=== PATIENT | male | born 1950 | race Caucasian/White ===

== ENCOUNTER 2017-06-29 09:30 | Outpatient (RCR) | payer MEDICARE, OTHER, SELFPAY | END 2017-07-06 23:59 | LOC: DC 09:30 | PROVIDERS: Family Provider Family Medicine Geriatric Medicine; PCP Family Medicine Geriatric Medicine; Visit Provider Family Medicine Geriatric Medicine | DX: E11.9 Type 2 diabetes mellitus without complications (principal); Z71.3 Dietary counseling and surveillance | CPT/HCPCS: 97802; G0109 ==

== ENCOUNTER 2017-07-26 09:30 | Outpatient (RCR) | payer MEDICARE, OTHER, SELFPAY | END 2017-08-03 23:59 | LOC: DC 09:30 | PROVIDERS: Family Provider Family Medicine Geriatric Medicine; PCP Family Medicine Geriatric Medicine; Visit Provider Family Medicine Geriatric Medicine | DX: E11.9 Type 2 diabetes mellitus without complications (principal); Z71.3 Dietary counseling and surveillance | CPT/HCPCS: 97803; G0109 ==

== ENCOUNTER → 2017-08-26 08:53 | Outpatient (CLI) | payer MEDICARE, OTHER, SELFPAY ==
[2017-08-26 10:56] LABS: Absolute Lymphocyte Count 2.34 X10^3/ul (0.83-4.51); Absolute Neutrophil Count 7.4 X10^3/uL (2.0-7.7); Basophil# 0.03 X10^3/uL; Basophil% 0.3 % (0-1); Eosinophil# 0.35 X10^3/uL; Eosinophils% 3.1 % (0-5); Hematocrit 44.7 % (40-54); Hemoglobin 14.1 g/dl (13.0-16.5); Lymphocyte # 2.34 X10^3/ul (4.0); Lymphocyte % 20.9 % (19-41); Mean Corp Hgb Conc 31.5 g/gl (32-36); Mean Corpuscular Volume 88.9 fL (80-94); Mean Platelet Vol. 11.8 fl (6.2-12.0); Monocyte% 9.8 % (0-10); Neutrophil # 7.36 X10^3/uL (2.7-7.7); Neutrophil % 65.5 % (47-70); POSITIVE COUNT NO; POSITIVE DIFFERENTIAL NO; POSITIVE MORPHOLOGY NO; Platelet Count 203 K/mm3 (150-450); RBC Distribution Width CV 15.2 % (11.6-14.6); RBC Distribution Width SD 48.6 fl (35.1-43.9); Red Blood Count 5.03 M/mm3 (4.6-6.2); White Blood Count 11.2 K/mm3 (4.4-11.0)
[2017-08-26 11:33] LABS: ALB/GLOB Ratio 0.7 RATIO (0.9-2.4); AST(SGOT) 18 U/L (15-37); Alanine Aminotransfer ALT/SGPT 22 U/L (16-61); Albumin, Serum 3.1 g/dL (3.2-5.0); Alkaline Phosphatase 76 U/L (45-117); Anion Gap 8 (5-15); BUN 26 mg/dL (7-18); BUN/Creat Ratio 19.3 RATIO (10-20); Calcium,Total 8.8 mg/dL (8.5-10.1); Chloride 105 mmol/L (98-107); Creatinine, Serum 1.35 mg/dL (0.70-1.30); EST Glomerular Filtration Rate 56 mL/min (>60); Est Glom Filt Rate - Afr Amer 68 mL/min (>60); Globulin 4.5 g/dL (2.2-4.2); Glucose 167 mg/dL (74-106); Potassium 3.9 mmol/L (3.5-5.1); Protein, Total 7.6 g/dL (6.4-8.2); Sodium Level 139 mmol/L (136-145); Thyroid Stim Hormone (TSH) 0.92 uIU/mL (0.358-3.74)
== END ==
PROVIDERS: Family Provider Family Medicine Geriatric Medicine; PCP Family Medicine Geriatric Medicine; Visit Provider Family Medicine Geriatric Medicine
DX: E11.9 Type 2 diabetes mellitus without complications (principal); E55.9 Vitamin D deficiency, unspecified; I10 Essential (primary) hypertension
CPT/HCPCS: 36415; 80053; 82306; 84443; 85025

== ENCOUNTER → 2017-11-25 09:14 | Outpatient (CLI) | payer MEDICARE, OTHER, SELFPAY ==
[2017-11-25 12:03] LABS: Absolute Neutrophil Count 7.7 X10^3/uL (2.0-7.7); Basophil# 0.02 X10^3/uL; Basophil% 0.2 % (0-1); Eosinophil# 0.16 X10^3/uL; Eosinophils% 1.5 % (0-5); Hematocrit 45.8 % (40-54); Hemoglobin 14.2 g/dl (13.0-16.5); Mean Corpuscular Hgb 27.8 pg (27.0-32.0); Mean Corpuscular Volume 89.8 fL (80-94); Mean Platelet Vol. 12.3 fl (6.2-12.0); Monocyte# 0.85 X10^3/uL; Neutrophil % 72.9 % (47-70); Platelet Count 171 K/mm3 (150-450); RBC Distribution Width CV 15.9 % (11.6-14.6); RBC Distribution Width SD 52.1 fl (35.1-43.9); White Blood Count 10.6 K/mm3 (4.4-11.0)
[2017-11-25 12:07] LABS: POSITIVE COUNT NO; POSITIVE DIFFERENTIAL NO; POSITIVE MORPHOLOGY NO
[2017-11-25 12:37] LABS: ALB/GLOB Ratio 0.7 RATIO (0.9-2.4); AST(SGOT) 18 U/L (15-37); Alanine Aminotransfer ALT/SGPT 29 U/L (16-61); Albumin, Serum 3.1 g/dL (3.2-5.0); Alkaline Phosphatase 92 U/L (45-117); Anion Gap 10 (5-15); BUN 29 mg/dL (7-18); BUN/Creat Ratio 23.4 RATIO (10-20); Calcium,Total 8.9 mg/dL (8.5-10.1); Chloride 103 mmol/L (98-107); Creatinine, Serum 1.24 mg/dL (0.70-1.30); EST Glomerular Filtration Rate 62 mL/min (>60); Est Glom Filt Rate - Afr Amer 75 mL/min (>60); Globulin 4.3 g/dL (2.2-4.2); Glucose 167 mg/dL (74-106); Potassium 3.6 mmol/L (3.5-5.1); Protein, Total 7.4 g/dL (6.4-8.2); Sodium Level 140 mmol/L (136-145); Thyroid Stim Hormone (TSH) 0.56 uIU/mL (0.358-3.74)
== END ==
PROVIDERS: Family Provider Family Medicine Geriatric Medicine; PCP Family Medicine Geriatric Medicine; Visit Provider Family Medicine Geriatric Medicine
DX: E11.9 Type 2 diabetes mellitus without complications (principal); E55.9 Vitamin D deficiency, unspecified; I10 Essential (primary) hypertension
CPT/HCPCS: 36415; 80053; 82306; 84443; 85025

== ENCOUNTER → 2018-03-02 15:28 | Outpatient (CLI) | payer MEDICARE, OTHER, SELFPAY ==
[2018-03-02 17:10] LABS: Absolute Lymphocyte Count 2.17 X10^3/ul (0.83-4.51); Absolute Neutrophil Count 8.7 X10^3/uL (2.0-7.7); Basophil# 0.03 X10^3/uL; Basophil% 0.2 % (0-1); Eosinophil# 0.18 X10^3/uL; Eosinophils% 1.5 % (0-5); Hemoglobin 13.9 g/dl (13.0-16.5); Lymphocyte # 2.17 X10^3/ul (4.0); Lymphocyte % 17.5 % (19-41); Mean Corp Hgb Conc 32.3 g/gl (32-36); Mean Corpuscular Hgb 29.2 pg (27.0-32.0); Mean Corpuscular Volume 90.3 fL (80-94); Mean Platelet Vol. 12.3 fl (6.2-12.0); Monocyte# 1.31 X10^3/uL; Monocyte% 10.6 % (0-10); Neutrophil # 8.67 X10^3/uL (2.7-7.7); Platelet Count 182 K/mm3 (150-450); RBC Distribution Width CV 15.1 % (11.6-14.6); RBC Distribution Width SD 49.3 fl (35.1-43.9); Red Blood Count 4.76 M/mm3 (4.6-6.2); White Blood Count 12.4 K/mm3 (4.4-11.0)
[2018-03-02 17:18] LABS: POSITIVE COUNT NO; POSITIVE DIFFERENTIAL NO; POSITIVE MORPHOLOGY NO
[2018-03-02 17:24] LABS: Vitamin D,25 Hydroxy 30.5 ng/mL (29.95-100.01)
[2018-03-02 17:27] LABS: ALB/GLOB Ratio 0.9 RATIO (0.9-2.4); AST(SGOT) 42 U/L (15-37); Alanine Aminotransfer ALT/SGPT 40 U/L (16-61); Albumin, Serum 3.8 g/dL (3.2-5.0); Alkaline Phosphatase 102 U/L (45-117); Anion Gap 9 (5-15); BUN 19 mg/dL (7-18); BUN/Creat Ratio 18.6 RATIO (10-20); Calcium,Total 9.5 mg/dL (8.5-10.1); Chloride 104 mmol/L (98-107); Creatinine, Serum 1.02 mg/dL (0.70-1.30); EST Glomerular Filtration Rate 78 mL/min (>60); Est Glom Filt Rate - Afr Amer 94 mL/min (>60); Globulin 4.3 g/dL (2.2-4.2); Glucose 108 mg/dL (74-106); Potassium 3.8 mmol/L (3.5-5.1); Protein, Total 8.1 g/dL (6.4-8.2); Sodium Level 139 mmol/L (136-145); Thyroid Stim Hormone (TSH) 2.75 uIU/mL (0.358-3.74)
== END ==
PROVIDERS: Family Provider Family Medicine Geriatric Medicine; PCP Family Medicine Geriatric Medicine; Visit Provider Family Medicine Geriatric Medicine
DX: E11.9 Type 2 diabetes mellitus without complications (principal); E55.9 Vitamin D deficiency, unspecified; I10 Essential (primary) hypertension
CPT/HCPCS: 36415; 80053; 82306; 84443; 85025

== ENCOUNTER 2018-05-10 16:31 | Outpatient (RCR) | payer MEDICARE, OTHER, SELFPAY | END 2018-05-10 23:59 | LOC: DC 16:31 | PROVIDERS: Family Provider Family Medicine Geriatric Medicine; PCP Family Medicine Geriatric Medicine; Visit Provider Family Medicine Geriatric Medicine | DX: E11.9 Type 2 diabetes mellitus without complications (principal); Z71.3 Dietary counseling and surveillance | CPT/HCPCS: G0109 ==

== ENCOUNTER → 2018-10-26 | Outpatient (CLI) | payer MEDICARE, OTHER, SELFPAY ==
[2018-10-26 17:34] LABS: Absolute Lymphocyte Count 2.25 X10^3/ul (0.83-4.51); Absolute Neutrophil Count 6.1 X10^3/uL (2.0-7.7); Basophil# 0.02 X10^3/uL; Basophil% 0.2 % (0-1); Eosinophil# 0.13 X10^3/uL; Eosinophils% 1.4 % (0-5); Hematocrit 43.3 % (40-54); Hemoglobin 13.7 g/dl (13.0-16.5); Lymphocyte # 2.25 X10^3/ul (4.0); Lymphocyte % 24.2 % (19-41); Mean Corp Hgb Conc 31.6 g/gl (32-36); Mean Corpuscular Hgb 28.2 pg (27.0-32.0); Mean Corpuscular Volume 89.1 fL (80-94); Mean Platelet Vol. 12.5 fl (6.2-12.0); Monocyte# 0.83 X10^3/uL; Monocyte% 8.9 % (0-10); Neutrophil # 6.07 X10^3/uL (2.7-7.7); Neutrophil % 65.2 % (47-70); Platelet Count 193 K/mm3 (150-450); RBC Distribution Width CV 15.5 % (11.6-14.6); RBC Distribution Width SD 50.1 fl (35.1-43.9); Red Blood Count 4.86 M/mm3 (4.6-6.2); White Blood Count 9.3 K/mm3 (4.4-11.0)
[2018-10-26 17:36] LABS: POSITIVE COUNT NO; POSITIVE DIFFERENTIAL NO; POSITIVE MORPHOLOGY NO
[2018-10-26 17:55] LABS: Vitamin D,25 Hydroxy 45.6 ng/mL (29.95-100.01)
[2018-10-26 17:59] LABS: ALB/GLOB Ratio 0.8 RATIO (0.9-2.4); AST(SGOT) 18 U/L (15-37); Alanine Aminotransfer ALT/SGPT 29 U/L (16-61); Albumin, Serum 3.1 g/dL (3.2-5.0); Alkaline Phosphatase 95 U/L (45-117); Anion Gap 6 (5-15); BUN 26 mg/dL (7-18); BUN/Creat Ratio 18.8 RATIO (10-20); Calcium,Total 8.8 mg/dL (8.5-10.1); Chloride 104 mmol/L (98-107); Creatinine, Serum 1.38 mg/dL (0.70-1.30); EST Glomerular Filtration Rate 55 mL/min (>60); Est Glom Filt Rate - Afr Amer 66 mL/min (>60); Glucose 213 mg/dL (74-106); Potassium 3.9 mmol/L (3.5-5.1); Protein, Total 7.1 g/dL (6.4-8.2); Sodium Level 141 mmol/L (136-145); Thyroid Stim Hormone (TSH) 0.51 uIU/mL (0.358-3.74)
== END | disposition home or self-care (01) ==
LOC: POLAB3 15:26
PROVIDERS: Family Provider Family Medicine Geriatric Medicine; PCP Family Medicine Geriatric Medicine; Visit Provider Family Medicine Geriatric Medicine
DX: E11.9 Type 2 diabetes mellitus without complications (principal); E55.9 Vitamin D deficiency, unspecified; I10 Essential (primary) hypertension
CPT/HCPCS: 36415; 80053; 82306; 84443; 85025

== ENCOUNTER → 2019-05-07 16:07 | Outpatient (CLI) | payer MEDICARE, OTHER, SELFPAY ==
[2019-05-07 17:42] LABS: Absolute Lymphocyte Count 2.63 X10^3/uL (0.83-4.51); Absolute Neutrophil Count 7.8 X10^3/uL (2.0-7.7); Basophil# 0.05 X10^3/uL; Basophil% 0.4 % (0-1); Eosinophil# 0.19 X10^3/uL; Eosinophils% 1.6 % (0-5); Hematocrit 44.6 % (40-54); Hemoglobin 13.9 g/dL (13.0-16.5); Lymphocyte # 2.63 X10^3/ul (4.0); Mean Corp Hgb Conc 31.2 g/dL (32-36); Mean Corpuscular Hgb 28.6 pg (27.0-32.0); Mean Corpuscular Volume 91.8 fL (80-94); Mean Platelet Vol. 12.3 fl (6.2-12.0); Monocyte# 1.24 X10^3/uL; Monocyte% 10.4 % (0-10); NRBC Flagged by Analyzer 0 % (0-5); Neutrophil # 7.81 X10^3/uL (2.7-7.7); Neutrophil % 65.2 % (47-70); Platelet Count 184 K/mm3 (150-450); RBC Distribution Width SD 54.2 fl (35.1-43.9); Red Blood Count 4.86 M/mm3 (4.6-6.2)
[2019-05-07 18:01] LABS: ALB/GLOB Ratio 0.8 RATIO (0.9-2.4); AST(SGOT) 24 U/L (15-37); Alanine Aminotransfer ALT/SGPT 28 U/L (16-61); Albumin, Serum 3.1 g/dL (3.2-5.0); Alkaline Phosphatase 90 U/L (45-117); Anion Gap 7 (5-15); BUN 35 mg/dL (7-18); BUN/Creat Ratio 27.8 RATIO (10-20); Calcium,Total 8.9 mg/dL (8.5-10.1); Chloride 106 mmol/L (98-107); Creatinine, Serum 1.26 mg/dL (0.70-1.30); EST Glomerular Filtration Rate 61 mL/min (>60); Est Glom Filt Rate - Afr Amer 73 mL/min (>60); Glucose 69 mg/dL (74-106); PSA,Total - Annual Screen 1.92 ng/mL (0.00-4.00); Potassium 3.7 mmol/L (3.5-5.1); Protein, Total 7.1 g/dL (6.4-8.2); Sodium Level 139 mmol/L (136-145); Thyroid Stim Hormone (TSH) 0.47 uIU/mL (0.358-3.74)
[2019-05-08 10:03] LABS: Vitamin D,25 Hydroxy 49.5 ng/mL (29.95-100.01)
== END ==
PROVIDERS: Family Provider Family Medicine Geriatric Medicine; PCP Family Medicine Geriatric Medicine; Visit Provider Family Medicine Geriatric Medicine
DX: E11.9 Type 2 diabetes mellitus without complications (principal); E55.9 Vitamin D deficiency, unspecified; Z12.5 Encounter for screening for malignant neoplasm of prostate; I10 Essential (primary) hypertension
CPT/HCPCS: 36415; 80053; 82306; 84153; 84443; 85025; G0103

== ENCOUNTER → 2019-08-06 09:39 | Outpatient (CLI) | payer MEDICARE, OTHER, SELFPAY ==
[2019-08-06 12:27] LABS: Absolute Lymphocyte Count 2.04 X10^3/uL (0.83-4.51); Absolute Neutrophil Count 10.8 X10^3/uL (2.0-7.7); Basophil# 0.05 X10^3/uL; Basophil% 0.3 % (0-1); Eosinophils% 1.4 % (0-5); Hematocrit 46.3 % (40-54); Hemoglobin 14.3 g/dL (13.0-16.5); Lymphocyte # 2.04 X10^3/ul (4.0); Lymphocyte % 14.2 % (19-41); Mean Corp Hgb Conc 30.9 g/dL (32-36); Mean Corpuscular Hgb 27.7 pg (27.0-32.0); Mean Corpuscular Volume 89.7 fL (80-94); Mean Platelet Vol. 12.3 fl (6.2-12.0); Monocyte# 1.21 X10^3/uL; Monocyte% 8.4 % (0-10); NRBC Flagged by Analyzer 0 % (0-5); Neutrophil # 10.78 X10^3/uL (2.7-7.7); Neutrophil % 75.2 % (47-70); Platelet Count 184 K/mm3 (150-450); RBC Distribution Width CV 15.7 % (11.6-14.6); RBC Distribution Width SD 51.5 fl (35.1-43.9); Red Blood Count 5.16 M/mm3 (4.6-6.2); White Blood Count 14.4 K/mm3 (4.4-11.0)
[2019-08-06 12:35] LABS: Vitamin D,25 Hydroxy 34.6 ng/mL
[2019-08-06 12:47] LABS: ALB/GLOB Ratio 0.8 RATIO (0.9-2.4); AST(SGOT) 21 U/L (15-37); Alanine Aminotransfer ALT/SGPT 27 U/L (16-61); Albumin, Serum 3.3 g/dL (3.2-5.0); Alkaline Phosphatase 94 U/L (45-117); Anion Gap 9 (5-15); BUN 27 mg/dL (7-18); BUN/Creat Ratio 20.8 RATIO (10-20); Calcium,Total 9.4 mg/dL (8.5-10.1); Chloride 104 mmol/L (98-107); EST Glomerular Filtration Rate 58 mL/min (>60); Est Glom Filt Rate - Afr Amer 71 mL/min (>60); Globulin 4.2 g/dL (2.2-4.2); Glucose 134 mg/dL (74-106); Potassium 3.7 mmol/L (3.5-5.1); Protein, Total 7.5 g/dL (6.4-8.2); Sodium Level 141 mmol/L (136-145); Thyroid Stim Hormone (TSH) 0.66 uIU/mL (0.358-3.74)
== END ==
PROVIDERS: PCP Family Medicine Geriatric Medicine; Visit Provider Family Medicine Geriatric Medicine
DX: E11.9 Type 2 diabetes mellitus without complications (principal); I10 Essential (primary) hypertension; E55.9 Vitamin D deficiency, unspecified
CPT/HCPCS: 36415; 80053; 82306; 84443; 85025

== ENCOUNTER → 2019-11-06 10:36 | Outpatient (CLI) | payer MEDICARE, OTHER, SELFPAY ==
[2019-11-06 12:10] LABS: Absolute Lymphocyte Count 2.51 X10^3/uL (0.83-4.51); Absolute Neutrophil Count 8.9 X10^3/uL (2.0-7.7); Basophil# 0.05 X10^3/uL; Basophil% 0.4 % (0-1); Eosinophil# 0.18 X10^3/uL; Eosinophils% 1.4 % (0-5); Hematocrit 43.2 % (40-54); Hemoglobin 13.6 g/dL (13.0-16.5); Lymphocyte # 2.51 X10^3/ul (4.0); Lymphocyte % 19.4 % (19-41); Mean Corp Hgb Conc 31.5 g/dL (32-36); Mean Corpuscular Hgb 28.6 pg (27.0-32.0); Mean Corpuscular Volume 90.9 fL (80-94); Mean Platelet Vol. 12.2 fl (6.2-12.0); Monocyte% 9.3 % (0-10); NRBC Flagged by Analyzer 0.2 % (0-5); Neutrophil # 8.91 X10^3/uL (2.7-7.7); Platelet Count 193 K/mm3 (150-450); RBC Distribution Width CV 14.8 % (11.6-14.6); RBC Distribution Width SD 49.5 fl (35.1-43.9); Red Blood Count 4.75 M/mm3 (4.6-6.2); White Blood Count 12.9 K/mm3 (4.4-11.0)
[2019-11-06 12:33] LABS: Vitamin D,25 Hydroxy 31.4 ng/mL
[2019-11-06 12:39] LABS: ALB/GLOB Ratio 0.7 RATIO (0.9-2.4); AST(SGOT) 19 U/L (15-37); Alanine Aminotransfer ALT/SGPT 32 U/L (16-61); Alkaline Phosphatase 100 U/L (45-117); Anion Gap 10 (5-15); BUN 25 mg/dL (7-18); BUN/Creat Ratio 19.7 RATIO (10-20); Chloride 101 mmol/L (98-107); Creatinine, Serum 1.27 mg/dL (0.70-1.30); EST Glomerular Filtration Rate 60 mL/min (>60); Est Glom Filt Rate - Afr Amer 73 mL/min (>60); Globulin 4.1 g/dL (2.2-4.2); Glucose 197 mg/dL (74-106); Potassium 3.6 mmol/L (3.5-5.1); Protein, Total 7.1 g/dL (6.4-8.2); Sodium Level 138 mmol/L (136-145); Thyroid Stim Hormone (TSH) 0.46 uIU/mL (0.358-3.74)
== END ==
PROVIDERS: PCP Family Medicine Geriatric Medicine; Visit Provider Family Medicine Geriatric Medicine
DX: E11.9 Type 2 diabetes mellitus without complications (principal); I10 Essential (primary) hypertension; E55.9 Vitamin D deficiency, unspecified
CPT/HCPCS: 36415; 80053; 82306; 84443; 85025

== ENCOUNTER → 2020-02-13 09:07 | Outpatient (CLI) | payer MEDICARE, OTHER, SELFPAY ==
--- NOTE | 2020-02-13 13:20 | NEURO ---
NCS and/or EMG Patient Report Ordering Doctor: Dhruv Ward Chi DATE OF SERVICE: 02/13/20 Jesus Cochran is a 69 year old male who presents for electrodiagnostic testing of the upper limbs. He reports numbness and tingling in both hands. Electrodiagnostic findings: Median motor nerve demonstrates prolonged distal latency with normal amplitude and conduction velocity bilaterally. Ulnar motor responses within normal limits bilaterally. Normal median and ulnar F waves. Median sensory latency at the wrist is prolonged bilaterally. Prolonged median palmar latency is noted. Normal ulnar and radial sensory responses. On needle EMG, all muscles tested in the upper limbs showed no evidence of denervation with normal motor unit action potentials. Electrodiagnostic assessment: This is an abnormal study in the upper limbs. 1. Electrodiagnostic findings demonstrate bilateral median mononeuropathy. This is consistent with a mild to moderate bilateral carpal tunnel syndrome. If there are any further questions, please not hesitate to contact me.
== END ==
PROVIDERS: PCP Family Medicine Geriatric Medicine; Referring Provider Family Medicine Geriatric Medicine; Visit Provider Family Medicine Geriatric Medicine
DX: R20.9 Unspecified disturbances of skin sensation (principal); R20.2 Paresthesia of skin
CPT/HCPCS: 95886; 95913

== ENCOUNTER → 2020-03-19 11:25 | Outpatient (CLI) | payer MEDICARE, OTHER, SELFPAY ==
[2020-03-19 12:06] LABS: Absolute Lymphocyte Count 2.27 X10^3/uL (0.83-4.51); Absolute Neutrophil Count 9.5 X10^3/uL (2.0-7.7); Basophil# 0.03 X10^3/uL; Basophil% 0.2 % (0-1); Eosinophil# 0.15 X10^3/uL; Eosinophils% 1.1 % (0-5); Hematocrit 42.4 % (40-54); Hemoglobin 13.2 g/dL (13.0-16.5); Lymphocyte # 2.27 X10^3/ul (4.0); Lymphocyte % 17.3 % (19-41); Mean Corp Hgb Conc 31.1 g/dL (32-36); Mean Corpuscular Hgb 28.4 pg (27.0-32.0); Mean Corpuscular Volume 91.2 fL (80-94); Mean Platelet Vol. 12.8 fl (6.2-12.0); Monocyte# 1.06 X10^3/uL; Monocyte% 8.1 % (0-10); NRBC Flagged by Analyzer 0 % (0-5); Neutrophil # 9.54 X10^3/uL (2.7-7.7); Neutrophil % 72.9 % (47-70); Platelet Count 185 K/mm3 (150-450); RBC Distribution Width CV 15.3 % (11.6-14.6); RBC Distribution Width SD 50.7 fl (35.1-43.9); Red Blood Count 4.65 M/mm3 (4.6-6.2); White Blood Count 13.1 K/mm3 (4.4-11.0)
[2020-03-19 12:47] LABS: Vitamin D,25 Hydroxy 44.5 ng/mL
[2020-03-19 12:52] LABS: BUN 30 mg/dL (7-18); Creatinine, Serum 1.37 mg/dL (0.70-1.30); Glucose 214 mg/dL (74-106)
[2020-03-19 12:53] LABS: ALB/GLOB Ratio 0.8 RATIO (0.9-2.4); AST(SGOT) 22 U/L (15-37); Alanine Aminotransfer ALT/SGPT 25 U/L (16-61); Alkaline Phosphatase 93 U/L (45-117); Anion Gap 10 (5-15); BUN/Creat Ratio 21.9 RATIO (10-20); Calcium,Total 8.9 mg/dL (8.5-10.1); Chloride 104 mmol/L (98-107); EST Glomerular Filtration Rate 55 mL/min (>60); Est Glom Filt Rate - Afr Amer 66 mL/min (>60); Potassium 3.7 mmol/L (3.5-5.1); Sodium Level 140 mmol/L (136-145); Thyroid Stim Hormone (TSH) 0.48 uIU/mL (0.358-3.74)
== END ==
PROVIDERS: PCP Family Medicine Geriatric Medicine; Referring Provider Family Medicine Geriatric Medicine; Visit Provider Family Medicine Geriatric Medicine
CPT/HCPCS: 36415; 80053; 82306; 84443; 85025

== ENCOUNTER → 2020-05-22 | Outpatient (CLI) | payer MEDICARE, OTHER, SELFPAY | END | disposition home or self-care (01) | LOC: LABSPEC 10:24 | PROVIDERS: PCP Family Medicine Geriatric Medicine; Referring Provider Family Medicine Geriatric Medicine; Visit Provider Family Medicine Geriatric Medicine | DX: R68.83 Chills (without fever) (principal) | CPT/HCPCS: 87633; 87635; C9803; U0003 ==

== ENCOUNTER → 2020-06-09 15:22 | Outpatient (CLI) | payer MEDICARE, OTHER, SELFPAY ==
--- NOTE | 2020-06-09 16:00 | RAD_ITS ---
STUDY: X-RAY CHEST REASON FOR EXAM: Male, 69 years old. SOB X1 MONTH TECHNIQUE: Frontal and lateral views of the chest. COMPARISON: None. FINDINGS: The lungs are hyperexpanded. There are coarsened interstitial markings suggestive of mild chronic fibrosis. No gross focal infiltrates. No gross effusions. Normal size heart. Normal mediastinum and shane. Normal visualized pulmonary arteries. Normal visualized aortic arch and descending thoracic aorta. There are diffuse degenerative changes of the visualized thoracic spine. Normal visualized ribs, clavicles, and shoulders. There is no demonstrated abnormality of the visualized soft tissue structures of the upper abdomen. RAD/Chest PA and Lateral IMPRESSION: There are findings consistent with COPD. There is no evidence of acute chest disease. Electronically Signed: Philip Schmid MD at 19:59 EST , Service support ,
== END ==
PROVIDERS: PCP Family Medicine Geriatric Medicine; Visit Provider Family Medicine Geriatric Medicine
DX: R06.02 Shortness of breath (principal); R68.83 Chills (without fever)
CPT/HCPCS: 71046; 87633; 87635; C9803; U0005; U0003

== ENCOUNTER → 2020-06-23 15:13 | Outpatient (CLI) | payer MEDICARE, OTHER, SELFPAY ==
[2020-06-23 17:27] LABS: Absolute Neutrophil Count 10.2 X10^3/uL (2.0-7.7); Basophil# 0.05 X10^3/uL; Basophil% 0.3 % (0-1); Eosinophil# 0.19 X10^3/uL; Eosinophils% 1.3 % (0-5); Hematocrit 42.2 % (40-54); Hemoglobin 13.8 g/dL (13.0-16.5); Mean Corp Hgb Conc 32.7 g/dL (32-36); Mean Corpuscular Volume 88.7 fL (80-94); Mean Platelet Vol. 12.6 fl (6.2-12.0); Monocyte# 1.39 X10^3/uL; Monocyte% 9.4 % (0-10); NRBC Flagged by Analyzer 0 % (0-5); Neutrophil # 10.18 X10^3/uL (2.7-7.7); Neutrophil % 69.3 % (47-70); Platelet Count 182 K/mm3 (150-450); RBC Distribution Width CV 15.7 % (11.6-14.6); RBC Distribution Width SD 50.7 fl (35.1-43.9); Red Blood Count 4.76 M/mm3 (4.6-6.2); White Blood Count 14.7 K/mm3 (4.4-11.0)
[2020-06-23 17:38] LABS: Vitamin D,25 Hydroxy 34.6 ng/mL
[2020-06-23 17:48] LABS: ALB/GLOB Ratio 0.7 RATIO (0.9-2.4); AST(SGOT) 17 U/L (15-37); Alanine Aminotransfer ALT/SGPT 29 U/L (16-61); Albumin, Serum 2.9 g/dL (3.2-5.0); Alkaline Phosphatase 82 U/L (45-117); Anion Gap 9 (5-15); BUN 25 mg/dL (7-18); BUN/Creat Ratio 19.8 RATIO (10-20); Calcium,Total 8.8 mg/dL (8.5-10.1); Chloride 104 mmol/L (98-107); Creatinine, Serum 1.26 mg/dL (0.70-1.30); EST Glomerular Filtration Rate 60 mL/min (>60); Est Glom Filt Rate - Afr Amer 73 mL/min (>60); Globulin 3.9 g/dL (2.2-4.2); Glucose 117 mg/dL (74-106); PSA,Total - Annual Screen 2.55 ng/mL (0.00-4.00); Potassium 3.5 mmol/L (3.5-5.1); Protein, Total 6.8 g/dL (6.4-8.2); Sodium Level 139 mmol/L (136-145); Thyroid Stim Hormone (TSH) 1.04 uIU/mL (0.358-3.74)
== END ==
PROVIDERS: PCP Family Medicine Geriatric Medicine; Visit Provider Family Medicine Geriatric Medicine
DX: E11.9 Type 2 diabetes mellitus without complications (principal); I10 Essential (primary) hypertension; E55.9 Vitamin D deficiency, unspecified; Z12.5 Encounter for screening for malignant neoplasm of prostate
CPT/HCPCS: 36415; 80053; 82306; 84153; 84443; 85025; G0103

== ENCOUNTER → 2020-07-02 16:01 | Outpatient (CLI) | payer MEDICARE, OTHER, SELFPAY ==
--- NOTE | 2020-07-02 16:28 | RAD_ITS ---
STUDY: X-RAY CHEST REASON FOR EXAM: Male, 69 years old. COUGH/GENERAL ILLNESS AND WEAKNESS FOR 1 MONTH. TECHNIQUE: PA and lateral views of the chest. COMPARISON: 06/09/2020 FINDINGS: Patchy alveolar opacity in both lungs consistent with bilateral pneumonia particularly in the right upper lobe the adjacent to the minor fissure. There is no demonstrated pleural abnormality. Normal size heart. Normal mediastinum and shane. Normal visualized pulmonary arteries. Normal visualized aortic arch and descending thoracic aorta. Normal visualized thoracic spine. Normal visualized ribs, clavicles, and shoulders. There is no demonstrated abnormality of the visualized soft tissue structures of the upper abdomen. RAD/Chest PA and Lateral IMPRESSION: Bilateral pneumonia. CT may be useful. Electronically Signed: Hardy Haney MD at 16:46 EST Tel , Service support ,
[2020-07-02 18:19] LABS: Absolute Lymphocyte Count 1.19 X10^3/uL (0.83-4.51); Absolute Neutrophil Count 3.7 X10^3/uL (2.0-7.7); Basophil# 0.03 X10^3/uL; Basophil% 0.6 % (0-1); Eosinophil# 0.02 X10^3/uL; Eosinophils% 0.4 % (0-5); Hematocrit 43.1 % (40-54); Hemoglobin 13.2 g/dL (13.0-16.5); Lymphocyte # 1.19 X10^3/ul (4.0); Mean Corp Hgb Conc 30.6 g/dL (32-36); Mean Corpuscular Hgb 28.1 pg (27.0-32.0); Mean Corpuscular Volume 91.7 fL (80-94); Mean Platelet Vol. 11.5 fl (6.2-12.0); Monocyte# 0.46 X10^3/uL; Monocyte% 8.5 % (0-10); NRBC Flagged by Analyzer 0 % (0-5); Neutrophil % 68.1 % (47-70); Platelet Count 123 K/mm3 (150-450); RBC Distribution Width CV 15.8 % (11.6-14.6); RBC Distribution Width SD 53.3 fl (35.1-43.9); White Blood Count 5.4 K/mm3 (4.4-11.0)
[2020-07-02 18:32] LABS: ALB/GLOB Ratio 0.6 RATIO (0.9-2.4); AST(SGOT) 32 U/L (15-37); Alanine Aminotransfer ALT/SGPT 31 U/L (16-61); Albumin, Serum 2.4 g/dL (3.2-5.0); Alkaline Phosphatase 61 U/L (45-117); Anion Gap 10 (5-15); BUN 32 mg/dL (7-18); BUN/Creat Ratio 20.1 RATIO (10-20); Chloride 101 mmol/L (98-107); Creatinine, Serum 1.59 mg/dL (0.70-1.30); EST Glomerular Filtration Rate 46 mL/min (>60); Est Glom Filt Rate - Afr Amer 56 mL/min (>60); Globulin 4.2 g/dL (2.2-4.2); Glucose 74 mg/dL (74-106); Potassium 3.1 mmol/L (3.5-5.1); Protein, Total 6.6 g/dL (6.4-8.2); Sodium Level 138 mmol/L (136-145)
== END ==
PROVIDERS: PCP Family Medicine Geriatric Medicine; Referring Provider Family Medicine Geriatric Medicine; Visit Provider Family Medicine Geriatric Medicine
DX: I10 Essential (primary) hypertension (principal); R05 Cough
CPT/HCPCS: 36415; 71046; 80053; 85025

== ENCOUNTER 2020-07-02 17:15 | Inpatient (IN) | payer MEDICARE, OTHER, SELFPAY ==
[2020-07-02] VITALS (7 sets, daily range): BP systolic 109–128; BP diastolic 54–62; PULSE 72–85; RESP 15–16; TEMP 36.1–37.1; O2SAT 91–96; BMI 39.5
--- NOTE | 2020-07-02 17:35 | ED.RN ---
PA AND LATERAL NOT ORDERED WITH ORDER SET D/T HAVING PA AND LATERAL EARLIER TODAY.
[2020-07-02 17:53] LABS: Absolute Lymphocyte Count 1.26 X10^3/uL (0.83-4.51); Absolute Neutrophil Count 3.5 X10^3/uL (2.0-7.7); Basophil# 0.01 X10^3/uL; Basophil% 0.2 % (0-1); Eosinophil# 0.02 X10^3/uL; Eosinophils% 0.4 % (0-5); Hematocrit 40.8 % (40-54); Hemoglobin 12.7 g/dL (13.0-16.5); Lymphocyte # 1.26 X10^3/ul (4.0); Lymphocyte % 23.7 % (19-41); Mean Corp Hgb Conc 31.1 g/dL (32-36); Mean Corpuscular Volume 90.1 fL (80-94); Monocyte# 0.48 X10^3/uL; NRBC Flagged by Analyzer 0 % (0-5); Neutrophil # 3.52 X10^3/uL (2.7-7.7); Neutrophil % 66.3 % (47-70); Platelet Count 124 K/mm3 (150-450); RBC Distribution Width CV 15.7 % (11.6-14.6); RBC Distribution Width SD 51.7 fl (35.1-43.9); Red Blood Count 4.53 M/mm3 (4.6-6.2); White Blood Count 5.3 K/mm3 (4.4-11.0)
[2020-07-02 18:03] LABS: Anion Gap 9 (5-15); BUN 34 mg/dL (7-18); BUN/Creat Ratio 21.2 RATIO (10-20); Chloride 103 mmol/L (98-107); EST Glomerular Filtration Rate 46 mL/min (>60); Est Glom Filt Rate - Afr Amer 55 mL/min (>60); Estimated Creatinine Clearance 49.94 ml/min; Glucose 132 mg/dL (74-106); Potassium 2.9 mmol/L (3.5-5.1); Sodium Level 138 mmol/L (136-145)
[2020-07-02 18:26] LABS: Lactic Acid 1.4 mmol/L (0.4-1.9)
[2020-07-02 18:35] LABS: D-Dimer Quantitative (DVT/PE) 0.84 FEU/ug/m (0.27-0.49)
--- NOTE | 2020-07-02 18:51 | CT_ITS ---
STUDY: CTA CHEST REASON FOR EXAM: Male, 69 years old. PNEUMONIA, SOB RADIATION DOSAGE (If Supplied By Facility): CTDIvol = ( 37.97 ) mGy, DLP = ( 754.78 ) mGycm TECHNIQUE: The examination was performed with the intravenous administration of IV 100mL Isovue-370. Post-processing of the angiographic images was performed, with multiplanar reformation and 3D reconstruction. Individualized dose optimization techniques were used for this CT. COMPARISON: None. FINDINGS: Normal enhancement of the main pulmonary artery and right and left pulmonary arteries. Interlobar and segmental vessels are well opacified without evidence for intraluminal clot. Subsegmental vessels demonstrate linear filling defects due to motion artifact and possibility of tiny distal clot cannot be entirely excluded. Atherosclerotic changes of the aorta without evidence for aneurysm. There is no demonstrated aortic dissection. Heart is normal in size. There is minor coronary artery calcification Normal mediastinum. Normal hilar regions. Normal visualized trachea and bronchi. The lungs are well expanded. There are multiple patchy areas of groundglass opacity peripherally in the upper and lower lobes suggestive of Covid 19 pneumonia. There is more dense consolidation in the right upper lobe with air bronchograms possibly representing coexisting lobar pneumonia. Normal pleura. Normal chest wall structures. Dorsal spine demonstrates advanced arthritic changes. There is a simple cyst in the upper pole of the right kidney CT/CTA Chest W/WO Contrast IMPRESSION: Findings most consistent with Covid 19 pneumonia with coexisting right upper lobar pneumonia. . No definitive evidence for pulmonary embolus. If strong clinical suspicion for pulmonary embolus DOPPLER scan of the deep venous system of lower extremities recommended Electronically Signed: Tank Gallagher MD at 19:54 EST , Service support ,
--- NOTE | 2020-07-02 18:53 | EKG12_ITS ---
Test Reason : DYSRHYTMIA Blood Pressure : / mmHG Vent. Rate : 079 BPM Atrial Rate : 079 BPM P-R Int : 196 ms QRS Dur : 088 ms QT Int : 418 ms P-R-T Axes : 012 054 008 degrees QTc Int : 479 ms Sinus rhythm with Premature atrial complexes Otherwise normal ECG Confirmed by PAPO SEGUNDO, AYAN ([id number]), photo editor MELLY OATES ([id number]) on 07/07/2020 11:19:19 AM Referred By: RADHA Confirmed By:FRANCISCO JAVIER BARROS MD
[2020-07-02 19:31] LABS: BNP,B-Type NATRIURETIC PEPTIDE 105.8 pg/mL (0-100)
[2020-07-02] MEDS: 0.9% Normal Saline 1,000 ML 50 ML IV (19:59)
--- NOTE | 2020-07-02 20:43 | ED.DCSUM_ITS ---
History of Present Illness Chief Complaint: Shortness of Breath Informant: Patient Onset: Days Narrative: Patient is a 69-year-old male presenting with bilateral pneumonia outpatient x-ray. Patient has had upper respiratory symptoms off and on for over the past month. He states he was actually feeling better and then about a week ago started feeling worse again with shortness of breath and cough. Patient states he has had a couple episodes of hemoptysis over the past few days is also been having some blood clots with blowing his nose. On any anticoagulation. He states he is been having a lot of chills with not sure if he is having fevers. He states in the end of May beginning of June he had 2 negative Covid test. States has been seen his PCP and received shots is not sure what he is gotten. Past Medical History - Allergies and Home Meds Allergies/Adverse Reactions: Allergies No Known Allergies Allergy (Verified 07/02/20 17:17) Past Medical History: - - Hypertension, hyperlipidemia, diabetes mellitus, history of stroke Surgical History: noncontributory Lives: Spouse/ Significant Other Smoking Status: Never smoker - Family History Maternal Family History: Reports: Dementia - Mother with a history of also MS dementia. Paternal Family History: Reports: High Cholesterol, Heart Disease, Hypertension Review of Systems General: Reports: Chills, Fever, Malaise. Denies: Sweats Eyes: Denies: Visual changes - bilaterally, Diplopia ENT: Denies: Rhinorrhea, Sore throat Cardiovascular: Denies: Chest pain, Palpitations Respiratory: Reports: Dyspnea, Cough, Sputum, - - Hemoptysis. Denies: Dyspnea on exertion Gastrointestinal: Denies: Abdominal pain, Nausea, Vomiting, Diarrhea, Melena, Hematochezia Genitourinary: Denies: Dysuria, Hematuria, Frequency Musculoskeletal: Denies: Back pain, Extremity Pain Skin: Denies: Rash, Wounds Neurological: Reports: Weakness - Generalized weakness. Denies: Headache, Numbness Physical Exam Vital Signs/Narrative: Vital Signs Temp Pulse Resp BP Pulse Ox 07/02/20 20:02 98.7 F 76 15 128/62 H 95 07/02/20 19:59 73 16 115/60 96 07/02/20 19:58 91 07/02/20 17:17 97 F L 85 16 109/54 L 92 07/02/20 17:15 97 F L 85 16 109/54 L 92 Inital Vital Signs reviewed: Yes General: Well nourished, Well developed, Obese, No Acute Distress Head: Normocephalic, Atraumatic Eyes: Perrl, EOMI ENT: Moist mucous membranes, No rhinorrhea Neck: Supple, Nontender, No JVD Cardiovascular: Regular rate, Regular rhythm, No murmurs Respiratory: No distress, Chest nontender, Diminished, - - Crackles throughout. Negative for: Rhonchi, Decreased Air Movement, Retractions Abdomen: Soft, Nontender, Nondistended, Normal bowel sounds Back: Nontender, Normal Inspection Extremities: Nontender, Edema. Negative for: Calf Tenderness Skin: Normal color, No rash Neurological: Alert, Oriented x3, Cranial nerves II-XII grossly intact, Normal Strength, Normal Sensation Psychological: Normal affect, Normal Mood Diagnostic/Tx/Re-eval Clinical Impression(s) from Imaging Studies Chest CTA 07/02/20 18:51 IMPRESSION: Findings most consistent with Covid 19 pneumonia with coexisting right upper lobar pneumonia. . No definitive evidence for pulmonary embolus. If strong clinical suspicion for pulmonary embolus DOPPLER scan of the deep venous system of lower extremities recommended Electronically Signed: Tank Gallagher MD at 19:54 EST , Service support , Laboratory Data 07/02/20 07/02/20 07/02/20 17:30 17:30 17:30 WBC 5.3 RBC 4.53 L Hgb 12.7 L Hct 40.8 MCV 90.1 MCH 28.0 MCHC 31.1 L RDW Std Deviation 51.7 H RDW Coeff of Katie 15.7 H Plt Count 124 L MPV 11.0 Immature Gran % (Auto) 0.400 Neut % (Auto) 66.3 Lymph % (Auto) 23.7 [place] % (Auto) 9.0 Eos % (Auto) 0.4 Baso % (Auto) 0.2 Absolute Neuts (auto) 3.5 Absolute Lymphs (auto) 1.26 Nucleated RBC % 0 D-Dimer Quant (PE/DVT) 0.84 H* Sodium Potassium Chloride Carbon Dioxide Anion Gap BUN Creatinine Estim Creat Clear Calc Est GFR (MDRD) Af Amer Est GFR (MDRD) Non-Af BUN/Creatinine Ratio Glucose Lactic Acid 1.4 Calcium Magnesium Ferritin Total Bilirubin Direct Bilirubin AST ALT Alkaline Phosphatase Lactate Dehydrogenase Troponin I C-React Prot Ext Range B-Natriuretic Peptide Total Protein Albumin Globulin 07/02/20 07/02/20 07/02/20 17:30 17:30 17:30 WBC RBC Hgb Hct MCV MCH MCHC RDW Std Deviation RDW Coeff of Katie Plt Count MPV Immature Gran % (Auto) Neut % (Auto) Lymph % (Auto) [place] % (Auto) Eos % (Auto) Baso % (Auto) Absolute Neuts (auto) Absolute Lymphs (auto) Nucleated RBC % D-Dimer Quant (PE/DVT) Sodium 138 Potassium 2.9 L Chloride 103 Carbon Dioxide 26.0 Anion Gap 9 BUN 34 H Creatinine 1.60 H Estim Creat Clear Calc 49.94 Est GFR (MDRD) Af Amer 55 L Est GFR (MDRD) Non-Af 46 L BUN/Creatinine Ratio 21.2 H Glucose 132 H Lactic Acid Calcium 8.0 L Magnesium 1.7 Ferritin 360 Total Bilirubin 0.30 Direct Bilirubin < 0.05 AST 32 ALT 31 Alkaline Phosphatase 62 Lactate Dehydrogenase 278 H Troponin I 0.025 C-React Prot Ext Range 110.00 H B-Natriuretic Peptide 105.8 H Total Protein 6.2 L Albumin 2.4 L Globulin 3.8 - Medical Decision Making Patient evaluated for worsening respiratory symptoms as well as fever and chills. He had 2 negative Covid test earlier in the month. This time symptoms been going on for about 8 days. He had an outpatient chest x-ray which showed bilateral infiltrates and he was sent to the ER for further evaluation. I personally reviewed the x-rays and disc appears consistent with Covid pneumonia. Lab work is remarkable only for mild hypokalemia. His creatinine is elevated but this appears to be his baseline. I did check a proBNP as he is having leg swelling as well. This is only minimally elevated. In addition D-dimer is obtained because of concern for PE as a cause of his presentation given his how long his symptoms have been occurring. Dimer is elevated and CTA is obtained. CT does not show any pulmonary embolism but does show likely Covid pneumonia as well as superimposed right upper lobar pneumonia. Patient started on Rocephin and Zithromax in the ER. He is ambulated and does have hypoxia. Patient O2 saturation dropped to 88%. Patient be admitted for further treatment. He is given oral dexamethasone as well in the ER. ED Disposition - Plan for ED Patient: Disposition: Acute Care Hospital [facility] Diagnosis: Hypoxia, Pneumonia due to COVID-19 virus, Right upper lobe pneumonia, Renal insufficiency
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
[2020-07-02] MEDS: Ceftriaxone 1 GM/50 ML BAG IV (23:08)
[2020-07-03] VITALS (7 sets, daily range): BP systolic 123–150; BP diastolic 51–68; PULSE 57–87; RESP 16–20; TEMP 36.4–37.1; O2SAT 92–95; BMI 39.6; BMI 43.5
--- NOTE | 2020-07-03 00:34 | PCS.PANDOC ---
PANDEMIC DOCUMENTATION INITIATED: Date: 07/03/20 Time: 002
[2020-07-03 01:03] LABS: AST(SGOT) 32 U/L (15-37); Alanine Aminotransfer ALT/SGPT 31 U/L (16-61); Albumin, Serum 2.4 g/dL (3.2-5.0); Alkaline Phosphatase 62 U/L (45-117); Bilirubin, Direct < 0.05 mg/dL (0.00-0.30); Ferritin 360 ng/mL (26-388); Globulin 3.8 g/dL (2.2-4.2); LDH 278 U/L (87-241); Magnesium 1.7 mg/dL (1.6-2.6); Protein, Total 6.2 g/dL (6.4-8.2)
[2020-07-03] MEDS: 0.9% Normal Saline 1,000 ML 100 ML IV ×3 (01:12→21:26)
[2020-07-03 03:16] LABS: Procalcitonin 0.21 ng/mL (0.00-0.09)
[2020-07-03 05:58] LABS: Absolute Lymphocyte Count 1.12 X10^3/uL (0.83-4.51); Absolute Neutrophil Count 3.6 X10^3/uL (2.0-7.7); Basophil# 0.02 X10^3/uL; Basophil% 0.4 % (0-1); Eosinophil# 0.03 X10^3/uL; Eosinophils% 0.6 % (0-5); Hematocrit 43.2 % (40-54); Hemoglobin 13.7 g/dL (13.0-16.5); Lymphocyte # 1.12 X10^3/ul (4.0); Lymphocyte % 21.8 % (19-41); Mean Corp Hgb Conc 31.7 g/dL (32-36); Mean Corpuscular Hgb 28.4 pg (27.0-32.0); Mean Corpuscular Volume 89.6 fL (80-94); Monocyte% 7.8 % (0-10); NRBC Flagged by Analyzer 0 % (0-5); Neutrophil # 3.55 X10^3/uL (2.7-7.7); Platelet Count 126 K/mm3 (150-450); RBC Distribution Width CV 15.7 % (11.6-14.6); RBC Distribution Width SD 51.3 fl (35.1-43.9); Red Blood Count 4.82 M/mm3 (4.6-6.2); White Blood Count 5.1 K/mm3 (4.4-11.0)
[2020-07-03 07:31] LABS: ALB/GLOB Ratio 0.7 RATIO (0.9-2.4); AST(SGOT) 38 U/L (15-37); Alanine Aminotransfer ALT/SGPT 35 U/L (16-61); Albumin, Serum 2.6 g/dL (3.2-5.0); Alkaline Phosphatase 66 U/L (45-117); Anion Gap 11 (5-15); BUN 31 mg/dL (7-18); BUN/Creat Ratio 21.1 RATIO (10-20); Calcium,Total 7.6 mg/dL (8.5-10.1); Chloride 106 mmol/L (98-107); Creatinine, Serum 1.47 mg/dL (0.70-1.30); EST Glomerular Filtration Rate 51 mL/min (>60); Est Glom Filt Rate - Afr Amer 61 mL/min (>60); Estimated Creatinine Clearance 54.35 ml/min; Globulin 3.8 g/dL (2.2-4.2); Glucose 57 mg/dL (74-106); Potassium 3.5 mmol/L (3.5-5.1); Protein, Total 6.4 g/dL (6.4-8.2); Sodium Level 142 mmol/L (136-145)
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
[2020-07-03] MEDS: amLODIPine 10 MG Tablet PO (09:44)
[2020-07-03] MEDS: dexAMETHasone 2 MG TABLET 6 MG PO (09:45)
[2020-07-03] MEDS: Ipratropium Bromide 0.06% NASAL SPRAY 2 SPRAY NASAL ×2 (09:46→20:24)
[2020-07-03] MEDS: Lisinopril 40 MG Tablet PO (09:46)
[2020-07-03] MEDS: Enoxaparin 40 MG/0.4 ML Syringe SC ×2 (09:46→20:24)
[2020-07-03] MEDS: Aspirin E.C. 81 MG Tablet PO (09:46)
[2020-07-03] MEDS: Mirabegron 50 MG TAB.ER.24H PO (09:46)
[2020-07-03] MEDS: Chlorthalidone 50 MG Tablet PO (09:46)
[2020-07-03] MEDS: Insulin Lispro 100 UNIT/ML INSULN.PEN SC ×3 (11:18→21:26)
--- NOTE | 2020-07-03 11:48 | CASEMGMT ---
RN CM Assessment Note Introduced role of CM to patient's . Patient was unable to participate in assessment. Demographics, PCP verified. Per , pt is independent at home, no care needs prior to this illness. - was tested this am. she states she has symptoms also. Recommended she monitor her symptoms including temperature and oxygen and if they worsen or she is unable to take fluids, to contact her PCP or come to the ER. Currently she feels she is doing OK and her daughter who has had covid-19 in past month is coming to assist her. -daughter able to bring food, medication, supplies if needed. COVID-19 testing @ [facility]. Presentation: shortness of breath, headache, diarrhea Diagnosis: COVID-19 pneumonia PCP: Dr. Ward Specialists: none Insurance: JOAQUINA/KAYLA Preferred Pharmacy: [facility] Prescription Benefit: yes LNOK: Living Arrangements: Lives independently in home with . states no care needs. Patient has been independent prior to illness. Tranportation: drives DME: none. No Home oxygen or cpap per . Reviewed list of oxygen providers via phone including [facility] being affiliated with [facility]. would prefer [facility] for home oxygen. HHC: none SNF: none Patient DC Goals: Home DC Plan: anticipate home on dc. Will need home oxygen testing. PT/OT evaluations pending. Contact CM for any concerns that may arise re: dc planning. Sharif WINTERS RN ACM
[2020-07-03 12:26] LABS: Bedside Glucose 170 mg/dL (70-110)
--- NOTE | 2020-07-03 16:17 | CON.PCM_ITS ---
Problem List (1) Pneumonia due to COVID-19 virus Status: Acute Reason for Consult: covid Consulted by: Dr. Watts History of Present Illness: The patient is a 69 year old M reports being sick for about a month, but over past 8-9 days new fever, chills, worsened cough and dyspnea. Some pink sputum. Some aches, diarrhea, headache. Now covid (+), admitted on azithro/ceftriaxone/remdesivir/dex, feeling better this Am. Full ROS performed and neg except as noted above. - Medical History Past Medical History (Chronic Problems): Chronic Problems History of CVA (cerebrovascular accident) (Chronic) Hypertension (Chronic) Hyperlipidemia (Chronic) Morbid obesity (Chronic) Diabetes mellitus, type II (Chronic) Allergies/Adverse Reactions: Allergies No Known Allergies Allergy (Verified 07/02/20 17:17) Home Medications: Ambulatory Orders Medication Instructions Recorded Albuterol Sulfate [Albuterol 2 puff IH Q4H PRN PRN 07/02/20 Sulfate HFA] Amlodipine Besylate 10 mg PO DAILY 07/02/20 Aspirin [Aspirin, Baby] 81 mg PO DAILY@0800 07/02/20 Atorvastatin Calcium 80 mg PO QHS 07/02/20 Chlorthalidone 50 mg PO DAILY 07/02/20 Cinnamon Bark [Cinnamon] 1,500 mg PO DAILY 07/02/20 Empagliflozin [Jardiance] 25 mg PO DAILY 07/02/20 Icosapent Ethyl [Vascepa] 2 gm PO BID 07/02/20 Insulin Glargine/Lixisenatide 40 units SQ DAILY 07/02/20 [[place] 100 Unit-33 Mcg/ml Pen] Ipratropium [place] 0.06% 2 spray NASAL BID 07/02/20 [ATROVENT NASAL SPRAY (g)] Lisinopril 40 mg PO DAILY 07/02/20 Mirabegron [Myrbetriq] 50 mg PO DAILY 07/02/20 Multivit-Min/FA/Lycopen/Lutein 1 ea PO DAILY 07/02/20 [Centrum Silver Tablet] Pioglitazone [Actos] 45 mg PO DAILY 07/02/20 - Social History Tobacco Use: non-smoker Vital Signs Temp Pulse Resp BP Pulse Ox 97.8 F 59 L 19 H 150/52 H 92 07/03/20 09:58 07/03/20 09:58 07/03/20 09:58 07/03/20 09:58 07/03/20 15:30 Oxygen Flow Rate (L/min) 2 Oxygen Delivery Method Nasal Cannula Weight: 149.685 kg Body Mass Index (BMI) 43.5 Finger Stick Blood Glucose 221 Microbiology Past 72 Hours 07/03/20 02:30 Gram Stain - Final Sputum, Expectorated/Coughed 07/03/20 05:01 Respiratory Panel (PCR) - Final Mucosa - Nasopharyngeal 07/03/20 03:32 Streptococcus pneumoniae Antigen (M - Final Urine, Clean Catch 07/03/20 03:32 Legionella Antigen - Final Urine, Clean Catch 07/02/20 19:20 SARS-CoV-2 Antigen (Rapid) - Final Mucosa - Nose SARS-CoV-2 (COVID 19) Laboratory Tests Past 24 Hrs 07/02/20 07/02/20 07/02/20 17:30 17:30 17:30 WBC 5.3 RBC 4.53 L Hgb 12.7 L Hct 40.8 MCV 90.1 MCH 28.0 MCHC 31.1 L RDW Std Deviation 51.7 H RDW Coeff of Katie 15.7 H Plt Count 124 L MPV 11.0 Immature Gran % (Auto) 0.400 Neut % (Auto) 66.3 Lymph % (Auto) 23.7 [place] % (Auto) 9.0 Eos % (Auto) 0.4 Baso % (Auto) 0.2 Absolute Neuts (auto) 3.5 Absolute Lymphs (auto) 1.26 Nucleated RBC % 0 D-Dimer Quant (PE/DVT) 0.84 H* Sodium Potassium Chloride Carbon Dioxide Anion Gap BUN Creatinine Estim Creat Clear Calc Est GFR (MDRD) Af Amer Est GFR (MDRD) Non-Af BUN/Creatinine Ratio Glucose Lactic Acid 1.4 Calcium Magnesium Ferritin Total Bilirubin Direct Bilirubin AST ALT Alkaline Phosphatase Lactate Dehydrogenase Troponin I C-React Prot Ext Range B-Natriuretic Peptide Total Protein Albumin Globulin Albumin/Globulin Ratio Procalcitonin 07/02/20 07/02/20 07/02/20 17:30 17:30 17:30 WBC RBC Hgb Hct MCV MCH MCHC RDW Std Deviation RDW Coeff of Katie Plt Count MPV Immature Gran % (Auto) Neut % (Auto) Lymph % (Auto) [place] % (Auto) Eos % (Auto) Baso % (Auto) Absolute Neuts (auto) Absolute Lymphs (auto) Nucleated RBC % D-Dimer Quant (PE/DVT) Sodium 138 Potassium 2.9 L Chloride 103 Carbon Dioxide 26.0 Anion Gap 9 BUN 34 H Creatinine 1.60 H Estim Creat Clear Calc 49.94 Est GFR (MDRD) Af Amer 55 L Est GFR (MDRD) Non-Af 46 L BUN/Creatinine Ratio 21.2 H Glucose 132 H Lactic Acid Calcium 8.0 L Magnesium 1.7 Ferritin 360 Total Bilirubin 0.30 Direct Bilirubin < 0.05 AST 32 ALT 31 Alkaline Phosphatase 62 Lactate Dehydrogenase 278 H Troponin I 0.025 C-React Prot Ext Range 110.00 H B-Natriuretic Peptide 105.8 H Total Protein 6.2 L Albumin 2.4 L Globulin 3.8 Albumin/Globulin Ratio Procalcitonin 07/02/20 07/03/20 07/03/20 17:30 05:38 05:38 WBC 5.1 RBC 4.82 Hgb 13.7 Hct 43.2 MCV 89.6 MCH 28.4 MCHC 31.7 L RDW Std Deviation 51.3 H RDW Coeff of Katie 15.7 H Plt Count 126 L MPV 11.0 Immature Gran % (Auto) 0.400 Neut % (Auto) 69.0 Lymph % (Auto) 21.8 [place] % (Auto) 7.8 Eos % (Auto) 0.6 Baso % (Auto) 0.4 Absolute Neuts (auto) 3.6 Absolute Lymphs (auto) 1.12 Nucleated RBC % 0 D-Dimer Quant (PE/DVT) Sodium 142 Potassium 3.5 Chloride 106 Carbon Dioxide 25.0 Anion Gap 11 BUN 31 H Creatinine 1.47 H Estim Creat Clear Calc 54.35 Est GFR (MDRD) Af Amer 61 Est GFR (MDRD) Non-Af 51 L BUN/Creatinine Ratio 21.1 H Glucose 57 L Lactic Acid Calcium 7.6 L Magnesium Ferritin Total Bilirubin 0.30 Direct Bilirubin AST 38 H ALT 35 Alkaline Phosphatase 66 Lactate Dehydrogenase Troponin I C-React Prot Ext Range B-Natriuretic Peptide Total Protein 6.4 Albumin 2.6 L Globulin 3.8 Albumin/Globulin Ratio 0.7 L Procalcitonin 0.21 H - Other Studies Radiology: [] reviewed Other Studies: [] Route of nutrition/ use of supplements: [] Nutritional Intake: [] IV Site: [] Yuen Catheter: [] - Physical Exam General: Alert, Oriented x3, Cooperative HEENT: Atraumatic, PERRLA, EOMI Neck: Supple, No Nodes Lungs: Diminished Cardiovascular: Regular rate, Regular Rhythm Abdomen: Soft, Non Tender, Non-Distended Extremities: Edema Skin: No rashes IV Site: Peripheral, without redness Musculoskeletal: No Tenderness to Palpation of Joints or Extremities Neurological: Cranial nerves II-XII grossly intact - Assessment/Plan Antibiotics: [] Assessment/Plan: [] Active and Suspected Problems Pneumonia due to COVID-19 virus (Acute) Right upper lobe pneumonia (Acute) Renal insufficiency (Acute) Thrombocytopenia (Acute) Hypoxia (Acute) covid with hypoxia - not clear if bacterial component. Sx started approx 06/25. On dex and remdesivir. Will order sputum cx. PCT was 0.2. UAg neg. CT neg for PE. D-dimer mildly elevated at 0.8. On lovenox 40mg bid. Will stop azithro, cont ceftriaxone for now. Will follow, thank you
[2020-07-03 17:06] LABS: Bedside Glucose 186 mg/dL (70-110)
[2020-07-03] MEDS: Atorvastatin Calcium 80 MG Tablet PO (20:24)
[2020-07-03 21:50] LABS: Bedside Glucose 254 mg/dL (70-110)
[2020-07-04 03:12] VITALS: BP 113/61; PULSE 74; RESP 20; TEMP 36.7; O2SAT 92
--- NOTE | 2020-07-04 06:32 | PCM.CONS.PUL ---
Reason for Consult Date of Consultation: 07/04/20 Reason for Consultation: Acute hypoxemic respiratory insufficiency secondary to COVID-19 pneumonia History of Present Illness: The patient is a 69-year-old male, with a history as outlined below, who presented to the emergency department on July 02 with complaints of shortness of breath, nonproductive cough, subjective fevers and chills. The patient's symptoms have been present now for approximately 10 days. On presentation to the emergency department, the patient was noted to be afebrile and hemodynamically stable. Laboratory evaluation revealed a normal white blood cell count. The patient was thrombocytopenic with a platelet count of 124,000. D-dimer was noted to be 0.84. Chemistry profile revealed a potassium of 2.9 and creatinine of 1.60. Lactate was within normal limits. Procalcitonin was noted to be 0.21. Rapid coronavirus antigen testing was positive on July 02. CTA chest showed no definitive evidence of PE but did demonstrate a consolidation with air bronchograms in the right upper lobe along with patchy bilateral groundglass changes. The patient was started on antimicrobials, Decadron and remdesivir. He was subsequently admitted to the coronavirus cohort unit for further management. Past Medical History Past Medical History (Chronic Problems): Chronic Problems History of CVA (cerebrovascular accident) (Chronic) Hypertension (Chronic) Hyperlipidemia (Chronic) Morbid obesity (Chronic) Diabetes mellitus, type II (Chronic) Allergies No Known Allergies Allergy (Verified 07/02/20 17:17) Home Medications: Ambulatory Orders Medication Instructions Recorded Albuterol Sulfate [Albuterol 2 puff IH Q4H PRN PRN 07/02/20 Sulfate HFA] Amlodipine Besylate 10 mg PO DAILY 07/02/20 Aspirin [Aspirin, Baby] 81 mg PO DAILY@0800 07/02/20 Atorvastatin Calcium 80 mg PO QHS 07/02/20 Chlorthalidone 50 mg PO DAILY 07/02/20 Cinnamon Bark [Cinnamon] 1,500 mg PO DAILY 07/02/20 Empagliflozin [Jardiance] 25 mg PO DAILY 07/02/20 Icosapent Ethyl [Vascepa] 2 gm PO BID 07/02/20 Insulin Glargine/Lixisenatide 40 units SQ DAILY 07/02/20 [Soliqua 100 Unit-33 Mcg/ml Pen] Ipratropium [place] 0.06% 2 spray NASAL BID 07/02/20 [ATROVENT NASAL SPRAY (g)] Lisinopril 40 mg PO DAILY 07/02/20 Mirabegron [Myrbetriq] 50 mg PO DAILY 07/02/20 Multivit-Min/FA/Lycopen/Lutein 1 ea PO DAILY 07/02/20 [Centrum Silver Tablet] Pioglitazone [Actos] 45 mg PO DAILY 07/02/20 Surgical History: noncontributory Psychiatric History: No pertinent psych hx Lives: Spouse/ Significant Other Smoking Status: Never smoker Tobacco Use: Non-smoker Alcohol: None Drugs: None - *Family History Maternal History Items: Dementia - Mother with a history of also MS dementia. Paternal History Items: High Cholesterol, Heart Disease, Hypertension Review of Systems Constitutional: Reports: Chills, Fever, Malaise, Weakness, Fatigue Eyes: Denies: Blurred vision, Double vision HEENT: Denies: Head Aches, Sinus Congestion, Sinus Drainage Cardiovascular: Denies: Chest Pain, Palpitations Respiratory: Reports: Cough, Shortness of Breath Gastrointestinal: Denies: Abdominal Pain, Nausea, Vomiting Genitourinary: Denies: Dysuria Musculoskeletal: Denies: Joint Pain, Joint Tenderness Skin: Denies: Rash, Wounds Neurological: Denies: Numbness, Tingling, Focal weakness Psychiatric: Denies: Anxiety, Depression, Homicidal Ideations, Suicidal Ideations Hematologic/ Lymphatic: Reports: Anemia Patient Problems: Active and Suspected Problems Pneumonia due to COVID-19 virus (Acute) Right upper lobe pneumonia (Acute) Renal insufficiency (Acute) Thrombocytopenia (Acute) Hypoxia (Acute) Objective: The patient's most recent lab work, culture data and imaging studies have all been personally reviewed. Rapid coronavirus antigen testing was positive on July 02. Strep and urine Legionella antigens were negative. Respiratory viral panel was negative. Sputum and blood cultures are pending. - Physical Exam Vitals/I&O's: Vital Signs Temp Pulse Resp BP Pulse Ox 98.0 F 74 20 H 113/61 92 07/04/20 03:12 07/04/20 03:12 07/04/20 03:12 07/04/20 03:12 07/04/20 03:12 Oxygen Flow Rate (L/min) 3 Oxygen Delivery Method Nasal Cannula Weight: 329 lb 15.983 oz Body Mass Index (BMI) 43.5 Finger Stick Blood Glucose 221 Intake and Output for Last 24 Hours 07/02/20 07/03/20 07/04/20 23:59 23:59 23:59 Intake Total 550.83 / 550.83 3350 / 3830 730 / 730 Output Total 400 / 400 Balance 550.83 / 550.83 2950 / 3430 730 / 730 General: Alert, Cooperative, No apparent distress HEENT: Atraumatic, Normocephalic Oral: No Gingival or Mucosal Lesions/ Ulcerations Neck: Supple, No Nodes, Trachea Midline Lungs: No rhonchi, No wheeze, No rales, Diminished, Tachypneic Cardiovascular: Regular rate, Regular Rhythm, Normal S1, Normal S2, No murmurs Abdomen: Bowel Sounds Present, Soft, Non Tender, Obese Extremities: No clubbing, No cyanosis, No edema Skin: No breakdown Musculoskeletal: No Tenderness to Palpation of Joints or Extremities Lymphatic: No Cervical, Supraclavicular, or Inguinal Adenopathy Neurological: Cranial nerves II-XII grossly intact, Neuro grossly intact Psych/Mental Status: Normal Affect, Appropriate Labs (Last 48 Hours) 07/02/20 07/02/20 07/02/20 17:30 17:30 17:30 WBC 5.3 RBC 4.53 L Hgb 12.7 L Hct 40.8 MCV 90.1 MCH 28.0 MCHC 31.1 L RDW Std Deviation 51.7 H RDW Coeff of Katie 15.7 H Plt Count 124 L MPV 11.0 Immature Gran % (Auto) 0.400 Neut % (Auto) 66.3 Lymph % (Auto) 23.7 [place] % (Auto) 9.0 Eos % (Auto) 0.4 Baso % (Auto) 0.2 Absolute Neuts (auto) 3.5 Absolute Lymphs (auto) 1.26 Nucleated RBC % 0 D-Dimer Quant (PE/DVT) 0.84 H* Sodium Potassium Chloride Carbon Dioxide Anion Gap BUN Creatinine Estim Creat Clear Calc Est GFR (MDRD) Af Amer Est GFR (MDRD) Non-Af BUN/Creatinine Ratio Glucose Lactic Acid 1.4 Calcium Magnesium Ferritin Total Bilirubin Direct Bilirubin AST ALT Alkaline Phosphatase Lactate Dehydrogenase Troponin I C-React Prot Ext Range B-Natriuretic Peptide Total Protein Albumin Globulin Albumin/Globulin Ratio Procalcitonin POC Glucose 07/02/20 07/02/20 07/02/20 17:30 17:30 17:30 WBC RBC Hgb Hct MCV MCH MCHC RDW Std Deviation RDW Coeff of Aktie Plt Count MPV Immature Gran % (Auto) Neut % (Auto) Lymph % (Auto) [place] % (Auto) Eos % (Auto) Baso % (Auto) Absolute Neuts (auto) Absolute Lymphs (auto) Nucleated RBC % D-Dimer Quant (PE/DVT) Sodium 138 Potassium 2.9 L Chloride 103 Carbon Dioxide 26.0 Anion Gap 9 BUN 34 H Creatinine 1.60 H Estim Creat Clear Calc 49.94 Est GFR (MDRD) Af Amer 55 L Est GFR (MDRD) Non-Af 46 L BUN/Creatinine Ratio 21.2 H Glucose 132 H Lactic Acid Calcium 8.0 L Magnesium 1.7 Ferritin 360 Total Bilirubin 0.30 Direct Bilirubin < 0.05 AST 32 ALT 31 Alkaline Phosphatase 62 Lactate Dehydrogenase 278 H Troponin I 0.025 C-React Prot Ext Range 110.00 H B-Natriuretic Peptide 105.8 H Total Protein 6.2 L Albumin 2.4 L Globulin 3.8 Albumin/Globulin Ratio Procalcitonin POC Glucose 07/02/20 07/03/20 07/03/20 17:30 05:38 05:38 WBC 5.1 RBC 4.82 Hgb 13.7 Hct 43.2 MCV 89.6 MCH 28.4 MCHC 31.7 L RDW Std Deviation 51.3 H RDW Coeff of Katie 15.7 H Plt Count 126 L MPV 11.0 Immature Gran % (Auto) 0.400 Neut % (Auto) 69.0 Lymph % (Auto) 21.8 [place] % (Auto) 7.8 Eos % (Auto) 0.6 Baso % (Auto) 0.4 Absolute Neuts (auto) 3.6 Absolute Lymphs (auto) 1.12 Nucleated RBC % 0 D-Dimer Quant (PE/DVT) Sodium 142 Potassium 3.5 Chloride 106 Carbon Dioxide 25.0 Anion Gap 11 BUN 31 H Creatinine 1.47 H Estim Creat Clear Calc 54.35 Est GFR (MDRD) Af Amer 61 Est GFR (MDRD) Non-Af 51 L BUN/Creatinine Ratio 21.1 H Glucose 57 L Lactic Acid Calcium 7.6 L Magnesium Ferritin Total Bilirubin 0.30 Direct Bilirubin AST 38 H ALT 35 Alkaline Phosphatase 66 Lactate Dehydrogenase Troponin I C-React Prot Ext Range B-Natriuretic Peptide Total Protein 6.4 Albumin 2.6 L Globulin 3.8 Albumin/Globulin Ratio 0.7 L Procalcitonin 0.21 H POC Glucose 07/03/20 07/03/20 07/03/20 11:16 16:51 21:24 WBC RBC Hgb Hct MCV MCH MCHC RDW Std Deviation RDW Coeff of Katie Plt Count MPV Immature Gran % (Auto) Neut % (Auto) Lymph % (Auto) [place] % (Auto) Eos % (Auto) Baso % (Auto) Absolute Neuts (auto) Absolute Lymphs (auto) Nucleated RBC % D-Dimer Quant (PE/DVT) Sodium Potassium Chloride Carbon Dioxide Anion Gap BUN Creatinine Estim Creat Clear Calc Est GFR (MDRD) Af Amer Est GFR (MDRD) Non-Af BUN/Creatinine Ratio Glucose Lactic Acid Calcium Magnesium Ferritin Total Bilirubin Direct Bilirubin AST ALT Alkaline Phosphatase Lactate Dehydrogenase Troponin I C-React Prot Ext Range B-Natriuretic Peptide Total Protein Albumin Globulin Albumin/Globulin Ratio Procalcitonin POC Glucose 170 H 186 H 254 H Microbiology 07/03/20 02:30 Sputum, Expectorated/Coughed Gram Stain - Final 07/03/20 05:01 Mucosa - Nasopharyngeal Respiratory Panel (PCR) - Final 07/03/20 03:32 Urine, Clean Catch Streptococcus pneumoniae Antigen (M - Final 07/03/20 03:32 Urine, Clean Catch Legionella Antigen - Final 07/02/20 19:20 Mucosa - Nose SARS-CoV-2 Antigen (Rapid) - Final SARS-CoV-2 (COVID 19) Clinical Impression(s) from Imaging Studies Chest CTA 07/02/20 18:51 IMPRESSION: Findings most consistent with Covid 19 pneumonia with coexisting right upper lobar pneumonia. . No definitive evidence for pulmonary embolus. If strong clinical suspicion for pulmonary embolus DOPPLER scan of the deep venous system of lower extremities recommended Electronically Signed: Tank Gallagher MD at 19:54 EST , Service support , Current Medications Albuterol Sulfate (Albuterol Ih 8.5 Gm (Proair) Inhaler (200 Puffs)) 4 - 8 puff INHALATION Q4H PRN PRN PRN Reason: Dyspnea, wheezing Amlodipine Besylate (Amlodipine 10 Mg Tablet) 10 mg PO DAILY [facility] Last Admin: 07/03/20 09:44 Dose: 10 mg Documented by: Aspirin (Aspirin E.C. 81 Mg Tablet) 81 mg PO DAILY [facility] Last Admin: 07/03/20 09:46 Dose: 81 mg Documented by: Atorvastatin Calcium (Atorvastatin Calcium 80 Mg Tablet) 80 mg PO QHS [facility] Last Admin: 07/03/20 20:24 Dose: 80 mg Documented by: Chlorthalidone (Chlorthalidone 50 Mg Tablet) 50 mg PO DAILY [facility] Last Admin: 07/03/20 09:46 Dose: 50 mg Documented by: Dexamethasone (Dexamethasone 2 Mg Tablet) 6 mg PO DAILY [facility] Stop: 07/11/20 10:01 Last Admin: 07/03/20 09:45 Dose: 6 mg Documented by: Dextrose (Dextrose 50%-Water 25 Gm/50 Ml Disp.Syrin) 0 gm IV X1 PRN; Protocol PRN Reason: Hypoglycemia Enoxaparin Sodium (Enoxaparin 40 Mg/0.4 Ml Syringe) 40 mg SC BID [facility] Last Admin: 07/03/20 20:24 Dose: 40 mg Documented by: Glucagon (Glucagon 1 Mg/Ml Syringe) 1 mg IM .X1 PRN PRN Reason: Hypoglycemia Hydralazine HCl (Hydralazine 20 Mg/Ml Vial) 10 mg IV Q4H PRN PRN PRN Reason: SBP > 160 Sodium Chloride () 1,000 mls @ 100 mls/hr IV .Q10H [facility] Last Admin: 07/03/20 21:26 Dose: 100 mls/hr Documented by: Ceftriaxone Sodium 2 gm/ (Sodium Chloride) 50 mls @ 100 mls/hr IV Q24H [facility] Last Infusion: 07/03/20 21:15 Dose: Infused Documented by: Remdesivir 100 mg/ Sodium (Chloride) 250 mls @ 125 mls/hr IV Q24H [facility] Stop: 07/06/20 23:59 Last Infusion: 07/04/20 00:16 Dose: Infused Documented by: Sodium Chloride () 250 mls @ 15 mls/hr IV .[id number] PRN PRN Reason: Saline Flush Insulin Glargine (Insulin Glargine 100 Units/Ml Pen) 60 units SC DAILY [facility] Last Admin: 07/03/20 11:18 Dose: 60 u Documented by: Insulin Human Lispro (Insulin Lispro 100 Unit/Ml Insuln.Pen) 0 unit SC ACHS [facility]; Protocol Last Admin: 07/03/20 21:26 Dose: 4 u Documented by: Ipratropium [place] (Ipratropium [place] 0.06% Nasal [place]) 2 spray NASAL BID [facility] Last Admin: 07/03/20 20:24 Dose: 2 spray Documented by: Lisinopril (Lisinopril 40 Mg Tablet) 40 mg PO DAILY [facility] Last Admin: 07/03/20 09:46 Dose: 40 mg Documented by: Mirabegron (Mirabegron 50 Mg Tab.Er.24h) 50 mg PO DAILY [facility] Last Admin: 07/03/20 09:46 Dose: 50 mg Documented by: Sodium Chloride (0.9% Saline Lock 10 Ml Syringe) 10 - 40 ml IV UD PRN PRN Reason: SALINE FLUSH Assessment/Plan All Active Problems Pneumonia due to COVID-19 virus (Acute) Right upper lobe pneumonia (Acute) Renal insufficiency (Acute) Thrombocytopenia (Acute) Hypoxia (Acute) RECOMMENDATIONS: 1. Wean supplemental oxygen to maintain saturations at or above 90%. 2. Continue Decadron to complete 10-day treatment course. 3. Continue remdesivir. Monitor liver and renal function accordingly. 4. Continue antimicrobials per ID recommendations. 5. Encourage incentive spirometer use and mobilize patient as tolerated. 6. Stop supplemental IV fluids. IMPRESSIONS: 1. Acute hypoxemic respiratory insufficiency secondary to COVID-19 pneumonia Plan to continue current supportive measures including supplemental oxygen to maintain saturations at or above 90%. The patient will be continued on remdesivir along with Decadron, with plans to complete a 10-day treatment course. Continue to monitor liver and renal function accordingly. Antibiotics will be continued, pending sputum culture results, per ID recommendations. Encourage incentive spirometer use and mobilize patient as tolerated. I would also recommend that the patient's continuous supplemental IV fluids be discontinued. 2. Acute kidney injury Likely prerenal in etiology. Creatinine has improved with volume expansion. Continue to monitor urine output. No current indication for renal replacement therapy. 3. Obesity/history of CVA/hypertension/hyperlipidemia/diabetes mellitus Complicates care, management, recovery and prognosis. Continue home medications as indicated. This note was generated with [employer] software. It may contain incorrect words, spelling, and punctuation that were not noted in checking the note before signing. Inpatient E&M: 35224 Init Hosp L3
[2020-07-04] MEDS: Insulin Lispro 100 UNIT/ML INSULN.PEN SC ×4 (06:57→22:04)
[2020-07-04] MEDS: 0.9% Normal Saline 1,000 ML 100 ML IV (06:58)
[2020-07-04 07:15] LABS: Hematocrit 39.6 % (40-54); Hemoglobin 12.5 g/dL (13.0-16.5); Mean Corp Hgb Conc 31.6 g/dL (32-36); Mean Corpuscular Hgb 28.2 pg (27.0-32.0); Mean Corpuscular Volume 89.2 fL (80-94); Mean Platelet Vol. 11.1 fl (6.2-12.0); Platelet Count 146 K/mm3 (150-450); RBC Distribution Width CV 15.7 % (11.6-14.6); RBC Distribution Width SD 51.4 fl (35.1-43.9); Red Blood Count 4.44 M/mm3 (4.6-6.2); White Blood Count 3.5 K/mm3 (4.4-11.0)
[2020-07-04 07:15] LABS: Bedside Glucose 182 mg/dL (70-110)
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
[2020-07-04 07:56] LABS: ALB/GLOB Ratio 0.6 RATIO (0.9-2.4); AST(SGOT) 36 U/L (15-37); Alanine Aminotransfer ALT/SGPT 31 U/L (16-61); Albumin, Serum 2.1 g/dL (3.2-5.0); Alkaline Phosphatase 52 U/L (45-117); Anion Gap 6 (5-15); BUN 32 mg/dL (7-18); BUN/Creat Ratio 24.4 RATIO (10-20); Calcium,Total 8.2 mg/dL (8.5-10.1); Chloride 110 mmol/L (98-107); Creatinine, Serum 1.31 mg/dL (0.70-1.30); EST Glomerular Filtration Rate 58 mL/min (>60); Est Glom Filt Rate - Afr Amer 70 mL/min (>60); Estimated Creatinine Clearance 60.99 ml/min; Globulin 3.7 g/dL (2.2-4.2); Glucose 190 mg/dL (74-106); Potassium 3.6 mmol/L (3.5-5.1); Protein, Total 5.8 g/dL (6.4-8.2); Sodium Level 142 mmol/L (136-145)
[2020-07-04] MEDS: dexAMETHasone 2 MG TABLET 6 MG PO (08:39)
[2020-07-04] MEDS: Chlorthalidone 50 MG Tablet PO (08:40)
[2020-07-04] MEDS: Mirabegron 50 MG TAB.ER.24H PO (08:40)
[2020-07-04] MEDS: amLODIPine 10 MG Tablet PO (08:40)
[2020-07-04] MEDS: Aspirin E.C. 81 MG Tablet PO (08:40)
[2020-07-04] MEDS: Lisinopril 40 MG Tablet PO (08:40)
[2020-07-04] MEDS: Ipratropium Bromide 0.06% NASAL SPRAY 2 SPRAY NASAL ×2 (08:41→22:10)
[2020-07-04] MEDS: Enoxaparin 40 MG/0.4 ML Syringe SC ×2 (08:42→21:58)
[2020-07-04 08:49] VITALS: BP 122/61; PULSE 73; RESP 19; TEMP 36.2; O2SAT 95
[2020-07-04 11:55] LABS: Bedside Glucose 252 mg/dL (70-110)
[2020-07-04 15:10] VITALS: BP 112/54; PULSE 61; RESP 19; TEMP 36.3; O2SAT 94
--- NOTE | 2020-07-04 15:55 | PN.ID_ITS ---
Patient Problems: Active and Suspected Problems Pneumonia due to COVID-19 virus (Acute) Right upper lobe pneumonia (Acute) Renal insufficiency (Acute) Thrombocytopenia (Acute) Hypoxia (Acute) Subjective: Feeling better, breathing improved, no fever, no n/v/d. - Physical Exam Vitals/I&O's: Vital Signs Temp Pulse Resp BP Pulse Ox 97.1 F L 73 19 H 122/61 H 95 07/04/20 08:49 07/04/20 08:49 07/04/20 08:49 07/04/20 08:49 07/04/20 08:49 Oxygen Flow Rate (L/min) 2 Oxygen Delivery Method Nasal Cannula Weight: 149.685 kg Body Mass Index (BMI) 43.5 Finger Stick Blood Glucose 221 Intake and Output for Last 24 Hours 07/02/20 07/03/20 07/04/20 23:59 23:59 23:59 Intake Total 550.83 / 550.83 3350 / 3830 1923.33 / 1923.33 Output Total 400 / 400 Balance 550.83 / 550.83 2950 / 3430 1923.33 / 1923.33 General: Alert, Cooperative, No apparent distress Lungs: Diminished Cardiovascular: Regular rate, Regular Rhythm Abdomen: Soft, Non Tender, Non-Distended Skin: No rashes Microbiology Past 72 Hours 07/03/20 02:30 Sputum, Expectorated/Coughed Gram Stain - Final 07/03/20 05:01 Mucosa - Nasopharyngeal Respiratory Panel (PCR) - Final 07/03/20 03:32 Urine, Clean Catch Streptococcus pneumoniae Antigen (M - Final 07/03/20 03:32 Urine, Clean Catch Legionella Antigen - Final 07/02/20 19:20 Mucosa - Nose SARS-CoV-2 Antigen (Rapid) - Final SARS-CoV-2 (COVID 19) Laboratory Results 07/03/20 16:51: POC Glucose 186 H 07/03/20 21:24: POC Glucose 254 H 07/04/20 06:20: WBC 3.5 L, RBC 4.44 L, Hgb 12.5 L, Hct 39.6 L, MCV 89.2, MCH 28.2, MCHC 31.6 L, RDW Std Deviation 51.4 H, RDW Coeff of Katie 15.7 H, Plt Count 146 L, MPV 11.1 07/04/20 06:20: Sodium 142, Potassium 3.6, Chloride 110 H, Carbon Dioxide 26.0, Anion Gap 6, BUN 32 H, Creatinine 1.31 H, Estim Creat Clear Calc 60.99, Est GFR (MDRD) Af Amer 70, Est GFR (MDRD) Non-Af 58 L, BUN/Creatinine Ratio 24.4 H, Glucose 190 H, Calcium 8.2 L, Total Bilirubin 0.30, AST 36, ALT 31, Alkaline Phosphatase 52, Total Protein 5.8 L, Albumin 2.1 L, Globulin 3.7, Albumin/Globulin Ratio 0.6 L 07/04/20 06:54: POC Glucose 182 H 07/04/20 11:41: POC Glucose 252 H Current Medications Albuterol Sulfate (Albuterol Ih 8.5 Gm (Proair) Inhaler (200 Puffs)) 4 - 8 puff INHALATION Q4H PRN PRN PRN Reason: Dyspnea, wheezing Amlodipine Besylate (Amlodipine 10 Mg Tablet) 10 mg PO DAILY [facility] Last Admin: 07/04/20 08:40 Dose: 10 mg Documented by: Aspirin (Aspirin E.C. 81 Mg Tablet) 81 mg PO DAILY [facility] Last Admin: 07/04/20 08:40 Dose: 81 mg Documented by: Atorvastatin Calcium (Atorvastatin Calcium 80 Mg Tablet) 80 mg PO QHS [facility] Last Admin: 07/03/20 20:24 Dose: 80 mg Documented by: Chlorthalidone (Chlorthalidone 50 Mg Tablet) 50 mg PO DAILY [facility] Last Admin: 07/04/20 08:40 Dose: 50 mg Documented by: Dexamethasone (Dexamethasone 2 Mg Tablet) 6 mg PO DAILY [facility] Stop: 07/11/20 10:01 Last Admin: 07/04/20 08:39 Dose: 6 mg Documented by: Dextrose (Dextrose 50%-Water 25 Gm/50 Ml Disp.Syrin) 0 gm IV X1 PRN; Protocol PRN Reason: Hypoglycemia Enoxaparin Sodium (Enoxaparin 40 Mg/0.4 Ml Syringe) 40 mg SC BID [facility] Last Admin: 07/04/20 08:42 Dose: 40 mg Documented by: Glucagon (Glucagon 1 Mg/Ml Syringe) 1 mg IM .X1 PRN PRN Reason: Hypoglycemia Hydralazine HCl (Hydralazine 20 Mg/Ml Vial) 10 mg IV Q4H PRN PRN PRN Reason: SBP > 160 Remdesivir 100 mg/ Sodium (Chloride) 250 mls @ 125 mls/hr IV Q24H [facility] Stop: 07/06/20 23:59 Last Infusion: 07/04/20 00:16 Dose: Infused Documented by: Sodium Chloride () 250 mls @ 15 mls/hr IV .[id number] PRN PRN Reason: Saline Flush Insulin Glargine (Insulin Glargine 100 Units/Ml Pen) 60 units SC DAILY [facility] Last Admin: 07/04/20 08:41 Dose: 60 u Documented by: Insulin Human Lispro (Insulin Lispro 100 Unit/Ml Insuln.Pen) 0 unit SC ACHS [facility]; Protocol Last Admin: 07/04/20 12:21 Dose: 4 u Documented by: Ipratropium [place] (Ipratropium [place] 0.06% Nasal [place]) 2 spray NASAL BID [facility] Last Admin: 07/04/20 08:41 Dose: 2 spray Documented by: Lisinopril (Lisinopril 40 Mg Tablet) 40 mg PO DAILY [facility] Last Admin: 07/04/20 08:40 Dose: 40 mg Documented by: Mirabegron (Mirabegron 50 Mg Tab.Er.24h) 50 mg PO DAILY [facility] Last Admin: 07/04/20 08:40 Dose: 50 mg Documented by: Sodium Chloride (0.9% Saline Lock 10 Ml Syringe) 10 - 40 ml IV UD PRN PRN Reason: SALINE FLUSH Medical Necessity - Tobacco Use Smoking Status: Never smoker Tobacco Use: Non-smoker Route of nutrition/ use of supplements: [] Nutritional Intake: [] IV Site: [] Yuen Catheter: [] - Assessment/Plan Antibiotics: [] Assessment/Plan: [] Active and Suspected Problems Pneumonia due to COVID-19 virus (Acute) Right upper lobe pneumonia (Acute) Renal insufficiency (Acute) Thrombocytopenia (Acute) Hypoxia (Acute) covid with hypoxia - not clear if bacterial component. Sx started approx 06/25. On dex and remdesivir. PCT was 0.2. UAg neg. CT neg for PE. D-dimer mildly elevated at 0.8. On lovenox 40mg bid. Will stop ceftriaxone. Quarantine 20 days from sx start 06/25. 10 days of dex. Will follow
[2020-07-04 21:41] LABS: Bedside Glucose 343 mg/dL (70-110)
[2020-07-04 21:44] VITALS: BP 151/75; PULSE 75; RESP 18; TEMP 36.1; O2SAT 94
[2020-07-04] MEDS: Atorvastatin Calcium 80 MG Tablet PO (21:56)
[2020-07-04] MEDS: 0.9% Saline Lock 10 ML Syringe IV (22:03)
[2020-07-04 22:56] LABS: Bedside Glucose 301 mg/dL (70-110)
[2020-07-05 03:40] VITALS: BP 123/64; PULSE 70; RESP 18; TEMP 36.4; O2SAT 93
--- NOTE | 2020-07-05 05:57 | PN_ITS ---
Patient Problems: Active and Suspected Problems Pneumonia due to COVID-19 virus (Acute) Right upper lobe pneumonia (Acute) Renal insufficiency (Acute) Thrombocytopenia (Acute) Hypoxia (Acute) Subjective: The patient was seen and examined at the bedside this morning. Events from the last 24 hours have been reviewed. The patient is currently afebrile, hemodynamically stable and maintaining appropriate oxygen saturations on 3 L/min via nasal cannula. The patient remains on remdesivir and Decadron. The patient is currently documented to be overall net positive 8+ liters for the hospital admission. Renal and liver function are stable. Objective: The patient's most recent lab work, culture data and imaging studies have all been personally reviewed. Rapid coronavirus antigen testing was positive on July 02. Strep and urine Legionella antigens were negative. Respiratory viral panel was negative. Sputum and blood cultures have shown no growth to date. - Physical Exam Vitals/I&O's: Vital Signs Temp Pulse Resp BP Pulse Ox 97.6 F L 70 18 123/64 H 93 07/05/20 03:40 07/05/20 03:40 07/05/20 03:40 07/05/20 03:40 07/05/20 03:40 Oxygen Flow Rate (L/min) 3 Oxygen Delivery Method Nasal Cannula Weight: 329 lb 15.983 oz Body Mass Index (BMI) 43.5 Finger Stick Blood Glucose 221 Intake and Output for Last 24 Hours 07/03/20 07/04/20 07/05/20 23:59 23:59 23:59 Intake Total 3350 / 3830 4348.33 / 4748.33 600 / 600 Output Total 400 / 400 Balance 2950 / 3430 4348.33 / 4748.33 600 / 600 General: Alert, Oriented x3, Cooperative, No apparent distress, - - Morbidly obese HEENT: Atraumatic, PERRLA, EOMI Oral: Moist Mucosa Neck: Supple, No Nodes, Trachea Midline Lungs: No rhonchi, No wheeze, No rales, Diminished Cardiovascular: Regular rate, Regular Rhythm Abdomen: Bowel Sounds Present, Soft, Non Tender, Obese Extremities: No clubbing, No cyanosis, No edema Skin: No breakdown Musculoskeletal: No Tenderness to Palpation of Joints or Extremities, No Muscle Wasting Lymphatic: No Cervical, Supraclavicular, or Inguinal Adenopathy Neurological: Cranial nerves II-XII grossly intact, Neuro grossly intact Psych/Mental Status: Alert and oriented to time, place, person, mood and affect Labs (Last 48 Hours) 07/03/20 07/03/20 07/03/20 05:38 05:38 11:16 WBC 5.1 RBC 4.82 Hgb 13.7 Hct 43.2 MCV 89.6 MCH 28.4 MCHC 31.7 L RDW Std Deviation 51.3 H RDW Coeff of Katie 15.7 H Plt Count 126 L MPV 11.0 Immature Gran % (Auto) 0.400 Neut % (Auto) 69.0 Lymph % (Auto) 21.8 [place] % (Auto) 7.8 Eos % (Auto) 0.6 Baso % (Auto) 0.4 Absolute Neuts (auto) 3.6 Absolute Lymphs (auto) 1.12 Nucleated RBC % 0 Sodium 142 Potassium 3.5 Chloride 106 Carbon Dioxide 25.0 Anion Gap 11 BUN 31 H Creatinine 1.47 H Estim Creat Clear Calc 54.35 Est GFR (MDRD) Af Amer 61 Est GFR (MDRD) Non-Af 51 L BUN/Creatinine Ratio 21.1 H Glucose 57 L Calcium 7.6 L Total Bilirubin 0.30 AST 38 H ALT 35 Alkaline Phosphatase 66 Total Protein 6.4 Albumin 2.6 L Globulin 3.8 Albumin/Globulin Ratio 0.7 L POC Glucose 170 H 07/03/20 07/03/20 07/04/20 16:51 21:24 06:20 WBC 3.5 L RBC 4.44 L Hgb 12.5 L Hct 39.6 L MCV 89.2 MCH 28.2 MCHC 31.6 L RDW Std Deviation 51.4 H RDW Coeff of Katie 15.7 H Plt Count 146 L MPV 11.1 Immature Gran % (Auto) Neut % (Auto) Lymph % (Auto) [place] % (Auto) Eos % (Auto) Baso % (Auto) Absolute Neuts (auto) Absolute Lymphs (auto) Nucleated RBC % Sodium Potassium Chloride Carbon Dioxide Anion Gap BUN Creatinine Estim Creat Clear Calc Est GFR (MDRD) Af Amer Est GFR (MDRD) Non-Af BUN/Creatinine Ratio Glucose Calcium Total Bilirubin AST ALT Alkaline Phosphatase Total Protein Albumin Globulin Albumin/Globulin Ratio POC Glucose 186 H 254 H 07/04/20 07/04/20 07/04/20 06:20 06:54 11:41 WBC RBC Hgb Hct MCV MCH MCHC RDW Std Deviation RDW Coeff of Katie Plt Count MPV Immature Gran % (Auto) Neut % (Auto) Lymph % (Auto) [place] % (Auto) Eos % (Auto) Baso % (Auto) Absolute Neuts (auto) Absolute Lymphs (auto) Nucleated RBC % Sodium 142 Potassium 3.6 Chloride 110 H Carbon Dioxide 26.0 Anion Gap 6 BUN 32 H Creatinine 1.31 H Estim Creat Clear Calc 60.99 Est GFR (MDRD) Af Amer 70 Est GFR (MDRD) Non-Af 58 L BUN/Creatinine Ratio 24.4 H Glucose 190 H Calcium 8.2 L Total Bilirubin 0.30 AST 36 ALT 31 Alkaline Phosphatase 52 Total Protein 5.8 L Albumin 2.1 L Globulin 3.7 Albumin/Globulin Ratio 0.6 L POC Glucose 182 H 252 H 07/04/20 07/04/20 16:09 21:47 WBC RBC Hgb Hct MCV MCH MCHC RDW Std Deviation RDW Coeff of Katie Plt Count MPV Immature Gran % (Auto) Neut % (Auto) Lymph % (Auto) [place] % (Auto) Eos % (Auto) Baso % (Auto) Absolute Neuts (auto) Absolute Lymphs (auto) Nucleated RBC % Sodium Potassium Chloride Carbon Dioxide Anion Gap BUN Creatinine Estim Creat Clear Calc Est GFR (MDRD) Af Amer Est GFR (MDRD) Non-Af BUN/Creatinine Ratio Glucose Calcium Total Bilirubin AST ALT Alkaline Phosphatase Total Protein Albumin Globulin Albumin/Globulin Ratio POC Glucose 343 H 301 H Microbiology 07/03/20 02:30 Sputum, Expectorated/Coughed Gram Stain - Final 07/03/20 05:01 Mucosa - Nasopharyngeal Respiratory Panel (PCR) - Final 07/03/20 03:32 Urine, Clean Catch Streptococcus pneumoniae Antigen (M - Final 07/03/20 03:32 Urine, Clean Catch Legionella Antigen - Final Clinical Impression(s) from Imaging Studies Chest CTA 07/02/20 18:51 IMPRESSION: Findings most consistent with Covid 19 pneumonia with coexisting right upper lobar pneumonia. . No definitive evidence for pulmonary embolus. If strong clinical suspicion for pulmonary embolus DOPPLER scan of the deep venous system of lower extremities recommended Electronically Signed: Tank Gallagher MD at 19:54 EST , Service support , Current Medications Albuterol Sulfate (Albuterol Ih 8.5 Gm (Proair) Inhaler (200 Puffs)) 4 - 8 puff INHALATION Q4H PRN PRN PRN Reason: Dyspnea, wheezing Amlodipine Besylate (Amlodipine 10 Mg Tablet) 10 mg PO DAILY [facility] Last Admin: 07/04/20 08:40 Dose: 10 mg Documented by: Aspirin (Aspirin E.C. 81 Mg Tablet) 81 mg PO DAILY [facility] Last Admin: 07/04/20 08:40 Dose: 81 mg Documented by: Atorvastatin Calcium (Atorvastatin Calcium 80 Mg Tablet) 80 mg PO QHS [facility] Last Admin: 07/04/20 21:56 Dose: 80 mg Documented by: Chlorthalidone (Chlorthalidone 50 Mg Tablet) 50 mg PO DAILY [facility] Last Admin: 07/04/20 08:40 Dose: 50 mg Documented by: Dexamethasone (Dexamethasone 2 Mg Tablet) 6 mg PO DAILY [facility] Stop: 07/11/20 10:01 Last Admin: 07/04/20 08:39 Dose: 6 mg Documented by: Dextrose (Dextrose 50%-Water 25 Gm/50 Ml Disp.Syrin) 0 gm IV X1 PRN; Protocol PRN Reason: Hypoglycemia Enoxaparin Sodium (Enoxaparin 40 Mg/0.4 Ml Syringe) 40 mg SC BID [facility] Last Admin: 07/04/20 21:58 Dose: 40 mg Documented by: Glucagon (Glucagon 1 Mg/Ml Syringe) 1 mg IM .X1 PRN PRN Reason: Hypoglycemia Hydralazine HCl (Hydralazine 20 Mg/Ml Vial) 10 mg IV Q4H PRN PRN PRN Reason: SBP > 160 Remdesivir 100 mg/ Sodium (Chloride) 250 mls @ 125 mls/hr IV Q24H [facility] Stop: 07/06/20 23:59 Last Infusion: 07/04/20 23:59 Dose: Infused Documented by: Sodium Chloride () 250 mls @ 15 mls/hr IV .[id number] PRN PRN Reason: Saline Flush Insulin Glargine (Insulin Glargine 100 Units/Ml Pen) 60 units SC DAILY [facility] Last Admin: 07/04/20 08:41 Dose: 60 u Documented by: Insulin Human Lispro (Insulin Lispro 100 Unit/Ml Insuln.Pen) 0 unit SC ACHS [facility]; Protocol Last Admin: 07/04/20 22:04 Dose: 6 u Documented by: Ipratropium [place] (Ipratropium [place] 0.06% Nasal [place]) 2 spray NASAL BID [facility] Last Admin: 07/04/20 22:10 Dose: 2 spray Documented by: Lisinopril (Lisinopril 40 Mg Tablet) 40 mg PO DAILY [facility] Last Admin: 07/04/20 08:40 Dose: 40 mg Documented by: Mirabegron (Mirabegron 50 Mg Tab.Er.24h) 50 mg PO DAILY [facility] Last Admin: 07/04/20 08:40 Dose: 50 mg Documented by: Sodium Chloride (0.9% Saline Lock 10 Ml Syringe) 10 - 40 ml IV UD PRN PRN Reason: SALINE FLUSH Last Admin: 07/04/20 22:03 Dose: 10 ml Documented by: Medical Necessity - Tobacco Use Smoking Status: Never smoker Tobacco Use: Non-smoker Assessment/Plan All Active Problems Pneumonia due to COVID-19 virus (Acute) Right upper lobe pneumonia (Acute) Renal insufficiency (Acute) Thrombocytopenia (Acute) Hypoxia (Acute) RECOMMENDATIONS: 1. Wean supplemental oxygen to maintain saturations at or above 90%. 2. Continue Decadron to complete 10-day treatment course. 3. Continue remdesivir. Monitor liver and renal function accordingly. 4. Encourage incentive spirometer use and mobilize patient as tolerated. IMPRESSIONS: 1. Acute hypoxemic respiratory insufficiency secondary to COVID-19 pneumonia Plan to continue current supportive measures including supplemental oxygen to maintain saturations at or above 90%. The patient will be continued on remdesivir along with Decadron, with plans to complete a 10-day treatment course. Continue to monitor liver and renal function accordingly. Encourage incentive spirometer use and mobilize patient as tolerated. 2. Acute kidney injury Resolved. Likely prerenal in etiology. Creatinine has improved with volume expansion. Continue to monitor urine output. No current indication for renal replacement therapy. 3. Obesity/history of CVA/hypertension/hyperlipidemia/diabetes mellitus Complicates care, management, recovery and prognosis. Continue home medications as indicated. This note was generated with [employer] software. It may contain incorrect words, spelling, and punctuation that were not noted in checking the note before signing. Inpatient E&M: 81385 Subs Hosp L2
[2020-07-05] MEDS: Insulin Lispro 100 UNIT/ML INSULN.PEN SC ×4 (06:17→22:54)
[2020-07-05] MEDS: 0.9% Saline Lock 10 ML Syringe IV (06:18)
[2020-07-05 06:36] LABS: Hematocrit 37.7 % (40-54); Mean Corp Hgb Conc 31.8 g/dL (32-36); Mean Corpuscular Hgb 28.1 pg (27.0-32.0); Mean Corpuscular Volume 88.3 fL (80-94); Mean Platelet Vol. 10.8 fl (6.2-12.0); Platelet Count 149 K/mm3 (150-450); RBC Distribution Width CV 15.6 % (11.6-14.6); RBC Distribution Width SD 50.7 fl (35.1-43.9); Red Blood Count 4.27 M/mm3 (4.6-6.2); White Blood Count 6.3 K/mm3 (4.4-11.0)
[2020-07-05 06:41] LABS: Bedside Glucose 237 mg/dL (70-110)
[2020-07-05 07:02] LABS: ALB/GLOB Ratio 0.7 RATIO (0.9-2.4); AST(SGOT) 37 U/L (15-37); Alanine Aminotransfer ALT/SGPT 32 U/L (16-61); Alkaline Phosphatase 52 U/L (45-117); Anion Gap 6 (5-15); BUN 33 mg/dL (7-18); BUN/Creat Ratio 30.3 RATIO (10-20); Calcium,Total 8.2 mg/dL (8.5-10.1); Chloride 111 mmol/L (98-107); Creatinine, Serum 1.09 mg/dL (0.70-1.30); EST Glomerular Filtration Rate 71 mL/min (>60); Est Glom Filt Rate - Afr Amer 86 mL/min (>60); Glucose 233 mg/dL (74-106); Potassium 3.5 mmol/L (3.5-5.1); Sodium Level 142 mmol/L (136-145)
[2020-07-05 07:06] VITALS: O2SAT 92
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
[2020-07-05] MEDS: Ipratropium Bromide 0.06% NASAL SPRAY 2 SPRAY NASAL ×2 (10:00→22:53)
[2020-07-05] MEDS: Enoxaparin 40 MG/0.4 ML Syringe SC ×2 (10:01→22:58)
[2020-07-05] MEDS: Mirabegron 50 MG TAB.ER.24H PO (10:01)
[2020-07-05] MEDS: amLODIPine 10 MG Tablet PO (10:01)
[2020-07-05] MEDS: dexAMETHasone 2 MG TABLET 6 MG PO (10:02)
[2020-07-05] MEDS: Aspirin E.C. 81 MG Tablet PO (10:02)
[2020-07-05] MEDS: Chlorthalidone 50 MG Tablet PO (10:02)
[2020-07-05] MEDS: Lisinopril 40 MG Tablet PO (10:03)
[2020-07-05 10:13] VITALS: BP 129/77; PULSE 75; RESP 18; TEMP 36.4; O2SAT 93
[2020-07-05] MEDS: Insulin Lispro 100 UNIT/ML INSULN.PEN 10 UNIT SC ×2 (11:35→16:49)
[2020-07-05 11:41] LABS: Bedside Glucose 295 mg/dL (70-110)
[2020-07-05 15:56] VITALS: O2SAT 95
[2020-07-05 16:00] VITALS: BP 120/76; PULSE 70; RESP 18; TEMP 36.5; O2SAT 94
[2020-07-05 16:55] LABS: Bedside Glucose 253 mg/dL (70-110)
[2020-07-05 22:43] VITALS: BP 125/64; PULSE 72; RESP 18; TEMP 36.5; O2SAT 96
[2020-07-05] MEDS: Atorvastatin Calcium 80 MG Tablet PO (22:57)
[2020-07-05 23:40] LABS: Bedside Glucose 313 mg/dL (70-110)
[2020-07-06 04:03] VITALS: BP 126/68; PULSE 66; RESP 18; TEMP 36.4; O2SAT 95
--- NOTE | 2020-07-06 05:53 | PN_ITS ---
Patient Problems: Active and Suspected Problems Pneumonia due to COVID-19 virus (Acute) Right upper lobe pneumonia (Acute) Renal insufficiency (Acute) Thrombocytopenia (Acute) Hypoxia (Acute) Subjective: The patient was seen and examined at the bedside this morning. Events from the last 24 hours have been reviewed. The patient is currently afebrile, hemodynamically stable and maintaining appropriate oxygen saturations on 3 L/min via nasal cannula. The patient remains on remdesivir and Decadron. The patient is currently documented to be overall net positive 9+ liters for the hospital admission. Objective: The patient's most recent lab work, culture data and imaging studies have all been personally reviewed. Rapid coronavirus antigen testing was positive on July 02. Strep and urine Legionella antigens were negative. Respiratory viral panel was negative. Sputum and blood cultures have shown no growth to date. - Physical Exam Vitals/I&O's: Vital Signs Temp Pulse Resp BP Pulse Ox 97.6 F L 66 18 126/68 H 95 07/06/20 04:03 07/06/20 04:03 07/06/20 04:03 07/06/20 04:03 07/06/20 04:03 Oxygen Flow Rate (L/min) 3 Oxygen Delivery Method Nasal Cannula Weight: 329 lb 15.983 oz Body Mass Index (BMI) 43.5 Finger Stick Blood Glucose 221 Intake and Output for Last 24 Hours 07/04/20 07/05/20 07/06/20 23:59 23:59 23:59 Intake Total 4348.33 / 4748.33 1100 / 1100 250 / 250 Balance 4348.33 / 4748.33 1100 / 1100 250 / 250 General: Alert, Oriented x3, Cooperative, No apparent distress HEENT: Atraumatic, PERRLA, Normocephalic Oral: Moist Mucosa, No Gingival or Mucosal Lesions/ Ulcerations Neck: Supple, No Nodes, Trachea Midline Lungs: No rhonchi, No wheeze, No rales, Diminished Cardiovascular: Regular rate, Regular Rhythm, Normal S1, Normal S2, No murmurs Abdomen: Bowel Sounds Present, Soft, Non Tender, Obese Extremities: No clubbing, No cyanosis, No edema Skin: No breakdown Musculoskeletal: No Tenderness to Palpation of Joints or Extremities, No Muscle Wasting Lymphatic: No Cervical, Supraclavicular, or Inguinal Adenopathy Neurological: Cranial nerves II-XII grossly intact, Neuro grossly intact Psych/Mental Status: Normal Affect, Appropriate Labs (Last 48 Hours) 07/04/20 07/04/20 07/04/20 06:20 06:20 06:54 WBC 3.5 L RBC 4.44 L Hgb 12.5 L Hct 39.6 L MCV 89.2 MCH 28.2 MCHC 31.6 L RDW Std Deviation 51.4 H RDW Coeff of Katie 15.7 H Plt Count 146 L MPV 11.1 Sodium 142 Potassium 3.6 Chloride 110 H Carbon Dioxide 26.0 Anion Gap 6 BUN 32 H Creatinine 1.31 H Estim Creat Clear Calc 60.99 Est GFR (MDRD) Af Amer 70 Est GFR (MDRD) Non-Af 58 L BUN/Creatinine Ratio 24.4 H Glucose 190 H Calcium 8.2 L Total Bilirubin 0.30 AST 36 ALT 31 Alkaline Phosphatase 52 Total Protein 5.8 L Albumin 2.1 L Globulin 3.7 Albumin/Globulin Ratio 0.6 L POC Glucose 182 H 07/04/20 07/04/20 07/04/20 11:41 16:09 21:47 WBC RBC Hgb Hct MCV MCH MCHC RDW Std Deviation RDW Coeff of Katie Plt Count MPV Sodium Potassium Chloride Carbon Dioxide Anion Gap BUN Creatinine Estim Creat Clear Calc Est GFR (MDRD) Af Amer Est GFR (MDRD) Non-Af BUN/Creatinine Ratio Glucose Calcium Total Bilirubin AST ALT Alkaline Phosphatase Total Protein Albumin Globulin Albumin/Globulin Ratio POC Glucose 252 H 343 H 301 H 07/05/20 07/05/20 07/05/20 05:58 05:58 06:16 WBC 6.3 RBC 4.27 L Hgb 12.0 L Hct 37.7 L MCV 88.3 MCH 28.1 MCHC 31.8 L RDW Std Deviation 50.7 H RDW Coeff of Katie 15.6 H Plt Count 149 L MPV 10.8 Sodium 142 Potassium 3.5 Chloride 111 H Carbon Dioxide 25.0 Anion Gap 6 BUN 33 H Creatinine 1.09 Estim Creat Clear Calc 73.30 Est GFR (MDRD) Af Amer 86 Est GFR (MDRD) Non-Af 71 BUN/Creatinine Ratio 30.3 H Glucose 233 H Calcium 8.2 L Total Bilirubin 0.30 AST 37 ALT 32 Alkaline Phosphatase 52 Total Protein 5.0 L Albumin 2.0 L Globulin 3.0 Albumin/Globulin Ratio 0.7 L POC Glucose 237 H 07/05/20 07/05/20 07/05/20 11:32 16:47 22:48 WBC RBC Hgb Hct MCV MCH MCHC RDW Std Deviation RDW Coeff of Katie Plt Count MPV Sodium Potassium Chloride Carbon Dioxide Anion Gap BUN Creatinine Estim Creat Clear Calc Est GFR (MDRD) Af Amer Est GFR (MDRD) Non-Af BUN/Creatinine Ratio Glucose Calcium Total Bilirubin AST ALT Alkaline Phosphatase Total Protein Albumin Globulin Albumin/Globulin Ratio POC Glucose 295 H 253 H 313 H Microbiology 07/03/20 02:30 Sputum, Expectorated/Coughed Gram Stain - Final 07/03/20 02:30 Sputum, Expectorated/Coughed Respiratory Culture - Final 07/02/20 17:30 Blood Culture (Wb) - Right Hand Blood Culture - Preliminary No growth in 48 hours. Clinical Impression(s) from Imaging Studies Chest CTA 07/02/20 18:51 IMPRESSION: Findings most consistent with Covid 19 pneumonia with coexisting right upper lobar pneumonia. . No definitive evidence for pulmonary embolus. If strong clinical suspicion for pulmonary embolus DOPPLER scan of the deep venous system of lower extremities recommended Electronically Signed: Tank Gallagher MD at 19:54 EST , Service support , Current Medications Albuterol Sulfate (Albuterol Ih 8.5 Gm (Proair) Inhaler (200 Puffs)) 4 - 8 puff INHALATION Q4H PRN PRN PRN Reason: Dyspnea, wheezing Last Admin: 07/05/20 10:00 Dose: 4 puff Documented by: Amlodipine Besylate (Amlodipine 10 Mg Tablet) 10 mg PO DAILY [facility] Last Admin: 07/05/20 10:01 Dose: 10 mg Documented by: Aspirin (Aspirin E.C. 81 Mg Tablet) 81 mg PO DAILY [facility] Last Admin: 07/05/20 10:02 Dose: 81 mg Documented by: Atorvastatin Calcium (Atorvastatin Calcium 80 Mg Tablet) 80 mg PO QHS [facility] Last Admin: 07/05/20 22:57 Dose: 80 mg Documented by: Chlorthalidone (Chlorthalidone 50 Mg Tablet) 50 mg PO DAILY [facility] Last Admin: 07/05/20 10:02 Dose: 50 mg Documented by: Dexamethasone (Dexamethasone 2 Mg Tablet) 6 mg PO DAILY [facility] Stop: 07/11/20 10:01 Last Admin: 07/05/20 10:02 Dose: 6 mg Documented by: Dextrose (Dextrose 50%-Water 25 Gm/50 Ml Disp.Syrin) 0 gm IV X1 PRN; Protocol PRN Reason: Hypoglycemia Enoxaparin Sodium (Enoxaparin 40 Mg/0.4 Ml Syringe) 40 mg SC BID [facility] Last Admin: 07/05/20 22:58 Dose: 40 mg Documented by: Glucagon (Glucagon 1 Mg/Ml Syringe) 1 mg IM .X1 PRN PRN Reason: Hypoglycemia Hydralazine HCl (Hydralazine 20 Mg/Ml Vial) 10 mg IV Q4H PRN PRN PRN Reason: SBP > 160 Remdesivir 100 mg/ Sodium (Chloride) 250 mls @ 125 mls/hr IV Q24H [facility] Stop: 07/06/20 23:59 Last Infusion: 07/06/20 00:52 Dose: Infused Documented by: Sodium Chloride () 250 mls @ 15 mls/hr IV .[id number] PRN PRN Reason: Saline Flush Insulin Glargine (Insulin Glargine 100 Units/Ml Pen) 40 units SC BID [facility] Last Admin: 07/05/20 22:55 Dose: 40 u Documented by: Insulin Human Lispro (Insulin Lispro 100 Unit/Ml Insuln.Pen) 0 unit SC ACHS [facility]; Protocol Last Admin: 07/05/20 22:54 Dose: 6 u Documented by: Insulin Human Lispro (Insulin Lispro 100 Unit/Ml Insuln.Pen) 10 unit SC TIDAC [facility] Last Admin: 07/05/20 16:49 Dose: 10 u Documented by: Ipratropium [place] (Ipratropium [place] 0.06% Nasal [place]) 2 spray NASAL BID [facility] Last Admin: 07/05/20 22:53 Dose: 2 spray Documented by: Lisinopril (Lisinopril 40 Mg Tablet) 40 mg PO DAILY [facility] Last Admin: 07/05/20 10:03 Dose: 40 mg Documented by: Mirabegron (Mirabegron 50 Mg Tab.Er.24h) 50 mg PO DAILY [facility] Last Admin: 07/05/20 10:01 Dose: 50 mg Documented by: Sodium Chloride (0.9% Saline Lock 10 Ml Syringe) 10 - 40 ml IV UD PRN PRN Reason: SALINE FLUSH Last Admin: 07/05/20 06:18 Dose: 10 ml Documented by: Medical Necessity - Tobacco Use Smoking Status: Never smoker Tobacco Use: Non-smoker Assessment/Plan All Active Problems Pneumonia due to COVID-19 virus (Acute) Right upper lobe pneumonia (Acute) Renal insufficiency (Acute) Thrombocytopenia (Acute) Hypoxia (Acute) RECOMMENDATIONS: 1. Wean supplemental oxygen to maintain saturations at or above 90%. 2. Continue Decadron to complete 10-day treatment course. 3. Continue remdesivir. Monitor liver and renal function accordingly. 4. Encourage incentive spirometer use and mobilize patient as tolerated. IMPRESSIONS: 1. Acute hypoxemic respiratory insufficiency secondary to COVID-19 pneumonia Plan to continue current supportive measures including supplemental oxygen to maintain saturations at or above 90%. The patient will be continued on remdesivir along with Decadron, with plans to complete a 10-day treatment course. Continue to monitor liver and renal function accordingly. Encourage incentive spirometer use and mobilize patient as tolerated. 2. Acute kidney injury Resolved. Likely prerenal in etiology. Creatinine has improved with volume expansion. Continue to monitor urine output. No current indication for renal replacement therapy. 3. Obesity/history of CVA/hypertension/hyperlipidemia/diabetes mellitus Complicates care, management, recovery and prognosis. Continue home medications as indicated. This note was generated with [employer] software. It may contain incorrect words, spelling, and punctuation that were not noted in checking the note before signing. Inpatient E&M: 70755 Subs Hosp L2
[2020-07-06 06:21] LABS: Hematocrit 38.9 % (40-54); Hemoglobin 12.3 g/dL (13.0-16.5); Mean Corp Hgb Conc 31.6 g/dL (32-36); Mean Corpuscular Hgb 28.1 pg (27.0-32.0); Mean Platelet Vol. 11.3 fl (6.2-12.0); Platelet Count 180 K/mm3 (150-450); RBC Distribution Width CV 15.5 % (11.6-14.6); RBC Distribution Width SD 50.9 fl (35.1-43.9); Red Blood Count 4.37 M/mm3 (4.6-6.2); White Blood Count 7.2 K/mm3 (4.4-11.0)
[2020-07-06] MEDS: Insulin Lispro 100 UNIT/ML INSULN.PEN SC ×4 (06:22→21:28)
[2020-07-06] MEDS: Insulin Lispro 100 UNIT/ML INSULN.PEN 10 UNIT SC ×3 (06:23→17:05)
[2020-07-06 06:45] LABS: Bedside Glucose 217 mg/dL (70-110)
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
[2020-07-06 07:54] LABS: ALB/GLOB Ratio 0.5 RATIO (0.9-2.4); AST(SGOT) 35 U/L (15-37); Alanine Aminotransfer ALT/SGPT 34 U/L (16-61); Albumin, Serum 1.9 g/dL (3.2-5.0); Alkaline Phosphatase 52 U/L (45-117); Anion Gap 7 (5-15); BUN 32 mg/dL (7-18); Calcium,Total 8.5 mg/dL (8.5-10.1); Chloride 110 mmol/L (98-107); EST Glomerular Filtration Rate 79 mL/min (>60); Est Glom Filt Rate - Afr Amer 95 mL/min (>60); Globulin 3.5 g/dL (2.2-4.2); Glucose 240 mg/dL (74-106); Potassium 3.4 mmol/L (3.5-5.1); Protein, Total 5.4 g/dL (6.4-8.2); Sodium Level 142 mmol/L (136-145)
[2020-07-06 10:00] VITALS: BP 122/68; PULSE 70; RESP 18; TEMP 36.4; O2SAT 93
[2020-07-06] MEDS: Ipratropium Bromide 0.06% NASAL SPRAY 2 SPRAY NASAL ×2 (10:26→21:26)
[2020-07-06] MEDS: amLODIPine 10 MG Tablet PO (10:27)
[2020-07-06] MEDS: Enoxaparin 40 MG/0.4 ML Syringe SC ×2 (10:27→21:30)
[2020-07-06] MEDS: Chlorthalidone 50 MG Tablet PO (10:27)
[2020-07-06] MEDS: Mirabegron 50 MG TAB.ER.24H PO (10:27)
[2020-07-06] MEDS: Lisinopril 40 MG Tablet PO (10:27)
[2020-07-06] MEDS: Aspirin E.C. 81 MG Tablet PO (10:28)
[2020-07-06] MEDS: dexAMETHasone 2 MG TABLET 6 MG PO (10:28)
[2020-07-06] MEDS: 0.9% Saline Lock 10 ML Syringe IV ×2 (10:57→21:33)
[2020-07-06] MEDS: Furosemide 100 MG/10 ML Vial 80 MG IV (10:57)
[2020-07-06 12:15] LABS: Bedside Glucose 236 mg/dL (70-110)
[2020-07-06 16:00] VITALS: BP 122/70; PULSE 68; RESP 18; TEMP 36.6; O2SAT 93
[2020-07-06 17:09] VITALS: O2SAT 85; O2SAT 91; O2SAT 92
[2020-07-06 17:15] LABS: Bedside Glucose 325 mg/dL (70-110)
[2020-07-06 21:22] VITALS: BP 152/71; PULSE 68; RESP 18; TEMP 36.4; O2SAT 94
[2020-07-06] MEDS: Atorvastatin Calcium 80 MG Tablet PO (21:27)
[2020-07-06 21:32] VITALS: O2SAT 94
[2020-07-06 21:46] LABS: Bedside Glucose 274 mg/dL (70-110)
[2020-07-07] VITALS (8 sets, daily range): BP systolic 120–144; BP diastolic 65–92; PULSE 74–95; RESP 18; TEMP 35.8–36.4; O2SAT 93–100
[2020-07-07] MEDS: Insulin Lispro 100 UNIT/ML INSULN.PEN SC ×2 (06:22→11:48)
[2020-07-07] MEDS: Insulin Lispro 100 UNIT/ML INSULN.PEN 10 UNIT SC ×2 (06:23→11:48)
[2020-07-07 06:36] LABS: Bedside Glucose 182 mg/dL (70-110)
[2020-07-07 06:51] LABS: Hematocrit 38.9 % (40-54); Hemoglobin 12.5 g/dL (13.0-16.5); Mean Corp Hgb Conc 32.1 g/dL (32-36); Mean Platelet Vol. 10.9 fl (6.2-12.0); Platelet Count 192 K/mm3 (150-450); RBC Distribution Width CV 15.2 % (11.6-14.6); RBC Distribution Width SD 48.8 fl (35.1-43.9); Red Blood Count 4.47 M/mm3 (4.6-6.2)
[2020-07-07 07:28] LABS: ALB/GLOB Ratio 0.5 RATIO (0.9-2.4); AST(SGOT) 36 U/L (15-37); Alanine Aminotransfer ALT/SGPT 36 U/L (16-61); Alkaline Phosphatase 54 U/L (45-117); Anion Gap 7 (5-15); BUN 27 mg/dL (7-18); BUN/Creat Ratio 31.1 RATIO (10-20); Calcium,Total 8.7 mg/dL (8.5-10.1); Chloride 107 mmol/L (98-107); Creatinine, Serum 0.87 mg/dL (0.70-1.30); EST Glomerular Filtration Rate 93 mL/min (>60); Est Glom Filt Rate - Afr Amer 112 mL/min (>60); Estimated Creatinine Clearance 91.84 ml/min; Globulin 3.7 g/dL (2.2-4.2); Glucose 187 mg/dL (74-106); Magnesium 1.8 mg/dL (1.6-2.6); Potassium 3.4 mmol/L (3.5-5.1); Protein, Total 5.7 g/dL (6.4-8.2); Sodium Level 141 mmol/L (136-145)
--- NOTE | 2020-07-07 08:54 | PN_ITS ---
Patient Problems: Active and Suspected Problems Pneumonia due to COVID-19 virus (Acute) Right upper lobe pneumonia (Acute) Renal insufficiency (Acute) Thrombocytopenia (Acute) Hypoxia (Acute) Subjective: Patient did well overnight. No acute issues were reported. Patient states the diarrhea has resolved and he feels that he needs to have a bowel movement today. Patient thinks his respiratory issues are slightly improved compared to yesterday. Patient has been on nasal cannula oxygen and has been able to ambulate around the room with minimal difficulty. - Physical Exam Vitals/I&O's: Vital Signs Temp Pulse Resp BP Pulse Ox 36.4 C L 74 18 120/92 H 94 07/07/20 03:34 07/07/20 03:34 07/07/20 03:34 07/07/20 03:34 07/07/20 08:01 Oxygen Flow Rate (L/min) [ 2 AMBULATION with Oxygen] Oxygen Flow Rate (L/min) 2 Oxygen Delivery Method Nasal Cannula Weight: 149.685 kg Body Mass Index (BMI) 43.5 Finger Stick Blood Glucose 221 Intake and Output for Last 24 Hours 07/05/20 07/06/20 07/07/20 23:59 23:59 23:59 Intake Total 1100 / 1100 1800 / 1800 500 / 500 Output Total 1500 / 1500 Balance 1100 / 1100 300 / 300 500 / 500 General: Alert, Oriented x3, Cooperative, No apparent distress, - - Morbidly obese. Speaking in full sentences HEENT: Atraumatic, PERRLA, EOMI, Normocephalic, - - No scleral icterus or injection noted Oral: Moist Mucosa, No Gingival or Mucosal Lesions/ Ulcerations Neck: Supple, No JVD, No Nodes, Trachea Midline Lungs: No rhonchi, No wheeze, No rales, Diminished Cardiovascular: Regular rate, Regular Rhythm, Normal S1, Normal S2, No murmurs, No rub noted, No Gallop Abdomen: Bowel Sounds Present, Soft, Non Tender, Non-Distended, Obese Extremities: No clubbing, No cyanosis, Edema - Trace lower extremity Skin: No rashes, No breakdown Musculoskeletal: No Tenderness to Palpation of Joints or Extremities Lymphatic: No Cervical, Supraclavicular, or Inguinal Adenopathy Neurological: Cranial nerves II-XII grossly intact, Neuro grossly intact, Motor Exam 5/5 strength throughout Psych/Mental Status: Alert and oriented to time, place, person, mood and affect Microbiology Past 72 Hours 07/03/20 02:30 Sputum, Expectorated/Coughed Gram Stain - Final 07/03/20 02:30 Sputum, Expectorated/Coughed Respiratory Culture - Final 07/02/20 17:30 Blood Culture (Wb) - Right Hand Blood Culture - Preliminary No growth in 48 hours. Laboratory Results 07/06/20 11:53: POC Glucose 236 H 07/06/20 17:02: POC Glucose 325 H 07/06/20 21:26: POC Glucose 274 H 07/07/20 06:05: WBC 7.0, RBC 4.47 L, Hgb 12.5 L, Hct 38.9 L, MCV 87.0, MCH 28.0, MCHC 32.1, RDW Std Deviation 48.8 H, RDW Coeff of Katie 15.2 H, Plt Count 192, MPV 10.9 07/07/20 06:05: Sodium 141, Potassium 3.4 L, Chloride 107, Carbon Dioxide 27.0, Anion Gap 7, BUN 27 H, Creatinine 0.87, Estim Creat Clear Calc 91.84, Est GFR (MDRD) Af Amer 112, Est GFR (MDRD) Non-Af 93, BUN/Creatinine Ratio 31.1 H, Glucose 187 H, Calcium 8.7, Magnesium 1.8, Total Bilirubin 0.50, AST 36, ALT 36, Alkaline Phosphatase 54, Total Protein 5.7 L, Albumin 2.0 L, Globulin 3.7, Albumin/Globulin Ratio 0.5 L 07/07/20 06:21: POC Glucose 182 H Current Medications Albuterol Sulfate (Albuterol Ih 8.5 Gm (Proair) Inhaler (200 Puffs)) 4 - 8 puff INHALATION Q4H PRN PRN PRN Reason: Dyspnea, wheezing Last Admin: 07/06/20 10:26 Dose: 4 puff Documented by: Amlodipine Besylate (Amlodipine 10 Mg Tablet) 10 mg PO DAILY [facility] Last Admin: 07/06/20 10:27 Dose: 10 mg Documented by: Aspirin (Aspirin E.C. 81 Mg Tablet) 81 mg PO DAILY [facility] Last Admin: 07/06/20 10:28 Dose: 81 mg Documented by: Atorvastatin Calcium (Atorvastatin Calcium 80 Mg Tablet) 80 mg PO QHS [facility] Last Admin: 07/06/20 21:27 Dose: 80 mg Documented by: Chlorthalidone (Chlorthalidone 50 Mg Tablet) 50 mg PO DAILY [facility] Last Admin: 07/06/20 10:27 Dose: 50 mg Documented by: Dexamethasone (Dexamethasone 2 Mg Tablet) 6 mg PO DAILY [facility] Stop: 07/11/20 10:01 Last Admin: 07/06/20 10:28 Dose: 6 mg Documented by: Dextrose (Dextrose 50%-Water 25 Gm/50 Ml Disp.Syrin) 0 gm IV X1 PRN; Protocol PRN Reason: Hypoglycemia Enoxaparin Sodium (Enoxaparin 40 Mg/0.4 Ml Syringe) 40 mg SC BID [facility] Last Admin: 07/06/20 21:30 Dose: 40 mg Documented by: Glucagon (Glucagon 1 Mg/Ml Syringe) 1 mg IM .X1 PRN PRN Reason: Hypoglycemia Hydralazine HCl (Hydralazine 20 Mg/Ml Vial) 10 mg IV Q4H PRN PRN PRN Reason: SBP > 160 Sodium Chloride () 250 mls @ 15 mls/hr IV .[id number] PRN PRN Reason: Saline Flush Insulin Glargine (Insulin Glargine 100 Units/Ml Pen) 40 units SC BID [facility] Last Admin: 07/06/20 21:28 Dose: 40 u Documented by: Insulin Human Lispro (Insulin Lispro 100 Unit/Ml Insuln.Pen) 0 unit SC ACHS [facility]; Protocol Last Admin: 07/07/20 06:22 Dose: 2 u Documented by: Insulin Human Lispro (Insulin Lispro 100 Unit/Ml Insuln.Pen) 10 unit SC TIDAC [facility] Last Admin: 07/07/20 06:23 Dose: 10 u Documented by: Ipratropium [place] (Ipratropium [place] 0.06% Nasal [place]) 2 spray NASAL BID [facility] Last Admin: 07/06/20 21:26 Dose: 2 spray Documented by: Lisinopril (Lisinopril 40 Mg Tablet) 40 mg PO DAILY [facility] Last Admin: 07/06/20 10:27 Dose: 40 mg Documented by: Mirabegron (Mirabegron 50 Mg Tab.Er.24h) 50 mg PO DAILY [facility] Last Admin: 07/06/20 10:27 Dose: 50 mg Documented by: Potassium Chloride (Potassium [facility] 20 Meq [facility]) [facility] Last Admin: 07/06/20 17:15 Dose: 20 meq Documented by: Sodium Chloride (0.9% Saline Lock 10 Ml Syringe) 10 - 40 ml IV UD PRN PRN Reason: SALINE FLUSH Last Admin: 07/06/20 21:33 Dose: 10 ml Documented by: Medical Necessity - Tobacco Use Smoking Status: Never smoker Tobacco Use: Non-smoker Assessment/Plan All Active Problems Pneumonia due to COVID-19 virus (Acute) Right upper lobe pneumonia (Acute) Renal insufficiency (Acute) Thrombocytopenia (Acute) Hypoxia (Acute) RECOMMENDATIONS: 1. Wean supplemental oxygen to maintain saturations at or above 90%. 2. Continue Decadron to complete 10-day treatment course. 3. Walking oximetry prior to discharge 4. Encourage incentive spirometer use and mobilize patient as tolerated. 5. Okay to discharge from a pulmonary perspective if tolerates ambulation on 6 L or less nasal cannula. 6. Follow-up in pulmonary office with nurse practitioner in 4 weeks if requires supplemental oxygen on discharge IMPRESSIONS: 1. Acute hypoxemic respiratory insufficiency secondary to COVID-19 pneumonia Plan to continue current supportive measures including supplemental oxygen to maintain saturations at or above 90%. The patient will be continued on Decadron, with plans to complete a 10-day treatment course. Continue to monitor liver and renal function accordingly. Encourage incentive spirometer use and mobilize patient as tolerated. Patient will need a walking oximetry prior to discharge. If does require supplemental oxygen, follow-up in pulmonary office in 4 weeks with nurse practitioner would be recommended. Cessation of therapy could be addressed at that time along with possible pulmonary function test for quantification and clarification of lung function. 2. Acute kidney injury Resolved. Likely prerenal in etiology. Creatinine has improved with volume expansion. Continue to monitor urine output. No current indication for renal replacement therapy. 3. Morbid obesity secondary to excessive calories/history of CVA/hypertension/hyperlipidemia/diabetes mellitus Complicates care, management, recovery and prognosis. Continue home medications as indicated. Patient would benefit from weight loss. Patient likely should also be evaluated for obstructive sleep apnea as an outpatient given his history of CVA and morbid obesity. Inpatient E&M: [id number] [facility] L2
[2020-07-07] MEDS: Aspirin E.C. 81 MG Tablet PO (09:06)
[2020-07-07] MEDS: dexAMETHasone 2 MG TABLET 6 MG PO (09:06)
[2020-07-07] MEDS: Enoxaparin 40 MG/0.4 ML Syringe SC (09:06)
[2020-07-07] MEDS: Mirabegron 50 MG TAB.ER.24H PO (09:07)
[2020-07-07] MEDS: amLODIPine 10 MG Tablet PO (09:07)
[2020-07-07] MEDS: Lisinopril 40 MG Tablet PO (09:07)
[2020-07-07] MEDS: Ipratropium Bromide 0.06% NASAL SPRAY 2 SPRAY NASAL (09:09)
[2020-07-07] MEDS: Chlorthalidone 50 MG Tablet PO (10:43)
--- NOTE | 2020-07-07 11:04 | DCINST_ITS ---
- Discharge Diagnoses Current Active Problems: Current Active and Chronic Problems Pneumonia due to COVID-19 virus (Acute) Right upper lobe pneumonia (Acute) Renal insufficiency (Acute) Thrombocytopenia (Acute) History of CVA (cerebrovascular accident) (Chronic) Hypertension (Chronic) Hyperlipidemia (Chronic) Morbid obesity (Chronic) Diabetes mellitus, type II (Chronic) Hypoxia (Acute) You will use the following diet at home:: Calorie/Carbohydrate Controlled (specify 1200, 1400, etc) Your food should be the consistency of: Regular Your liquids should be the consistency of: Regular/Thin Discharge Activity: Return to Normal Activity Call your doctor if you observe: Fever of 101 or Higher, Shortness of breath, Dizziness, Fainting spells, Swelling in the ankles, Chest pain, Increased palpitations (irregular heartbeat) Instructions: Coronavirus Disease 2019 (COVID-19): Overview, Coronavirus Disease 2019 (COVID-19): Caring for Yourself or Others Allergies/Adverse Reactions: Allergies No Known Allergies Allergy (Verified 07/02/20 17:17) Medications to take at Discharge Albuterol Sulfate [Albuterol Sulfate HFA] 2 puff IH Q4H PRN PRN 07/02/20 Amlodipine Besylate 10 mg PO DAILY 07/02/20 Aspirin [Aspirin, Baby] 81 mg PO DAILY@0800 07/02/20 Atorvastatin Calcium 80 mg PO QHS 07/02/20 Chlorthalidone 50 mg PO DAILY 07/02/20 Cinnamon Bark [Cinnamon] 1,500 mg PO DAILY 07/02/20 Empagliflozin [Jardiance] 25 mg PO DAILY 07/02/20 Icosapent Ethyl [Vascepa] 2 gm PO BID 07/02/20 Ipratropium [place] 0.06% [ATROVENT NASAL SPRAY] 2 spray NASAL BID 07/02/20 Lisinopril 40 mg PO DAILY 07/02/20 Mirabegron [Myrbetriq] 50 mg PO DAILY 07/02/20 Multivit-Min/FA/Lycopen/Lutein [Centrum Silver Tablet] 1 ea PO DAILY 07/02/20 Pioglitazone [Actos] 45 mg PO DAILY 07/02/20 Insulin Glargine/Lixisenatide [Soliqua 100 Unit-33 Mcg/ml Pen] 40 units SQ BID #0 07/07/20 dexAMETHasone [Dexamethasone] 6 mg PO DAILY #12 tab 07/07/20 The following prescriptions were given: dexAMETHasone [Dexamethasone] 6 mg PO DAILY #12 tab Transmission Status: Pending to [facility] Primary Care Physician: Dhruv aWrd Chi, MD [Primary Care Provider] - Please follow up with your Primary Care Physician in: 3-5 days Test Results: Test results from this visit will be discussed in further detail at your follow- up appointment, if applicable.
[2020-07-07 12:41] LABS: Bedside Glucose 231 mg/dL (70-110)
--- NOTE | 2020-07-07 13:20 | DS.PCM_ITS ---
Discharge Date and Diagnosis - Problem List Patient Problems: Active and Suspected Problems Pneumonia due to COVID-19 virus (Acute) Right upper lobe pneumonia (Acute) Renal insufficiency (Acute) Thrombocytopenia (Acute) Hypoxia (Acute) Date of Admission: 07/02/20 Date of Discharge: 07/07/20 - Primary Discharge Diagnosis Acute Problems: Active Problems Pneumonia due to COVID-19 virus (Acute) Right upper lobe pneumonia (Acute) Renal insufficiency (Acute) Thrombocytopenia (Acute) Hypoxia (Acute) - Secondary Discharge Diagnosis Chronic Problems: Chronic Problems History of CVA (cerebrovascular accident) (Chronic) Hypertension (Chronic) Hyperlipidemia (Chronic) Morbid obesity (Chronic) Diabetes mellitus, type II (Chronic) Hospital Course and Treatment Imaging Results: Clinical Impression(s) from Imaging Studies Chest CTA 07/02/20 18:51 IMPRESSION: Findings most consistent with Covid 19 pneumonia with coexisting right upper lobar pneumonia. . No definitive evidence for pulmonary embolus. If strong clinical suspicion for pulmonary embolus DOPPLER scan of the deep venous system of lower extremities recommended Electronically Signed: Tank Gallagher MD at 19:54 EST , Service support , Consults: ID Pulmonology Operations: None Procedures: None Summary of Care Provided: Per HPI: The patient is a 69 y/o M w/ PMHx: Obesity, Hx CVA 2008, HTN, HLD, Diabetes mellitus type II, Hx splenectomy who presents to the [facility] ED on 07/02/20 with history of significant ongoing breathing issues since the end of May with evaluation per his primary care outpatient several times for possible Covid with 2 - Covid test previously with recent follow-up evaluation approximately 8 days prior to current presentation with his primary care physician with unfortunate onset the day following with fever, chills, mild frontal headache, congestion, loose stools as well as cough and dyspnea worsening prompting ED evaluation. 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 Work-up in the ED included T 97, heart rate 85, BP 109/54, respiratory rate 16, 91 to 92% on room air however patient did decrease to 87% with activity while in the ED with exertion, CBC with WBC 5.3, hemoglobin 12.7, platelet 127 without shift, D-dimer 0.84, BMP with potassium 2.9, BUN/creatinine 34/1.60, glucose 132, lactic acid 1.4, BNP 105.8, SARS rapid antigen testing positive, blood culture pending per ED, CTPA with findings consistent with COVID-19 pneumonia with coexisting right upper lobar pneumonia with no evidence of pulmonary emboli, EKG with SR without acute evidence of ischemia. In the ED patient ministered normal saline, Decadron 6 mg p.o. x1, Rocephin and azithromycin. Outpatient CXR per PCP upon day of ED presentation. Hospital Course: 1. Acute hypoxic respiratory failure secondary to COVID-19 pneumonia/IMELDA- 69-year-old male presented to the hospital with shortness of breath that is been going on since May. 8 days prior to admission he had been tested positive for Covid and in the ER he was hypoxic to 87% requiring oxygen. He was started on remdesivir as well as Decadron and has progressed very well and has improved significantly. Today he was maintaining his oxygen sats on room air, and he had an ambulatory pulse ox today which was normal and he did not need any oxygen on discharge. His D-dimer was slightly elevated on admission appointment for, his CTA was negative for any PEs however anecdotally it does appear that Covid is somewhat thrombophilic therefore we will discharge him on 2.5 mg of Eliquis p.o. twice daily for 14 days and will encourage ambulation and outpatient follow-up with his PCP. IMELDA resolved during the course of his hospitalization. I discussed with him the plan for discharge today and he expressed understanding of the risk and benefits of going home and he would like to go home today. 2. DM 2-his home long-acting insulin has been increased to 40 twice daily from 40 daily. He will need to continue the 40 twice daily until he completes his steroid course. At which point he can go back to his 40 units daily. I also encouraged that he check his blood sugar several times a day and if he does have decreasing blood sugar he can start cutting back on his long-acting insulin. 3. Hypertension, hyperlipidemia, history of splenectomy, morbid obesity are all chronic medical conditions which complicate his care. His home medications were continued where appropriate. Patient Problems: Active and Suspected Problems Pneumonia due to COVID-19 virus (Acute) Right upper lobe pneumonia (Acute) Renal insufficiency (Acute) Thrombocytopenia (Acute) Hypoxia (Acute) - Physical Exam Vitals/I&O's: Vital Signs Temp Pulse Resp BP Pulse Ox 96.6 F L 95 18 144/77 H 100 07/07/20 13:03 07/07/20 13:03 07/07/20 13:03 07/07/20 13:03 07/07/20 13:03 Oxygen Flow Rate (L/min) [ 2 AMBULATION with Oxygen] Oxygen Flow Rate (L/min) 2 Oxygen Delivery Method Room Air Weight: 329 lb 15.983 oz Body Mass Index (BMI) 43.5 Finger Stick Blood Glucose 221 Intake and Output for Last 24 Hours 07/05/20 07/06/20 07/07/20 23:59 23:59 23:59 Intake Total 1100 / 1100 1800 / 1800 890 / 890 Output Total 1500 / 1500 Balance 1100 / 1100 300 / 300 890 / 890 General: Alert, Oriented x3, Cooperative, No apparent distress HEENT: Atraumatic, PERRLA, EOMI, Normocephalic Oral: Moist Mucosa Neck: Supple, No JVD Lungs: Normal air movement, No rhonchi, No wheeze, No rales, Diminished Cardiovascular: Regular rate, Regular Rhythm, Normal S1, Normal S2, No murmurs Abdomen: Soft, Non Tender, Non-Distended, No Hepato-splenomegaly Extremities: No edema, Capillary Refill Less than 3 Seconds Skin: No rashes, No breakdown Neurological: Neuro grossly intact, Sensory exam intact to light touch and pain Psych/Mental Status: Normal Affect, Appropriate Microbiology Past 72 Hours 07/03/20 02:30 Sputum, Expectorated/Coughed Gram Stain - Final 07/03/20 02:30 Sputum, Expectorated/Coughed Respiratory Culture - Final 07/02/20 17:30 Blood Culture (Wb) - Right Hand Blood Culture - Preliminary No growth in 48 hours. Laboratory Results 07/06/20 17:02: POC Glucose 325 H 07/06/20 21:26: POC Glucose 274 H 07/07/20 06:05: WBC 7.0, RBC 4.47 L, Hgb 12.5 L, Hct 38.9 L, MCV 87.0, MCH 28.0, MCHC 32.1, RDW Std Deviation 48.8 H, RDW Coeff of Katie 15.2 H, Plt Count 192, MPV 10.9 07/07/20 06:05: Sodium 141, Potassium 3.4 L, Chloride 107, Carbon Dioxide 27.0, Anion Gap 7, BUN 27 H, Creatinine 0.87, Estim Creat Clear Calc 91.84, Est GFR (MDRD) Af Amer 112, Est GFR (MDRD) Non-Af 93, BUN/Creatinine Ratio 31.1 H, Glucose 187 H, Calcium 8.7, Magnesium 1.8, Total Bilirubin 0.50, AST 36, ALT 36, Alkaline Phosphatase 54, Total Protein 5.7 L, Albumin 2.0 L, Globulin 3.7, Albumin/Globulin Ratio 0.5 L 07/07/20 06:21: POC Glucose 182 H 07/07/20 11:47: POC Glucose 231 H Current Medications Albuterol Sulfate (Albuterol Ih 8.5 Gm (Proair) Inhaler (200 Puffs)) 4 - 8 puff INHALATION Q4H PRN PRN PRN Reason: Dyspnea, wheezing Last Admin: 07/06/20 10:26 Dose: 4 puff Documented by: Amlodipine Besylate (Amlodipine 10 Mg Tablet) 10 mg PO DAILY [facility] Last Admin: 07/07/20 09:07 Dose: 10 mg Documented by: Aspirin (Aspirin E.C. 81 Mg Tablet) 81 mg PO DAILY [facility] Last Admin: 07/07/20 09:06 Dose: 81 mg Documented by: Atorvastatin Calcium (Atorvastatin Calcium 80 Mg Tablet) 80 mg PO QHS [facility] Last Admin: 07/06/20 21:27 Dose: 80 mg Documented by: Chlorthalidone (Chlorthalidone 50 Mg Tablet) 50 mg PO DAILY [facility] Last Admin: 07/07/20 10:43 Dose: 50 mg Documented by: Dexamethasone (Dexamethasone 2 Mg Tablet) 6 mg PO DAILY [facility] Stop: 07/11/20 10:01 Last Admin: 07/07/20 09:06 Dose: 6 mg Documented by: Dextrose (Dextrose 50%-Water 25 Gm/50 Ml Disp.Syrin) 0 gm IV X1 PRN; Protocol PRN Reason: Hypoglycemia Enoxaparin Sodium (Enoxaparin 40 Mg/0.4 Ml Syringe) 40 mg SC BID [facility] Last Admin: 07/07/20 09:06 Dose: 40 mg Documented by: Glucagon (Glucagon 1 Mg/Ml Syringe) 1 mg IM .X1 PRN PRN Reason: Hypoglycemia Hydralazine HCl (Hydralazine 20 Mg/Ml Vial) 10 mg IV Q4H PRN PRN PRN Reason: SBP > 160 Sodium Chloride () 250 mls @ 15 mls/hr IV .[id number] PRN PRN Reason: Saline Flush Insulin Glargine (Insulin Glargine 100 Units/Ml Pen) 40 units SC BID [facility] Last Admin: 07/07/20 09:07 Dose: 40 u Documented by: Insulin Human Lispro (Insulin Lispro 100 Unit/Ml Insuln.Pen) 0 unit SC ACHS [facility]; Protocol Last Admin: 07/07/20 11:48 Dose: 4 u Documented by: Insulin Human Lispro (Insulin Lispro 100 Unit/Ml Insuln.Pen) 10 unit SC TIDAC [facility] Last Admin: 07/07/20 11:48 Dose: 10 u Documented by: Ipratropium [place] (Ipratropium [place] 0.06% Nasal [place]) 2 spray NASAL BID [facility] Last Admin: 07/07/20 09:09 Dose: 2 spray Documented by: Lisinopril (Lisinopril 40 Mg Tablet) 40 mg PO DAILY [facility] Last Admin: 07/07/20 09:07 Dose: 40 mg Documented by: Mirabegron (Mirabegron 50 Mg Tab.Er.24h) 50 mg PO DAILY [facility] Last Admin: 07/07/20 09:07 Dose: 50 mg Documented by: Potassium Chloride (Potassium Chloride 20 Meq Tablet) 20 meq PO BIDCM [facility] Last Admin: 07/07/20 09:06 Dose: 20 meq Documented by: Sodium Chloride (0.9% Saline Lock 10 Ml Syringe) 10 - 40 ml IV UD PRN PRN Reason: SALINE FLUSH Last Admin: 07/06/20 21:33 Dose: 10 ml Documented by: Discharge Activity: Return to Normal Activity Call your doctor if you observe: Fever of 101 or Higher, Shortness of breath, Dizziness, Fainting spells, Swelling in the ankles, Chest pain, Increased palpitations (irregular heartbeat) Home Medications: Medications to take at Discharge Albuterol Sulfate [Albuterol Sulfate HFA] 2 puff IH Q4H PRN PRN 07/02/20 Amlodipine Besylate 10 mg PO DAILY 07/02/20 Aspirin [Aspirin, Baby] 81 mg PO DAILY@0800 07/02/20 Atorvastatin Calcium 80 mg PO QHS 07/02/20 Chlorthalidone 50 mg PO DAILY 07/02/20 Cinnamon Bark [Cinnamon] 1,500 mg PO DAILY 07/02/20 Empagliflozin [Jardiance] 25 mg PO DAILY 07/02/20 Icosapent Ethyl [Vascepa] 2 gm PO BID 07/02/20 Ipratropium [place] 0.06% [ATROVENT NASAL SPRAY] 2 spray NASAL BID 07/02/20 Lisinopril 40 mg PO DAILY 07/02/20 Mirabegron [Myrbetriq] 50 mg PO DAILY 07/02/20 Multivit-Min/FA/Lycopen/Lutein [Centrum Silver Tablet] 1 ea PO DAILY 07/02/20 Pioglitazone [Actos] 45 mg PO DAILY 07/02/20 Apixaban [Eliquis] 2.5 mg PO BID #28 tab 07/07/20 Insulin Glargine/Lixisenatide [Soliqua 100 Unit-33 Mcg/ml Pen] 40 units SQ BID #0 07/07/20 dexAMETHasone [Dexamethasone] 6 mg PO DAILY #12 tab 07/07/20 Following Prescriptions Were Given to Patient: dexAMETHasone [Dexamethasone] 6 mg PO DAILY #12 tab Transmission Status: Received by [facility] Apixaban [Eliquis] 2.5 mg PO BID #28 tab Transmission Status: Received by [facility] Primary Care Physician: Dhruv Ward Chi, MD [Primary Care Provider] - Please follow up with your Primary Care Physician in: 3-5 days Patient Instructions: Coronavirus Disease 2019 (COVID-19): Overview, Coronavirus Disease 2019 (COVID-19): Caring for Yourself or Others Disposition: Home Minutes spent on discharge:: 35 Patient Condition:: Stable Medical Necessity - Tobacco Use Smoking Status: Never smoker Tobacco Use: Non-smoker Meaningful Use Info Meaningful Use Diagnoses (Choose all that apply): None applicable Inpatient E&M: [id number] [facility] Hosp
--- NOTE | 2020-07-08 16:53 | CASEMGMT ---
HIRAM CM DC CALL DC DATE: 07/07/20 DC Diagnosis: COVID-19 DC Disposition: Home Attempted call to patient's phone. No answer and no messaging with name identifier. Reji WINTERS RN ACM
== END 2020-07-07 14:11 | disposition home or self-care (01) | DRG 177 ==
LOC: ED 22:35 → MS2 23:41
PROVIDERS: Internal Medicine; Internal Medicine Infectious Disease; Admitting Provider Family Medicine; Emergency Provider Emergency Medicine; PCP Family Medicine Geriatric Medicine; Visit Provider Family Medicine
DX: U07.1 COVID-19 (principal); J12.82 Pneumonia due to coronavirus disease 2019; J96.01 Acute respiratory failure with hypoxia; J18.1 Lobar pneumonia, unspecified organism; N17.9 Acute kidney failure, unspecified; R04.2 Hemoptysis; Z68.41 Body mass index [BMI] 40.0-44.9, adult; E87.6 Hypokalemia; D69.6 Thrombocytopenia, unspecified; E11.9 Type 2 diabetes mellitus without complications; I10 Essential (primary) hypertension; E78.5 Hyperlipidemia, unspecified; E66.01 Morbid (severe) obesity due to excess calories; Z79.4 Long term (current) use of insulin; Z79.82 Long term (current) use of aspirin; Z79.899 Other long term (current) drug therapy; Z86.73 Personal history of transient ischemic attack (TIA), and cerebral infarction without residual deficits; Z90.81 Acquired absence of spleen
CPT/HCPCS: 36415; 71046; 71275; 80048; 80053; 80076; 82728; 82962; 83605; 83615; 83735; 83880; 84145; 84484; 85025; 85027; 85379; 86140; 87040; 87070; 87205; 87426; 87449; 87633; 93005; 94760; 97110; 97162; 97166; 97530; 99282; J7030; J7050; Q9967; A4216; J0696; J1940

== ENCOUNTER → 2020-08-12 14:06 | Outpatient (CLI) | payer MEDICARE, OTHER, SELFPAY ==
[2020-07-03 00:37] VITALS: BMI 43.5
--- NOTE | 2020-08-12 14:11 | CT_ITS ---
STUDY: CTA CHEST REASON FOR EXAM: Male, 69 years old. SOB. PRIOR COVID RADIATION DOSAGE (If Supplied By Facility): CTDIvol = ( 13.85 ) mGy, DLP = ( 520.36 ) mGycm TECHNIQUE: The examination was performed with the intravenous administration of IV 100mL Isovue-370. Post-processing of the angiographic images was performed, with multiplanar reformation and 3D reconstruction. Individualized dose optimization techniques were used for this CT. COMPARISON: None. FINDINGS: Normal enhancement of the main pulmonary artery and right and left pulmonary arteries. Normal enhancement of the bilateral peripheral pulmonary arteries. There is no demonstrated pulmonary embolism. Normal thoracic aorta and visualized great vessels. There is no demonstrated aortic dissection. Normal heart and pericardium. Normal mediastinum. Normal hilar regions. Normal visualized trachea and bronchi. The lungs are well expanded. Ill-defined subpleural groundglass opacities are seen more prominent in the lung bases , may represent atypical pneumonia or viral pneumonia (COVID-19 ?). Normal pleura. Normal chest wall structures. There are degenerative changes of thoracic spine. Normal visualized upper abdomen. CT/CTA Chest W/WO Contrast IMPRESSION: No demonstrated pulmonary embolism or arterial dissection. Ill-defined subpleural groundglass opacities are seen more prominent in the lung bases , may represent atypical pneumonia or viral pneumonia (COVID-19 ?). Electronically Signed: Alexandru Das MD at 15:21 EST Tel , Service support ,
[2020-08-12 14:30] LABS: Absolute Lymphocyte Count 2.39 X10^3/uL (0.83-4.51); Absolute Neutrophil Count 7.6 X10^3/uL (2.0-7.7); Basophil# 0.05 X10^3/uL; Basophil% 0.4 % (0-1); Eosinophil# 0.09 X10^3/uL; Eosinophils% 0.8 % (0-5); Hematocrit 43.3 % (40-54); Hemoglobin 13.7 g/dL (13.0-16.5); Lymphocyte # 2.39 X10^3/ul (4.0); Lymphocyte % 21.5 % (19-41); Mean Corp Hgb Conc 31.6 g/dL (32-36); Mean Corpuscular Hgb 29.4 pg (27.0-32.0); Mean Corpuscular Volume 92.9 fL (80-94); Mean Platelet Vol. 11.5 fl (6.2-12.0); Monocyte# 0.94 X10^3/uL; Monocyte% 8.4 % (0-10); NRBC Flagged by Analyzer 0 % (0-5); Neutrophil # 7.61 X10^3/uL (2.7-7.7); Neutrophil % 68.5 % (47-70); Platelet Count 177 K/mm3 (150-450); RBC Distribution Width CV 18.1 % (11.6-14.6); RBC Distribution Width SD 61.3 fl (35.1-43.9); Red Blood Count 4.66 M/mm3 (4.6-6.2); White Blood Count 11.1 K/mm3 (4.4-11.0)
[2020-08-12 14:35] LABS: CREATININE FINGERSTICK 1.2 mg/dL (0.70-1.30)
[2020-08-12 14:41] LABS: BNP,B-Type NATRIURETIC PEPTIDE 164.1 pg/mL (0-100)
[2020-08-12 15:02] LABS: Anion Gap 6 (5-15); BUN 25 mg/dL (7-18); BUN/Creat Ratio 21.4 RATIO (10-20); Calcium,Total 8.9 mg/dL (8.5-10.1); Chloride 106 mmol/L (98-107); Creatinine, Serum 1.17 mg/dL (0.70-1.30); EST Glomerular Filtration Rate 66 mL/min (>60); Est Glom Filt Rate - Afr Amer 80 mL/min (>60); Glucose 141 mg/dL (74-106); Potassium 3.8 mmol/L (3.5-5.1); Sodium Level 143 mmol/L (136-145)
== END ==
PROVIDERS: PCP Family Medicine Geriatric Medicine; Visit Provider Family Medicine Geriatric Medicine
DX: R06.02 Shortness of breath (principal); R06.89 Other abnormalities of breathing
CPT/HCPCS: 36415; 71275; 80048; 83880; 85025; Q9967

== ENCOUNTER → 2020-08-28 08:00 | Outpatient (CLI) | payer MEDICARE, OTHER, SELFPAY ==
[2020-07-03 00:37] VITALS: BMI 43.5
--- NOTE | 2020-08-29 10:16 | PFT ---
INTRODUCTION: The patient is a 69-year-old male that presents for pulmonary function studies secondary to a diagnosis of wheezing. Respiratory therapy reports good patient effort. Bronchodilators were used during testing. INTERPRETATION: Forced expiration spirometry demonstrates no evidence of a large airways obstructive ventilatory defect. There was no significant response to aerosolized bronchodilators. Spirograms are of good quality and plateau normally. Body plethysmography was performed and reveals lung volumes to be within normal limits. Diffusing capacity by single breath CO is also within normal limits. IMPRESSION: Grossly normal pulmonary function studies.
== END ==
PROVIDERS: PCP Family Medicine Geriatric Medicine; Referring Provider Family Medicine Geriatric Medicine; Visit Provider Family Medicine Geriatric Medicine
DX: R06.02 Shortness of breath (principal)
CPT/HCPCS: 94060; 94726; 94729

== ENCOUNTER → 2020-09-22 14:13 | Outpatient (CLI) | payer MEDICARE, OTHER, SELFPAY ==
[2020-07-03 00:37] VITALS: BMI 43.5
[2020-09-22 15:12] LABS: Absolute Lymphocyte Count 2.68 X10^3/uL (0.83-4.51); Absolute Neutrophil Count 8.3 X10^3/uL (2.0-7.7); Basophil# 0.05 X10^3/uL; Basophil% 0.4 % (0-1); Eosinophil# 0.15 X10^3/uL; Eosinophils% 1.2 % (0-5); Hematocrit 46.5 % (40-54); Hemoglobin 14.4 g/dL (13.0-16.5); Lymphocyte # 2.68 X10^3/ul (0.83-4.51); Lymphocyte % 21.7 % (19-41); Mean Corpuscular Hgb 29.3 pg (27.0-32.0); Mean Corpuscular Volume 94.5 fL (80-94); Mean Platelet Vol. 12.5 fl (6.2-12.0); Monocyte# 1.16 X10^3/uL; Monocyte% 9.4 % (0-10); NRBC Flagged by Analyzer 0 % (0-5); Neutrophil # 8.29 X10^3/uL (2.7-7.7); Platelet Count 154 K/mm3 (150-450); RBC Distribution Width CV 15.9 % (11.6-14.6); Red Blood Count 4.92 M/mm3 (4.6-6.2); White Blood Count 12.4 K/mm3 (4.4-11.0)
[2020-09-22 15:41] LABS: ALB/GLOB Ratio 0.9 RATIO (0.9-2.4); AST(SGOT) 15 U/L (15-37); Alanine Aminotransfer ALT/SGPT 30 U/L (16-61); Alkaline Phosphatase 78 U/L (45-117); Anion Gap 6 (5-15); BUN 27 mg/dL (7-18); Calcium,Total 8.9 mg/dL (8.5-10.1); Chloride 104 mmol/L (98-107); Creatinine, Serum 1.42 mg/dL (0.70-1.30); EST Glomerular Filtration Rate 53 mL/min (>60); Est Glom Filt Rate - Afr Amer 64 mL/min (>60); Globulin 3.5 g/dL (2.2-4.2); Glucose 192 mg/dL (74-106); Potassium 3.6 mmol/L (3.5-5.1); Protein, Total 6.5 g/dL (6.4-8.2); Sodium Level 140 mmol/L (136-145); Thyroid Stim Hormone (TSH) 0.39 uIU/mL (0.358-3.74)
[2020-09-22 15:45] LABS: Vitamin D,25 Hydroxy 40.7 ng/mL
== END ==
PROVIDERS: PCP Family Medicine Geriatric Medicine; Visit Provider Family Medicine Geriatric Medicine
DX: E11.9 Type 2 diabetes mellitus without complications (principal); E55.9 Vitamin D deficiency, unspecified; I10 Essential (primary) hypertension; R68.89 Other general symptoms and signs
CPT/HCPCS: 36415; 80053; 82306; 84443; 85025

== ENCOUNTER → 2020-11-20 14:06 | Outpatient (CLI) | payer MEDICARE, OTHER, SELFPAY ==
[2020-07-03 00:37] VITALS: BMI 43.5
--- NOTE | 2020-11-20 14:20 | RAD_ITS ---
STUDY: X-RAY CHEST REASON FOR EXAM: Male, 70 years old. SOB TECHNIQUE: PA and lateral COMPARISON: 07/02/2020 FINDINGS: Mild interstitial thickening in both lower lobes.. There is no demonstrated pleural abnormality. Normal size heart. Normal mediastinum and shane. Normal visualized pulmonary arteries. Mildly calcified aortic arch and descending thoracic aorta. Dorsal spine demonstrates degenerative change.. Normal visualized ribs, clavicles, and shoulders. There is no demonstrated abnormality of the visualized soft tissue structures of the upper abdomen. There is improved aeration of both lungs since prior exam. No new infiltration. RAD/Chest PA and Lateral IMPRESSION: Mild residual interstitial thickening in the lower lobes. No acute infiltration. Electronically Signed: Tank Gallagher MD at 20:22 EDT , Service support ,
[2020-11-20 16:03] LABS: Absolute Lymphocyte Count 2.92 X10^3/uL (0.83-4.51); Absolute Neutrophil Count 8.3 X10^3/uL (2.0-7.7); Basophil# 0.04 X10^3/uL; Basophil% 0.3 % (0-1); Eosinophil# 0.16 X10^3/uL; Eosinophils% 1.3 % (0-5); Hematocrit 47.7 % (40-54); Hemoglobin 15.1 g/dL (13.0-16.5); Lymphocyte # 2.92 X10^3/ul (0.83-4.51); Lymphocyte % 23.1 % (19-41); Mean Corp Hgb Conc 31.7 g/dL (32-36); Mean Corpuscular Hgb 28.9 pg (27.0-32.0); Mean Corpuscular Volume 91.2 fL (80-94); Mean Platelet Vol. 12.2 fl (6.2-12.0); Monocyte# 1.14 X10^3/uL; NRBC Flagged by Analyzer 0 % (0-5); Neutrophil # 8.32 X10^3/uL (2.7-7.7); Neutrophil % 65.8 % (47-70); Platelet Count 178 K/mm3 (150-450); RBC Distribution Width CV 14.3 % (11.6-14.6); RBC Distribution Width SD 47.8 fl (35.1-43.9); Red Blood Count 5.23 M/mm3 (4.6-6.2); White Blood Count 12.6 K/mm3 (4.4-11.0)
[2020-11-20 16:23] LABS: ALB/GLOB Ratio 0.8 RATIO (0.9-2.4); AST(SGOT) 22 U/L (15-37); Alanine Aminotransfer ALT/SGPT 33 U/L (16-61); Albumin, Serum 3.3 g/dL (3.2-5.0); Alkaline Phosphatase 89 U/L (45-117); Anion Gap 9 (5-15); BUN 26 mg/dL (7-18); BUN/Creat Ratio 19.8 RATIO (10-20); CPK Total, Creatine Kinase 166 U/L (39-308); Calcium,Total 9.2 mg/dL (8.5-10.1); Chloride 105 mmol/L (98-107); Creatinine, Serum 1.31 mg/dL (0.70-1.30); EST Glomerular Filtration Rate 58 mL/min (>60); Est Glom Filt Rate - Afr Amer 70 mL/min (>60); Glucose 97 mg/dL (74-106); Potassium 3.3 mmol/L (3.5-5.1); Protein, Total 7.3 g/dL (6.4-8.2); Sodium Level 143 mmol/L (136-145); Thyroid Stim Hormone (TSH) 0.42 uIU/mL (0.358-3.74)
[2020-11-20 16:24] LABS: BNP,B-Type NATRIURETIC PEPTIDE 175.1 pg/mL (0-100)
[2020-11-22 15:03] LABS: Myoglobin, Serum 123 ng/mL (28-72)
== END ==
PROVIDERS: PCP Family Medicine Geriatric Medicine; Referring Provider Family Medicine Geriatric Medicine; Visit Provider Family Medicine Geriatric Medicine
DX: I50.9 Heart failure, unspecified (principal); R06.02 Shortness of breath; R06.89 Other abnormalities of breathing
CPT/HCPCS: 36415; 71046; 80053; 82550; 83874; 83880; 84443; 84484; 85025

== ENCOUNTER → 2020-11-27 12:43 | Outpatient (CLI) | payer MEDICARE, OTHER, SELFPAY ==
[2020-07-03 00:37] VITALS: BMI 43.5
--- NOTE | 2020-11-27 12:47 | ECHOD_ITS ---
Reason For Study: CHF Procedure This was a 2D Doppler, Color Flow transthoracic echocardiogram. Exam performed in department. Left Ventricle Normal LV size. Left ventricular systolic function is normal. The estimated ejection fraction is 60 %. Diastolic function is indeterminate. No regional wall motion abnormalities noted. Right Ventricle Normal RV size. Normal systolic function. Atria Normal left atrium. Normal right atrium. Mitral Valve Normal mitral valve. Tricuspid Valve Normal tricuspid valve. Aortic Valve Normal aortic valve. Trisinus/trileaflet aortic valve. Pulmonic Valve Normal pulmonic valve. Great Vessels Normal aortic root. Pericardium/Pleural No pericardial effusion. MMode/2D Measurements & Calculations LVIDd: 3.8 cm IVSd: 1.7 cm Ao root diam: 3.2 cm LVIDs: 2.5 cm LVPWd: 1.7 cm RVDd: 3.8 cm FS: 33.8 % LAV(MOD-bp): 104.3 ml LA A4 area: 28.0 cm2 LA dimension(2D): 4.0 cm LAV(MOD-bp) Indexed: 39.2 ml/m2 LAV(MOD-sp2): 105.9 ml LAV(MOD-sp4): 99.2 ml RA A4 area: 21.1 cm2 Doppler Measurements & Calculations MV E max kiko: 138.9 cm/sec Ao V2 max: 153.4 cm/sec LV V1 max: 107.8 cm/sec Ao max P.5 mmHg LV V1 max P.7 mmHg PA V2 max: 124.1 cm/sec TR max kiko: 211.1 cm/sec TR max P.8 mmHg ECHO/Echo Complete Interpretation Summary Normal LV size. Left ventricular systolic function is normal. The estimated ejection fraction is 60 %. Diastolic function is indeterminate. The global longitudinal strain is borderline abnormal. The global longitudinal strain = -16.9 with apical sparing% (abnormal). Ordering Physician: Dhruv Ward Referring Physician: Dhruv Ward Chi Performed By: Raina Bernard RDCS
== END ==
PROVIDERS: PCP Family Medicine Geriatric Medicine; Referring Provider Family Medicine Geriatric Medicine; Visit Provider Family Medicine Geriatric Medicine
DX: I50.9 Heart failure, unspecified (principal); R06.00 Dyspnea, unspecified
CPT/HCPCS: 93306

== ENCOUNTER → 2020-11-27 13:56 | Outpatient (CLI) | payer MEDICARE, OTHER, SELFPAY ==
[2020-07-03 00:37] VITALS: BMI 43.5
[2020-11-27 17:34] LABS: Anion Gap 5 (5-15); BUN 35 mg/dL (7-18); BUN/Creat Ratio 25.2 RATIO (10-20); Calcium,Total 9.3 mg/dL (8.5-10.1); Chloride 104 mmol/L (98-107); Creatinine, Serum 1.39 mg/dL (0.70-1.30); EST Glomerular Filtration Rate 54 mL/min (>60); Est Glom Filt Rate - Afr Amer 65 mL/min (>60); Glucose 204 mg/dL (74-106); Potassium 3.4 mmol/L (3.5-5.1); Sodium Level 141 mmol/L (136-145)
== END ==
PROVIDERS: PCP Family Medicine Geriatric Medicine; Visit Provider Family Medicine Geriatric Medicine
DX: I50.9 Heart failure, unspecified (principal); R06.00 Dyspnea, unspecified
CPT/HCPCS: 36415; 80048; 93306

== ENCOUNTER → 2020-11-28 12:13 | Outpatient (CLI) | payer MEDICARE, OTHER, SELFPAY ==
[2020-07-03 00:37] VITALS: BMI 43.5
[2020-11-28 13:17] LABS: Anion Gap 8 (5-15); BUN 34 mg/dL (7-18); BUN/Creat Ratio 26.2 RATIO (10-20); Calcium,Total 9.3 mg/dL (8.5-10.1); Chloride 104 mmol/L (98-107); EST Glomerular Filtration Rate 58 mL/min (>60); Est Glom Filt Rate - Afr Amer 70 mL/min (>60); Glucose 143 mg/dL (74-106); Potassium 3.2 mmol/L (3.5-5.1); Sodium Level 140 mmol/L (136-145)
== END ==
PROVIDERS: PCP Family Medicine Geriatric Medicine; Referring Provider Family Medicine Geriatric Medicine; Visit Provider Family Medicine Geriatric Medicine
DX: E87.6 Hypokalemia (principal)
CPT/HCPCS: 36415; 80048

== ENCOUNTER → 2020-12-12 10:12 | Outpatient (CLI) | payer MEDICARE, OTHER, SELFPAY ==
[2020-07-03 00:37] VITALS: BMI 43.5
[2020-12-12 12:03] LABS: Anion Gap 6 (5-15); BUN 34 mg/dL (7-18); BUN/Creat Ratio 24.5 RATIO (10-20); Calcium,Total 9.3 mg/dL (8.5-10.1); Chloride 105 mmol/L (98-107); Creatinine, Serum 1.39 mg/dL (0.70-1.30); EST Glomerular Filtration Rate 54 mL/min (>60); Est Glom Filt Rate - Afr Amer 65 mL/min (>60); Glucose 177 mg/dL (74-106); Potassium 3.5 mmol/L (3.5-5.1); Sodium Level 140 mmol/L (136-145)
== END ==
PROVIDERS: PCP Family Medicine Geriatric Medicine; Visit Provider Family Medicine Geriatric Medicine
DX: E87.6 Hypokalemia (principal)
CPT/HCPCS: 36415; 80048

== ENCOUNTER → 2021-01-13 15:27 | Outpatient (CLI) | payer MEDICARE, OTHER, SELFPAY ==
[2020-07-03 00:37] VITALS: BMI 43.5
[2021-01-13 20:24] LABS: Absolute Lymphocyte Count 2.85 X10^3/uL (0.83-4.51); Absolute Neutrophil Count 6.8 X10^3/uL (2.0-7.7); Basophil# 0.04 X10^3/uL; Basophil% 0.4 % (0-1); Eosinophil# 0.14 X10^3/uL; Eosinophils% 1.3 % (0-5); Hematocrit 46.9 % (40-54); Hemoglobin 14.6 g/dL (13.0-16.5); Lymphocyte # 2.85 X10^3/ul (0.83-4.51); Lymphocyte % 26.3 % (19-41); Mean Corp Hgb Conc 31.1 g/dL (32-36); Mean Corpuscular Hgb 28.7 pg (27.0-32.0); Mean Corpuscular Volume 92.1 fL (80-94); Mean Platelet Vol. 12.7 fl (6.2-12.0); Monocyte# 0.94 X10^3/uL; Monocyte% 8.7 % (0-10); NRBC Flagged by Analyzer 0 % (0-5); Neutrophil % 62.8 % (47-70); Platelet Count 182 K/mm3 (150-450); RBC Distribution Width CV 15.7 % (11.6-14.6); RBC Distribution Width SD 53.4 fl (35.1-43.9); Red Blood Count 5.09 M/mm3 (4.6-6.2); White Blood Count 10.8 K/mm3 (4.4-11.0)
[2021-01-13 20:37] LABS: Vitamin D,25 Hydroxy 51.6 ng/mL
[2021-01-13 20:47] LABS: ALB/GLOB Ratio 0.8 RATIO (0.9-2.4); AST(SGOT) 19 U/L (15-37); Alanine Aminotransfer ALT/SGPT 33 U/L (16-61); Alkaline Phosphatase 89 U/L (45-117); Anion Gap 8 (5-15); BUN 35 mg/dL (7-18); BUN/Creat Ratio 24.5 RATIO (10-20); Chloride 102 mmol/L (98-107); Creatinine, Serum 1.43 mg/dL (0.70-1.30); EST Glomerular Filtration Rate 52 mL/min (>60); Est Glom Filt Rate - Afr Amer 63 mL/min (>60); Glucose 262 mg/dL (74-106); Potassium 3.4 mmol/L (3.5-5.1); Sodium Level 139 mmol/L (136-145); Thyroid Stim Hormone (TSH) 0.49 uIU/mL (0.358-3.74)
== END ==
PROVIDERS: PCP Family Medicine Geriatric Medicine; Visit Provider Family Medicine Geriatric Medicine
DX: E11.9 Type 2 diabetes mellitus without complications (principal); E55.9 Vitamin D deficiency, unspecified; I10 Essential (primary) hypertension
CPT/HCPCS: 36415; 80053; 82306; 84443; 85025

== ENCOUNTER → 2021-01-16 08:16 | Outpatient (CLI) | payer MEDICARE, OTHER, SELFPAY ==
[2020-07-03 00:37] VITALS: BMI 43.5
== END ==
PROVIDERS: PCP Family Medicine Geriatric Medicine; Referring Provider Family Medicine Geriatric Medicine; Visit Provider Family Medicine Geriatric Medicine
DX: E11.9 Type 2 diabetes mellitus without complications (principal)
CPT/HCPCS: 36415; 82533

== ENCOUNTER → 2021-01-29 08:30 | Outpatient (CLI) | payer MEDICARE, OTHER, SELFPAY | PROVIDERS: PCP Family Medicine Geriatric Medicine; Referring Provider Internal Medicine Cardiovascular Disease; Visit Provider Internal Medicine Cardiovascular Disease | DX: I48.19 Other persistent atrial fibrillation (principal) | CPT/HCPCS: 93225; 93226 ==

== ENCOUNTER → 2021-02-05 08:00 | Outpatient (CLI) | payer MEDICARE, OTHER, SELFPAY ==
--- NOTE | 2021-02-05 08:04 | NM_ITS ---
CLINICAL: 70.-year-old male with suspected cardiac amyloidosis. 99m Tc PYROPHOSPHATE CARDIAC AMYLOID EXAMINATION COMPARISON: None available FINDINGS: Following the intravenous administration of 23.3 mCi of 99m Tc pyrophosphate, anterior acquisitions of the thorax reveal: 1. There is no evidence of significant radiopharmaceutical concentration identified within the context of the left ventricular myocardium. The left ventricular myocardial (LV) to contralateral chest (CL) ratio is calculated to be 1.29:1 (Normal < 1.5: 1). [facility] Images Cardiac Amyloid IMPRESSION: 1. NEGATIVE EXAMINATION. There is no scintigraphic evidence of cardiac amyloidosis (ATTR) on on both qualitative and quantitative analysis. (Radha et al, J Nucl Cardiol 21: 175, 2014). Electronically Signed: Hardy Walker DO at 9:19 EDT Tel , Service support ,
== END ==
PROVIDERS: PCP Family Medicine Geriatric Medicine; Referring Provider Internal Medicine Cardiovascular Disease; Visit Provider Internal Medicine Cardiovascular Disease
DX: E85.9 Amyloidosis, unspecified (principal)
CPT/HCPCS: 78800; A9538

== ENCOUNTER → 2021-03-09 16:24 | Outpatient (CLI) | payer MEDICARE, OTHER, SELFPAY ==
[2021-03-09 18:11] LABS: Anion Gap 8 (5-15); BUN 24 mg/dL (7-18); BUN/Creat Ratio 19.4 RATIO (10-20); Chloride 107 mmol/L (98-107); Creatinine, Serum 1.24 mg/dL (0.70-1.30); EST Glomerular Filtration Rate 61 mL/min (>60); Est Glom Filt Rate - Afr Amer 74 mL/min (>60); Glucose 224 mg/dL (74-106); Sodium Level 141 mmol/L (136-145)
[2021-03-09 18:22] LABS: BNP,B-Type NATRIURETIC PEPTIDE 160.6 pg/mL (0-100)
== END ==
PROVIDERS: PCP Family Medicine Geriatric Medicine; Visit Provider Nurse Practitioner Gerontology
DX: R06.02 Shortness of breath (principal); I50.30 Unspecified diastolic (congestive) heart failure
CPT/HCPCS: 36415; 80048; 83880

== ENCOUNTER → 2021-03-30 14:37 | Outpatient (CLI) | payer MEDICARE, OTHER, SELFPAY ==
[2021-03-30 16:47] LABS: Anion Gap 9 (5-15); BUN 32 mg/dL (7-18); BUN/Creat Ratio 20.3 RATIO (10-20); Calcium,Total 9.2 mg/dL (8.5-10.1); Chloride 106 mmol/L (98-107); Creatinine, Serum 1.58 mg/dL (0.70-1.30); EST Glomerular Filtration Rate 46 mL/min (>60); Est Glom Filt Rate - Afr Amer 56 mL/min (>60); Glucose 139 mg/dL (74-106); Potassium 4.2 mmol/L (3.5-5.1); Sodium Level 139 mmol/L (136-145)
[2021-03-30 19:21] LABS: M R Staph aureus DNA By PCR Negative (Negative); Probe Check PASS; Staph aureus DNA By PCR NEGATIVE (Negative)
== END ==
PROVIDERS: PCP Family Medicine Geriatric Medicine; Visit Provider Family Medicine Geriatric Medicine
DX: E87.6 Hypokalemia (principal); T07.XXXA Unspecified multiple injuries, initial encounter; B95.62 Methicillin resistant Staphylococcus aureus infection as the cause of diseases classified elsewhere
CPT/HCPCS: 36415; 80048; 87070; 87205; 87640

== ENCOUNTER → 2021-03-31 08:36 | Outpatient (CLI) | payer MEDICARE, OTHER, SELFPAY | PROVIDERS: PCP Family Medicine Geriatric Medicine; Referring Provider Family Medicine Geriatric Medicine; Visit Provider Family Medicine Geriatric Medicine | DX: E24.9 Cushing's syndrome, unspecified (principal) | CPT/HCPCS: 36415; 82533 ==

== ENCOUNTER → 2021-04-03 10:22 | Outpatient (CLI) | payer MEDICARE, OTHER, SELFPAY ==
[2021-04-04 12:08] LABS: DHEA Sulfate 30.9 ug/dL (30.9-295.6)
== END ==
PROVIDERS: PCP Family Medicine Geriatric Medicine; Visit Provider Family Medicine Geriatric Medicine
DX: E24.9 Cushing's syndrome, unspecified (principal)
CPT/HCPCS: 36415; 82024; 82627; 82626

== ENCOUNTER → 2021-04-13 13:30 | Outpatient (CLI) | payer MEDICARE, OTHER, SELFPAY ==
[2021-04-13 17:20] LABS: Absolute Lymphocyte Count 2.24 X10^3/uL (0.83-4.51); Absolute Neutrophil Count 8.7 X10^3/uL (2.0-7.7); Basophil# 0.05 X10^3/uL; Basophil% 0.4 % (0-1); Eosinophil# 0.26 X10^3/uL; Eosinophils% 2.1 % (0-5); Hematocrit 45.5 % (40-54); Hemoglobin 14.2 g/dL (13.0-16.5); Lymphocyte # 2.24 X10^3/ul (0.83-4.51); Lymphocyte % 18.4 % (19-41); Mean Corp Hgb Conc 31.2 g/dL (32-36); Mean Corpuscular Volume 92.9 fL (80-94); Mean Platelet Vol. 12.3 fl (6.2-12.0); Monocyte# 0.91 X10^3/uL; Monocyte% 7.5 % (0-10); NRBC Flagged by Analyzer 0 % (0-5); Neutrophil # 8.68 X10^3/uL (2.7-7.7); Neutrophil % 71.3 % (47-70); Platelet Count 163 K/mm3 (150-450); RBC Distribution Width CV 15.3 % (11.6-14.6); RBC Distribution Width SD 52.6 fl (35.1-43.9); White Blood Count 12.2 K/mm3 (4.4-11.0)
[2021-04-13 17:36] LABS: Vitamin D,25 Hydroxy 41.7 ng/mL
[2021-04-13 17:49] LABS: ALB/GLOB Ratio 0.7 RATIO (0.9-2.4); AST(SGOT) 24 U/L (15-37); Alanine Aminotransfer ALT/SGPT 33 U/L (16-61); Albumin, Serum 2.8 g/dL (3.2-5.0); Alkaline Phosphatase 96 U/L (45-117); Anion Gap 5 (5-15); BUN 32 mg/dL (7-18); BUN/Creat Ratio 21.9 RATIO (10-20); Calcium,Total 8.9 mg/dL (8.5-10.1); Chloride 107 mmol/L (98-107); Creatinine, Serum 1.46 mg/dL (0.70-1.30); EST Glomerular Filtration Rate 51 mL/min (>60); Est Glom Filt Rate - Afr Amer 62 mL/min (>60); Globulin 4.3 g/dL (2.2-4.2); Glucose 192 mg/dL (74-106); Potassium 4.5 mmol/L (3.5-5.1); Protein, Total 7.1 g/dL (6.4-8.2); Sodium Level 139 mmol/L (136-145); Thyroid Stim Hormone (TSH) 0.73 uIU/mL (0.358-3.74)
== END ==
PROVIDERS: PCP Family Medicine Geriatric Medicine; Visit Provider Family Medicine Geriatric Medicine
DX: E11.9 Type 2 diabetes mellitus without complications (principal); I10 Essential (primary) hypertension; E55.9 Vitamin D deficiency, unspecified
CPT/HCPCS: 36415; 80053; 82306; 84443; 85025

== ENCOUNTER → 2021-04-28 12:36 | Outpatient (CLI) | payer MEDICARE, OTHER, SELFPAY ==
--- NOTE | 2021-04-28 12:39 | VDLE_ITS ---
Reason For Study: edema RIGHT LEFT CFV is compressible, spontaneous, phasic, CFV is compressible, spontaneous, phasic, competent and demonstrates normal competent, and demonstrates normal augmentation. augmentation. FV is compressible, spontaneous, phasic, FV is compressible, spontaneous, phasic, competent and demonstrates normal competent and demonstrates normal augmentation. augmentation. POP V is compressible, spontaneous, phasic, POP V is compressible, spontaneous, phasic, competent and demonstrates normal competent and demonstrates normal augmentation. augmentation. T/P Trunk is compressible. T/P Trunk is compressible. PTV is compressible. PTV is compressible. RT PerV is compressible. LT PerV is compressible. SFJ is competent and measures .99 cm. SFJ is competent and measures .57 cm. GSV proximal thigh measures .56 x .54 cm. GSV proximal thigh measures .33 x .42 cm. GSV at knee measures .4 x .41 cm. GSV at knee measures .34 x .32 cm. GSV is competent throughout. GSV is competent throughout. SSV proximal calf is competent and SSV proximal calf is competent and measures .28 x .25 cm. measures .23 x .27 cm. Procedure Exam performed in department. This is a venous duplex using B-mode, color flow and spectral Doppler. The exam was diagnostic. VL/Venous Duplex US - Rigo Extrem Interpretation Summary Deep veins of the lower extremities are bilaterally patent and compressible seg mentally. There is no evidence of deep vein thrombosis on either side. Valvular competence appears in tact within the proximal deep venous systems bilaterally. The great saphenous veins appear bila terally patent and compressible segmentally. Sapheno-femoral junctions are bilaterally competent . Valvular competence appears to be intact segmentally within the great saphenous veins bilaterally. Small saphenous veins are patent and competent bilaterally. Ordering Physician: Maryann Rashid Referring Physician: Maryann Rashid Performed By: Tyler Garcia RVJia
--- NOTE | 2021-04-28 12:40 | ART_ITS ---
Reason For Study: edema, DMII Procedure A bilateral lower extremity continuous wave Doppler with analog waveform analysis,segmental pressures,and ankle brachial indexes without exercise. Left Segmental Pressures Left brachial= 143mmHg. Left posterior tibial artery = 151mmHg. Left dorsalis pedis artery = 156mmHg. Left digit = 100 mmHg. The left dorsalis pedis waveforms are triphasic. The left posterior tibial artery waveforms are triphasic. Right Segmental Pressures Right brachial= 143mmHg. Right posterior tibial artery = 176mmHg. Right dorsalis pedis artery = 148mmHg. Right digit = 98 mmHg. The right dorsalis pedis waveforms are triphasic. The right posterior tibial artery waveforms are triphasic. Indices The right ankle brachial index by the posterior tibial artery is 1.23. The right ankle brachial index by the dorsalis pedis is 1.03. The right digital-brachial index is .69. The left ankle brachial index by the posterior tibial artery is 1.06. The left ankle brachial index by the dorsalis pedis is 1.09. The left digital-brachial index is .7. VL/Lower Ext Art Exam w/o Exercis Interpretation Summary Triphasic Doppler waveforms are noted at ankle level bilaterally. Pulse-volume recordings appear satisfactory at all levels bilaterally, including low thigh, calf, ankle, and d igital levels. Resting ankle-brachial indices are normal bilaterally. Digital-brachial indices are mildly diminished bilaterally. Arterial flow appears normal at ankle level bilaterally. There is evidence of m ild arterial occlusive disease at digital level bilaterally. Ordering Physician: Maryann Rashid Performed By: GISSELL EVANGELISTA Jia
--- NOTE | 2021-04-28 16:57 | MRI_ITS ---
STUDY: MRI ABDOMEN WITH AND WITHOUT CONTRAST REASON FOR EXAM: Male, 70 years old. 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 IV 30ml Dotarem was administered for the contrast portion of the examination. COMPARISON: None. FINDINGS: There is a 7.5 cm lobulated well-defined left adrenal lesion. The size of the lesion precludes full characterization as to benign or malignant nature of this lesion. There is heterogeneous contrast enhancement. Contralateral right adrenal has a 5 mm benign lateral limb nodule. There is no upper rich peritoneal lymphadenopathy. There is a 1 cm simple cystic lesion in the pancreas. However, surrounding pancreatic parenchyma has a slightly altered texture compared to the rest of the pancreas. There is no peripancreatic inflammation or fluid collections. Liver, kidneys are normal. There are bilateral simple renal cysts. MRI/MRI Abd WITH and W/O Contrast IMPRESSION: 1. 7.5 cm left adrenal lesion. Unknown etiology. Surgical referral advised. 2. 1 cm low risk pancreatic tail lesion with questionable abnormal adjacent parenchyma. Consider follow-up to document benign nature of this finding. This can be evaluated as well at the time of the above surgical referral. Electronically Signed: Anita Finnegan MD at 23:10 EST Tel , Service support ,
--- NOTE | 2021-04-28 16:57 | MRI_ITS ---
STUDY: MRI LUMBAR SPINE WITHOUT CONTRAST REASON FOR EXAM: Male, 70 years old. RADICULOPATHY, rt leg weakness TECHNIQUE: Standardized fat and water weighted pulse sequences were obtained in the sagittal and axial following administration of . COMPARISON: No prior FINDINGS: T12-L1: Normal endplates. Normal disc height, hydration and morphology. Normal bilateral facet joints. Normal central canal and bilateral lateral recesses. Normal bilateral intervertebral neural foramina. Normal lumbar lordosis. There is no substantial scoliosis. Normal conus medullaris that terminates at the L1-L2 with normal cauda equina. L1-2: Normal endplates. Normal disc height, hydration and morphology. Normal bilateral facet joints. Normal central canal and bilateral lateral recesses. Normal bilateral intervertebral neural foramina. L2-3: Normal endplates. Normal disc height, hydration and morphology. Normal bilateral facet joints. Normal central canal and bilateral lateral recesses. Normal bilateral intervertebral neural foramina. L3-4: Normal endplates. Normal disc height, hydration and morphology. Normal bilateral facet joints. Normal central canal and bilateral lateral recesses. Normal bilateral intervertebral neural foramina. L4-5: Normal endplates. Normal disc height, hydration and morphology. Facet joints are degenerated. Canal is patent. There is minor bilateral lateral recess stenosis. There is severe bilateral foraminal stenosis. L5-S1: Normal endplates. Normal disc height, hydration and mildly degenerative bulge morphology. Mildly degenerated. Canal is patent. There is mild right lateral recess stenosis with patent left recess. There is moderate bilateral foraminal stenosis. Normal visualized sacral ala. Normal visualized paraspinous soft tissue structures. MRI/Spine Lumbar (Routine) IMPRESSION: 1. No moderate/high-grade thecal sac stenosis. 2. Bilateral L4-L5 foraminal stenosis. Electronically Signed: Anita Finnegan MD at 22:55 EST Tel , Service support ,
== END ==
PROVIDERS: PCP Family Medicine Geriatric Medicine; Referring Provider Nurse Practitioner Family; Visit Provider Nurse Practitioner Family
DX: R60.0 Localized edema (principal); E11.51 Type 2 diabetes mellitus with diabetic peripheral angiopathy without gangrene; M54.10 Radiculopathy, site unspecified; E24.9 Cushing's syndrome, unspecified
CPT/HCPCS: 72148; 74183; 93923; 93970; A9575

== ENCOUNTER 2021-05-05 11:15 | Outpatient (RCR) | payer MEDICARE, OTHER, SELFPAY ==
[2021-04-10 09:22] VITALS: BP 129/72; RESP 22; TEMP 36.4
--- NOTE | 2021-04-10 12:32 | PCM.WC.HP ---
History of Present Illness Date of Service: 04/10/21 Chief Complaint: Left lower leg ulcer, bilateral lower extremity edema History of Wound: The patient is a pleasant 70-year-old male who presents today (04/10/2021) for an evaluation of left lower extremity ulcers and bilateral lower extremity edema. He has a past medical history significant for amyloid disease, persistent atrial fibrillation on anticoagulation, heart failure with preserved ejection fraction, essential hypertension, hyperlipidemia, history of CVA (2008), and type 2 diabetes mellitus. In June 2020 he developed COVID-19 and was hospitalized for 10 days; he was not placed on a ventilator. Since that time, he has developed persistent cardiac issues. He has had increased shortness of breath, and is unable to tolerate lying flat for long periods of time. He has had severe edema of the bilateral lower extremities, which has significantly improved with the use of spironolactone and furosemide. He was encouraged by his hooker laster to wear compression stockings. In recent weeks, he developed erythema and worsening of his bilateral lower extremity edema, which caused blistering of his bilateral lower extremities. Two areas on his left lower extremity have become ulcerated. He has been applying Neosporin to these areas, and covering it with an ABD pad. His primary care provider had him discontinue his compression upon the development of his left lower extremity ulcers. The patient was given 2 shots of Rocephin in his PCPs office, and was started on doxycycline and Keflex, which he finished earlier this week. With the use of these antibiotics, he experienced significant improvement in his lower extremity edema and erythema. His wound culture from 03/30/2021 was positive for rare coag negative staph. He had lab work completed in March 2021, as follows: BMP: Glucose 139 (H), estimated GFR 46 (L), creatinine 1.58 (H), BUN 32 (H) Staph aureus PCR: Negative MRSA PCR: Negative Cortisol: 2.20 (L) DHEA sulfate: Normal ACTH: 2.0 (L) He falls asleep in a bed at night, but usually transitions to a recliner during the night due to shortness of breath. He is ambulatory. He is a non-smoker. [facility] Medical History (Updated 04/10/21 @ 13:15 by Maryann Rashid NP, DAYCARE MANAGER-C) (HFpEF) heart failure with preserved ejection fraction Bilateral lower extremity edema Diabetic ulcer of left lower leg Essential hypertension Persistent atrial fibrillation Pneumonia due to COVID-19 virus (07/02/20) Renal insufficiency Right upper lobe pneumonia Thrombocytopenia Home Medications amlodipine 10 mg PO DAILY 07/02/20 [History Last Taken Unknown] atorvastatin 80 mg PO QHS 07/02/20 [History Last Taken Unknown] empagliflozin 25 mg PO DAILY 07/02/20 [History Last Taken Unknown] icosapent ethyl 2 g PO BID 07/02/20 [History Last Taken Unknown] lisinopril 40 mg PO DAILY 07/02/20 [History Last Taken Unknown] pioglitazone 45 mg PO DAILY 07/02/20 [History Last Taken Unknown] furosemide 80 mg tablet 80 mg PO DAILY 01/07/21 [History Last Taken Unknown] glimepiride 4 mg tablet 4 mg PO BID tab 01/07/21 [History Last Taken Unknown] insulin glargine 100 unit-lixisenatide 33 mcg/mL subcutaneous pen 60 unit SUBCUT DAILY ml 01/07/21 [History Last Taken Unknown] rivaroxaban 20 mg tablet 20 mg PO QPM 01/07/21 [History Last Taken Unknown] spironolactone 50 mg tablet 50 mg PO DAILY #90 tab 01/23/21 [Rx Last Taken Unknown] acetaminophen 500 mg tablet 500 mg PO BID PRN tab 03/09/21 [History Last Taken Unknown] cinnamon bark 500 mg capsule 1,500 mg PO BID cap 03/09/21 [History Last Taken Unknown] ouomempftfbx-duhkrdev-fqquhv tablet 1 tab PO DAILY 03/09/21 [History Last Taken Unknown] turmeric root extract 500 mg capsule 500 mg PO BID 03/09/21 [History Last Taken Unknown] Allergy/AdvReac Type Severity Reaction Status Date / Time No Known Allergies Allergy Verified 03/09/21 15:50 Social History Smoking Status: Never smoker ROS Constitutional Constitutional: Denies chills, fever(s) or night sweats Eyes Eyes: Denies change in vision or double vision ENT HEENT: Denies lip swelling or tongue swelling Cardiovascular Cardiovascular: Reports leg edema; Denies chest pain or palpitations Respiratory/Chest Respiratory/Chest: Reports shortness of breath at rest and shortness of breath with exertion; Denies cough or wheezing Gastrointestinal Gastrointestinal: Reports diarrhea; Denies nausea or vomiting Genitourinary Genitourinary: Denies dysuria or hematuria Musculoskeletal Musculoskeletal: Reports extremity pain and tingling; Denies abnormal gait, muscle weakness or numbness Integumentary Integumentary: Reports rash and wounds Neurologic Neurologic: Denies abnormal gait, abnormal speech or focal weakness Endocrine Endocrinology: Denies cold intolerance, heat intolerance, polydipsia or polyuria Hematologic/Lymphatic Hematologic/Lymphatic: Reports easy bleeding and easy bruising Vital Signs Vital Signs Vital Signs: 04/10/21 09:22 Temperature 97.6 F L Temperature Source Temporal Respiratory Rate 22 H Blood Pressure 129/72 H Blood Pressure Mean 91 Blood Pressure Source Monitor Blood Pressure Position Semi-Fowlers Blood Pressure Location Left Arm Physical Exam Const alert, no apparent distress and healthy appearing General Appearance: cooperative, comfortable and well kempt Nutritional Appearance: obese HEENT Head and Scalp: normocephalic and atraumatic Eyes EOMs intact bilaterally Neck supple and no JVD Resp Effort and Inspection: labored Auscultation: clear to auscultation bilaterally; Negative for crackles, rales, rhonchi or wheezes Cardio Rhythm: other Other Details: Irregularly irregular Peripheral Pulses: dorsalis pedis pulses present bilateral 1+ GI normal to inspection, nondistended, normoactive bowel sounds Extremity normal capillary refill, no joint enlargement and no calf tenderness General Extremity: edema bilateral lower extremity Details: moderate (2+ pitting); Negative for clubbing or cyanosis Peripheral Pulses: Yes dorsalis pedis pulses present bilateral 2+ Skin Skin Narrative: Anterior LLE ulcer with subcutaneous layer exposed. Small amount of slough and devitalized tissue present. No tunneling, undermining, or probing to bone. No periulcer erythema or warmth. Mild tenderness on debridement. No purulent/malodorous drainage. Medial LLE ulcer with subcutaneous layer exposed. Small amount of slough and devitalized tissue present. No tunneling, undermining, or probing to bone. No periulcer erythema or warmth. Mild tenderness on debridement. No purulent/malodorous drainage. Wounds: wounds noted No malodorous Neuro oriented x3, moves all extremities and no focal motor deficits Psych mental status grossly normal, cooperative and affect normal Debridement Note Debridement Note Wound debrided: Left lower extremity anterior ulcer Laterality: Left Type of Debridement: Excisional debridement Anesthesia Used: 5% Lidocaine Gel Depth: in the subcutaneous layer Percentage of wound debrided: 100 Instrument Used: 3mm curette Tissue Removed: Slough and devitalized tissue Severity: Fat Layer Exposed Amount of bleeding with debridement: Mild Bleeding Controlled with: Pressure Patient tolerated procedure: Patient tolerated procedure well Post-Debridement Measurements and Additional Note: Post-Debridement Measurements/Treatment MAGGIE - Nurse 1 - General Ulcer Assessment Start: 04/10/21 09:21 Freq: Status: Active Protocol: JULIO Activity Type Activity Date Activity User E-Sign Co-Sign Detail Recorded Client Recorded Date Recorded By Document 04/10/21 09:22 MELYSSA [id number] 04/10/21 09:37 KR 04/10/21 09:22 - Today's Visit Information Type of service Initial Visit Arrival Mode Ambulatory Accompanied by Patient Identification Verified (Name & Yes ) Vital Signs Temperature (97.8 F-99.1 F) 97.6 F L Temperature Source Temporal Pulse Location Monitor Respiratory Rate (12-18) 22 H Respiratory rate source Observation Blood Pressure (90/60-120/80) 129/72 H Blood Pressure Mean 91 Source Monitor Position Semi-Fowlers Blood Pressure Location Left Arm History Since Last Visit- (Skip if this is Patient's initial visit) Have you changed medications since your No last visit? Any new allergies or adverse reactions No Had a fall/change in ADL's that may No increase risk of falls Signs or symptoms of abuse and/or No neglect since last visit Have you been in the hospital since your No last visit? Has dressing in place as prescribed No Has compression in place as prescribed N/A Has offloadiing in place as prescribed N/A Experienced any changes in pain level or No management Left Footwear Regular Shoe Right Footwear Regular Shoe Pain Scale: 0-10 Numeric Is Patient Pain Free? Yes - Nurse 1 - General Ulcer Measurement Start: 04/10/21 09:21 Freq: Status: Active Protocol: Activity Type Activity Date Activity User E-Sign Co-Sign Detail Recorded Client Recorded Date Recorded By Document 04/10/21 09:22 KR [id number] 04/10/21 09:37 KR 04/10/21 09:22 Wound Center Nurse 1 LEFT MEDIAL LOWER LEG -Current Size (cm) - Length 3.4 -Current Size (cm) - Width 5.6 -Current Size (cm) - Depth 0.1 -Total Square Cm 19.04 -Exudate Amt Medium -Exudate Type Serosanguineous -Wound Margin Distinct, Outline Attached -Granulation Amt Medium (34-66%) -Slough/Fibrin Yes -Necrosis Amt Medium (34-66%) -Necrotic Tissue Type Adherent Slough -Texture (Kaitlin-wound Skin Appearance) Assessed -Moisture (Kaitlin-wound Skin Appearance) Assessed, Weeping -Color (Kaitlin-wound Skin Appearance) Assessed -Temperature (Kaitlin-wound Skin No Abnormality Appearance) (Pt Warm) -Tenderness on Palpation (Kaitlin-wound No Skin Appearance) -Ulcer Cleansing Rinsed/ Irrigated with Saline -Foul Odor after Cleansing No -Anesthetic Used 5% Lidocaine Gel Right Calf (cm) 49 Right Ankle (cm) 35.5 Left Calf (cm) 39.1 Left Ankle (cm) 35.6 - Nurse 3 - General Ulcer D/C NN Start: 04/10/21 09:21 Freq: Status: Active Protocol: Activity Type Activity Date Activity User E-Sign Co-Sign Detail Recorded Client Recorded Date Recorded By Document 04/10/21 11:42 MELYSSA [id number] 04/10/21 11:43 MELYSSA 04/10/21 11:42 Wound Care Nurse 3 LEFT MEDIAL LOWER LEG -Primary Dressing Applied Aquacel AG 4x4 -Aquacel AG 4x4 1 Left -Multi-Layered Wrap Application Unna Boot - Bilateral ($) -Unna Boots (Bilat) ($) 2 Pain Scale: 0-10 Numeric Is Patient Pain Free? Yes WC - Visit Discharge Discharge Condition Stable Ambulatory Status Ambulatory Transportation Private Auto Accompanied by Additional Wound Wound debrided: Left lower extremity medial ulcer Laterality: Left Type of Debridement: Excisional debridement Anesthesia Used: 5% Lidocaine Gel Depth: in the subcutaneous layer Percentage of wound debrided: 100 Instrument Used: 3mm curette Tissue Removed: Slough and devitalized tissue Severity: Fat Layer Exposed Amount of bleeding with debridement: Mild Bleeding Controlled with: Pressure Patient tolerated procedure: Patient tolerated procedure well Charges/Coding Visit Charges Office Visits / Consults: [id number] OV L4 Est Procedures Integumentary [id number]: [id number] Shanika subq tissue 20 sq cm/< Assessment/Plan Assessment/Plan (1) Diabetic ulcer of left lower leg: CODE(S): E11.622 - Type 2 diabetes mellitus with other skin ulcer; L97.929 - Non-pressure chronic ulcer of unspecified part of left lower leg with unspecified severity (2) Bilateral lower extremity edema: CODE(S): R60.0 - Localized edema (3) Diabetes mellitus, type II: CODE(S): E11.9 - Type 2 diabetes mellitus without complications QUALIFIERS: Diabetes mellitus superintendent terminal insulin use: with usp use Diabetes mellitus complication status: with other specified complication Qualified Code(s): E11.69 - Type 2 diabetes mellitus with other specified complication; Z79.4 - prison (current) use of insulin (4) (HFpEF) heart failure with preserved ejection fraction: CODE(S): I50.30 - Unspecified diastolic (congestive) heart failure QUALIFIERS: Heart failure chronicity: unspecified Qualified Code(s): I50.30 - Unspecified diastolic (congestive) heart failure PLAN: Debridement performed today in clinic as annotated above. Aquacel Ag applied to the ulcers of the left lower extremity. Unna boots applied to the bilateral lower extremities. At home wound-care instructions: Keep Unna boots clean and dry. He is a garbage bag or cast cover to protect your Unna boots while showering, or perform sponge bathing. Be cautious when showering due to falls risk. If anytime your Unna boots become tight or uncomfortable, elevate the feet. If tightness and discomfort do not resolve with leg elevation, or if you develop any numbness/tingling in the toes or discoloration of the toes, please contact the wound healing center and remove your wraps. Compression: Unna boots, as above Off-loading: The patient was instructed to avoid pressure and friction on the affected areas. Reposition every 2 hours at minimum. Avoid prolonged standing and/or dangling of legs. When seated, feet should be elevated at chest level. Frequent ambulation is encouraged. Diet: Patient encouraged to increase protein intake while taking caution to avoid high carbohydrate and/or sugar intake. Labs/cultures/imaging: Vascular studies ordered today. Labs reviewed as annotated in HPI. Cultures reviewed as annotated in HPI. No additional cultures collected today, due to absence of clinical signs of infection. We will continue to monitor. Follow-up: Return to clinic in 1 week for re-evaluation. Return sooner or report to the emergency room should symptoms worsen, or new symptoms arise. Note: Dragon speech recognition flight operations engineer software was used to create portions of this document. Sound-alike and misspelled words, as well as other flight operations engineer errors may be contained in the documentation.
[2021-04-17 09:22] VITALS: BP 128/78; PULSE 88; TEMP 36.6
--- NOTE | 2021-04-17 10:47 | PCM.WC.PN ---
History of Present Illness Date of Service: 04/17/21 Chief Complaint: Left lower leg ulcer, bilateral lower extremity edema History of Wound: The patient is a pleasant 70-year-old male who presents today (04/10/2021) for an evaluation of left lower extremity ulcers and bilateral lower extremity edema. He has a past medical history significant for amyloid disease, persistent atrial fibrillation on anticoagulation, heart failure with preserved ejection fraction, essential hypertension, hyperlipidemia, history of CVA (2008), and type 2 diabetes mellitus. In June 2020 he developed COVID-19 and was hospitalized for 10 days; he was not placed on a ventilator. Since that time, he has developed persistent cardiac issues. He has had increased shortness of breath, and is unable to tolerate lying flat for long periods of time. He has had severe edema of the bilateral lower extremities, which has significantly improved with the use of spironolactone and furosemide. He was encouraged by his plastic manager to wear compression stockings. In recent weeks, he developed erythema and worsening of his bilateral lower extremity edema, which caused blistering of his bilateral lower extremities. Two areas on his left lower extremity have become ulcerated. He has been applying Neosporin to these areas, and covering it with an ABD pad. His primary care provider had him discontinue his compression upon the development of his left lower extremity ulcers. The patient was given 2 shots of Rocephin in his PCPs office, and was started on doxycycline and Keflex, which he finished earlier this week. With the use of these antibiotics, he experienced significant improvement in his lower extremity edema and erythema. His wound culture from 03/30/2021 was positive for rare coag negative staph. He had lab work completed in March 2021, as follows: BMP: Glucose 139 (H), estimated GFR 46 (L), creatinine 1.58 (H), BUN 32 (H) Staph aureus PCR: Negative MRSA PCR: Negative Cortisol: 2.20 (L) DHEA sulfate: Normal ACTH: 2.0 (L) He falls asleep in a bed at night, but usually transitions to a recliner during the night due to shortness of breath. He is ambulatory. He is a non-smoker. Progress of Wound: The patient's wounds have improved in size and appearance today. He has been tolerating Unna boots well. He has lost a few pounds from water weight in the past week, and reports some improvement in his shortness of breath. The erythema of his left lower extremity has improved. The patient denies fever, chills, general malaise, or poor appetite. The patient has not had increased redness, swelling, or purulent/malodorous drainage from affected area. Objective Data Objective Data Vital Signs: Vital Signs Temp Pulse Resp BP 97.8 F 88 22 H 128/78 H 04/17/21 09:22 04/17/21 09:22 04/10/21 09:22 04/17/21 09:22 Charges/Coding Procedures Integumentary [id number]: [id number] Shanika subq tissue 20 sq cm/< Physical Exam Const alert, no apparent distress and healthy appearing General Appearance: cooperative, comfortable and well kempt Nutritional Appearance: obese HEENT Head and Scalp: normocephalic and atraumatic Resp Resp Narrative: improved respiratory effort Effort and Inspection: labored Cardio Rhythm: other Peripheral Pulses: dorsalis pedis pulses present bilateral 1+ GI normal to inspection, nondistended, normoactive bowel sounds Extremity normal capillary refill and no joint enlargement General Extremity: edema bilateral lower extremity Details: moderate (2+ pitting); Negative for clubbing or cyanosis Skin Skin Narrative: Anterior LLE ulcer with subcutaneous layer exposed. Small amount of slough and devitalized tissue present. No tunneling, undermining, or probing to bone. No periulcer erythema or warmth. Mild tenderness on debridement. No purulent/malodorous drainage. Medial LLE ulcer is healed today. Wounds: wounds noted No malodorous Psych mental status grossly normal, cooperative and affect normal Debridement Note Debridement Note Wound debrided: Anterior LLE ulcer Laterality: Left Type of Debridement: Excisional debridement Anesthesia Used: 5% Lidocaine Gel Depth: in the subcutaneous layer Percentage of wound debrided: 100 Instrument Used: 3mm curette Tissue Removed: Slough and devitalized tissue Severity: Fat Layer Exposed Amount of bleeding with debridement: Mild Bleeding Controlled with: Pressure Patient tolerated procedure: Patient tolerated procedure well Post-Debridement Measurements and Additional Note: Post-Debridement Measurements/Treatment MAGGIE - Nurse 1 - General Ulcer Assessment Start: 04/10/21 09:21 Freq: Status: Active Protocol: JULIO Activity Type Activity Date Activity User E-Sign Co-Sign Detail Recorded Client Recorded Date Recorded By Document 04/10/21 09:22 KR [id number] 04/10/21 09:37 KR Document 04/13/21 14:59 AK [id number] 04/13/21 15:02 AK Document 04/17/21 09:22 KR [id number] 04/17/21 09:25 KR 04/10/21 04/13/21 04/17/21 09:22 14:59 09:22 - Today's Visit Information Type of service Initial Visit Nurse-only Follow-up Visit Visit (Physician/MANAGER COMPLETIONS ) Arrival Mode Ambulatory Ambulatory Ambulatory Accompanied by Patient Identification Verified (Name & Yes Yes Yes ) Patient Requires Transmission-Based No Precautions Safety Precautions NA Vital Signs Temperature (97.8 F-99.1 F) 97.6 F L 97.8 F Temperature Source Temporal Temporal Pulse Rate (60-100) 88 Pulse Location Monitor Monitor Respiratory Rate (12-18) 22 H Respiratory rate source Observation Blood Pressure (90/60-120/80) 129/72 H 128/78 H Blood Pressure Mean (mm Hg) 91 94 Source Monitor Monitor Position Semi-Fowlers Semi-Fowlers Blood Pressure Location Left Arm Left Arm History Since Last Visit- (Skip if this is Patient's initial visit) Have you changed medications since your No No No last visit? Any new allergies or adverse reactions No No No Had a fall/change in ADL's that may No No No increase risk of falls Signs or symptoms of abuse and/or No No No neglect since last visit Have you been in the hospital since your No No No last visit? Has dressing in place as prescribed No Yes Yes Has compression in place as prescribed N/A No Yes Has offloadiing in place as prescribed N/A N/A N/A Experienced any changes in pain level or No No No management Left Footwear Regular Shoe Regular Shoe Regular Shoe Right Footwear Regular Shoe Regular Shoe Regular Shoe Pain Scale: 0-10 Numeric Is Patient Pain Free? Yes Yes - Nurse 1 - General Ulcer Measurement Start: 04/10/21 09:21 Freq: Status: Active Protocol: Activity Type Activity Date Activity User E-Sign Co-Sign Detail Recorded Client Recorded Date Recorded By Document 04/10/21 09:22 KR [id number] 04/10/21 09:37 KR Document 04/17/21 09:22 KR [id number] 04/17/21 09:25 MELYSSA 04/10/21 04/17/21 09:22 09:22 Wound Center Nurse 1 #2 Left Lat LE -Current Size (cm) - Length 2 -Current Size (cm) - Width 2 -Current Size (cm) - Depth 0.1 -Total Square Cm 4 -Exudate Amt Small -Exudate Type Serosanguineous -Wound Margin Distinct, Outline Attached -Granulation Amt Medium (34-66%) -Granulation Quality Red -Necrosis Amt None Present (0 %) -Texture (Kaitlin-wound Skin Appearance) Assessed, Scarring -Moisture (Kaitlin-wound Skin Appearance) No Abnormality, Assessed -Color (Kaitlin-wound Skin Appearance) No Abnormality, Assessed -Temperature (Kaitlin-wound Skin No Abnormality Appearance) (Pt Warm) -Tenderness on Palpation (Kaitlin-wound No Skin Appearance) -Ulcer Cleansing Soap and Water -Foul Odor after Cleansing No -Anesthetic Used 5% Lidocaine Gel # 1 LEFT Anterior LOWER LEG -Current Size (cm) - Length 3.4 0.1 -Current Size (cm) - Width 5.6 0.1 -Current Size (cm) - Depth 0.1 0.1 -Total Square Cm 19.04 0.01 -Exudate Amt Medium None Present -Exudate Type Serosanguineous -Wound Margin Distinct, Distinct, Outline Outline Attached Attached -Granulation Amt Medium (34-66%) Small (1-33%) -Granulation Quality Red -Slough/Fibrin Yes -Necrosis Amt Medium (34-66%) -Necrotic Tissue Type Adherent Slough -Texture (Kaitlin-wound Skin Appearance) Assessed Assessed, Scarring -Moisture (Kaitlin-wound Skin Appearance) Assessed, No Abnormality, Weeping Assessed -Color (Kaitlin-wound Skin Appearance) Assessed No Abnormality, Assessed -Temperature (Kaitlin-wound Skin No Abnormality No Abnormality Appearance) (Pt Warm) (Pt Warm) -Tenderness on Palpation (Kaitlin-wound No No Skin Appearance) -Ulcer Cleansing Rinsed/ Soap and Water Irrigated with Saline -Foul Odor after Cleansing No No -Anesthetic Used 5% Lidocaine 5% Lidocaine Gel Gel Right Calf (cm) 49 45.6 Right Ankle (cm) 35.5 31.5 Left Calf (cm) 39.1 49 Left Ankle (cm) 35.6 33 WC - Nurse 2 - General Ulcer CM Notes Start: 04/10/21 09:21 Freq: Status: Active Protocol: Activity Type Activity Date Activity User E-Sign Co-Sign Detail Recorded Client Recorded Date Recorded By Document 04/10/21 12:58 PL [id number] 04/10/21 13:01 PL 04/10/21 12:58 Wound Center Nurse 2 #2 Left Lat LE -Time 10:05 -Correct Patient Yes -Correct Side, Site, Position Yes -Correct Procedure Yes -Procedure Performed Yes -Type of Procedure Debridement -Clinical Debridement Subcutaneous -Tissue Removed Subcutaneous -Post Debridement (cm) - Length 1.4 -Post Debridement (cm) - Width 0.9 -Post Debridement (cm) - Depth 0.1 -Total Square (Post) (cm) 1.26 -Area of Debridement (cm) - Length 1.4 -Area of Debridement (cm) - Width 0.9 -Total Square (Area) (cm) 1.26 -Tunneling No -Undermining/Tunneling No -Circular Undermining No -Wound/Ulcer Outcome Not Healed -Ulcer Cleansing Rinsed/ Irrigated with Saline -Foul Odor after Cleansing No -Bioengineered Tissue No -Bleeding Controlled with Pressure -Treatment Response Procedure Tolerated Well -Debridement - Subq, 1st 20sq cm No # 1 LEFT Anterior LOWER LEG -Time 10:05 -Correct Patient Yes -Correct Side, Site, Position Yes -Correct Procedure Yes -Procedure Performed Yes -Type of Procedure Debridement -Clinical Debridement Subcutaneous -Tissue Removed Subcutaneous -Post Debridement (cm) - Length 2.9 -Post Debridement (cm) - Width 2.1 -Post Debridement (cm) - Depth 0.1 -Total Square (Post) (cm) 6.09 -Area of Debridement (cm) - Length 2.9 -Area of Debridement (cm) - Width 2.1 -Total Square (Area) (cm) 6.09 -Tunneling No -Undermining/Tunneling No -Circular Undermining No -Wound/Ulcer Outcome Not Healed -Ulcer Cleansing Rinsed/ Irrigated with Saline -Foul Odor after Cleansing No -Bioengineered Tissue No -Bleeding Controlled with Pressure -Treatment Response Procedure Tolerated Well -Debridement - Subq, 1st 20sq cm Yes - Nurse 3 - General Ulcer D/C NN Start: 04/10/21 09:21 Freq: Status: Active Protocol: Activity Type Activity Date Activity User E-Sign Co-Sign Detail Recorded Client Recorded Date Recorded By Document 04/10/21 11:42 KR [id number] 04/10/21 11:43 KR Document 04/13/21 14:59 AK [id number] 04/13/21 15:02 AK Edit Result 04/13/21 14:59 AK (1) [id number] 04/15/21 06:22 PL Document 04/17/21 09:51 KR [id number] 04/17/21 09:51 KR (1) Bilateral - Multi-Layered Wrap Application => Unna Boot - => Bilateral ($) - Unna Boots (Bilat) ($) => 2 04/10/21 04/13/21 04/17/21 11:42 14:59 09:51 Wound Care Nurse 3 #2 Left Lat LE -Ulcer Cleansing Rinsed/ Rinsed/ Irrigated with Irrigated with Saline Saline -Foul Odor after Cleansing No -Negative Pressure Wound Therapy N/A -Primary Dressing Applied Aquacel AG 4x4 -Primary Dressing Covered/Secured with Dry Gauze -Aquacel AG 4x4 0 # 1 LEFT Anterior LOWER LEG -Ulcer Cleansing Rinsed/ Rinsed/ Irrigated with Irrigated with Saline Saline -Foul Odor after Cleansing No -Negative Pressure Wound Therapy N/A -Primary Dressing Applied Aquacel AG 4x4 Aquacel AG 4x4 -Aquacel AG 4x4 1 0 Bilateral -Multi-Layered Wrap Application Unna Boot - Unna Boot - Bilateral ($) Bilateral ($) -Unna Boots (Bilat) ($) 2 2 Left -Multi-Layered Wrap Application Unna Boot - Bilateral ($) -Unna Boots (Bilat) ($) 2 Pain Scale: 0-10 Numeric Is Patient Pain Free? Yes Yes WC - Visit Discharge Discharge Condition Stable Stable Stable Ambulatory Status Ambulatory Ambulatory Transportation Private Auto Private Auto Private Auto Accompanied by Medication Reconcilliation completed & No provided to patient/care provider Clinical Summary of Care Provided Yes Assessment/Plan Assessment/Plan (1) Diabetic ulcer of left lower leg: CODE(S): E11.622 - Type 2 diabetes mellitus with other skin ulcer; L97.929 - Non-pressure chronic ulcer of unspecified part of left lower leg with unspecified severity (2) Bilateral lower extremity edema: CODE(S): R60.0 - Localized edema (3) Diabetes mellitus, type II: CODE(S): E11.9 - Type 2 diabetes mellitus without complications QUALIFIERS: 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 Aquacel Ag applied to the ulcer of the left lower extremity. Unna boots applied to the bilateral lower extremities. At home wound-care instructions: Keep Unna boots clean and dry. He is a garbage bag or cast cover to protect your Unna boots while showering, or perform sponge bathing. Be cautious when showering due to falls risk. If anytime your Unna boots become tight or uncomfortable, elevate the feet. If tightness and discomfort do not resolve with leg elevation, or if you develop any numbness/tingling in the toes or discoloration of the toes, please contact the wound healing center and remove your wraps. Compression: Unna boots, as above Off-loading: The patient was instructed to avoid pressure and friction on the affected areas. Reposition every 2 hours at minimum. Avoid prolonged standing and/or dangling of legs. When seated, feet should be elevated at chest level. Frequent ambulation is encouraged. Diet: Patient encouraged to increase protein intake while taking caution to avoid high carbohydrate and/or sugar intake. Labs/cultures/imaging: Vascular studies ordered today. These are scheduled for April 28. Labs reviewed as annotated in HPI. Cultures reviewed as annotated in HPI. No additional cultures collected today, due to absence of clinical signs of infection. We will continue to monitor. Follow-up: Return to clinic in 1 week for re-evaluation. Return sooner or report to the emergency room should symptoms worsen, or new symptoms arise. Note: [employer] speech recognition women's basketball coach software was used to create portions of this document. Sound-alike and misspelled words, as well as other women's basketball coach errors may be contained in the documentation.
[2021-04-24 09:35] VITALS: BP 144/69; PULSE 84; TEMP 36.6
--- NOTE | 2021-04-24 13:04 | PCM.WC.PN ---
History of Present Illness Date of Service: 04/24/21 Chief Complaint: Left lower leg ulcer, bilateral lower extremity edema History of Wound: The patient is a pleasant 70-year-old male who presents today (04/10/2021) for an evaluation of left lower extremity ulcers and bilateral lower extremity edema. He has a past medical history significant for amyloid disease, persistent atrial fibrillation on anticoagulation, heart failure with preserved ejection fraction, essential hypertension, hyperlipidemia, history of CVA (2008), and type 2 diabetes mellitus. In June 2020 he developed COVID-19 and was hospitalized for 10 days; he was not placed on a ventilator. Since that time, he has developed persistent cardiac issues. He has had increased shortness of breath, and is unable to tolerate lying flat for long periods of time. He has had severe edema of the bilateral lower extremities, which has significantly improved with the use of spironolactone and furosemide. He was encouraged by his accounting consultant to wear compression stockings. In recent weeks, he developed erythema and worsening of his bilateral lower extremity edema, which caused blistering of his bilateral lower extremities. Two areas on his left lower extremity have become ulcerated. He has been applying Neosporin to these areas, and covering it with an ABD pad. His primary care provider had him discontinue his compression upon the development of his left lower extremity ulcers. The patient was given 2 shots of Rocephin in his PCPs office, and was started on doxycycline and Keflex, which he finished earlier this week. With the use of these antibiotics, he experienced significant improvement in his lower extremity edema and erythema. His wound culture from 03/30/2021 was positive for rare coag negative staph. He had lab work completed in March 2021, as follows: BMP: Glucose 139 (H), estimated GFR 46 (L), creatinine 1.58 (H), BUN 32 (H) Staph aureus PCR: Negative MRSA PCR: Negative Cortisol: 2.20 (L) DHEA sulfate: Normal ACTH: 2.0 (L) He falls asleep in a bed at night, but usually transitions to a recliner during the night due to shortness of breath. He is ambulatory. He is a non-smoker. Progress of Wound: The patient's left lower extremity ulcers are healed today. He has mild excoriation and dryness of the affected area. He has been compliant with the use of Unna boots. He continues to have 2?3+ pitting edema of the bilateral lower extremities. The patient denies fever, chills, general malaise, or poor appetite. The patient has not had increased redness, swelling, or purulent/malodorous drainage from affected area. His vascular studies are scheduled for April 28 at 1 PM. Objective Data Objective Data Vital Signs: Vital Signs Temp Pulse Resp BP 97.9 F 84 22 H 144/69 H 04/24/21 09:35 04/24/21 09:35 04/10/21 09:22 04/24/21 09:35 Charges/Coding Visit Charges Office Visits / Consults: [id number] OV L4 Est Physical Exam Const alert, no apparent distress and healthy appearing General Appearance: cooperative, comfortable and well kempt Nutritional Appearance: obese HEENT Head and Scalp: normocephalic and atraumatic Resp Effort and Inspection: labored Cardio Rhythm: other Peripheral Pulses: dorsalis pedis pulses present bilateral 1+ GI normal to inspection, nondistended, normoactive bowel sounds Extremity normal capillary refill and no joint enlargement General Extremity: edema bilateral lower extremity Details: moderate (2-3+ pitting); Negative for clubbing or cyanosis Skin Skin Narrative: Left lower extremity ulcers are healed today. There is mild excoriation/dryness of the previous ulceration sites. No weeping of bilateral lower extremities. The outpouchings/bumps on his bilateral lower extremities are mildly reduced this week, though several still persist. Wounds: wounds noted No malodorous Psych mental status grossly normal, cooperative and affect normal Debridement Note Debridement Note No debridement was completed: No debridement was completed today Post-Debridement Measurements and Additional Note: Post-Debridement Measurements/Treatment WC - Nurse 1 - General Ulcer Assessment Start: 04/10/21 09:21 Freq: Status: Active Protocol: JULIO Activity Type Activity Date Activity User E-Sign Co-Sign Detail Recorded Client Recorded Date Recorded By Document 04/10/21 09:22 MELYSSA [id number] 04/10/21 09:37 KR Document 04/13/21 14:59 AK [id number] 04/13/21 15:02 AK Document 04/17/21 09:22 KR [id number] 04/17/21 09:25 KR Document 04/24/21 09:35 AK [id number] 04/24/21 09:38 IL 04/10/21 04/13/21 04/17/21 09:22 14:59 09:22 [facility] Today's Visit Information Type of service Initial Visit Nurse-only Follow-up Visit Visit (Physician/COMPUTER OPERATIONS MANAGER ) Arrival Mode Ambulatory Ambulatory Ambulatory Accompanied by Patient Identification Verified (Name & Yes Yes Yes ) Patient Requires Transmission-Based No Precautions Safety Precautions NA Vital Signs Temperature (97.8 F-99.1 F) 97.6 F L 97.8 F Temperature Source Temporal Temporal Pulse Rate (60-100) 88 Pulse Location Monitor Monitor Respiratory Rate (12-18) 22 H Respiratory rate source Observation Blood Pressure (90/60-120/80) 129/72 H 128/78 H Blood Pressure Mean (mm Hg) 91 94 Source Monitor Monitor Position Semi-Fowlers Semi-Fowlers Blood Pressure Location Left Arm Left Arm History Since Last Visit- (Skip if this is Patient's initial visit) Have you changed medications since your No No No last visit? Any new allergies or adverse reactions No No No Had a fall/change in ADL's that may No No No increase risk of falls Signs or symptoms of abuse and/or No No No neglect since last visit Have you been in the hospital since your No No No last visit? Has dressing in place as prescribed No Yes Yes Has compression in place as prescribed N/A No Yes Has offloadiing in place as prescribed N/A N/A N/A Experienced any changes in pain level or No No No management Left Footwear Regular Shoe Regular Shoe Regular Shoe Right Footwear Regular Shoe Regular Shoe Regular Shoe Pain Scale: 0-10 Numeric Is Patient Pain Free? Yes Yes 04/24/21 09:35 - Today's Visit Information Type of service Follow-up Visit (Physician/COMPUTER OPERATIONS MANAGER ) Arrival Mode Accompanied by Patient Identification Verified (Name & Yes ) Patient Requires Transmission-Based No Precautions Safety Precautions NA Vital Signs Temperature (97.8 F-99.1 F) 97.9 F Temperature Source Temporal Pulse Rate (60-100) 84 Pulse Location Monitor Respiratory Rate (12-18) Respiratory rate source Blood Pressure (90/60-120/80) 144/69 H Blood Pressure Mean (mm Hg) 94 Source Monitor Position Blood Pressure Location History Since Last Visit- (Skip if this is Patient's initial visit) Have you changed medications since your No last visit? Any new allergies or adverse reactions No Had a fall/change in ADL's that may No increase risk of falls Signs or symptoms of abuse and/or No neglect since last visit Have you been in the hospital since your No last visit? Has dressing in place as prescribed Yes Has compression in place as prescribed Yes Has offloadiing in place as prescribed N/A Experienced any changes in pain level or No management Left Footwear Regular Shoe Right Footwear Regular Shoe Pain Scale: 0-10 Numeric Is Patient Pain Free? WC - Nurse 1 - General Ulcer Measurement Start: 04/10/21 09:21 Freq: Status: Active Protocol: Activity Type Activity Date Activity User E-Sign Co-Sign Detail Recorded Client Recorded Date Recorded By Document 04/10/21 09:22 KR [id number] 04/10/21 09:37 KR Document 04/17/21 09:22 KR [id number] 04/17/21 09:25 KR Document 04/24/21 09:35 AK [id number] 04/24/21 09:38 AK 04/10/21 04/17/21 04/24/21 09:22 09:22 09:35 Wound Center Nurse 1 #2 Left Lat LE -Current Size (cm) - Length 2 -Current Size (cm) - Width 2 -Current Size (cm) - Depth 0.1 -Total Square Cm 4 -Exudate Amt Small -Exudate Type Serosanguineous -Wound Margin Distinct, Outline Attached -Granulation Amt Medium (34-66%) -Granulation Quality Red -Necrosis Amt None Present (0 %) -Texture (Kaitlin-wound Skin Appearance) Assessed, Scarring -Moisture (Kaitlin-wound Skin Appearance) No Abnormality, Assessed -Color (Kaitlin-wound Skin Appearance) No Abnormality, Assessed -Temperature (Kaitlin-wound Skin No Abnormality Appearance) (Pt Warm) -Tenderness on Palpation (Kaitlin-wound No Skin Appearance) -Ulcer Cleansing Soap and Water -Foul Odor after Cleansing No -Anesthetic Used 5% Lidocaine Gel # 1 LEFT Anterior LOWER LEG -Combined with other wound No -Current Size (cm) - Length 3.4 0.1 0.1 -Current Size (cm) - Width 5.6 0.1 0.1 -Current Size (cm) - Depth 0.1 0.1 0.1 -Total Square Cm 19.04 0.01 0.01 -Photo Taken No -Tunneling No -Undermining/Tunneling No -Circular Undermining No -Change in Wound Grade/Stage No -Exudate Amt Medium None Present None Present -Exudate Type Serosanguineous -Wound Margin Distinct, Distinct, Outline Outline Attached Attached -Granulation Amt Medium (34-66%) Small (1-33%) -Granulation Quality Red N/A -Slough/Fibrin Yes No -Necrosis Amt Medium (34-66%) None Present (0 %) -Necrotic Tissue Type Adherent Slough -Structure Exposed N/A -Texture (Kaitlin-wound Skin Appearance) Assessed Assessed, Assessed, Scarring Localized Edema -Moisture (Kaitlin-wound Skin Appearance) Assessed, No Abnormality, No Abnormality, Weeping Assessed Assessed -Color (Kaitlin-wound Skin Appearance) Assessed No Abnormality, No Abnormality, Assessed Assessed -Temperature (Kaitlin-wound Skin No Abnormality No Abnormality No Abnormality Appearance) (Pt Warm) (Pt Warm) (Pt Warm) -Tenderness on Palpation (Kaitlin-wound No No No Skin Appearance) -Ulcer Cleansing Rinsed/ Soap and Water Soap and Water Irrigated with Saline -Foul Odor after Cleansing No No No -Anesthetic Used 5% Lidocaine 5% Lidocaine 4% Lidocaine Gel Gel Solution Right Calf (cm) 49 45.6 43 Right Ankle (cm) 35.5 31.5 30.5 Left Calf (cm) 39.1 49 43 Left Ankle (cm) 35.6 33 29.5 WC - Nurse 2 - General Ulcer CM Notes Start: 04/10/21 09:21 Freq: Status: Active Protocol: Activity Type Activity Date Activity User E-Sign Co-Sign Detail Recorded Client Recorded Date Recorded By Document 04/10/21 12:58 PL [id number] 04/10/21 13:01 PL Document 04/17/21 11:00 PL Desktop 04/17/21 11:01 PL Document 04/24/21 12:56 PL [id number] 04/24/21 12:57 PL 04/10/21 04/17/21 04/24/21 12:58 11:00 12:56 Wound Center Nurse 2 #2 Left Lat LE -Time 10:05 -Correct Patient Yes -Correct Side, Site, Position Yes -Correct Procedure Yes -Procedure Performed Yes No -Type of Procedure Debridement -Clinical Debridement Subcutaneous -Tissue Removed Subcutaneous -Post Debridement (cm) - Length 1.4 -Post Debridement (cm) - Width 0.9 -Post Debridement (cm) - Depth 0.1 -Total Square (Post) (cm) 1.26 -Area of Debridement (cm) - Length 1.4 -Area of Debridement (cm) - Width 0.9 -Total Square (Area) (cm) 1.26 -Tunneling No -Undermining/Tunneling No -Circular Undermining No -Wound/Ulcer Outcome Not Healed Healed- Epithelialized -Ulcer Cleansing Rinsed/ Irrigated with Saline -Foul Odor after Cleansing No -Bioengineered Tissue No -Bleeding Controlled with Pressure -Treatment Response Procedure Tolerated Well -Debridement - Subq, 1st 20sq cm No # 1 LEFT Anterior LOWER LEG -Time 10:05 09:32 -Correct Patient Yes Yes -Correct Side, Site, Position Yes Yes -Correct Procedure Yes Yes -Procedure Performed Yes Yes No -Type of Procedure Debridement Debridement -Clinical Debridement Subcutaneous Subcutaneous -Tissue Removed Subcutaneous Subcutaneous -Post Debridement (cm) - Length 2.9 1.9 -Post Debridement (cm) - Width 2.1 1.7 -Post Debridement (cm) - Depth 0.1 0.1 -Total Square (Post) (cm) 6.09 3.23 -Area of Debridement (cm) - Length 2.9 1.9 -Area of Debridement (cm) - Width 2.1 1.7 -Total Square (Area) (cm) 6.09 3.23 -Tunneling No No -Undermining/Tunneling No No -Circular Undermining No No -Wound/Ulcer Outcome Not Healed Not Healed Healed- Epithelialized -Ulcer Cleansing Rinsed/ Rinsed/ Irrigated with Irrigated with Saline Saline -Foul Odor after Cleansing No No -Bioengineered Tissue No No -Bleeding Controlled with Pressure Pressure -Treatment Response Procedure Procedure Tolerated Well Tolerated Well -Debridement - Subq, 1st 20sq cm Yes Yes WC - Nurse 3 - General Ulcer D/C NN Start: 04/10/21 09:21 Freq: Status: Active Protocol: Activity Type Activity Date Activity User E-Sign Co-Sign Detail Recorded Client Recorded Date Recorded By Document 04/10/21 11:42 KR [id number] 04/10/21 11:43 KR Document 04/13/21 14:59 AK [id number] 04/13/21 15:02 AK Edit Result 04/13/21 14:59 AK (1) [id number] 04/15/21 06:22 PL Document 04/17/21 09:51 KR [id number] 04/17/21 09:51 KR Document 04/24/21 10:29 AK [id number] 04/24/21 10:31 AK (1) Bilateral - Multi-Layered Wrap Application => Unna Boot - => Bilateral ($) - Unna Boots (Bilat) ($) => 2 04/10/21 04/13/21 04/17/21 11:42 14:59 09:51 Wound Care Nurse 3 #2 Left Lat LE -Ulcer Cleansing Rinsed/ Rinsed/ Irrigated with Irrigated with Saline Saline -Foul Odor after Cleansing No -Negative Pressure Wound Therapy N/A -Primary Dressing Applied Aquacel AG 4x4 -Primary Dressing Covered/Secured with Dry Gauze -Aquacel AG 4x4 0 # 1 LEFT Anterior LOWER LEG -Ulcer Cleansing Rinsed/ Rinsed/ Irrigated with Irrigated with Saline Saline -Foul Odor after Cleansing No -Negative Pressure Wound Therapy N/A -Primary Dressing Applied Aquacel AG 4x4 Aquacel AG 4x4 -Other Dressing -Primary Dressing Covered/Secured with -Aquacel AG 4x4 1 0 Bilateral -Lotion applied to leg before compression wrap -Multi-Layered Wrap Application Unna Boot - Unna Boot - Bilateral ($) Bilateral ($) -Unna Boots (Bilat) ($) 2 2 Left -Multi-Layered Wrap Application Unna Boot - Bilateral ($) -Unna Boots (Bilat) ($) 2 Pain Scale: 0-10 Numeric Is Patient Pain Free? Yes Yes WC - Visit Discharge Discharge Condition Stable Stable Stable Ambulatory Status Ambulatory Ambulatory Transportation Private Auto Private Auto Private Auto Accompanied by Medication Reconcilliation completed & No provided to patient/care provider Clinical Summary of Care Provided Yes 04/24/21 10:29 Wound Care Nurse 3 #2 Left Lat LE -Ulcer Cleansing -Foul Odor after Cleansing -Negative Pressure Wound Therapy -Primary Dressing Applied -Primary Dressing Covered/Secured with -Aquacel AG 4x4 # 1 LEFT Anterior LOWER LEG -Ulcer Cleansing -Foul Odor after Cleansing -Negative Pressure Wound Therapy -Primary Dressing Applied -Other Dressing hydrogel -Primary Dressing Covered/Secured with Dry Gauze,Dry Gauze & Roll Gauze,Secured with Tape -Aquacel AG 4x4 Bilateral -Lotion applied to leg before No compression wrap -Multi-Layered Wrap Application Multi-Layer Comp - Bilat ($ ) -Unna Boots (Bilat) ($) Left -Multi-Layered Wrap Application -Unna Boots (Bilat) ($) Pain Scale: 0-10 Numeric Is Patient Pain Free? WC - Visit Discharge Discharge Condition Stable Ambulatory Status Ambulatory Transportation Private Auto Accompanied by Medication Reconcilliation completed & No provided to patient/care provider Clinical Summary of Care Provided Yes Assessment/Plan Assessment/Plan (1) Diabetic ulcer of left lower leg: CODE(S): E11.622 - Type 2 diabetes mellitus with other skin ulcer; L97.929 - Non-pressure chronic ulcer of unspecified part of left lower leg with unspecified severity (2) Bilateral lower extremity edema: CODE(S): R60.0 - Localized edema (3) Diabetes mellitus, type II: CODE(S): E11.9 - Type 2 diabetes mellitus without complications QUALIFIERS: Diabetes mellitus care home insulin use: with oysterman use Diabetes mellitus complication status: with other specified complication Qualified Code(s): E11.69 - Type 2 diabetes mellitus with other specified complication; Z79.4 - moth exterminator (current) use of insulin (4) (HFpEF) heart failure with preserved ejection fraction: CODE(S): I50.30 - Unspecified diastolic (congestive) heart failure QUALIFIERS: Heart failure chronicity: unspecified Qualified Code(s): I50.30 - Unspecified diastolic (congestive) heart failure PLAN: The patient's bilateral lower extremity ulcers are healed today. No debridement was performed. He has mild excoriation and dryness of the previously affected area of his left lower extremity. Adaptic and hydrogel placed atop this area. Bilateral legs wrapped with 3M wraps. At home wound-care instructions: Keep 3M wraps clean and dry. Use cast covers to protect your wraps while showering, or perform sponge bathing. Be cautious when showering due to falls risk. If anytime your wraps become tight or uncomfortable, elevate the feet. If tightness and discomfort do not resolve with leg elevation, or if you develop any numbness/tingling in the toes or discoloration of the toes, please contact the wound healing center and remove your wraps. Unwrap your 3M wraps prior to your appointment on April 28 for vascular studies. You may shower prior to these tests. Compression: 3M wraps, as above Off-loading: The patient was instructed to avoid pressure and friction on the affected areas. Reposition every 2 hours at minimum. Avoid prolonged standing and/or dangling of legs. When seated, feet should be elevated at chest level. Frequent ambulation is encouraged. Diet: Patient encouraged to increase protein intake while taking caution to avoid high carbohydrate and/or sugar intake. Labs/cultures/imaging: Vascular studies ordered. These are scheduled for April 28. After review of patient's vascular studies, an order for CircAid's will be placed for the patient. Labs reviewed as annotated in HPI. Cultures reviewed as annotated in HPI. Follow-up: Return to clinic on April 28 following vascular studies, at which time 3M wraps will be reapplied to the bilateral lower extremities. 3M wraps will be left in place from April 28 until subsequent nurse visit on May 05. Return for provider reassessment in 2 weeks. Return sooner or report to the emergency room should symptoms worsen, or new symptoms arise. Note: [employer] speech recognition medical record technician software was used to create portions of this document. Sound-alike and misspelled words, as well as other medical record technician errors may be contained in the documentation.
[2021-04-28 14:28] VITALS: BP 120/75; PULSE 75; RESP 20; TEMP 36.1
[2021-05-05 11:25] VITALS: BP 146/84; PULSE 81; RESP 18; TEMP 36.8
== END 2021-05-05 23:59 ==
LOC: WC 11:15
PROVIDERS: PCP Family Medicine Geriatric Medicine; Visit Provider Nurse Practitioner Family
DX: E11.622 Type 2 diabetes mellitus with other skin ulcer (principal); L97.922 Non-pressure chronic ulcer of unspecified part of left lower leg with fat layer exposed; R60.0 Localized edema; E11.69 Type 2 diabetes mellitus with other specified complication; I48.19 Other persistent atrial fibrillation; E85.9 Amyloidosis, unspecified; I11.0 Hypertensive heart disease with heart failure; I50.32 Chronic diastolic (congestive) heart failure; E78.5 Hyperlipidemia, unspecified; Z79.4 Long term (current) use of insulin; Z79.01 Long term (current) use of anticoagulants; Z79.899 Other long term (current) drug therapy; Z86.16 Personal history of COVID-19; Z86.73 Personal history of transient ischemic attack (TIA), and cerebral infarction without residual deficits
CPT/HCPCS: 11042; 29580; 29581; 99213; G0463

== ENCOUNTER 2021-05-08 09:26 | Outpatient (RCR) | payer MEDICARE, OTHER, SELFPAY ==
[2021-05-06 00:37] VITALS: BP 146/84; PULSE 81; RESP 18; TEMP 36.8
[2021-05-08 09:32] VITALS: BP 140/74; PULSE 79; RESP 20; TEMP 36.1; O2SAT 98
--- NOTE | 2021-05-08 14:19 | PCM.WC.PN ---
History of Present Illness Date of Service: 05/08/21 Chief Complaint: Left lower leg ulcer, bilateral lower extremity edema History of Wound: The patient is a pleasant 70-year-old male who presents today (04/10/2021) for an evaluation of left lower extremity ulcers and bilateral lower extremity edema. He has a past medical history significant for amyloid disease, persistent atrial fibrillation on anticoagulation, heart failure with preserved ejection fraction, essential hypertension, hyperlipidemia, history of CVA (2008), and type 2 diabetes mellitus. In June 2020 he developed COVID-19 and was hospitalized for 10 days; he was not placed on a ventilator. Since that time, he has developed persistent cardiac issues. He has had increased shortness of breath, and is unable to tolerate lying flat for long periods of time. He has had severe edema of the bilateral lower extremities, which has significantly improved with the use of spironolactone and furosemide. He was encouraged by his engine room operator to wear compression stockings. In recent weeks, he developed erythema and worsening of his bilateral lower extremity edema, which caused blistering of his bilateral lower extremities. Two areas on his left lower extremity have become ulcerated. He has been applying Neosporin to these areas, and covering it with an ABD pad. His primary care provider had him discontinue his compression upon the development of his left lower extremity ulcers. The patient was given 2 shots of Rocephin in his PCPs office, and was started on doxycycline and Keflex, which he finished earlier this week. With the use of these antibiotics, he experienced significant improvement in his lower extremity edema and erythema. His wound culture from 03/30/2021 was positive for rare coag negative staph. He had lab work completed in March 2021, as follows: BMP: Glucose 139 (H), estimated GFR 46 (L), creatinine 1.58 (H), BUN 32 (H) Staph aureus PCR: Negative MRSA PCR: Negative Cortisol: 2.20 (L) DHEA sulfate: Normal ACTH: 2.0 (L) He falls asleep in a bed at night, but usually transitions to a recliner during the night due to shortness of breath. He is ambulatory. He is a non-smoker. Progress of Wound: The patient's left lower extremity ulcers remain healed today. The dryness and excoriation of his lower extremities has also resolved. Today he has mild pitting edema of the bilateral lower extremities. This morning he is using 20-30 mmHg pressure compression stockings, and is tolerating these well. Arterial and vascular studies reviewed with the patient and today. CircAid's (20-30 mmHg pressure) have been ordered, and should be arriving in the next couple of days to the patient's home. Objective Data Objective Data Vital Signs: Vital Signs Temp Pulse Resp BP Pulse Ox 97 F L 79 20 H 140/74 H 98 05/08/21 09:32 05/08/21 09:32 05/08/21 09:32 05/08/21 09:32 05/08/21 09:32 Oxygen Delivery Method Room Air Charges/Coding Visit Charges Office Visits / Consults: [id number] OV L3 Est Physical Exam Const alert, no apparent distress and healthy appearing General Appearance: cooperative, comfortable and well kempt Nutritional Appearance: obese HEENT Head and Scalp: normocephalic and atraumatic Resp Effort and Inspection: able to speak in complete sentences; Negative for labored Cardio Peripheral Pulses: dorsalis pedis pulses present bilateral 1+ GI normal to inspection, nondistended, normoactive bowel sounds Extremity normal capillary refill and no joint enlargement General Extremity: edema bilateral lower extremity Details: mild (2-3+ pitting); Negative for clubbing or cyanosis Skin Skin Narrative: Left lower extremity ulcers remain healed today. Dryness and excoriation of the bilateral lower extremities is improved today. Wounds: Negative for wounds noted Psych mental status grossly normal, cooperative and affect normal Debridement Note Debridement Note No debridement was completed: No debridement was completed today Assessment/Plan Assessment/Plan (1) Diabetic ulcer of left lower leg: CODE(S): E11.622 - Type 2 diabetes mellitus with other skin ulcer; L97.929 - Non-pressure chronic ulcer of unspecified part of left lower leg with unspecified severity (2) Bilateral lower extremity edema: CODE(S): R60.0 - Localized edema (3) Diabetes mellitus, type II: CODE(S): E11.9 - Type 2 diabetes mellitus without complications QUALIFIERS: Diabetes mellitus [facility] insulin use: with longwall shearer operator use Diabetes mellitus complication status: with other specified complication Qualified Code(s): E11.69 - Type 2 diabetes mellitus with other specified complication; Z79.4 - longterm (current) use of insulin (4) (HFpEF) heart failure with preserved ejection fraction: CODE(S): I50.30 - Unspecified diastolic (congestive) heart failure QUALIFIERS: Heart failure chronicity: unspecified Qualified Code(s): I50.30 - Unspecified diastolic (congestive) heart failure PLAN: The patient's left lower extremity ulcers remain healed today. He will be discharged from the wound healing center. As preventive measures: The daily use of compression (20-30 mmHg CircAid's) is recommended. Avoid prolonged standing and/or dangling of legs. When seated, feet should be elevated at chest level. Frequent ambulation is encouraged. *CircAid's should be arriving to patient's home in the next couple of days. Once these are received, the patient is encouraged to call to schedule a nurse visit at the wound healing center to review use of CircAid's. Follow-up: Return to the wound healing center on an as-needed basis should wounds recur or new wounds develop. Note: [employer] speech recognition crawler crane operator software was used to create portions of this document. Sound-alike and misspelled words, as well as other crawler crane operator errors may be contained in the documentation.
== END 2021-05-08 10:21 | disposition home or self-care (01) ==
LOC: WC 09:26
PROVIDERS: PCP Family Medicine Geriatric Medicine; Visit Provider Nurse Practitioner Family
DX: Z09 Encounter for follow-up examination after completed treatment for conditions other than malignant neoplasm (principal); R60.0 Localized edema; E11.9 Type 2 diabetes mellitus without complications; I48.19 Other persistent atrial fibrillation; I11.0 Hypertensive heart disease with heart failure; I50.32 Chronic diastolic (congestive) heart failure; E78.5 Hyperlipidemia, unspecified; Z79.4 Long term (current) use of insulin; Z79.01 Long term (current) use of anticoagulants; Z79.899 Other long term (current) drug therapy; Z86.73 Personal history of transient ischemic attack (TIA), and cerebral infarction without residual deficits; Z86.16 Personal history of COVID-19
CPT/HCPCS: 99213; G0463

== ENCOUNTER → 2021-05-13 14:18 | Outpatient (CLI) | payer MEDICARE, OTHER, SELFPAY ==
[2021-05-13 15:39] LABS: Microalbumin,Random Urine 21.6 mg/L (NO RANGE EST.); Microalbumin:Creatinine Ratio 46.7 mg/g CRE (<30 mg/g CRE)
[2021-05-13 15:44] LABS: BUN 29 mg/dL (7-18); BUN/Creat Ratio 23.4 RATIO (10-20); Calcium,Total 9.4 mg/dL (8.5-10.1); Chloride 105 mmol/L (98-107); Creatinine, Serum 1.24 mg/dL (0.70-1.30); EST Glomerular Filtration Rate 61 mL/min (>60); Est Glom Filt Rate - Afr Amer 74 mL/min (>60); Glucose 163 mg/dL (74-106); Phosphorus 3.1 mg/dL (2.5-4.9); Potassium 4.4 mmol/L (3.5-5.1); Sodium Level 140 mmol/L (136-145)
[2021-05-25 09:07] LABS: Aldosterone, Serum 19.9 ng/dL (0.0-30.0); Dopamine, Pl <30 pg/mL (0-48); Epinephrine, Pl <15 pg/mL (0-62); Norepinephrine, Pl 356 pg/mL (0-874)
[2021-05-25 13:38] LABS: Renin, Plasma 5.749 ng/mL/hr (0.167-5.380)
== END ==
PROVIDERS: Surgery; PCP Family Medicine Geriatric Medicine; Visit Provider Internal Medicine Nephrology
DX: E11.22 Type 2 diabetes mellitus with diabetic chronic kidney disease (principal); N18.32 Chronic kidney disease, stage 3b; E24.9 Cushing's syndrome, unspecified
CPT/HCPCS: 36415; 80069; 82043; 82088; 82384; 82570; 82627; 84244; 82626

== ENCOUNTER → 2021-05-15 08:36 | Outpatient (CLI) | payer MEDICARE, OTHER, SELFPAY ==
[2021-05-25 19:07] LABS: Cortisol, Urinary Free 9 ug/L (Undefined)
[2021-05-25 20:12] LABS: Cortisol, Free 24Ur 25 ug/24 hr (5-64)
== END ==
PROVIDERS: PCP Family Medicine Geriatric Medicine; Referring Provider Surgery; Visit Provider Surgery
DX: E27.8 Other specified disorders of adrenal gland (principal)
CPT/HCPCS: 81050; 82530

== ENCOUNTER → 2021-05-16 | Outpatient (CLI) | payer MEDICARE, OTHER, SELFPAY | END | disposition home or self-care (01) | PROVIDERS: PCP Family Medicine Geriatric Medicine | DX: E27.8 Other specified disorders of adrenal gland (principal) ==

== ENCOUNTER → 2021-05-18 09:01 | Outpatient (CLI) | payer MEDICARE, OTHER, SELFPAY ==
[2021-05-19 15:33] LABS: Adrenocorticotropic Hormone < 1.5 pg/mL (7.2-63.3)
== END ==
PROVIDERS: PCP Family Medicine Geriatric Medicine
DX: E27.8 Other specified disorders of adrenal gland (principal)
CPT/HCPCS: 36415; 82024; 82533

== ENCOUNTER 2021-06-15 15:28 | Outpatient (CLI) | payer MEDICARE, OTHER, SELFPAY ==
--- NOTE | 2021-06-15 15:34 | RAD_ITS ---
STUDY: X-RAY - RIGHT KNEE REASON FOR EXAM: Male, 70 years old. right knee pain, swelling and oozing TECHNIQUE: 4 view(s) of the knee. COMPARISON: None. FINDINGS: Normal visualized distal femur. Normal visualized proximal tibia and fibula. Normal proximal tibiofibular articulation. There is mild degenerative arthrosis of the medial femorotibial compartment. Normal lateral femorotibial compartment. There is mild degenerative arthrosis of the patellofemoral articulation. There is no demonstrated joint effusion. There are atherosclerotic calcifications. Soft tissue swelling of the lateral and anterior knee. RAD/Knee 4 or More Views IMPRESSION: 1. Mild medial degenerative changes. No sizable effusion. 2. Medial and lateral knee soft tissue swelling. Electronically Signed: Robles Eduardo MD (Brooks) at 16:57 EST , Service support ,
--- NOTE | 2021-06-15 15:45 | RAD_ITS ---
STUDY: X-RAY - LEFT KNEE REASON FOR EXAM: Male, 70 years old. chronic left knee pain, lower leg pain, swelling, and oozing. TECHNIQUE: 4 view(s) of the knee. COMPARISON: None. FINDINGS: Ossified density adjacent to the medial femoral condyle may represent sequela of old MCL injury. Normal visualized proximal tibia and fibula. Normal proximal tibiofibular articulation. There is moderate degenerative arthrosis of the medial femorotibial compartment with moderate joint space narrowing. Normal lateral femorotibial compartment. There is mild degenerative arthrosis of the patellofemoral articulation. There is a soft tissue prominence in the suprapatellar region suggesting a small volume joint effusion. There are atherosclerotic calcifications. Soft tissue swelling of the lateral and anterior knee. RAD/Knee 4 or More Views IMPRESSION: 1. Medial dominant degenerative changes. No sizable effusion. 2. Medial and lateral knee soft tissue swelling. Electronically Signed: Robles Eduardo MD (Brooks) at 16:56 EST , Service support ,
== END 2021-06-15 23:59 | disposition short-term general hospital (02) ==
LOC: RAD 15:29
PROVIDERS: PCP Family Medicine Geriatric Medicine; Referring Provider Anesthesiology Pain Medicine; Visit Provider Anesthesiology Pain Medicine
DX: M17.0 Bilateral primary osteoarthritis of knee (principal)
CPT/HCPCS: 73564

== ENCOUNTER 2021-06-30 13:24 | Outpatient (CLI) | payer MEDICARE, OTHER, SELFPAY ==
[2021-06-30 17:09] LABS: Absolute Lymphocyte Count 2.22 X10^3/uL (0.83-4.51); Absolute Neutrophil Count 10.2 X10^3/uL (2.0-7.7); Basophil# 0.03 X10^3/uL; Basophil% 0.2 % (0-1); Eosinophil# 0.12 X10^3/uL; Eosinophils% 0.9 % (0-5); Hematocrit 48.2 % (40-54); Hemoglobin 14.8 g/dL (13.0-16.5); Lymphocyte # 2.22 X10^3/ul (0.83-4.51); Lymphocyte % 16.1 % (19-41); Mean Corp Hgb Conc 30.7 g/dL (32-36); Mean Corpuscular Hgb 28.8 pg (27.0-32.0); Mean Platelet Vol. 12.4 fl (6.2-12.0); Monocyte# 1.09 X10^3/uL; Monocyte% 7.9 % (0-10); NRBC Flagged by Analyzer 0 % (0-5); Neutrophil # 10.24 X10^3/uL (2.7-7.7); Neutrophil % 74.4 % (47-70); Platelet Count 183 K/mm3 (150-450); RBC Distribution Width CV 15.9 % (11.6-14.6); RBC Distribution Width SD 54.9 fl (35.1-43.9); Red Blood Count 5.13 M/mm3 (4.6-6.2); White Blood Count 13.8 K/mm3 (4.4-11.0)
[2021-06-30 17:25] LABS: Vitamin D,25 Hydroxy 45.8 ng/mL
[2021-06-30 17:39] LABS: ALB/GLOB Ratio 0.7 RATIO (0.9-2.4); AST(SGOT) 18 U/L (15-37); Alanine Aminotransfer ALT/SGPT 27 U/L (16-61); Albumin, Serum 2.8 g/dL (3.2-5.0); Alkaline Phosphatase 90 U/L (45-117); Anion Gap 7 (5-15); BUN 24 mg/dL (7-18); BUN/Creat Ratio 15.1 RATIO (10-20); Chloride 105 mmol/L (98-107); Creatinine, Serum 1.59 mg/dL (0.70-1.30); EST Glomerular Filtration Rate 46 mL/min (>60); Est Glom Filt Rate - Afr Amer 56 mL/min (>60); Globulin 4.1 g/dL (2.2-4.2); Glucose 243 mg/dL (74-106); PSA,Total - Annual Screen 2.07 ng/mL (0.00-4.00); Potassium 4.7 mmol/L (3.5-5.1); Protein, Total 6.9 g/dL (6.4-8.2); Sodium Level 138 mmol/L (136-145); Thyroid Stim Hormone (TSH) 0.52 uIU/mL (0.358-3.74)
== END 2021-06-30 23:59 | disposition short-term general hospital (02) ==
PROVIDERS: PCP Family Medicine Geriatric Medicine; Visit Provider Family Medicine Geriatric Medicine
DX: E11.9 Type 2 diabetes mellitus without complications (principal); E55.9 Vitamin D deficiency, unspecified; I10 Essential (primary) hypertension; Z12.5 Encounter for screening for malignant neoplasm of prostate
CPT/HCPCS: 36415; 80053; 82306; 84153; 84443; 85025; G0103

== ENCOUNTER 2021-07-13 14:35 | Outpatient (CLI) | payer MEDICARE, OTHER, SELFPAY ==
[2021-07-13 16:18] LABS: Albumin, Serum 2.9 g/dL (3.2-5.0); BUN 23 mg/dL (7-18); BUN/Creat Ratio 15.2 RATIO (10-20); Calcium,Total 9.2 mg/dL (8.5-10.1); Chloride 105 mmol/L (98-107); Creatinine, Serum 1.51 mg/dL (0.70-1.30); EST Glomerular Filtration Rate 49 mL/min (>60); Est Glom Filt Rate - Afr Amer 59 mL/min (>60); Glucose 195 mg/dL (74-106); Phosphorus 3.6 mg/dL (2.5-4.9); Potassium 4.8 mmol/L (3.5-5.1); Sodium Level 140 mmol/L (136-145)
== END 2021-07-13 23:59 | disposition home or self-care (01) ==
LOC: LAB 14:37
PROVIDERS: Internal Medicine Nephrology; PCP Family Medicine Geriatric Medicine; Visit Provider Family Medicine Geriatric Medicine
DX: N18.32 Chronic kidney disease, stage 3b (principal)
CPT/HCPCS: 36415; 80069

== ENCOUNTER 2021-07-16 20:08 | Outpatient (CLI) | payer MEDICARE, OTHER, SELFPAY | END 2021-07-16 23:59 | disposition home or self-care (01) | LOC: SL 20:08 | PROVIDERS: PCP Family Medicine Geriatric Medicine; Referring Provider Nurse Practitioner Family; Visit Provider Nurse Practitioner Family | DX: G47.10 Hypersomnia, unspecified (principal) | CPT/HCPCS: 95810 ==

== ENCOUNTER → 2021-07-22 | Outpatient (CLI) | payer MEDICARE, OTHER, SELFPAY ==
[2021-07-22 12:30] LABS: Anion Gap 6 (5-15); BUN 22 mg/dL (7-18); BUN/Creat Ratio 14.5 RATIO (10-20); Calcium,Total 9.4 mg/dL (8.5-10.1); Chloride 106 mmol/L (98-107); Creatinine, Serum 1.52 mg/dL (0.70-1.30); EST Glomerular Filtration Rate 49 mL/min (>60); Est Glom Filt Rate - Afr Amer 59 mL/min (>60); Glucose 214 mg/dL (74-106); Potassium 3.9 mmol/L (3.5-5.1); Sodium Level 140 mmol/L (136-145)
== END | disposition home or self-care (01) ==
PROVIDERS: PCP Family Medicine Geriatric Medicine; Visit Provider Family Medicine Geriatric Medicine
DX: E87.6 Hypokalemia (principal)
CPT/HCPCS: 36415; 80048

== ENCOUNTER 2021-08-18 12:20 | Outpatient (CLI) | payer MEDICARE, OTHER, SELFPAY ==
[2021-08-18 13:36] LABS: Anion Gap 4 (5-15); BUN 34 mg/dL (7-18); BUN/Creat Ratio 18.2 RATIO (10-20); Calcium,Total 9.2 mg/dL (8.5-10.1); Chloride 106 mmol/L (98-107); Creatinine, Serum 1.87 mg/dL (0.70-1.30); EST Glomerular Filtration Rate 38 mL/min (>60); Est Glom Filt Rate - Afr Amer 46 mL/min (>60); Glucose 249 mg/dL (74-106); Potassium 4.5 mmol/L (3.5-5.1); Sodium Level 139 mmol/L (136-145)
== END 2021-08-18 23:59 | disposition home or self-care (01) ==
LOC: POLAB3 12:21
PROVIDERS: PCP Family Medicine Geriatric Medicine; Visit Provider Family Medicine Geriatric Medicine
DX: E87.6 Hypokalemia (principal)
CPT/HCPCS: 36415; 80048

== ENCOUNTER 2021-08-27 19:54 | Outpatient (CLI) | payer MEDICARE, OTHER, SELFPAY ==
[2021-08-27] MEDS: Zolpidem Tartrate 5 MG Tablet PO (21:55)
== END 2021-08-27 23:59 | disposition home or self-care (01) ==
PROVIDERS: PCP Family Medicine Geriatric Medicine; Visit Provider Nurse Practitioner Acute Care
DX: G47.33 Obstructive sleep apnea (adult) (pediatric) (principal)
CPT/HCPCS: 95811

== ENCOUNTER 2021-08-31 14:06 | Outpatient (CLI) | payer MEDICARE, OTHER, SELFPAY ==
[2021-08-31 17:49] LABS: Anion Gap 8 (5-15); BUN 28 mg/dL (7-18); BUN/Creat Ratio 16.8 RATIO (10-20); Calcium,Total 9.2 mg/dL (8.5-10.1); Chloride 106 mmol/L (98-107); Creatinine, Serum 1.67 mg/dL (0.70-1.30); EST Glomerular Filtration Rate 44 mL/min (>60); Est Glom Filt Rate - Afr Amer 53 mL/min (>60); Glucose 258 mg/dL (74-106); Potassium 4.7 mmol/L (3.5-5.1); Sodium Level 139 mmol/L (136-145)
== END 2021-08-31 23:59 | disposition home or self-care (01) ==
LOC: POLAB3 14:08
PROVIDERS: PCP Family Medicine Geriatric Medicine; Visit Provider Family Medicine Geriatric Medicine
DX: I10 Essential (primary) hypertension (principal)
CPT/HCPCS: 36415; 80048

== ENCOUNTER 2021-09-15 15:47 | Outpatient (CLI) | payer MEDICARE, OTHER, SELFPAY ==
[2021-09-15 17:29] LABS: Anion Gap 6 (5-15); BUN 29 mg/dL (7-18); Calcium,Total 9.1 mg/dL (8.5-10.1); Chloride 106 mmol/L (98-107); Creatinine, Serum 1.53 mg/dL (0.70-1.30); EST Glomerular Filtration Rate 48 mL/min (>60); Est Glom Filt Rate - Afr Amer 58 mL/min (>60); Glucose 159 mg/dL (74-106); Potassium 4.4 mmol/L (3.5-5.1); Sodium Level 138 mmol/L (136-145)
== END 2021-09-15 23:59 | disposition home or self-care (01) ==
LOC: POLAB3 15:49
PROVIDERS: PCP Family Medicine Geriatric Medicine; Visit Provider Family Medicine Geriatric Medicine
DX: E24.9 Cushing's syndrome, unspecified (principal)
CPT/HCPCS: 36415; 80048

== ENCOUNTER 2021-09-23 14:20 | Outpatient (CLI) | payer MEDICARE, OTHER, SELFPAY ==
[2021-09-23 16:50] LABS: Anion Gap 7 (5-15); BUN 26 mg/dL (7-18); BUN/Creat Ratio 15.1 RATIO (10-20); Calcium,Total 8.9 mg/dL (8.5-10.1); Chloride 105 mmol/L (98-107); Creatinine, Serum 1.72 mg/dL (0.70-1.30); EST Glomerular Filtration Rate 42 mL/min (>60); Est Glom Filt Rate - Afr Amer 51 mL/min (>60); Glucose 284 mg/dL (74-106); Potassium 4.3 mmol/L (3.5-5.1); Sodium Level 139 mmol/L (136-145)
== END 2021-09-23 23:59 | disposition home or self-care (01) ==
LOC: POLAB3 14:21
PROVIDERS: PCP Family Medicine Geriatric Medicine; Visit Provider Family Medicine Geriatric Medicine
DX: R60.9 Edema, unspecified (principal)
CPT/HCPCS: 36415; 80048

== ENCOUNTER → 2021-09-29 | Outpatient (CLI) | payer MEDICARE, OTHER, SELFPAY ==
[2021-09-29 17:34] LABS: Absolute Lymphocyte Count 2.69 X10^3/uL (0.83-4.51); Basophil# 0.05 X10^3/uL; Basophil% 0.5 % (0-1); Eosinophil# 0.12 X10^3/uL; Eosinophils% 1.1 % (0-5); Hematocrit 46.9 % (40-54); Hemoglobin 15.3 g/dL (13.0-16.5); Lymphocyte # 2.69 X10^3/ul (0.83-4.51); Mean Corp Hgb Conc 32.6 g/dL (32-36); Mean Corpuscular Hgb 29.8 pg (27.0-32.0); Mean Corpuscular Volume 91.4 fL (80-94); Mean Platelet Vol. 12.2 fl (6.2-12.0); Monocyte% 8.4 % (0-10); NRBC Flagged by Analyzer 0 % (0-5); Neutrophil # 6.95 X10^3/uL (2.7-7.7); Neutrophil % 64.6 % (47-70); Platelet Count 198 K/mm3 (150-450); RBC Distribution Width CV 14.4 % (11.6-14.6); RBC Distribution Width SD 48.4 fl (35.1-43.9); Red Blood Count 5.13 M/mm3 (4.6-6.2); White Blood Count 10.8 K/mm3 (4.4-11.0)
[2021-09-29 17:41] LABS: Vitamin D,25 Hydroxy 51.7 ng/mL
[2021-09-29 17:47] LABS: ALB/GLOB Ratio 0.8 RATIO (0.9-2.4); AST(SGOT) 18 U/L (15-37); Alanine Aminotransfer ALT/SGPT 25 U/L (16-61); Albumin, Serum 2.9 g/dL (3.2-5.0); Alkaline Phosphatase 86 U/L (45-117); Anion Gap 7 (5-15); BUN 32 mg/dL (7-18); BUN/Creat Ratio 19.6 RATIO (10-20); Calcium,Total 8.7 mg/dL (8.5-10.1); Chloride 105 mmol/L (98-107); Creatinine, Serum 1.63 mg/dL (0.70-1.30); EST Glomerular Filtration Rate 45 mL/min (>60); Est Glom Filt Rate - Afr Amer 54 mL/min (>60); Globulin 3.7 g/dL (2.2-4.2); Glucose 221 mg/dL (74-106); Phosphorus 3.6 mg/dL (2.5-4.9); Potassium 4.3 mmol/L (3.5-5.1); Protein, Total 6.6 g/dL (6.4-8.2); Sodium Level 137 mmol/L (136-145); Thyroid Stim Hormone (TSH) 1.97 uIU/mL (0.358-3.74)
== END | disposition home or self-care (01) ==
LOC: POLAB3 15:19
PROVIDERS: PCP Family Medicine Geriatric Medicine; Visit Provider Family Medicine Geriatric Medicine
DX: E11.9 Type 2 diabetes mellitus without complications (principal); E55.9 Vitamin D deficiency, unspecified; I10 Essential (primary) hypertension
CPT/HCPCS: 36415; 80053; 82306; 83735; 84100; 84443; 85025

== ENCOUNTER → 2021-10-30 | Outpatient (CLI) | payer MEDICARE, OTHER, SELFPAY | END | disposition home or self-care (01) | LOC: PSN 09:17 | PROVIDERS: PCP Family Medicine Geriatric Medicine; Referring Provider Family Medicine Geriatric Medicine; Visit Provider Family Medicine Geriatric Medicine | DX: R68.83 Chills (without fever) (principal); Z20.822 Contact with and (suspected) exposure to COVID-19 | CPT/HCPCS: 87635; 87804; 87807; C9803; U0003; U0005 ==

== ENCOUNTER → 2021-11-20 | Outpatient (CLI) | payer MEDICARE, OTHER, SELFPAY ==
[2021-11-20 11:08] LABS: Albumin, Serum 2.8 g/dL (3.2-5.0); BUN 36 mg/dL (7-18); BUN/Creat Ratio 21.6 RATIO (10-20); Calcium,Total 9.1 mg/dL (8.5-10.1); Chloride 105 mmol/L (98-107); Creatinine, Serum 1.67 mg/dL (0.70-1.30); EST Glomerular Filtration Rate 43 mL/min (>60); Est Glom Filt Rate - Afr Amer 53 mL/min (>60); Glucose 335 mg/dL (74-106); Phosphorus 3.4 mg/dL (2.5-4.9); Potassium 4.4 mmol/L (3.5-5.1); Sodium Level 137 mmol/L (136-145)
== END | disposition home or self-care (01) ==
LOC: LAB 09:54
PROVIDERS: PCP Family Medicine Geriatric Medicine; Visit Provider Internal Medicine Nephrology
DX: N18.32 Chronic kidney disease, stage 3b (principal)
CPT/HCPCS: 36415; 80069

== ENCOUNTER → 2021-12-01 | Outpatient (CLI) | payer MEDICARE, OTHER, SELFPAY | END | disposition home or self-care (01) | LOC: SL 20:26 | PROVIDERS: PCP Family Medicine Geriatric Medicine; Referring Provider Internal Medicine Critical Care Medicine; Visit Provider Internal Medicine Critical Care Medicine | DX: G47.33 Obstructive sleep apnea (adult) (pediatric) (principal) | CPT/HCPCS: 95811 ==

== ENCOUNTER → 2021-12-29 | Outpatient (CLI) | payer MEDICARE, OTHER, SELFPAY ==
[2021-12-29 16:26] LABS: Absolute Lymphocyte Count 2.26 X10^3/uL (0.83-4.51); Absolute Neutrophil Count 6.4 X10^3/uL (2.0-7.7); Basophil# 0.04 X10^3/uL; Basophil% 0.4 % (0-1); Eosinophil# 0.12 X10^3/uL; Eosinophils% 1.2 % (0-5); Hematocrit 45.2 % (40-54); Hemoglobin 14.6 g/dL (13.0-16.5); Lymphocyte # 2.26 X10^3/ul (0.83-4.51); Lymphocyte % 23.4 % (19-41); Mean Corp Hgb Conc 32.3 g/dL (32-36); Mean Corpuscular Hgb 30.7 pg (27.0-32.0); Mean Platelet Vol. 12.4 fl (6.2-12.0); Monocyte# 0.84 X10^3/uL; Monocyte% 8.7 % (0-10); NRBC Flagged by Analyzer 0 % (0-5); Neutrophil # 6.36 X10^3/uL (2.7-7.7); Neutrophil % 65.9 % (47-70); Platelet Count 156 K/mm3 (150-450); RBC Distribution Width CV 15.4 % (11.6-14.6); RBC Distribution Width SD 53.5 fl (35.1-43.9); Red Blood Count 4.76 M/mm3 (4.6-6.2); White Blood Count 9.7 K/mm3 (4.4-11.0)
[2021-12-29 16:47] LABS: Vitamin D,25 Hydroxy 59.6 ng/mL
[2021-12-29 17:01] LABS: ALB/GLOB Ratio 0.8 RATIO (0.9-2.4); AST(SGOT) 16 U/L (15-37); Alanine Aminotransfer ALT/SGPT 26 U/L (16-61); Albumin, Serum 2.8 g/dL (3.2-5.0); Alkaline Phosphatase 82 U/L (45-117); Anion Gap 6 (5-15); BUN 27 mg/dL (7-18); BUN/Creat Ratio 15.3 RATIO (10-20); Calcium,Total 8.9 mg/dL (8.5-10.1); Chloride 108 mmol/L (98-107); Creatinine, Serum 1.77 mg/dL (0.70-1.30); EST Glomerular Filtration Rate 41 mL/min (>60); Est Glom Filt Rate - Afr Amer 49 mL/min (>60); Globulin 3.5 g/dL (2.2-4.2); Glucose 159 mg/dL (74-106); Potassium 4.3 mmol/L (3.5-5.1); Protein, Total 6.3 g/dL (6.4-8.2); Sodium Level 141 mmol/L (136-145); Thyroid Stim Hormone (TSH) 1.58 uIU/mL (0.358-3.74)
== END | disposition home or self-care (01) ==
LOC: POLAB3 14:11
PROVIDERS: PCP Family Medicine Geriatric Medicine; Visit Provider Family Medicine Geriatric Medicine
DX: E11.40 Type 2 diabetes mellitus with diabetic neuropathy, unspecified (principal); E55.9 Vitamin D deficiency, unspecified; I10 Essential (primary) hypertension
CPT/HCPCS: 36415; 80053; 82306; 84443; 85025

== ENCOUNTER 2022-01-26 17:30 | Outpatient (RCR) | payer MEDICARE, OTHER, SELFPAY ==
--- NOTE | 2022-01-05 09:24 | HP.PTEVAL ---
Patient's Visit Information RACHEL ZAFAR is a 71 year old M referred to Physical Therapy by Dr. Obinna Melo MD with a diagnosis of BACK PAIN. Date of Evaluation: 01/05/22 Physical Therapist: Sebas Guidry, PT, Cert MDT, OCS - Visit Plan Frequency: 2x /Week Duration: 4 Weeks Plan: PT INTERVTIONS POSTURAL EX'S,DLS ,BLE STRENGTHNEING ,FUNCTIONAL STRENGTHNEING AND ENDURANCE PROGRAM - Subjective This 71 y/o male presents to physical therapy with back pain. Patient had back pain ~ 1 year ,then had MRI 1 year ago showed stenosis. Patient has multiple complexity issues Covid Jun 2020 caused A-Fib, continue SOB , DM and developed ulcer left leg ,CVA x2 years ago. 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 Patient has left knee pain thus needs TKR . Patient sees DR Jean for epidural injections and plans to have injection today. Location of pain lumbar and right symptoms to ankle. Aggravating factors walking ,standing ~ 2mins . Alleviating factors sitting ,bending. Patient symptoms affects ADL's and housework tasks. Denies paresthesia/tingling occasional right side. Coughing/sneezing -. Bowel/bladder -.Patient symptoms affects sleeping ,also has by-pap. Patient symptoms with pain and weakens affects QOL and function. SOCIAL: . VOCATION: retired - Pain Bilateral Back Pain Intensity (Out of 10): 6 Pain Intensity Range: 10 Comment: standing Right Lower Extremity Pain Intensity (Out of 10): 1 Pain Intensity Range: 10 - Objective POSTURE: mild forward posture. NEURO: denies paresthesia/tingling, reflexes L3-4,L4-5,L5-S1 1/3. SYMMTRIES: align. PALAPTION: unremarkable. EDEMA: 2+ bilateral legs. AROM: supine knee flexion 5-105 degrees left ,right 5-110 degrees. LUMBAR ROM: flexion min loss ,extension min loss ,side glides min loss. FLEXABLITY: hamstrings mod loss. GAIT: reciprocal pattern slow kenrick mild unsteady mild forward posture SOB. MMT (peak force): quads 25.9,hamstrings 28.2,hip flexion 3.9,left 13.5 ,ankle 5/5 - Special Tests L/S Slump test left side: Negative L/S Slump test right side: Negative L/S Left Straight Leg Raise: Negative L/S Right Straight Leg Raise: Negative - Balance/Special Test Scores Oswestry Low Back Score: 33 - Goals Goal 1:: I with HEP strength and bike Goal Time Frame: 4-6 Weeks Goal 2:: Patient to demonstrate 50% improvement with improved function and less pain Goal Time Frame: 4-6 Weeks Goal 3:: Patient to improve lumbar ROM for function of recovery to put on shoes Goal Time Frame: 4-6 Weeks Goal 4:: Patient to increase strength BLE hip/quads/hams 5-10 peak force to improve gait and function Goal Time Frame: 4-6 Weeks Goal 5:: Patient to improve functional endurance by 50% with activity Goal Time Frame: 4-6 Weeks Goal 6:: Patient improve back oswestry score by 5 points to improve QOL and function Goal Time Frame: 4-6 Weeks - Rehabilitation Potential Physical Therapy Diagnosis: This patient has multiple complexity issues with COVID post complications along with pain back and leg ,weakness right > leg ,pain with inability to stand and walk , SOB with activity impairs ADL's and function thus benefit from skilled PT Rehabilitation Potential: Good - Anticipated Interventions Patient/Client Instruction: Educate patient on: Condition, Plan of Care For the Purpose of:: To decrease pain, To improve muscle performance and motor function, To improve ability to perform ADL's, To increase tolerance to activity/condition/position, To improve performance and independence with ADL's, To improve ability of physical actions for home/community/work/leisure, To improve health of tissue, To decrease soft tissue restriction, To increase flexibility/ROM, To improve endurance, To improve balance, To reduce risk of recurrence, To prevent re-injury, To improve tolerance to ADL's Therapeutic Exercise to Include: Strength training, Endurance training, Balance training, Body mechanics, Postural training, Flexibilty training, Active ROM For the Purpose of:: To decrease pain, To increase ROM, To improve muscle performance and motor function, To improve ability to perform ADL's, To increase tolerance to activity/condition/position, To improve ability of physical actions for home/community/work/leisure, To improve health of tissue, To decrease soft tissue restriction, To increase flexibility/ROM, To improve endurance, To improve balance, To reduce risk of recurrence, To improve tolerance to ADL's Thank you for the opportunity to evaluate your patient. For Medicare and Medicare HMO plans, please review the plan of care and approve it. It will need to be FAXED BACK to us at [phone] for Medicare purposes. For Medicare only, by signing this I certify the plan of care. Please let me know if there are questions or concerns regarding this plan of care. Physician Signature: Date:
--- NOTE | 2022-05-28 10:46 | HP.PT.NRP ---
RACHEL ZAFAR was seen in my office for initial evaluation on 01/05/22. The following Plan of Care was established for this patient: Initial Frequency: 2x /Week Initial Duration: 4 Weeks Patient/Client Instruction: Educate patient on: Condition, Plan of Care For the Purpose of:: To decrease pain, To improve muscle performance and motor function, To improve ability to perform ADL's, To increase tolerance to activity/condition/position, To improve performance and independence with ADL's, To improve ability of physical actions for home/community/work/leisure, To improve health of tissue, To decrease soft tissue restriction, To increase flexibility/ROM, To improve endurance, To improve balance, To reduce risk of recurrence, To prevent re-injury, To improve tolerance to ADL's Therapeutic Exercise to Include: Strength training, Endurance training, Balance training, Body mechanics, Postural training, Flexibilty training, Active ROM For the Purpose of:: To decrease pain, To increase ROM, To improve muscle performance and motor function, To improve ability to perform ADL's, To increase tolerance to activity/condition/position, To improve ability of physical actions for home/community/work/leisure, To improve health of tissue, To decrease soft tissue restriction, To increase flexibility/ROM, To improve endurance, To improve balance, To reduce risk of recurrence, To improve tolerance to ADL's This patient was last seen in our office . Pertinent comments regarding their Physical therapy will appear below: Patient was seen for PT for evaluation for HEP for back thus is d/c RTD received another order At this point I will be discontinuing this patient from physical therapy. I would be happy to see this patient again in the future if found appropriate by the physician. Thank you! Sebas Guidry, PT, Cert MDT, OCS Balance/Gait/Functional tests - Balance/Special Test Scores Oswestry Low Back Score: 33
== END 2022-01-26 19:00 | disposition home or self-care (01) ==
LOC: PT 17:30
PROVIDERS: PCP Family Medicine Geriatric Medicine; Referring Provider Anesthesiology Pain Medicine; Visit Provider Anesthesiology Pain Medicine
DX: M54.9 Dorsalgia, unspecified (principal); M79.606 Pain in leg, unspecified
CPT/HCPCS: 97110; 97162

== ENCOUNTER → 2022-02-24 | Outpatient (CLI) | payer MEDICARE, OTHER, SELFPAY ==
--- NOTE | 2022-02-24 16:04 | CT_ITS ---
STUDY: CT ABDOMEN AND PELVIS WITH CONTRAST ENHANCEMENT OF 1817 HOURS ON 02/24/2022 REASON FOR EXAM: 71-year-old male with abdominal pain. RADIATION DOSAGE (If Supplied By Facility): CTDIvol = ( 38.50 ) mGy, DLP = ( 3655.00 ) mGycm. TECHNIQUE: Transaxial images were obtained from the dome of the diaphragm to the symphysis pubis without oral contrast. 100 mL of Isovue 370 were administered intravenously for this study. Gastrografin was given orally.. Sagittal and coronal images were reconstructed. Individualized dose optimization techniques were used for this CT. COMPARISON: None. FINDINGS: The visualized lung bases are unremarkable. The visualized portions of the heart are within normal limits. Normal liver. Normal gallbladder and extrahepatic biliary system. No cholelithiasis or cholecystitis. Normal spleen. Normal pancreas. No pancreatitis or pancreatic mass lesions. Normal bilateral adrenal glands. Presence of a 3.1 cm diameter simple cyst laterally in the upper body of the right kidney and a 3.6 cm in diameter simple cyst laterally in the inferior pole left kidney. No hydronephrosis or obstructive uropathy. No calcifications or calculi. No solid mass lesions. Food filled stomach. Normal small intestine. There is a 2.6 cm in diameter soft tissue mass or lipoma in the cecum adjacent to the ileocecal valve. It is currently not causing obstruction. No diverticulitis, colitis, or intestinal obstruction. The appendix is visualized and appears normal. No appendicitis. Appendix best visualized in axial images 73 through 83 and coronal images 80 through 83. Normal abdominal aorta. Normal inferior vena cava. Normal retroperitoneum. No hernias or abscesses. Normal urinary bladder. 5.1 cm in diameter homogeneous prostate. Normal abdominal wall. Normal osseous structures. CT/Abdomen/Pelvis WITH Contrast IMPRESSION: 1. No cholecystitis or pancreatitis. No pancreatic mass lesions. 2. Moderate sized bilateral renal cysts without solid mass lesions, obstructive uropathy or pyelonephritis. Normal bladder. 3. No appendicitis, diverticulitis, colitis, or intestinal obstruction. 4. Presence of a 2.6 cm in diameter soft tissue mass or lipoma in the cecum adjacent to the ileocecal valve, currently not causing obstruction. 5. No hernias or abscesses. Electronically Signed: Keyur Webster MD at 19:10 EDT ,
[2022-02-24 16:53] LABS: Absolute Lymphocyte Count 2.14 X10^3/uL (0.83-4.51); Absolute Neutrophil Count 6.6 X10^3/uL (2.0-7.7); Basophil# 0.02 X10^3/uL; Basophil% 0.2 % (0-1); Eosinophil# 0.16 X10^3/uL; Eosinophils% 1.6 % (0-5); Hematocrit 48.1 % (40-54); Hemoglobin 15.3 g/dL (13.0-16.5); Lymphocyte # 2.14 X10^3/ul (0.83-4.51); Lymphocyte % 21.7 % (19-41); Mean Corp Hgb Conc 31.8 g/dL (32-36); Mean Corpuscular Hgb 30.1 pg (27.0-32.0); Mean Corpuscular Volume 94.7 fL (80-94); Mean Platelet Vol. 12.5 fl (6.2-12.0); Monocyte# 0.87 X10^3/uL; Monocyte% 8.8 % (0-10); NRBC Flagged by Analyzer 0 % (0-5); Neutrophil # 6.61 X10^3/uL (2.7-7.7); Neutrophil % 67.3 % (47-70); Platelet Count 153 K/mm3 (150-450); RBC Distribution Width CV 14.3 % (11.6-14.6); RBC Distribution Width SD 49.9 fl (35.1-43.9); Red Blood Count 5.08 M/mm3 (4.6-6.2); White Blood Count 9.8 K/mm3 (4.4-11.0)
[2022-02-24 17:04] LABS: Anion Gap 7 (5-15); BUN 26 mg/dL (7-18); BUN/Creat Ratio 14.9 RATIO (10-20); Chloride 107 mmol/L (98-107); Creatinine, Serum 1.75 mg/dL (0.70-1.30); EST Glomerular Filtration Rate 41 mL/min (>60); Est Glom Filt Rate - Afr Amer 50 mL/min (>60); Glucose 156 mg/dL (74-106); Sodium Level 141 mmol/L (136-145)
[2022-02-24 17:43] LABS: Hemoglobin A1c 10.3 % (3.8-5.6)
== END | disposition home or self-care (01) ==
LOC: CT 15:56
PROVIDERS: PCP Family Medicine Geriatric Medicine; Visit Provider Family Medicine Geriatric Medicine
DX: R10.9 Unspecified abdominal pain (principal); E11.9 Type 2 diabetes mellitus without complications; K45.8 Other specified abdominal hernia without obstruction or gangrene; N39.0 Urinary tract infection, site not specified
CPT/HCPCS: 36415; 74177; 80048; 83036; 85025; 87086; Q9967

== ENCOUNTER → 2022-02-26 | Outpatient (CLI) | payer MEDICARE, OTHER, SELFPAY ==
--- NOTE | 2022-02-26 18:28 | MRI_ITS ---
STUDY: MRI LUMBAR SPINE WITHOUT CONTRAST REASON FOR EXAM: Male, 71 years old patient with spinal stenosis. TECHNIQUE: Standardized fat and water weighted pulse sequences were obtained in the sagittal and axial planes. COMPARISON: CT abdomen and pelvis dated 02/24/2022. FINDINGS: T12-L1: Normal endplates. Normal disc height, signal and morphology. Normal bilateral facet joints. Normal central canal and bilateral lateral recesses. Normal bilateral intervertebral neural foramina. Normal lumbar lordosis. There is no substantial scoliosis. Normal conus medullaris that terminates at the L1-L2 level. There appear to be a small hemangioma within the L1 and L2 vertebral bodies. L1-2: Normal endplates. Normal disc height, signal and morphology. Normal bilateral facet joints. Normal central canal and bilateral lateral recesses. Normal bilateral intervertebral neural foramina. L2-3: There is mild annular disk bulge and osteophyte complex. There is mild degenerative arthropathy of the facet joints. Bilateral neuroforamina are narrowed without MR evidence for nerve impingement. There is no appreciable acquired central canal stenosis. L3-4: There is mild annular disk bulge and osteophyte complex. There is mild degenerative arthropathy of the facet joints. Bilateral neuroforamina are narrowed without MR evidence for nerve impingement. There is no appreciable acquired central canal stenosis. L4-5: There is moderately large annular disk bulge and osteophyte complex. There maybe associated posterior broad central disk protrusion There is moderately severe degenerative arthropathy of the facet joints. Bilateral neuroforamina are narrowed with MR evidence for potential bilateral L4 nerve impingement. There is mild acquired central canal stenosis. L5-S1: There appears to be a focal right foraminal disc protrusion with moderate right-sided neural foraminal narrowing. There is no definite nerve impingement. There is moderately severe degenerative arthropathy of the facet joints. There is mild central acquired canal stenosis. Normal visualized sacral ala. Normal visualized paraspinous soft tissue structures. MRI/Spine Lumbar (Routine) IMPRESSION: Multilevel degenerative disc disease and degenerative arthropathy of the lumbar spine with neural foraminal narrowing and potential nerve impingement, as described. Electronically Signed: Sara Marrufo MD at 6:27 EDT ,
== END | disposition home or self-care (01) ==
LOC: MRI 17:38
PROVIDERS: PCP Family Medicine Geriatric Medicine; Visit Provider Family Medicine Geriatric Medicine
DX: M48.00 Spinal stenosis, site unspecified (principal)
CPT/HCPCS: 72148

== ENCOUNTER → 2022-03-29 | Outpatient (CLI) | payer MEDICARE, OTHER, SELFPAY ==
[2022-03-29 17:18] LABS: Absolute Lymphocyte Count 1.92 X10^3/uL (0.83-4.51); Absolute Neutrophil Count 7.8 X10^3/uL (2.0-7.7); Basophil# 0.03 X10^3/uL; Basophil% 0.3 % (0-1); Eosinophils% 0.9 % (0-5); Hematocrit 45.4 % (40-54); Hemoglobin 14.6 g/dL (13.0-16.5); Lymphocyte # 1.92 X10^3/ul (0.83-4.51); Lymphocyte % 17.9 % (19-41); Mean Corp Hgb Conc 32.2 g/dL (32-36); Mean Corpuscular Hgb 30.2 pg (27.0-32.0); Mean Corpuscular Volume 93.8 fL (80-94); Mean Platelet Vol. 12.8 fl (6.2-12.0); Monocyte# 0.85 X10^3/uL; Monocyte% 7.9 % (0-10); NRBC Flagged by Analyzer 0 % (0-5); Neutrophil % 72.5 % (47-70); Platelet Count 143 K/mm3 (150-450); RBC Distribution Width CV 14.7 % (11.6-14.6); RBC Distribution Width SD 50.7 fl (35.1-43.9); Red Blood Count 4.84 M/mm3 (4.6-6.2); White Blood Count 10.8 K/mm3 (4.4-11.0)
[2022-03-29 17:55] LABS: Vitamin D,25 Hydroxy 55.1 ng/mL
[2022-03-29 17:57] LABS: ALB/GLOB Ratio 0.8 RATIO (0.9-2.4); AST(SGOT) 21 U/L (15-37); Alanine Aminotransfer ALT/SGPT 24 U/L (16-61); Alkaline Phosphatase 91 U/L (45-117); Anion Gap 5 (5-15); BUN 29 mg/dL (7-18); BUN/Creat Ratio 16.6 RATIO (10-20); Chloride 107 mmol/L (98-107); Creatinine, Serum 1.75 mg/dL (0.70-1.30); EST Glomerular Filtration Rate 41 mL/min (>60); Est Glom Filt Rate - Afr Amer 50 mL/min (>60); Globulin 3.6 g/dL (2.2-4.2); Glucose 172 mg/dL (74-106); Protein, Total 6.6 g/dL (6.4-8.2); Sodium Level 140 mmol/L (136-145); Thyroid Stim Hormone (TSH) 2.62 uIU/mL (0.358-3.74)
== END | disposition home or self-care (01) ==
LOC: POLAB3 09:46
PROVIDERS: PCP Family Medicine Geriatric Medicine; Visit Provider Family Medicine Geriatric Medicine
DX: I10 Essential (primary) hypertension (principal); E11.9 Type 2 diabetes mellitus without complications; E55.9 Vitamin D deficiency, unspecified
CPT/HCPCS: 36415; 80053; 82306; 84443; 85025

== ENCOUNTER → 2022-03-31 | Outpatient (CLI) | payer MEDICARE, OTHER, SELFPAY ==
--- NOTE | 2022-03-31 09:18 | US_ITS ---
STUDY: ULTRASOUND BREAST - RIGHT REASON FOR EXAM: Male, 71 years old. Bilateral breast pain. TECHNIQUE: Axial and longitudinal images of the RIGHT breast were performed with a high resolution ultrasound transducer. # OF IMAGES: 29 COMPARISON: Comparison is made with prior mammogram done earlier today. FINDINGS: RIGHT Breast: Scattered retroareolar breast tissue. No solid or cystic mass lesion is seen. IMPRESSION: No sonographic abnormality is seen. ASSESSMENT CATEGORY: BIRADS Category 1: Negative. A letter regarding these results will be sent to the patient by the facility within 30 days. Electronically Signed: Mario Tracy MD at 10:39 EDT , STUDY: ULTRASOUND BREAST - LEFT REASON FOR EXAM: Male, 71 years old. Pain in the left breast. TECHNIQUE: Axial and longitudinal images of the LEFT breast were performed with a high resolution ultrasound transducer. # OF IMAGES: 29 COMPARISON: Comparison is made with prior mammogram done earlier today. FINDINGS: LEFT Breast: Scattered fibroglandular tissue. There is a 6 mm x 6 mm x 3 mm retroareolar cyst. US/Breast Limited Unilateral IMPRESSION: 6 mm x 6 mm x 3 mm retroareolar cyst. ASSESSMENT CATEGORY: BIRADS Category 2: Benign. A letter regarding these results will be sent to the patient by the facility within 30 days. Electronically Signed: Mario Tracy MD at 10:40 EDT ,
--- NOTE | 2022-03-31 09:18 | BI_ITS ---
MAMMOGRAPHY - BILATERAL DIAGNOSTIC REASON FOR EXAM: Male, 71 years old. Bilateral retroareolar breast pain. PERTINENT HISTORY: Non-contributory. TECHNIQUE: Digital bilateral breast don (3D mammographic acquisition) in the CC and MLO projections. 2-D mediolateral oblique (MLO) and craniocaudad (CC) views of both breasts were obtained. CAD: Full Field Digital Mammography with Computer Added Detection was performed. COMPARISON: None. Baseline examination. FINDINGS: Breast Composition: There are scattered areas of fibroglandular density. There are no dominant masses or suspicious calcifications. No other significant abnormalities are identified. BI/DIAG MAMM W/CAD, BILAT IMPRESSION: Negative diagnostic mammogram. Findings suggestive of bilateral gynecomastia. With the patient''s history of bilateral retroareolar pain, correlation with ultrasound is recommended. (A) ASSESSMENT CATEGORY: BIRADS Category 0: Incomplete. Need additional imaging evaluation. A letter regarding these results will be sent to the patient by the facility within 30 days. Approximately 10% of breast cancers are not detected by mammography. A normal mammogram should not delay biopsy of a clinically suspicious abnormality. Electronically Signed: Mario Tracy MD at 10:27 EDT ,
== END | disposition home or self-care (01) ==
LOC: OPBI 09:17
PROVIDERS: PCP Family Medicine Geriatric Medicine; Visit Provider Family Medicine Geriatric Medicine
DX: N64.4 Mastodynia (principal)
CPT/HCPCS: 76642; 77062; 77066; G0279

== ENCOUNTER → 2022-04-12 | Outpatient (CLI) | payer MEDICARE, OTHER, SELFPAY ==
[2022-04-12 18:03] LABS: Protein, Urine (Random) 9.1 mg/dL (<11.9); Protein:Creat Ratio 119 mg/g CRE (0-200)
[2022-04-12 18:05] LABS: BUN 27 mg/dL (7-18); BUN/Creat Ratio 17.6 RATIO (10-20); Calcium,Total 9.2 mg/dL (8.5-10.1); Chloride 107 mmol/L (98-107); Creatinine, Serum 1.53 mg/dL (0.70-1.30); EST Glomerular Filtration Rate 48 mL/min (>60); Est Glom Filt Rate - Afr Amer 58 mL/min (>60); Glucose 97 mg/dL (74-106); Phosphorus 3.3 mg/dL (2.5-4.9); Potassium 4.8 mmol/L (3.5-5.1); Sodium Level 139 mmol/L (136-145)
== END | disposition home or self-care (01) ==
PROVIDERS: PCP Family Medicine Geriatric Medicine; Visit Provider Internal Medicine Nephrology
DX: E11.22 Type 2 diabetes mellitus with diabetic chronic kidney disease (principal); N18.32 Chronic kidney disease, stage 3b
CPT/HCPCS: 36415; 80069; 82570; 84156

== ENCOUNTER → 2022-04-20 | Outpatient (CLI) | payer MEDICARE, OTHER, SELFPAY ==
[2022-04-20 14:40] LABS: Amphetamine Urine VISTA NEGATIVE (<1000 ng/mL); Barbiturate Urine VISTA NEGATIVE (< 200 ng/mL); Benzodiazepine Urine VISTA NEGATIVE (< 200 ng/mL); Cocaine Urine VISTA NEGATIVE (< 300 ng/mL); Ecstacy Urine VISTA NEGATIVE (< 500 ng/mL); Methadone Urine VISTA NEGATIVE (< 300 ng/mL); PCP Urine VISTA NEGATIVE (< 25 ng/mL); THC Urine VISTA NEGATIVE (< 50 ng/mL); Vista UDS pH Range 5
== END | disposition home or self-care (01) ==
PROVIDERS: PCP Family Medicine Geriatric Medicine; Referring Provider Anesthesiology Pain Medicine; Visit Provider Anesthesiology Pain Medicine
DX: F11.20 Opioid dependence, uncomplicated (principal)
CPT/HCPCS: 80307

== ENCOUNTER → 2022-07-05 | Outpatient (CLI) | payer MEDICARE, OTHER, SELFPAY ==
[2022-07-05 13:28] LABS: Absolute Lymphocyte Count 2.04 X10^3/uL (0.83-4.51); Absolute Neutrophil Count 6.2 X10^3/uL (2.0-7.7); Basophil# 0.03 X10^3/uL; Basophil% 0.3 % (0-1); Eosinophil# 0.15 X10^3/uL; Eosinophils% 1.6 % (0-5); Hemoglobin 16.3 g/dL (13.0-16.5); Lymphocyte # 2.04 X10^3/ul (0.83-4.51); Mean Corp Hgb Conc 33.3 g/dL (32-36); Mean Corpuscular Hgb 29.7 pg (27.0-32.0); Mean Corpuscular Volume 89.4 fL (80-94); Mean Platelet Vol. 12.3 fl (6.2-12.0); Monocyte% 8.6 % (0-10); NRBC Flagged by Analyzer 0 % (0-5); Neutrophil # 6.22 X10^3/uL (2.7-7.7); Neutrophil % 67.1 % (47-70); Platelet Count 155 K/mm3 (150-450); RBC Distribution Width CV 15.3 % (11.6-14.6); RBC Distribution Width SD 49.9 fl (35.1-43.9); Red Blood Count 5.48 M/mm3 (4.6-6.2); White Blood Count 9.3 K/mm3 (4.4-11.0)
[2022-07-05 14:03] LABS: Vitamin D,25 Hydroxy 60.3 ng/mL
[2022-07-05 14:06] LABS: BUN 29 mg/dL (7-18); Creatinine, Serum 1.79 mg/dL (0.70-1.30); Glucose 193 mg/dL (74-106)
[2022-07-05 14:07] LABS: ALB/GLOB Ratio 0.7 RATIO (0.9-2.4); AST(SGOT) 16 U/L (15-37); Alanine Aminotransfer ALT/SGPT 20 U/L (16-61); Albumin, Serum 2.8 g/dL (3.2-5.0); Alkaline Phosphatase 99 U/L (45-117); Anion Gap 12 (5-15); BUN/Creat Ratio 16.2 RATIO (10-20); Calcium,Total 9.2 mg/dL (8.5-10.1); Chloride 103 mmol/L (98-107); EST Glomerular Filtration Rate 40 mL/min (>60); Est Glom Filt Rate - Afr Amer 48 mL/min (>60); Globulin 3.8 g/dL (2.2-4.2); PSA,Total - Annual Screen 0.48 ng/mL (0.00-4.00); Potassium 3.9 mmol/L (3.5-5.1); Protein, Total 6.6 g/dL (6.4-8.2); Sodium Level 140 mmol/L (136-145); Thyroid Stim Hormone (TSH) 4.26 uIU/mL (0.358-3.74)
== END | disposition home or self-care (01) ==
LOC: POLAB3 10:25
PROVIDERS: PCP Family Medicine Geriatric Medicine; Visit Provider Family Medicine Geriatric Medicine
DX: I10 Essential (primary) hypertension (principal); E11.65 Type 2 diabetes mellitus with hyperglycemia; E55.9 Vitamin D deficiency, unspecified; Z12.5 Encounter for screening for malignant neoplasm of prostate
CPT/HCPCS: 36415; 80053; 82306; 84153; 84443; 85025; G0103

== ENCOUNTER 2022-08-03 12:30 | Outpatient (RCR) | payer MEDICARE, OTHER, SELFPAY ==
--- NOTE | 2022-06-03 13:31 | HP.PTEVAL ---
Patient's Visit Information RACHEL ZAFAR is a 71 year old M referred to Physical Therapy by Dr. Obinna Melo MD with a diagnosis of Back pain and leg pain. Date of Evaluation: 06/03/22 Physical Therapist: Leland Gracia - Visit Plan Frequency: 2x /Week Duration: 6 Weeks Plan: Continue with trial of lumbar flexion based exercises, core, back, and hip strengthening. Also work on balance exercises. Use manual therapy and modalities as needed for pain control. - Subjective Pt. is a 71 y.o. male who is having back pain and intermittent bilateral leg pain for many years but has gotten worse in the last several of months. Pt. states that he had a back injury about 30 years ago and a stroke in 2008 which affected both sides of his body. He has had x-ray and MRI of his lumbar spine which showed stenosis and degenerative disc disease. Pt. has had cortisone injections in his back and also is seeing pain management as well. Pt. denies any change in his bowel or bladder function or unexplained weight loss. He has difficulty with standing/walking longer than 5 minutes, ascending/descending stairs, occasionally sleeping, bathing, lifting things, housework, and yard work. 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 His goal with physical therapy is to be able to walk longer distances with less pain and be able to shower on his own. Pt. has had previous physical therapy for multiple things in the past. He denies any pain currently, at worst 9/10 and describes the pain as achy. He is currently taking pain medication but is unsure what it is. His PMH includes HBP controlled with medication, high cholestrol controlled with medication, type II diabetes, stroke, chronic back pain, spleen removed, Kristopher's syndrome, COVID, sleep apnea, and teeth surgery. Pt. lives with his in a one story home. Pt. hobbies include going to sporting events and fishing. - Objective Palpation- No tenderness to palpation. Lumbar AROM- WNL for all motions and mild pain with lumbar extension. Hip PROM- WNL for all motions. Left hip strength flexion 4/5, abduction 4+/5, adduction 4+/5, extension 4+/5, knee flexion 5/5, knee extension 5/5, ankle DF 5/5, PF 5/5. Right hip strength flexion 4+/5, abduction 4+/5, adduction 4+/5, extension 4+/5, knee flexion 5/5, knee extension 5/5, ankle DF 5/5, PF 5/5. Sensation- WNL bilateral lower extremities. Tandem stance on right [9 secs ], left [3 secs ]. SLS on right [unable ], left [1 sec ]. Gait- Pt. ambulates with no gait deviations. Stairs- Pt. ascends/descends stairs with step to gait pattern and unilateral handrail. - Balance/Special Test Scores Oswestry Low Back Score: 30 - Goals Goal 1:: Pt. will be able to stand/walk for at least 10 minutes with pain < 3/10. Goal Time Frame: 4-6 Weeks Goal 2:: Pt. will be able to sleep a full night with no pain. Goal Time Frame: 4-6 Weeks Goal 3:: Pt. will be able to lift at least 20# with proper body mechanics and no pain. Goal Time Frame: 4-6 Weeks Goal 4:: Pt. will rate pain at worst at 5/10 with ADL's. Goal Time Frame: 4-6 Weeks Goal 5:: Pt. will improve Oswestry Disability Index to < 50% disability in order to improve ADL's. Goal Time Frame: 4-6 Weeks - Rehabilitation Potential Physical Therapy Diagnosis: Decreased core, back, hip strength, balance, and pain Rehabilitation Potential: Good - Anticipated Interventions Patient/Client Instruction: Educate patient on: Condition, Benefits of Fitness Program For the Purpose of:: To improve ability to perform ADL's, To improve performance and independence with ADL's, To assume or resume ADL's, To improve tolerance to ADL's Therapeutic Exercise to Include: Strength training, Endurance training, Balance training, Body mechanics, Postural training, Flexibilty training, Gait and locomotor training, Active ROM, Dynamic Lumbar Stabilization Comment: Continue with trial of lumbar flexion based exercises and improving core, back, and hip strength. For the Purpose of:: To improve ability to perform ADL's, To improve performance and independence with ADL's, To assume or resume ADL's, To improve tolerance to ADL's Functional Training to Include: ADL Training, Functional home training For the Purpose of:: To improve ability to perform ADL's, To improve performance and independence with ADL's, To assume or resume ADL's, To improve tolerance to ADL's Manual Therapy Techniques to Include: Mobilization, Soft tissue mobilization For the Purpose of:: To decrease pain, To increase tolerance to activity/condition/position, To improve performance and independence with ADL's, To decrease soft tissue restriction, To increase flexibility/ROM, To improve tolerance to ADL's Cryotherapy (ice pack, ice massage): Yes Thermo therapy (hot pack): Yes Pelvic traction supine: Yes - as needed For the Purpose of:: To decrease pain, To decrease swelling/inflammation, To decrease soft tissue restriction, To increase flexibility/ROM Thank you for the opportunity to evaluate your patient. For Medicare and Medicare HMO plans, please review the plan of care and approve it. It will need to be FAXED BACK to us at [phone] for Medicare purposes. For Medicare only, by signing this I certify the plan of care. Please let me know if there are questions or concerns regarding this plan of care. Physician Signature: Date:
--- NOTE | 2022-07-08 12:28 | HP.PTREVAL ---
Dr. Obinna Melo MD, It has been my pleasure to treat RACHEL ZAFAR over the last 9 visits for Back pain and leg pain. Please see the progress note below for an update on the physical therapy plan of care! Subjective: Pt. states that he is feeling ok and is just tired. He had a follow up with his doctor this past week and they want him to continue with physical therapy. He reports that he is noticing improvement since starting physical therapy as he is now able to to stand and shave which he couldn't do before starting physical therapy. He reports that he is about 25% better since starting physical therapy. Objective/Function: Yair has come to 9 sessions of physical therapy focusing on lumbar flexion based exercises, core, back, hip strengthening and balance. Reviewed pt. goals for therapy and he has met and is progressing towards meeting his goals for therapy. Discussed with pt. about continuing with skilled physical therapy for a few more weeks which he was in agreement with. Pt. will continue to benefit from skilled physical therapy to work on improving LE strength, core/back strength, endurance, and balance. Plan Plan: Continue with trial of lumbar flexion based exercises, core, back, and hip strengthening. Also work on balance exercises. Use manual therapy and modalities as needed for pain control. Balance/Gait/Functional tests - Balance/Special Test Scores Oswestry Low Back Score: 28 Goals Goal 1:: Pt. will be able to stand/walk for at least 10 minutes with pain < 3/10. Goal Time Frame: 4-6 Weeks Goal Progress: Progressing Goal 2:: Pt. will be able to sleep a full night with no pain. Goal Time Frame: 4-6 Weeks Goal Progress: Progressing Goal 3:: Pt. will be able to lift at least 20# with proper body mechanics and no pain. Goal Time Frame: 4-6 Weeks Goal Progress: Goal Met Goal 4:: Pt. will rate pain at worst at 5/10 with ADL's. Goal Time Frame: 4-6 Weeks Goal Progress: Progressing Goal 5:: Pt. will improve Oswestry Disability Index to < 50% disability in order to improve ADL's. Goal Time Frame: 4-6 Weeks Goal Progress: Progressing Anticipated Interventions Patient/Client Instruction: Educate patient on: Condition, Benefits of Fitness Program For the Purpose of:: To improve ability to perform ADL's, To improve performance and independence with ADL's, To assume or resume ADL's, To improve tolerance to ADL's Therapeutic Exercise to Include: Strength training, Endurance training, Balance training, Body mechanics, Postural training, Flexibilty training, Gait and locomotor training, Active ROM, Dynamic Lumbar Stabilization Comment: Continue with trial of lumbar flexion based exercises and improving core, back, and hip strength. For the Purpose of:: To improve ability to perform ADL's, To improve performance and independence with ADL's, To assume or resume ADL's, To improve tolerance to ADL's Functional Training to Include: ADL Training, Functional home training For the Purpose of:: To improve ability to perform ADL's, To improve performance and independence with ADL's, To assume or resume ADL's, To improve tolerance to ADL's Manual Therapy Techniques to Include: Mobilization, Soft tissue mobilization For the Purpose of:: To decrease pain, To increase tolerance to activity/condition/position, To improve performance and independence with ADL's, To decrease soft tissue restriction, To increase flexibility/ROM, To improve tolerance to ADL's Cryotherapy (ice pack, ice massage): Yes Thermo therapy (hot pack): Yes Pelvic traction supine: Yes - as needed For the Purpose of:: To decrease pain, To decrease swelling/inflammation, To decrease soft tissue restriction, To increase flexibility/ROM Please do not hesitate to contact me at [phone] by phone or if you have questions or concerns regarding this new plan of care! Sincerely, Leland Gracia
--- NOTE | 2022-08-03 13:54 | HP.PTREVAL ---
Dr. Obinna Melo MD, It has been my pleasure to treat RACHEL ZAFAR over the last 16 visits for Back pain and leg pain. Please see the progress note below for an update on the physical therapy plan of care! Subjective: Pt. reports overall noticing increased improvement. Pt. reports being able to walk up 3 flights of stairs yesterday, okay, but he did need some help getting into his truck afterwards due to fatigue in his legs and back. Objective/Function: GAIT: Pt. was able to ambulate 351feet in 2:46 with 1 standing rest period (time stopped during this time), high levels of fatigue noted. Pt. is sleeping without increase in LBP at this point in time. ROM: Pt. has decent ROM of his lumbar spine without increase in symptoms. He does have a new sore on his lower abdomen, it is along his old previous incision. I would like him to get this checked out as there was no specific reason for its appearance and he has gained ~7 pounds in 1 week. 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 He has decent LE strength noted (RLE: knee ext 45.1#, flexion 40.3#. LLE: knee ext 46.7#, flexion 42.1#). Core strength: poor+. Pt. has improved, but continues be very deconditioned. I would him to continue to work on his LE strength, and general endurance. His back does continue to become sore, but I feel like it is due to fatigue rather than a more sinister pathology. I talked to him and his about walking more at home and increasing his overall endurance, with hopes of starting a progressive walking program. Pt. consents. Plan Plan: Cont. to work on BLE/core strengthening. Progress standing tolerance, endurance. Balance/Gait/Functional tests - Balance/Special Test Scores Oswestry Low Back Score: 21 Goals Goal 1:: Pt. will be able to stand/walk for at least 10 minutes with pain < 3/10. Goal Time Frame: 4-6 Weeks Goal Progress: Progressing Goal 2:: Pt. will be able to sleep a full night with no pain. Goal Time Frame: 4-6 Weeks Goal Progress: Goal Met Goal 3:: Pt. will be able to lift at least 20# with proper body mechanics and no pain. Goal Time Frame: 4-6 Weeks Goal Progress: Progressing Goal 4:: Pt. will rate pain at worst at 5/10 with ADL's. Goal Time Frame: 4-6 Weeks Goal Progress: Goal Met Goal 5:: Pt. will improve Oswestry Disability Index to < 50% disability in order to improve ADL's. Goal Time Frame: 4-6 Weeks Goal Progress: Progressing Goal 6:: New goal (08/03/22): Pt. to complete 6 MWT with distance of at least 1000'. Goal Time Frame: 4-6 Weeks Goal Progress: Progressing Anticipated Interventions Patient/Client Instruction: Educate patient on: Condition, Benefits of Fitness Program For the Purpose of:: To improve ability to perform ADL's, To improve performance and independence with ADL's, To assume or resume ADL's, To improve tolerance to ADL's Therapeutic Exercise to Include: Strength training, Endurance training, Balance training, Body mechanics, Postural training, Flexibilty training, Gait and locomotor training, Active ROM, Dynamic Lumbar Stabilization Comment: Continue with trial of lumbar flexion based exercises and improving core, back, and hip strength. For the Purpose of:: To improve ability to perform ADL's, To improve performance and independence with ADL's, To assume or resume ADL's, To improve tolerance to ADL's Functional Training to Include: ADL Training, Functional home training For the Purpose of:: To improve ability to perform ADL's, To improve performance and independence with ADL's, To assume or resume ADL's, To improve tolerance to ADL's Manual Therapy Techniques to Include: Mobilization, Soft tissue mobilization For the Purpose of:: To decrease pain, To increase tolerance to activity/condition/position, To improve performance and independence with ADL's, To decrease soft tissue restriction, To increase flexibility/ROM, To improve tolerance to ADL's Cryotherapy (ice pack, ice massage): Yes Thermo therapy (hot pack): Yes Pelvic traction supine: Yes - as needed For the Purpose of:: To decrease pain, To decrease swelling/inflammation, To decrease soft tissue restriction, To increase flexibility/ROM Please do not hesitate to contact me at [phone] by phone or if you have questions or concerns regarding this new plan of care! Sincerely, CLYDE FitzpatrickT
== END 2022-08-03 19:00 | disposition home or self-care (01) ==
LOC: PT 12:30
PROVIDERS: PCP Family Medicine Geriatric Medicine; Referring Provider Anesthesiology Pain Medicine; Visit Provider Anesthesiology Pain Medicine
DX: M54.9 Dorsalgia, unspecified (principal); M79.606 Pain in leg, unspecified
CPT/HCPCS: 97110; 97162; 97164

== ENCOUNTER → 2022-08-03 | Outpatient (CLI) | payer MEDICARE, OTHER, SELFPAY ==
[2022-08-03 17:49] LABS: T3 Total - Triiodothyronine 0.89 ng/mL (0.6-1.81)
[2022-08-03 18:24] LABS: Anion Gap 9 (5-15); BUN 27 mg/dL (7-18); Calcium,Total 8.8 mg/dL (8.5-10.1); Chloride 106 mmol/L (98-107); EST Glomerular Filtration Rate 40 mL/min (>60); Est Glom Filt Rate - Afr Amer 48 mL/min (>60); Glucose 292 mg/dL (74-106); Sodium Level 137 mmol/L (136-145); T4 Total, Thyroxin 7.4 ug/dL (4.5-12.1); Thyroid Stim Hormone (TSH) 2.54 uIU/mL (0.358-3.74)
[2022-08-04 13:53] LABS: T3 Uptake 36 % (33-40); T7 / Free Thyroxin Index 2.7 (1.4-4.5)
== END | disposition home or self-care (01) ==
LOC: POLAB3 15:28
PROVIDERS: PCP Family Medicine Geriatric Medicine; Visit Provider Family Medicine Geriatric Medicine
DX: E03.9 Hypothyroidism, unspecified (principal); R63.5 Abnormal weight gain
CPT/HCPCS: 36415; 80048; 84436; 84443; 84479; 84480

== ENCOUNTER → 2022-08-06 | Outpatient (CLI) | payer MEDICARE, OTHER, SELFPAY ==
[2022-08-06 12:43] LABS: Absolute Lymphocyte Count 1.59 X10^3/uL (0.83-4.51); Absolute Neutrophil Count 5.6 X10^3/uL (2.0-7.7); Basophil# 0.03 X10^3/uL; Basophil% 0.4 % (0-1); Eosinophil# 0.15 X10^3/uL; Eosinophils% 1.8 % (0-5); Hematocrit 47.2 % (40-54); Hemoglobin 15.7 g/dL (13.0-16.5); Lymphocyte # 1.59 X10^3/ul (0.83-4.51); Lymphocyte % 19.5 % (19-41); Mean Corp Hgb Conc 33.3 g/dL (32-36); Mean Corpuscular Hgb 30.4 pg (27.0-32.0); Mean Corpuscular Volume 91.3 fL (80-94); Mean Platelet Vol. 13.3 fl (6.2-12.0); Monocyte% 9.8 % (0-10); NRBC Flagged by Analyzer 0 % (0-5); Neutrophil # 5.57 X10^3/uL (2.7-7.7); Neutrophil % 68.1 % (47-70); POSITIVE COUNT YES; Platelet Count 137 K/mm3 (150-450); RBC Distribution Width CV 15.4 % (11.6-14.6); RBC Distribution Width SD 51.2 fl (35.1-43.9); Red Blood Count 5.17 M/mm3 (4.6-6.2); White Blood Count 8.2 K/mm3 (4.4-11.0)
[2022-08-06 13:34] LABS: ALB/GLOB Ratio 0.8 RATIO (0.9-2.4); AST(SGOT) 37 U/L (15-37); Alanine Aminotransfer ALT/SGPT 19 U/L (16-61); Alkaline Phosphatase 108 U/L (45-117); Anion Gap 12 (5-15); BUN 30 mg/dL (7-18); BUN/Creat Ratio 15.1 RATIO (10-20); Calcium,Total 9.4 mg/dL (8.5-10.1); Chloride 96 mmol/L (98-107); Creatinine, Serum 1.99 mg/dL (0.70-1.30); EST Glomerular Filtration Rate 35 mL/min (>60); Est Glom Filt Rate - Afr Amer 43 mL/min (>60); Glucose 263 mg/dL (74-106); Potassium 4.6 mmol/L (3.5-5.1); Sodium Level 131 mmol/L (136-145); Thyroid Stim Hormone (TSH) 4.09 uIU/mL (0.358-3.74)
== END | disposition home or self-care (01) ==
LOC: POLAB3 10:01
PROVIDERS: PCP Family Medicine Geriatric Medicine; Visit Provider Family Medicine Geriatric Medicine
DX: R53.83 Other fatigue (principal)
CPT/HCPCS: 36415; 80053; 84443; 85025

== ENCOUNTER → 2022-08-17 | Outpatient (CLI) | payer MEDICARE, OTHER, SELFPAY ==
[2022-08-18 00:29] LABS: M R Staph aureus DNA By PCR Negative (Negative); Probe Check PASS; Specimen Processing Control PASS; Staph aureus DNA By PCR NEGATIVE (Negative)
== END | disposition home or self-care (01) ==
LOC: POLAB3 14:27
PROVIDERS: PCP Family Medicine Geriatric Medicine; Visit Provider Family Medicine Geriatric Medicine
DX: L03.311 Cellulitis of abdominal wall (principal); E11.22 Type 2 diabetes mellitus with diabetic chronic kidney disease; N18.32 Chronic kidney disease, stage 3b
CPT/HCPCS: 87070; 87077; 87186; 87205; 87640

== ENCOUNTER 2022-08-26 07:33 | Outpatient (RCR) | payer MEDICARE, OTHER, SELFPAY ==
[2022-08-26 08:00] VITALS: BP 110/79; PULSE 79; RESP 22; TEMP 36.6; BMI 43.8
--- NOTE | 2022-08-26 09:29 | PCM.WC.HP ---
History of Present Illness Date of Service: 08/26/22 Chief Complaint: Abdominal Ulcer History of Wound: Mr. Cochran is a 71yo who was referred to the wound center due to non-healing abdominal ulcer. Said to have started 6 weeks ago. Reopened along an old scar. History of heart failure and at that time had gained significant fluid weight and retention. Has since been diuresed with subsequent fluid loss however opening has remained. Has been applying bacitracin and gauze with no significant improvement. No chills, fever or otherwise feeling of unwell. History of diabetes mellitus type 2 and most recent A1c was at 9.3. [facility] Medical History (Updated 08/26/22 @ 11:[address] Irasema Price MD) (HFpEF) heart failure with preserved ejection fraction Bilateral lower extremity edema Diabetic ulcer of left lower leg Essential hypertension Left adrenal mass Persistent atrial fibrillation Pneumonia due to COVID-19 virus (07/02/20) Renal insufficiency Right upper lobe pneumonia Skin ulcer of abdominal wall with fat layer exposed Spinal stenosis Thrombocytopenia Home Medications amlodipine 10 mg tablet 10 mg PO DAILY 07/02/20 [History Last Taken Unknown] atorvastatin 80 mg tablet 80 mg PO QHS 07/02/20 [History Last Taken Unknown] empagliflozin 25 mg tablet 25 mg PO DAILY 07/02/20 [History Last Taken Unknown] acetaminophen 500 mg tablet (Tylenol Extra Strength) 500 mg PO BID PRN Pain 03/09/21 [History Last Taken Unknown] cinnamon bark 500 mg capsule 1,500 mg PO BID 03/09/21 [History Last Taken Unknown] twmrzalhqhgf-zdercmfc-qhtwxh tablet 1 tab PO DAILY 03/09/21 [History Last Taken Unknown] turmeric root extract 500 mg capsule 500 mg PO BID 03/09/21 [History Last Taken Unknown] rivaroxaban 20 mg tablet (Xarelto) 15 mg PO QPM 06/17/21 [History Last Taken Unknown] albuterol sulfate 90 mcg/actuation aerosol inhaler 2 puff inhalation Q6H 08/07/21 [History Last Taken Unknown] icosapent ethyl 1 gram capsule 2 g PO BID 08/07/21 [History Last Taken Unknown] pioglitazone 15 mg tablet 15 mg PO DAILY 08/07/21 [History Last Taken Unknown] furosemide 80 mg tablet 120 mg PO DAILY 11/12/21 [History Last Taken Unknown] lisinopril 20 mg tablet 20 mg PO DAILY 12/15/21 [History Last Taken Unknown] mifepristone 300 mg tablet (Korlym) 300 mg PO BID 12/15/21 [History Last Taken Unknown] spironolactone 50 mg tablet 50 mg PO DAILY #90 tabs 12/24/21 [Rx Last Taken Unknown] insulin glargine U-300 conc 300 unit/mL (3 mL) subcutaneous pen (Toujeo Max U-300 SoloStar) 80 unit subcut DAILY 01/29/22 [History Last Taken Unknown] tamsulosin 0.4 mg capsule 0.4 mg PO DAILY 04/06/22 [History Last Taken Unknown] levothyroxine 25 mcg tablet tablet PO 07/06/22 [History Last Taken Unknown] pantoprazole 40 mg tablet,delayed release tablet PO 07/06/22 [History Last Taken Unknown] tramadol 50 mg tablet tablet PO 07/06/22 [History Last Taken Unknown] Allergy/AdvReac Type Severity Reaction Status Date / Time No Known Allergies Allergy Verified 07/06/22 10:00 Family History (Updated 06/28/22 @ 15:23 by Jarad Delarosa NP, [employer]) Father Heart disease Mother Alzheimer disease Surgical History S/P splenectomy S/P tonsillectomy Social History Smoking Status: Never smoker alcohol intake: never substance use type: does not use caffeine: Yes Type: carbonated beverages Number of servings: 1 and tea Number of servings: 1 ROS Constitutional Constitutional: Denies anorexia, body ache(s), chills, difficulty sleeping, fever(s) or night sweats Eyes Eyes: Denies blind spots, bloody eye, blurry vision, change in vision, decreased night vision, discharge from eye(s) or double vision ENT HEENT: Denies disequillibrium, dry mouth, dysphagia, ear discharge, halitosis, headache(s), lip swelling or tongue swelling Cardiovascular Cardiovascular: Reports edema and leg edema; Denies chest pain, cyanosis, erythema on extremities, flutter in chest or palpitations Respiratory/Chest Respiratory/Chest: Reports shortness of breath at rest and shortness of breath with exertion; Denies cough, hemoptysis, hoarseness, inability to speak, nail bed cyanosis or wheezing Gastrointestinal Gastrointestinal: Reports diarrhea; Denies change in stool character, chewing difficulty, coffee ground emesis, dry heaves, nausea or vomiting Genitourinary Genitourinary: Denies difficulty urinating, dysuria, flank pain, hematuria or testicular mass Musculoskeletal Musculoskeletal: Reports extremity pain and tingling; Denies abnormal gait, deformity, muscle weakness or numbness Integumentary Integumentary: Reports wounds; Denies change in pigmentation, dry skin or furuncle Neurologic Neurologic: Denies abnormal gait, abnormal speech, burning sensations, confusion, focal weakness or headache(s) Psychiatric Psychiatric: Denies auditory hallucinations, behavioral changes, change in appetite, hallucinations, homicidal ideation or hopelessness Endocrine Endocrinology: Denies change in body appearance, cold intolerance, deepening of the voice, excessive sweating, heat intolerance, polydipsia or polyuria Hematologic/Lymphatic Hematologic/Lymphatic: Denies lymphadenopathy Allergic/Immunologic Allergic/Immunologic: Denies lip swelling, rhinitis, throat swelling, tongue swelling, hives or wheezing Vital Signs Vital Signs Vital Signs: 08/26/22 08:00 Temperature 98 F Temperature Source Temporal Pulse Rate 79 Respiratory Rate 22 H Blood Pressure 110/79 Blood Pressure Mean 89 Blood Pressure Source Monitor Weight Weight: 323 lb 1.489 oz Body Mass Index (BMI) 43.8 Physical Exam Const alert, oriented x3 and no apparent distress General Appearance: cooperative and comfortable HEENT normocephalic and head/scalp atraumatic Eyes EOMs intact bilaterally Neck full ROM and supple General: normal visual inspection Resp normal respiratory effort and normal air movement Effort and Inspection: able to speak in complete sentences Cardio Rate: regular rate Rhythm: abnormal rhythm GI soft to palpation and non-tender Testes: Negative for testicular mass Extremity General Extremity: edema Skin Wounds: wounds noted Neuro oriented x3, CN's II-XII intact bilaterally and moves all extremities Psych mental status grossly normal, thought process normal, cooperative and affect normal Debridement Note Debridement Note Wound debrided: Abdomminal Ulcer Type of Debridement: Excisional debridement Anesthesia Used: 5% Lidocaine Gel Depth: Down to and including healthy tissue and in the subcutaneous layer Percentage of wound debrided: 100 Instrument Used: 5mm curette Tissue Removed: Slough and devitalized tissue Severity: Fat Layer Exposed Amount of bleeding with debridement: Mild Bleeding Controlled with: Pressure Patient tolerated procedure: Patient tolerated procedure well Post-Debridement Measurements and Additional Note: Post-Debridement Measurements/Treatment MAGGIE - Nurse 1 - General Ulcer Assessment Start: 08/26/22 07:45 Freq: Status: Active Protocol: JULIO Activity Type Activity Date Activity User E-sign Co-sign Detail Recorded Client Recorded Date Recorded By Document 08/26/22 08:00 DL [id number] 08/26/22 08:16 DL 08/26/22 08:00 WC - Today's Visit Information Type of service Initial Visit Arrival Mode Ambulatory Transfer Assistance None Patient Identification Verified (Name & Yes ) Patient Requires Transmission-Based No Precautions Safety Precautions NA Finger Stick Blood Sugar(mg/dl) (if 235 indicated): Blood Sugar Stated by Patient Height and Weight Height 6 ft Weight 323 lb 1.489 oz Weight in Pounds 323.1 lbs Body Mass Index (BMI) 43.8 BMI Classification Obese BSA - Michael 2.61 Vital Signs Temperature (97.8 F-99.1 F) 98 F Temperature Source Temporal Pulse Rate (60-100) 79 Pulse Location Monitor Respiratory Rate (12-18) 22 H Respiratory rate source Observation Blood Pressure (90/60-120/80) 110/79 Blood Pressure Mean 89 Source Monitor Pain Scale: 0-10 Numeric Is Patient Pain Free? Yes Communication Assessment Preferred language Armenian Able to Read Yes Able to Write Yes Communication Tools None Right Hearing Abillity Normal Left Hearing Abillity Normal Visual Assistive Devices Glasses Teaching Assessment Preferences Verbal,Written, Demonstration Barriers to Learning None Readiness To Learn Good Willingness to Engage in Self Management Med Activies Readiness to Engage in Self Management Med Activities Anxiety Level Calm Cooperation Cooperative Perception Coherent Interest in Health Problem Asks Questions Education Importance Acknowledges Need Does Patient Smoke tobacco or other No substances Smoking Status Never smoker Is Patient Diabetic Yes Functional Assessment Recent Decline in Ability to Perform Denies Any Declines Culture/Yarsanism/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 House Painter Helper to contact place of religion No Teaching: Wound Center Diagnostic Tests Ordered -Person Taught Patient Dressing Your Wound -Person Taught Patient Discharge Instructions -Person Taught Patient *Welcome to the Wound Center -Person Taught Patient MAGGIE Cardona Nurse 1 - General Ulcer Measurement Start: 08/26/22 07:45 Freq: Status: Active Protocol: Activity Type Activity Date Activity User E-sign Co-sign Detail Recorded Client Recorded Date Recorded By Document 08/26/22 08:00 DL [id number] 08/26/22 08:16 DL 08/26/22 08:00 Wound Center Nurse 1 #3 ABD -Current Size (cm) - Length 1 -Current Size (cm) - Width 1.1 -Current Size (cm) - Depth 0.1 -Total Square Cm 1.1 -Photo Taken Yes -Exudate Amt Small -Exudate Type Serosanguineous -Wound Margin Distinct, Outline Attached -Granulation Amt None Present (0 %) -Necrosis Amt Large (67-100%) -Necrotic Tissue Type Adherent Slough -Structure Exposed N/A -Texture (Kaitlin-wound Skin Appearance) Scarring -Moisture (Kaitlin-wound Skin Appearance) No Abnormality -Color (Kaitlin-wound Skin Appearance) No Abnormality -Temperature (Kaitlin-wound Skin No Abnormality Appearance) (Pt Warm) -Tenderness on Palpation (Kaitlin-wound No Skin Appearance) -Ulcer Cleansing Soap and Water -Foul Odor after Cleansing No -Anesthetic Used 5% Lidocaine Gel WC - Nurse 2 - General Ulcer CM Notes Start: 08/26/22 07:45 Freq: Status: Active Protocol: Activity Type Activity Date Activity User E-sign Co-sign Detail Recorded Client Recorded Date Recorded By Document 08/26/22 08:46 MW [id number] 08/26/22 08:52 MW 08/26/22 08:46 Wound Center Nurse 2 -Time 08:47 -Correct Patient Yes -Correct Side, Site, Position Yes -Correct Procedure Yes -Procedure Performed Yes -Type of Procedure Debridement -Clinical Debridement Subcutaneous -Tissue Removed Subcutaneous -Post Debridement (cm) - Length 1.5 -Post Debridement (cm) - Width 1.0 -Post Debridement (cm) - Depth 0.1 -Total Square (Post) (cm) 1.50 -Area of Debridement (cm) - Length 1.5 -Area of Debridement (cm) - Width 1.0 -Total Square (Area) (cm) 1.50 -Tunneling No -Undermining/Tunneling No -Circular Undermining No -Wound/Ulcer Outcome Not Healed -Ulcer Cleansing Rinsed/ Irrigated with Saline -Foul Odor after Cleansing No -Bioengineered Tissue No -Bleeding Controlled with Pressure -Treatment Response Procedure Tolerated Well -Offloading No -Debridement - Subq, 1st 20sq cm Yes Pain Scale: 0-10 Numeric Is Patient Pain Free? Yes - Nurse 3 - General Ulcer D/C NN Start: 08/26/22 07:45 Freq: Status: Active Protocol: Activity Type Activity Date Activity User E-sign Co-sign Detail Recorded Client Recorded Date Recorded By Document 08/26/22 09:01 [facility] [id number] 08/26/22 09:01 [facility] 08/26/22 09:01 Wound Care Center Nurse 3 #3 ABD -Ulcer Cleansing Rinsed/ Irrigated with Saline -Foul Odor after Cleansing No -Primary Dressing Applied NonAdherent Contact Layer, Promogran, Mepilex Border -Other Dressing drsg per dl polytechnic registrar -Mepilex Border 1 -Promogran 2 Treatment Response Procedure Tolerated Well Pain Scale: 0-10 Numeric Is Patient Pain Free? Yes - Visit Discharge Discharge Condition Stable Ambulatory Status Ambulatory Transportation Private Auto Accompanied by Charges/Coding Visit Charges Office Visits / Consults: 86411 OV L3 New Procedures Integumentary 111xxx-113xx: 84813 Shanika subq tissue 20 sq cm/< Assessment/Plan Assessment/Plan (1) Skin ulcer of abdominal wall with fat layer exposed: CODE(S): L98.492 - Non-pressure chronic ulcer of skin of 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 (2) Diabetes mellitus, type II: CODE(S): E11.9 - Type 2 diabetes mellitus without complications QUALIFIERS: Diabetes mellitus complication status: with other specified complication Diabetes mellitus continuous churn buttermaker insulin use: with continuous churn buttermaker use Qualified Code(s): E11.69 - Type 2 diabetes mellitus with other specified complication; Z79.4 - halfway (current) use of insulin (3) Persistent atrial fibrillation: CODE(S): I48.19 - Other persistent atrial fibrillation (4) (HFpEF) heart failure with preserved ejection fraction: CODE(S): I50.30 - Unspecified diastolic (congestive) heart failure QUALIFIERS: Heart failure chronicity: unspecified Qualified Code(s): I50.30 - Unspecified diastolic (congestive) heart failure PLAN: Plan Debridement done as documented above, procedure was well-tolerated. Promogran daily, cover with Adaptic and gauze. Due to chronicity and progression despite traditional wound care methods, will apply for skin substitute. Optimal diabetes control discussed. Adequate protein intake, vitamin C, D and zinc also discussed, he voiced understanding. His questions were answered and he was advised to call with any further questions or concerns. Follow-up in 2 weeks or sooner if needed. This note was generated with [employer] dictation software. It may contain incorrect words, spelling, and punctuation that were not noted in checking the note before signing.
== END 2022-09-03 23:59 | disposition home or self-care (01) ==
LOC: WC 07:33
PROVIDERS: PCP Family Medicine Geriatric Medicine; Referring Provider Family Medicine Geriatric Medicine; Visit Provider Internal Medicine
DX: E11.622 Type 2 diabetes mellitus with other skin ulcer (principal); L98.492 Non-pressure chronic ulcer of skin of 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; I11.0 Hypertensive heart disease with heart failure; I50.32 Chronic diastolic (congestive) heart failure; I48.19 Other persistent atrial fibrillation; Z79.4 Long term (current) use of insulin; Z79.01 Long term (current) use of anticoagulants; Z79.899 Other long term (current) drug therapy; Z86.16 Personal history of COVID-19
CPT/HCPCS: 11042; 99213; G0463

== ENCOUNTER 2022-10-01 10:15 | Outpatient (RCR) | payer MEDICARE, OTHER, SELFPAY ==
[2022-09-04 02:19] VITALS: BP 110/79; PULSE 79; RESP 22; TEMP 36.6; BMI 43.8
[2022-09-09 09:47] VITALS: BP 117/68; PULSE 94; RESP 16; TEMP 36.5; BMI 43.8
--- NOTE | 2022-09-09 11:38 | PN.PCM_ITS ---
History of Present Illness Date of Service: 09/09/22 Chief Complaint: Abdominal Ulcer History of Wound: Mr. Cochran is a 71yo who was referred to the wound center due to non-healing abdominal ulcer. Said to have started 6 weeks ago. Reopened along an old scar. History of heart failure and at that time had gained significant fluid weight and retention. Has since been diuresed with subsequent fluid loss however opening has remained. Has been applying bacitracin and gauze with no significant improvement. No chills, fever or otherwise feeling of unwell. History of diabetes mellitus type 2 and most recent A1c was at 9.3. Progress of Wound: Has been applying Promogran as recommended, no significant change in size. Has completed antibiotics. Objective Data Objective Data Vital Signs: Vital Signs Temp Pulse Resp BP O2 Del Method 97.7 F L 94 16 117/68 Room Air 09/09/22 09:47 09/09/22 09:47 09/09/22 09:47 09/09/22 09:47 09/09/22 09:47 Oxygen Delivery Method Room Air Weight: 323 lb 1.489 oz Body Mass Index (BMI) 43.8 Charges/Coding Procedures Integumentary 150xxx-152xx: 65003 Skin sub graft trnk/arm/leg Physical Exam Const alert, oriented x3 and no apparent distress General Appearance: cooperative and comfortable HEENT normocephalic and head/scalp atraumatic Eyes EOMs intact bilaterally Neck full ROM and supple General: normal visual inspection Resp normal respiratory effort Effort and Inspection: able to speak in complete sentences Extremity General Extremity: edema Skin Wounds: wounds noted Neuro oriented x3, CN's II-XII intact bilaterally and moves all extremities Psych mental status grossly normal, thought process normal, cooperative and affect normal Debridement Note Debridement Note Wound debrided: Abdomminal Ulcer Type of Debridement: Excisional debridement Anesthesia Used: 5% Lidocaine Gel Depth: Down to and including healthy tissue and in the subcutaneous layer Percentage of wound debrided: 100 Instrument Used: 5mm curette Tissue Removed: Slough and devitalized tissue Severity: Fat Layer Exposed Amount of bleeding with debridement: Mild Bleeding Controlled with: Pressure Patient tolerated procedure: Patient tolerated procedure well Post-Debridement Measurements and Additional Note: Post-Debridement Measurements/Treatment MAGGIE - Nurse 1 - General Ulcer Assessment Start: 09/09/22 09:46 Freq: Status: Active Protocol: JULIO Activity Type Activity Date Activity User E-sign Co-sign Detail Recorded Client Recorded Date Recorded By Document 09/09/22 09:47 [facility] [id number] 09/09/22 09:53 [facility] 09/09/22 09:47 - Today's Visit Information Type of service Follow-up Visit (Physician/ANTHROPOLOGY DEPARTMENT CHAIR ) Arrival Mode Ambulatory Transfer Assistance None Transfer Assist (Other) Patient Identification Verified (Name & Yes ) Patient Requires Transmission-Based No Precautions Height and Weight Body Mass Index (BMI) 43.8 BMI Classification Obese Vital Signs Temperature (97.8 F-99.1 F) 97.7 F L Temperature Source Temporal Pulse Rate (60-100) 94 Pulse Location Monitor Respiratory Rate (12-18) 16 Respiratory rate source Observation Oxygen Delivery Method Room Air Blood Pressure (90/60-120/80) 117/68 Blood Pressure Mean (mm Hg) 84 Source Monitor Position Sitting Blood Pressure Location Left Forearm History Since Last Visit- (Skip if this is Patient's initial visit) Have you changed medications since your No last visit? Any new allergies or adverse reactions No Had a fall/change in ADL's that may No increase risk of falls Signs or symptoms of abuse and/or No neglect since last visit Have you been in the hospital since your No last visit? Has dressing in place as prescribed Yes Has compression in place as prescribed N/A Has offloadiing in place as prescribed N/A Experienced any changes in pain level or No management Left Footwear Regular Shoe Right Footwear Regular Shoe Pain Scale: 0-10 Numeric Is Patient Pain Free? Yes - Nurse 1 - General Ulcer Measurement Start: 09/09/22 09:46 Freq: Status: Active Protocol: Activity Type Activity Date Activity User E-sign Co-sign Detail Recorded Client Recorded Date Recorded By Document 09/09/22 09:47 [facility] [id number] 09/09/22 09:53 [facility] 09/09/22 09:47 Wound Center Nurse 1 #3 ABD -Combined with other wound No -Current Size (cm) - Length 1 -Current Size (cm) - Width 0.9 -Current Size (cm) - Depth 0.1 -Total Square Cm 0.9 -Date of Last Picture (Recall this 09/09/22 field) -Photo Taken Yes -Epithelialization Small 1-33% -Tunneling No -Undermining/Tunneling No -Circular Undermining No -Exudate Amt Medium -Exudate Type Serous -Wound Margin Flat & Intact -Granulation Amt Medium (34-66%) -Granulation Quality [place] -Slough/Fibrin Yes -Necrosis Amt Medium (34-66%) -Necrotic Tissue Type Adherent Slough -Texture (Kaitlin-wound Skin Appearance) Not Assessed, Scarring -Moisture (Kaitlin-wound Skin Appearance) Assessed -Color (Kaitlin-wound Skin Appearance) Assessed -Temperature (Kaitlin-wound Skin No Abnormality Appearance) (Pt Warm) -Tenderness on Palpation (Kaitlin-wound No Skin Appearance) -Ulcer Cleansing Rinsed/ Irrigated with Saline -Foul Odor after Cleansing No -Anesthetic Used 5% Lidocaine Gel WC - Nurse 2 - General Ulcer CM Notes Start: 09/09/22 09:46 Freq: Status: Active Protocol: Activity Type Activity Date Activity User E-sign Co-sign Detail Recorded Client Recorded Date Recorded By Document 09/09/22 10:06 MW [id number] 09/09/22 10:17 MW 09/09/22 10:06 Wound Center Nurse 2 -Time 10:06 -Correct Patient Yes -Correct Side, Site, Position Yes -Correct Procedure Yes -Procedure Performed Yes -Type of Procedure Debridement -Clinical Debridement Subcutaneous -Tissue Removed Subcutaneous -Post Debridement (cm) - Length 1.1 -Post Debridement (cm) - Width 1.5 -Post Debridement (cm) - Depth 0.1 -Total Square (Post) (cm) 1.65 -Area of Debridement (cm) - Length 1.1 -Area of Debridement (cm) - Width 1.5 -Total Square (Area) (cm) 1.65 -Tunneling No -Undermining/Tunneling No -Circular Undermining No -Wound/Ulcer Outcome Not Healed -Ulcer Cleansing Rinsed/ Irrigated with Saline -Foul Odor after Cleansing No -Bioengineered Tissue Yes -Type of Bioengineered Tissue Epifix -Expiration Date 05/06/27 -Product Lot Number [id number] -Percent Used 100 -Lot number of Saline Used [id number] -Bleeding Controlled with Pressure -Treatment Response Procedure Tolerated Well -Offloading No -Debridement - Subq, 1st 20sq cm No -Apply Skin Sub - 1st 25 sq cm - Legs 1 -Epifix (per sq cm) 4 Pain Scale: 0-10 Numeric Is Patient Pain Free? Yes WC - Nurse 3 - General Ulcer D/C NN Start: 09/09/22 09:46 Freq: Status: Active Protocol: Activity Type Activity Date Activity User E-sign Co-sign Detail Recorded Client Recorded Date Recorded By Document 09/09/22 10:20 MW [id number] 09/09/22 10:21 MW 09/09/22 10:20 Wound Care Center Nurse 3 #3 ABD -Ulcer Cleansing Wound Cleanser -Foul Odor after Cleansing No -Negative Pressure Wound Therapy N/A -Primary Dressing Applied Aquacel Extra, Mepilex Border -Aquacel Extra 1 -Mepilex Border 1 Treatment Response Procedure Tolerated Well Pain Scale: 0-10 Numeric Is Patient Pain Free? Yes Teaching: Wound Center Dressing Your Wound -Person Taught Patient,Family -Teaching Method Discussion -Response to teaching Verbalize understanding WC - Visit Discharge Discharge Condition Stable Ambulatory Status Cane Transportation Private Auto Accompanied by Medication Reconcilliation completed & No provided to patient/care provider Clinical Summary of Care Provided Yes Assessment/Plan Assessment/Plan (1) Skin ulcer of abdominal wall with fat layer exposed: CODE(S): L98.492 - Non-pressure chronic ulcer of skin of 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 (2) Diabetes mellitus, type II: CODE(S): E11.9 - Type 2 diabetes mellitus without complications QUALIFIERS: Diabetes mellitus terminal supervisor insulin use: with residential use Diabetes mellitus complication status: with other specified complication Qualified Code(s): E11.69 - Type 2 diabetes mellitus with other specified complication; Z79.4 - alf (current) use of insulin (3) Persistent atrial fibrillation: CODE(S): I48.19 - Other persistent atrial fibrillation (4) (HFpEF) heart failure with preserved ejection fraction: CODE(S): I50.30 - Unspecified diastolic (congestive) heart failure QUALIFIERS: Heart failure chronicity: unspecified Qualified Code(s): I50.30 - Unspecified diastolic (congestive) heart failure PLAN: Plan Debridement done as documented above, procedure was well-tolerated. Now approve d for EpiFix. Initial application of EpiFix done using 100% of product. Moistened with saline, covered with wound veil and secured with Steri-Strips. Aquacel extra and foam dressing over top to help with drainage. Leave dressing in place for a week however, they were advised that they could change outer dressing if soaked. They voiced understanding. Adequate protein intake, vitamin C, D and zinc also discussed, he voiced understanding. His questions were answered and he was advised to call with any further questions or concerns. Follow-up in 1 week. This note was generated with [employer] dictation software. It may contain incorrect words, spelling, and punctuation that were not noted in checking the note before signing.
[2022-09-16 09:36] VITALS: BP 103/62; PULSE 82; RESP 16; TEMP 36.2; BMI 43.8
--- NOTE | 2022-09-16 13:31 | PN.PCM_ITS ---
History of Present Illness Date of Service: 09/16/22 Chief Complaint: Abdominal Ulcer History of Wound: Mr. Cochran is a 71yo who was referred to the wound center due to non-healing abdominal ulcer. Said to have started 6 weeks ago. Reopened along an old scar. History of heart failure and at that time had gained significant fluid weight and retention. Has since been diuresed with subsequent fluid loss however opening has remained. Has been applying bacitracin and gauze with no significant improvement. No chills, fever or otherwise feeling of unwell. History of diabetes mellitus type 2 and most recent A1c was at 9.3. Progress of Wound: Has had 1 application of EpiFix. Some improvement noted. No new concerns at this time. Objective Data Objective Data Vital Signs: Vital Signs Temp Pulse Resp BP O2 Del Method 97.1 F L 82 16 103/62 Room Air 09/16/22 09:36 09/16/22 09:36 09/16/22 09:36 09/16/22 09:36 09/16/22 09:36 Oxygen Delivery Method Room Air Weight: 323 lb 1.489 oz Body Mass Index (BMI) 43.8 Lab / Micro Data Micro: Microbiology 09/09/22 10:15 Wound Abcess - Abdominal Gram Stain - Final 09/09/22 10:15 Wound Abcess - Abdominal Wound Culture - Final No growth aerobically. 09/09/22 10:15 Wound Abcess - Abdominal Anaerobic Culture - Final No anaerobic bacteria isolated. Charges/Coding Procedures Integumentary 150xxx-152xx: 40001 Skin sub graft trnk/arm/leg Physical Exam Const alert, oriented x3 and no apparent distress General Appearance: cooperative and comfortable HEENT normocephalic and head/scalp atraumatic Eyes EOMs intact bilaterally Neck full ROM and supple General: normal visual inspection Resp normal respiratory effort Effort and Inspection: able to speak in complete sentences Extremity General Extremity: edema Skin Wounds: wounds noted Neuro oriented x3, CN's II-XII intact bilaterally and moves all extremities Psych mental status grossly normal, thought process normal, cooperative and affect normal Debridement Note Debridement Note Wound debrided: Abdomminal Ulcer Type of Debridement: Excisional debridement Anesthesia Used: 5% Lidocaine Gel Depth: Down to and including healthy tissue and in the subcutaneous layer Percentage of wound debrided: 100 Instrument Used: 5mm curette Tissue Removed: Slough and devitalized tissue Severity: Fat Layer Exposed Amount of bleeding with debridement: Mild Bleeding Controlled with: Pressure Patient tolerated procedure: Patient tolerated procedure well Post-Debridement Measurements and Additional Note: Post-Debridement Measurements/Treatment - Nurse 1 - General Ulcer Assessment Start: 09/09/22 09:46 Freq: Status: Active Protocol: JULIO Activity Type Activity Date Activity User E-sign Co-sign Detail Recorded Client Recorded Date Recorded By Document 09/09/22 09:47 BMF [id number] 09/09/22 09:53 BMF Document 09/16/22 09:36 DL [id number] 09/16/22 09:38 DL 09/09/22 09/16/22 09:47 09:36 - Today's Visit Information Type of service Follow-up Visit Follow-up Visit (Physician/[facility] [employer] (Physician/[employer] [employer] [employer] ) ) Arrival Mode Ambulatory Ambulatory Transfer Assistance None None Transfer Assist (Other) Accompanied by Patient Identification Verified (Name & Yes Yes ) Patient Requires Transmission-Based No No Precautions Height and Weight Body Mass Index (BMI) 43.8 43.8 BMI Classification Obese Obese Vital Signs Temperature (97.8 F-99.1 F) 97.7 F L 97.1 F L Temperature Source Temporal Temporal Pulse Rate (60-100) 94 82 Pulse Location Monitor Monitor Respiratory Rate (12-18) 16 16 Respiratory rate source Observation Observation Oxygen Delivery Method Room Air Room Air Blood Pressure (90/60-120/80) 117/68 103/62 Blood Pressure Mean (mm Hg) 84 75 Source Monitor Monitor Position Sitting Sitting Blood Pressure Location Left Forearm Left Arm History Since Last Visit- (Skip if this is Patient's initial visit) Have you changed medications since your No No last visit? Any new allergies or adverse reactions No No Had a fall/change in ADL's that may No No increase risk of falls Signs or symptoms of abuse and/or No No neglect since last visit Have you been in the hospital since your No No last visit? Has dressing in place as prescribed Yes Yes Has compression in place as prescribed N/A N/A Has offloadiing in place as prescribed N/A N/A Experienced any changes in pain level or No No management Left Footwear Regular Shoe Regular Shoe Right Footwear Regular Shoe Regular Shoe Pain Scale: 0-10 Numeric Is Patient Pain Free? Yes Yes WC - Nurse 1 - General Ulcer Measurement Start: 09/09/22 09:46 Freq: Status: Active Protocol: Activity Type Activity Date Activity User E-sign Co-sign Detail Recorded Client Recorded Date Recorded By Document 09/09/22 09:47 [facility] [id number] 09/09/22 09:53 BM Document 09/16/22 09:36 DL [id number] 09/16/22 09:38 DL 09/09/22 09/16/22 09:47 09:36 Wound Center Nurse 1 #3 ABD -Combined with other wound No No -Current Size (cm) - Length 1 0.9 -Current Size (cm) - Width 0.9 1 -Current Size (cm) - Depth 0.1 0.1 -Total Square Cm 0.9 0.9 -Date of Last Picture (Recall this 09/09/22 09/16/22 field) -Photo Taken Yes Yes -Epithelialization Small 1-33% Small 1-33% -Tunneling No No -Undermining/Tunneling No No -Circular Undermining No No -Exudate Amt Medium Medium -Exudate Type Serous Serous -Wound Margin Flat & Intact Distinct, Outline Attached -Granulation Amt Medium (34-66%) None Present (0 %) -Granulation Quality [place] -Slough/Fibrin Yes Yes -Necrosis Amt Medium (34-66%) Large (67-100%) -Necrotic Tissue Type Adherent Slough Adherent Slough -Texture (Kaitlin-wound Skin Appearance) Not Assessed, Assessed, Scarring Scarring -Moisture (Kaitlin-wound Skin Appearance) Assessed Assessed -Color (Kaitlin-wound Skin Appearance) Assessed Assessed -Temperature (Kaitlin-wound Skin No Abnormality No Abnormality Appearance) (Pt Warm) (Pt Warm) -Tenderness on Palpation (Kaitlin-wound No No Skin Appearance) -Ulcer Cleansing Rinsed/ Soap and Water Irrigated with Saline -Foul Odor after Cleansing No No -Anesthetic Used 5% Lidocaine 5% Lidocaine Gel Gel WC - Nurse 2 - General Ulcer CM Notes Start: 09/09/22 09:46 Freq: Status: Active Protocol: Activity Type Activity Date Activity User E-sign Co-sign Detail Recorded Client Recorded Date Recorded By Document 09/09/22 10:06 MW [id number] 09/09/22 10:17 MW Document 09/16/22 10:11 MW [id number] 09/16/22 10:17 MW 09/09/22 09/16/22 10:06 10:11 Wound Center Nurse 2 #3 ABD -Time 10:06 10:11 -Correct Patient Yes Yes -Correct Side, Site, Position Yes Yes -Correct Procedure Yes Yes -Procedure Performed Yes Yes -Type of Procedure Debridement Debridement -Clinical Debridement Subcutaneous Subcutaneous -Tissue Removed Subcutaneous Subcutaneous -Post Debridement (cm) - Length 1.1 1.0 -Post Debridement (cm) - Width 1.5 1.1 -Post Debridement (cm) - Depth 0.1 0.1 -Total Square (Post) (cm) 1.65 1.10 -Area of Debridement (cm) - Length 1.1 1.0 -Area of Debridement (cm) - Width 1.5 1.1 -Total Square (Area) (cm) 1.65 1.10 -Tunneling No No -Undermining/Tunneling No No -Circular Undermining No No -Wound/Ulcer Outcome Not Healed Not Healed -Ulcer Cleansing Rinsed/ Rinsed/ Irrigated with Irrigated with Saline Saline -Foul Odor after Cleansing No No -Bioengineered Tissue Yes Yes -Type of Bioengineered Tissue Epifix Epifix 18mm Disc -Expiration Date 05/06/27 07/07/27 -Product Lot Number [id number] -Percent Used 100 100 -Lot number of Saline Used [id number] -Bleeding Controlled with Pressure Pressure -Treatment Response Procedure Procedure Tolerated Well Tolerated Well -Offloading No No -Debridement - Subq, 1st 20sq cm No No -Apply Skin Sub - 1st 25 sq cm - Legs 1 1 -Epifix (per sq cm) 4 -Epifix 18mm Disc 3 Pain Scale: 0-10 Numeric Is Patient Pain Free? Yes Yes WC - Nurse 3 - General Ulcer D/C NN Start: 09/09/22 09:46 Freq: Status: Active Protocol: Activity Type Activity Date Activity User E-sign Co-sign Detail Recorded Client Recorded Date Recorded By Document 09/09/22 10:20 MW [id number] 09/09/22 10:21 MW Document 09/16/22 10:17 MW [id number] 09/16/22 10:18 MW 09/09/22 09/16/22 10:20 10:17 Wound Care Center Nurse 3 #3 ABD -Ulcer Cleansing Wound Cleanser Rinsed/ Irrigated with Saline -Foul Odor after Cleansing No No -Negative Pressure Wound Therapy N/A N/A -Primary Dressing Applied Aquacel Extra, Aquacel Extra, Mepilex Border Mepilex Border -Aquacel Extra 1 1 -Mepilex Border 1 2 Treatment Response Procedure Procedure Tolerated Well Tolerated Well Pain Scale: 0-10 Numeric Is Patient Pain Free? Yes Yes Teaching: Wound Center Dressing Your Wound -Person Taught Patient,Family Patient,Family -Teaching Method Discussion Discussion, Demonstration -Response to teaching Verbalize Verbalize understanding understanding WC - Visit Discharge Discharge Condition Stable Stable Ambulatory Status Cane Ambulatory Transportation Private Auto Private Auto Accompanied by Medication Reconcilliation completed & No No provided to patient/care provider Clinical Summary of Care Provided Yes Yes Assessment/Plan Assessment/Plan (1) Skin ulcer of abdominal wall with fat layer exposed: CODE(S): L98.492 - Non-pressure chronic ulcer of skin of 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 (2) Diabetes mellitus, type II: CODE(S): E11.9 - Type 2 diabetes mellitus without complications QUALIFIERS: Diabetes mellitus terminal superintendent insulin use: with senior living use Diabetes mellitus complication status: with other specified complication Qualified Code(s): E11.69 - Type 2 diabetes mellitus with other specified complication; Z79.4 - ferry terminal agent (current) use of insulin (3) Persistent atrial fibrillation: CODE(S): I48.19 - Other persistent atrial fibrillation (4) (HFpEF) heart failure with preserved ejection fraction: CODE(S): I50.30 - Unspecified diastolic (congestive) heart failure QUALIFIERS: Heart failure chronicity: unspecified Qualified Code(s): I50.30 - Unspecified diastolic (congestive) heart failure PLAN: Plan Debridement done as documented above, procedure was well-tolerated. 2nd application of EpiFix done using 100% of product. Moistened with saline, covered with wound veil and secured with Steri-Strips. Aquacel extra and foam dressing over top to help with drainage. Leave dressing in place for a week however, they were advised that they could change outer dressing if soaked. They voiced understanding. Adequate protein intake, vitamin C, D and zinc also discussed, he voiced understanding. His questions were answered and he was advised to call with any further questions or concerns. Follow-up in 1 week. This note was generated with [employer] dictation software. It may contain incorrect words, spelling, and punctuation that were not noted in checking the note before signing.
[2022-09-23 09:21] VITALS: BP 100/58; PULSE 85; RESP 16; TEMP 36.2; BMI 43.8
--- NOTE | 2022-09-23 12:20 | PCM.WC.PN ---
History of Present Illness Date of Service: 09/23/22 Chief Complaint: Abdominal Ulcer History of Wound: Mr. Cochran is a 71yo who was referred to the wound center due to non-healing abdominal ulcer. Said to have started 6 weeks ago. Reopened along an old scar. History of heart failure and at that time had gained significant fluid weight and retention. Has since been diuresed with subsequent fluid loss however opening has remained. Has been applying bacitracin and gauze with no significant improvement. No chills, fever or otherwise feeling of unwell. History of diabetes mellitus type 2 and most recent A1c was at 9.3. Progress of Wound: Has had 2 applications of EpiFix. Stable.. No new concerns at this time. Objective Data Objective Data Vital Signs: Vital Signs Temp Pulse Resp BP O2 Del Method 97.1 F L 85 16 100/58 L Room Air 09/23/22 09:21 09/23/22 09:21 09/23/22 09:21 09/23/22 09:21 09/16/22 09:36 Oxygen Delivery Method Room Air Weight: 323 lb 1.489 oz Body Mass Index (BMI) 43.8 Lab / Micro Data Micro: Microbiology 09/09/22 10:15 Wound Abcess - Abdominal Gram Stain - Final 09/09/22 10:15 Wound Abcess - Abdominal Wound Culture - Final No growth aerobically. 09/09/22 10:15 Wound Abcess - Abdominal Anaerobic Culture - Final No anaerobic bacteria isolated. Charges/Coding Procedures Integumentary 150xxx-152xx: 29718 Skin sub graft trnk/arm/leg Physical Exam Const alert, oriented x3 and no apparent distress General Appearance: cooperative and comfortable HEENT normocephalic and head/scalp atraumatic Eyes EOMs intact bilaterally Neck full ROM and supple General: normal visual inspection Resp normal respiratory effort Effort and Inspection: able to speak in complete sentences Extremity General Extremity: edema Skin Wounds: wounds noted Neuro oriented x3, CN's II-XII intact bilaterally and moves all extremities Psych mental status grossly normal, thought process normal, cooperative and affect normal Debridement Note Debridement Note Wound debrided: Abdomminal Ulcer Type of Debridement: Excisional debridement Anesthesia Used: 5% Lidocaine Gel Depth: Down to and including healthy tissue and in the subcutaneous layer Percentage of wound debrided: 100 Instrument Used: 5mm curette Tissue Removed: Slough and devitalized tissue Severity: Fat Layer Exposed Amount of bleeding with debridement: Mild Bleeding Controlled with: Pressure Patient tolerated procedure: Patient tolerated procedure well Post-Debridement Measurements and Additional Note: Post-Debridement Measurements/Treatment - Nurse 1 - General Ulcer Assessment Start: 09/09/22 09:46 Freq: Status: Active Protocol: JULIO Activity Type Activity Date Activity User E-sign Co-sign Detail Recorded Client Recorded Date Recorded By Document 09/09/22 09:47 [facility] [id number] 09/09/22 09:53 BMF Document 09/16/22 09:36 DL [id number] 09/16/22 09:38 DL Document 09/23/22 09:21 BM [id number] 09/23/22 09:29 BMF 09/09/22 09/16/22 09/23/22 09:47 09:36 09:21 - Today's Visit Information Type of service Follow-up Visit Follow-up Visit Follow-up Visit (Physician/RV TECHNICIAN (Physician/RV TECHNICIAN (Physician/RV TECHNICIAN ) ) ) Arrival Mode Ambulatory Ambulatory Ambulatory Transfer Assistance None None None Transfer Assist (Other) Accompanied by Patient Identification Verified (Name & Yes Yes Yes ) Patient Requires Transmission-Based No No No Precautions Height and Weight Body Mass Index (BMI) 43.8 43.8 43.8 BMI Classification Obese Obese Obese Vital Signs Temperature (97.8 F-99.1 F) 97.7 F L 97.1 F L 97.1 F L Temperature Source Temporal Temporal Temporal Pulse Rate (60-100) 94 82 85 Pulse Location Monitor Monitor Monitor Respiratory Rate (12-18) 16 16 16 Respiratory rate source Observation Observation Oxygen Delivery Method Room Air Room Air Blood Pressure (90/60-120/80) 117/68 103/62 100/58 L Blood Pressure Mean (mm Hg) 84 75 72 Source Monitor Monitor Monitor Position Sitting Sitting Sitting Blood Pressure Location Left Forearm Left Arm Left Arm History Since Last Visit- (Skip if this is Patient's initial visit) Have you changed medications since your No No No last visit? Any new allergies or adverse reactions No No No Had a fall/change in ADL's that may No No No increase risk of falls Signs or symptoms of abuse and/or No No No neglect since last visit Have you been in the hospital since your No No No last visit? Has dressing in place as prescribed Yes Yes Yes Has compression in place as prescribed N/A N/A N/A Has offloadiing in place as prescribed N/A N/A N/A Experienced any changes in pain level or No No No management Left Footwear Regular Shoe Regular Shoe Regular Shoe Right Footwear Regular Shoe Regular Shoe Regular Shoe Pain Scale: 0-10 Numeric Is Patient Pain Free? Yes Yes Yes WC - Nurse 1 - General Ulcer Measurement Start: 09/09/22 09:46 Freq: Status: Active Protocol: Activity Type Activity Date Activity User E-sign Co-sign Detail Recorded Client Recorded Date Recorded By Document 09/09/22 09:47 [facility] [id number] 09/09/22 09:53 BM Document 09/16/22 09:36 DL [id number] 09/16/22 09:38 DL Document 09/23/22 09:21 [facility] [id number] 09/23/22 09:29 BMF 09/09/22 09/16/22 09/23/22 09:47 09:36 09:21 Wound Center Nurse 1 #3 ABD -Combined with other wound No No -Current Size (cm) - Length 1 0.9 0.8 -Current Size (cm) - Width 0.9 1 0.8 -Current Size (cm) - Depth 0.1 0.1 0.1 -Total Square Cm 0.9 0.9 0.64 -Date of Last Picture (Recall this 09/09/22 09/16/22 09/23/22 field) -Photo Taken Yes Yes Yes -Epithelialization Small 1-33% Small 1-33% Small 1-33% -Tunneling No No No -Undermining/Tunneling No No No -Circular Undermining No No No -Exudate Amt Medium Medium Small -Exudate Type Serous Serous Serosanguineous -Wound Margin Flat & Intact Distinct, Distinct, Outline Outline Attached Attached -Granulation Amt Medium (34-66%) None Present (0 Medium (34-66%) %) -Granulation Quality [place] -Slough/Fibrin Yes Yes Yes -Necrosis Amt Medium (34-66%) Large (67-100%) Small (1-33%) -Necrotic Tissue Type Adherent Slough Adherent Slough Adherent Slough -Texture (Kaitlin-wound Skin Appearance) Not Assessed, Assessed, Assessed, Scarring Scarring Scarring -Moisture (Kaitlin-wound Skin Appearance) Assessed Assessed Assessed -Color (Kaitlin-wound Skin Appearance) Assessed Assessed Assessed -Temperature (Kaitlin-wound Skin No Abnormality No Abnormality No Abnormality Appearance) (Pt Warm) (Pt Warm) (Pt Warm) -Tenderness on Palpation (Kaitlin-wound No No No Skin Appearance) -Ulcer Cleansing Rinsed/ Soap and Water Soap and Water Irrigated with Saline -Foul Odor after Cleansing No No No -Anesthetic Used 5% Lidocaine 5% Lidocaine 5% Lidocaine Gel Gel Gel WC - Nurse 2 - General Ulcer CM Notes Start: 09/09/22 09:46 Freq: Status: Active Protocol: Activity Type Activity Date Activity User E-sign Co-sign Detail Recorded Client Recorded Date Recorded By Document 09/09/22 10:06 MW [id number] 09/09/22 10:17 MW Document 09/16/22 10:11 MW [id number] 09/16/22 10:17 MW Document 09/23/22 09:48 MW [id number] 09/23/22 09:56 MW 09/09/22 09/16/22 09/23/22 10:06 10:11 09:48 Wound Center Nurse 2 #3 ABD -Time 10:06 10:11 09:49 -Correct Patient Yes Yes Yes -Correct Side, Site, Position Yes Yes Yes -Correct Procedure Yes Yes Yes -Procedure Performed Yes Yes Yes -Type of Procedure Debridement Debridement Debridement -Clinical Debridement Subcutaneous Subcutaneous Subcutaneous -Tissue Removed Subcutaneous Subcutaneous Subcutaneous -Post Debridement (cm) - Length 1.1 1.0 1.1 -Post Debridement (cm) - Width 1.5 1.1 1.0 -Post Debridement (cm) - Depth 0.1 0.1 0.1 -Total Square (Post) (cm) 1.65 1.10 1.10 -Area of Debridement (cm) - Length 1.1 1.0 1.1 -Area of Debridement (cm) - Width 1.5 1.1 1.0 -Total Square (Area) (cm) 1.65 1.10 1.10 -Tunneling No No No -Undermining/Tunneling No No No -Circular Undermining No No No -Wound/Ulcer Outcome Not Healed Not Healed Not Healed -Ulcer Cleansing Rinsed/ Rinsed/ Rinsed/ Irrigated with Irrigated with Irrigated with Saline Saline Saline -Foul Odor after Cleansing No No No -Bioengineered Tissue Yes Yes Yes -Type of Bioengineered Tissue Epifix Epifix 18mm Epifix 18mm Disc Disc -Expiration Date 05/06/27 07/07/27 07/07/27 -Product Lot Number [id number] -Percent Used 100 100 100 -Lot number of Saline Used [id number] -Bleeding Controlled with Pressure Pressure Pressure -Treatment Response Procedure Procedure Procedure Tolerated Well Tolerated Well Tolerated Well -Offloading No No -Debridement - Subq, 1st 20sq cm No No No -Apply Skin Sub - 1st 25 sq cm - Legs 1 1 1 -Epifix (per sq cm) 4 -Epifix 18mm Disc 3 3 Pain Scale: 0-10 Numeric Is Patient Pain Free? Yes Yes Yes - Nurse 3 - General Ulcer D/C NN Start: 09/09/22 09:46 Freq: Status: Active Protocol: Activity Type Activity Date Activity User E-sign Co-sign Detail Recorded Client Recorded Date Recorded By Document 09/09/22 10:20 MW [id number] 09/09/22 10:21 MW Document 09/16/22 10:17 MW [id number] 09/16/22 10:18 MW Document 09/23/22 10:04 DL [id number] 09/23/22 10:06 DL 09/09/22 09/16/22 09/23/22 10:20 10:17 10:04 Wound Care Center Nurse 3 #3 ABD -Ulcer Cleansing Wound Cleanser Rinsed/ Irrigated with Saline -Foul Odor after Cleansing No No No -Negative Pressure Wound Therapy N/A N/A -Primary Dressing Applied Aquacel Extra, Aquacel Extra, Aquacel Extra, Mepilex Border Mepilex Border Mepilex Border -Aquacel Extra 1 1 1 -Mepilex Border 1 2 1 Treatment Response Procedure Procedure Procedure Tolerated Well Tolerated Well Tolerated Well Pain Scale: 0-10 Numeric Is Patient Pain Free? Yes Yes Yes Teaching: Wound Center Dressing Your Wound -Person Taught Patient,Family Patient,Family -Teaching Method Discussion Discussion, Demonstration -Response to teaching Verbalize Verbalize understanding understanding WC - Visit Discharge Discharge Condition Stable Stable Stable Ambulatory Status Cane Ambulatory Ambulatory Transportation Private Auto Private Auto Private Auto Accompanied by Medication Reconcilliation completed & No No provided to patient/care provider Clinical Summary of Care Provided Yes Yes Assessment/Plan Assessment/Plan (1) Skin ulcer of abdominal wall with fat layer exposed: CODE(S): L98.492 - Non-pressure chronic ulcer of skin of 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 (2) Diabetes mellitus, type II: CODE(S): E11.9 - Type 2 diabetes mellitus without complications QUALIFIERS: Diabetes mellitus senior living insulin use: with senior living use Diabetes mellitus complication status: with other specified complication Qualified Code(s): E11.69 - Type 2 diabetes mellitus with other specified complication; Z79.4 - long-term (current) use of insulin (3) Persistent atrial fibrillation: CODE(S): I48.19 - Other persistent atrial fibrillation (4) (HFpEF) heart failure with preserved ejection fraction: CODE(S): I50.30 - Unspecified diastolic (congestive) heart failure QUALIFIERS: Heart failure chronicity: unspecified Qualified Code(s): I50.30 - Unspecified diastolic (congestive) heart failure PLAN: Plan Debridement done as documented above, procedure was well-tolerated. Third application of EpiFix done using 100% of product. Moistened with saline, covered with wound veil and secured with Steri-Strips. Aquacel extra and foam dressing over top to help with drainage. Leave dressing in place for a week however, they were advised that they could change outer dressing if soaked. They voiced understanding. Adequate protein intake, vitamin C, D and zinc also discussed, he voiced understanding. His questions were answered and he was advised to call with any further questions or concerns. Follow-up in 1 week. This note was generated with [employer] dictation software. It may contain incorrect words, spelling, and punctuation that were not noted in checking the note before signing.
[2022-10-01 10:34] VITALS: BP 107/58; PULSE 85; RESP 20; TEMP 36.2; BMI 43.8
--- NOTE | 2022-10-01 12:42 | PCM.WC.PN ---
History of Present Illness Date of Service: 10/01/22 Chief Complaint: Abdominal Ulcer History of Wound: Mr. Cochran is a 71yo who was referred to the wound center due to non-healing abdominal ulcer. Said to have started 6 weeks ago. Reopened along an old scar. History of heart failure and at that time had gained significant fluid weight and retention. Has since been diuresed with subsequent fluid loss however opening has remained. Has been applying bacitracin and gauze with no significant improvement. No chills, fever or otherwise feeling of unwell. History of diabetes mellitus type 2 and most recent A1c was at 9.3. Progress of Wound: He is seen by me today as a courtesy visit today for Dr. Price. Has had 3 applications of EpiFix. He has tolerated these well. Some difficulty keeping dressing in place. Wound is stable. No new concerns at this time. Objective Data Objective Data Vital Signs: Vital Signs Temp Pulse Resp BP O2 Del Method 97.2 F L 85 20 H 107/58 L Room Air 10/01/22 10:34 10/01/22 10:34 10/01/22 10:34 10/01/22 10:34 09/16/22 09:36 Oxygen Delivery Method Room Air Weight: 146.553 kg Body Mass Index (BMI) 43.8 Lab / Micro Data Micro: Microbiology 09/09/22 10:15 Wound Abcess - Abdominal Gram Stain - Final 09/09/22 10:15 Wound Abcess - Abdominal Wound Culture - Final No growth aerobically. 09/09/22 10:15 Wound Abcess - Abdominal Anaerobic Culture - Final No anaerobic bacteria isolated. Physical Exam Const alert, oriented x3 and no apparent distress General Appearance: cooperative and comfortable HEENT normocephalic and head/scalp atraumatic Resp normal respiratory effort Effort and Inspection: able to speak in complete sentences Cardio regular rate and regular rhythm Skin Wounds: wounds noted Wound Narrative: as in clinical panel Psych mental status grossly normal, thought process normal, cooperative and affect normal Debridement Note Debridement Note Wound debrided: Abdomminal Ulcer Type of Debridement: Excisional debridement Anesthesia Used: 5% Lidocaine Gel Depth: Down to and including healthy tissue and in the subcutaneous layer Percentage of wound debrided: 100 Instrument Used: 5mm curette Tissue Removed: Slough and devitalized tissue Severity: Fat Layer Exposed Amount of bleeding with debridement: Mild Bleeding Controlled with: Pressure Patient tolerated procedure: Patient tolerated procedure well Post-Debridement Measurements and Additional Note: Post-Debridement Measurements/Treatment - Nurse 1 - General Ulcer Assessment Start: 09/09/22 09:46 Freq: Status: Active Protocol: JULIO Activity Type Activity Date Activity User E-sign Co-sign Detail Recorded Client Recorded Date Recorded By Document 09/09/22 09:47 BM [id number] 09/09/22 09:53 BMF Document 09/16/22 09:36 DL [id number] 09/16/22 09:38 DL Document 09/23/22 09:21 BMF [id number] 09/23/22 09:29 BMF Document 10/01/22 10:34 DL [id number] 10/01/22 10:39 DL 09/09/22 09/16/22 09/23/22 09:47 09:36 09:21 - Today's Visit Information Type of service Follow-up Visit Follow-up Visit Follow-up Visit (Physician/MAIL HANDLER SORTER (Physician/MAIL HANDLER SORTER (Physician/MAIL HANDLER SORTER ) ) ) Arrival Mode Ambulatory Ambulatory Ambulatory Transfer Assistance None None None Transfer Assist (Other) Accompanied by Patient Identification Verified (Name & Yes Yes Yes ) Patient Requires Transmission-Based No No No Precautions Height and Weight Body Mass Index (BMI) 43.8 43.8 43.8 BMI Classification Obese Obese Obese Vital Signs Temperature (97.8 F-99.1 F) 97.7 F L 97.1 F L 97.1 F L Temperature Source Temporal Temporal Temporal Pulse Rate (60-100) 94 82 85 Pulse Location Monitor Monitor Monitor Respiratory Rate (12-18) 16 16 16 Respiratory rate source Observation Observation Oxygen Delivery Method Room Air Room Air Blood Pressure (90/60-120/80) 117/68 103/62 100/58 L Blood Pressure Mean (mm Hg) 84 75 72 Source Monitor Monitor Monitor Position Sitting Sitting Sitting Blood Pressure Location Left Forearm Left Arm Left Arm History Since Last Visit- (Skip if this is Patient's initial visit) Have you changed medications since your No No No last visit? Any new allergies or adverse reactions No No No Had a fall/change in ADL's that may No No No increase risk of falls Signs or symptoms of abuse and/or No No No neglect since last visit Have you been in the hospital since your No No No last visit? Has dressing in place as prescribed Yes Yes Yes Has compression in place as prescribed N/A N/A N/A Has offloadiing in place as prescribed N/A N/A N/A Experienced any changes in pain level or No No No management Left Footwear Regular Shoe Regular Shoe Regular Shoe Right Footwear Regular Shoe Regular Shoe Regular Shoe Pain Scale: 0-10 Numeric Is Patient Pain Free? Yes Yes Yes 10/01/22 10:34 WC - Today's Visit Information Type of service Follow-up Visit (Physician/MAIL HANDLER SORTER ) Arrival Mode Ambulatory Transfer Assistance None Transfer Assist (Other) Accompanied by Patient Identification Verified (Name & Yes ) Patient Requires Transmission-Based No Precautions Height and Weight Body Mass Index (BMI) 43.8 BMI Classification Obese Vital Signs Temperature (97.8 F-99.1 F) 97.2 F L Temperature Source Temporal Pulse Rate (60-100) 85 Pulse Location Monitor Respiratory Rate (12-18) 20 H Respiratory rate source Observation Oxygen Delivery Method Blood Pressure (90/60-120/80) 107/58 L Blood Pressure Mean (mm Hg) 74 Source Monitor Position Blood Pressure Location History Since Last Visit- (Skip if this is Patient's initial visit) Have you changed medications since your No last visit? Any new allergies or adverse reactions No Had a fall/change in ADL's that may No increase risk of falls Signs or symptoms of abuse and/or No neglect since last visit Have you been in the hospital since your No last visit? Has dressing in place as prescribed Yes Has compression in place as prescribed N/A Has offloadiing in place as prescribed N/A Experienced any changes in pain level or No management Left Footwear Right Footwear Pain Scale: 0-10 Numeric Is Patient Pain Free? Yes - Nurse 1 - General Ulcer Measurement Start: 09/09/22 09:46 Freq: Status: Active Protocol: Activity Type Activity Date Activity User E-sign Co-sign Detail Recorded Client Recorded Date Recorded By Document 09/09/22 09:47 [facility] [id number] 09/09/22 09:53 BMF Document 09/16/22 09:36 DL [id number] 04/13/23 09:38 DL Document 09/23/22 09:21 [facility] [id number] 09/23/22 09:29 BM Document 10/01/22 10:34 DL [id number] 10/01/22 10:39 DL 09/09/22 09/16/22 09/23/22 09:47 09:36 09:21 Wound Center Nurse 1 #3 ABD -Combined with other wound No No -Current Size (cm) - Length 1 0.9 0.8 -Current Size (cm) - Width 0.9 1 0.8 -Current Size (cm) - Depth 0.1 0.1 0.1 -Total Square Cm 0.9 0.9 0.64 -Date of Last Picture (Recall this 09/09/22 09/16/22 09/23/22 field) -Photo Taken Yes Yes Yes -Epithelialization Small 1-33% Small 1-33% Small 1-33% -Tunneling No No No -Undermining/Tunneling No No No -Circular Undermining No No No -Exudate Amt Medium Medium Small -Exudate Type Serous Serous Serosanguineous -Wound Margin Flat & Intact Distinct, Distinct, Outline Outline Attached Attached -Granulation Amt Medium (34-66%) None Present (0 Medium (34-66%) %) -Granulation Quality [place] Red -Slough/Fibrin Yes Yes Yes -Necrosis Amt Medium (34-66%) Large (67-100%) Small (1-33%) -Necrotic Tissue Type Adherent Slough Adherent Slough Adherent Slough -Structure Exposed -Texture (Kaitlin-wound Skin Appearance) Not Assessed, Assessed, Assessed, Scarring Scarring Scarring -Moisture (Kaitlin-wound Skin Appearance) Assessed Assessed Assessed -Color (Kaitlin-wound Skin Appearance) Assessed Assessed Assessed -Temperature (Kaitlin-wound Skin No Abnormality No Abnormality No Abnormality Appearance) (Pt Warm) (Pt Warm) (Pt Warm) -Tenderness on Palpation (Kaitlin-wound No No No Skin Appearance) -Ulcer Cleansing Rinsed/ Soap and Water Soap and Water Irrigated with Saline -Foul Odor after Cleansing No No No -Anesthetic Used 5% Lidocaine 5% Lidocaine 5% Lidocaine Gel Gel Gel 10/01/22 10:34 Wound Center Nurse 1 #3 ABD -Combined with other wound -Current Size (cm) - Length 0.9 -Current Size (cm) - Width 1 -Current Size (cm) - Depth 0.1 -Total Square Cm 0.9 -Date of Last Picture (Recall this field) -Photo Taken No -Epithelialization -Tunneling -Undermining/Tunneling -Circular Undermining -Exudate Amt Medium -Exudate Type Serosanguineous -Wound Margin Distinct, Outline Attached -Granulation Amt Large (67-100%) -Granulation Quality [place] -Slough/Fibrin -Necrosis Amt Small (1-33%) -Necrotic Tissue Type Adherent Slough -Structure Exposed N/A -Texture (Kaitlin-wound Skin Appearance) Scarring -Moisture (Kaitlin-wound Skin Appearance) No Abnormality -Color (Kaitlin-wound Skin Appearance) No Abnormality -Temperature (Kaitlin-wound Skin No Abnormality Appearance) (Pt Warm) -Tenderness on Palpation (Kaitlin-wound No Skin Appearance) -Ulcer Cleansing Soap and Water -Foul Odor after Cleansing No -Anesthetic Used 5% Lidocaine Gel WC - Nurse 2 - General Ulcer CM Notes Start: 09/09/22 09:46 Freq: Status: Active Protocol: Activity Type Activity Date Activity User E-sign Co-sign Detail Recorded Client Recorded Date Recorded By Document 09/09/22 10:06 MW [id number] 09/09/22 10:17 MW Document 09/16/22 10:11 MW [id number] 09/16/22 10:17 MW Document 09/23/22 09:48 MW [id number] 09/23/22 09:56 MW Document 10/01/22 10:53 MW Desktop 10/01/22 11:00 MW 09/09/22 09/16/22 09/23/22 10:06 10:11 09:48 Wound Center Nurse 2 #3 ABD -Time 10:06 10:11 09:49 -Correct Patient Yes Yes Yes -Correct Side, Site, Position Yes Yes Yes -Correct Procedure Yes Yes Yes -Procedure Performed Yes Yes Yes -Type of Procedure Debridement Debridement Debridement -Clinical Debridement Subcutaneous Subcutaneous Subcutaneous -Tissue Removed Subcutaneous Subcutaneous Subcutaneous -Post Debridement (cm) - Length 1.1 1.0 1.1 -Post Debridement (cm) - Width 1.5 1.1 1.0 -Post Debridement (cm) - Depth 0.1 0.1 0.1 -Total Square (Post) (cm) 1.65 1.10 1.10 -Area of Debridement (cm) - Length 1.1 1.0 1.1 -Area of Debridement (cm) - Width 1.5 1.1 1.0 -Total Square (Area) (cm) 1.65 1.10 1.10 -Tunneling No No No -Undermining/Tunneling No No No -Circular Undermining No No No -Wound/Ulcer Outcome Not Healed Not Healed Not Healed -Ulcer Cleansing Rinsed/ Rinsed/ Rinsed/ Irrigated with Irrigated with Irrigated with Saline Saline Saline -Foul Odor after Cleansing No No No -Bioengineered Tissue Yes Yes Yes -Type of Bioengineered Tissue Epifix Epifix 18mm Epifix 18mm Disc Disc -Expiration Date 05/06/27 07/07/27 07/07/27 -Product Lot Number [id number] -Percent Used 100 100 100 -Lot number of Saline Used [id number] -Bleeding Controlled with Pressure Pressure Pressure -Treatment Response Procedure Procedure Procedure Tolerated Well Tolerated Well Tolerated Well -Offloading No No -Debridement - Subq, 1st 20sq cm No No No -Apply Skin Sub - 1st 25 sq cm - Legs 1 1 1 -Epifix (per sq cm) 4 -Epifix 18mm Disc 3 3 Pain Scale: 0-10 Numeric Is Patient Pain Free? Yes Yes Yes 10/01/22 10:53 Wound Center Nurse 2 #3 ABD -Time 10:53 -Correct Patient Yes -Correct Side, Site, Position Yes -Correct Procedure Yes -Procedure Performed Yes -Type of Procedure Debridement -Clinical Debridement Subcutaneous -Tissue Removed Subcutaneous -Post Debridement (cm) - Length 0.9 -Post Debridement (cm) - Width 1.0 -Post Debridement (cm) - Depth 0.1 -Total Square (Post) (cm) 0.90 -Area of Debridement (cm) - Length 0.9 -Area of Debridement (cm) - Width 1.0 -Total Square (Area) (cm) 0.90 -Tunneling No -Undermining/Tunneling No -Circular Undermining No -Wound/Ulcer Outcome Not Healed -Ulcer Cleansing Rinsed/ Irrigated with Saline -Foul Odor after Cleansing No -Bioengineered Tissue Yes -Type of Bioengineered Tissue Epifix 18mm Disc -Expiration Date 06/06/27 -Product Lot Number [id number] -Percent Used 100 -Lot number of Saline Used [id number] -Bleeding Controlled with Pressure -Treatment Response Procedure Tolerated Well -Offloading No -Debridement - Subq, 1st 20sq cm No -Apply Skin Sub - 1st 25 sq cm - Legs 1 -Epifix (per sq cm) -Epifix 18mm Disc 3 Pain Scale: 0-10 Numeric Is Patient Pain Free? Yes - Nurse 3 - General Ulcer D/C NN Start: 09/09/22 09:46 Freq: Status: Active Protocol: Activity Type Activity Date Activity User E-sign Co-sign Detail Recorded Client Recorded Date Recorded By Document 09/09/22 10:20 MW [id number] 09/09/22 10:21 MW Document 09/16/22 10:17 MW [id number] 09/16/22 10:18 MW Document 09/23/22 10:04 DL [id number] 09/23/22 10:06 DL Document 10/01/22 11:07 RB [id number] 10/01/22 11:08 RB 09/09/22 09/16/22 09/23/22 10:20 10:17 10:04 Wound Care Center Nurse 3 #3 ABD -Ulcer Cleansing Wound Cleanser Rinsed/ Irrigated with Saline -Foul Odor after Cleansing No No No -Negative Pressure Wound Therapy N/A N/A -Primary Dressing Applied Aquacel Extra, Aquacel Extra, Aquacel Extra, Mepilex Border Mepilex Border Mepilex Border -Aquacel Extra 1 1 1 -Mepilex Border 1 2 1 Treatment Response Procedure Procedure Procedure Tolerated Well Tolerated Well Tolerated Well Pain Scale: 0-10 Numeric Is Patient Pain Free? Yes Yes Yes Teaching: Wound Center Dressing Your Wound -Person Taught Patient,Family Patient,Family -Teaching Method Discussion Discussion, Demonstration -Response to teaching Verbalize Verbalize understanding understanding WC - Visit Discharge Discharge Condition Stable Stable Stable Ambulatory Status Cane Ambulatory Ambulatory Transportation Private Auto Private Auto Private Auto Accompanied by Medication Reconcilliation completed & No No provided to patient/care provider Clinical Summary of Care Provided Yes Yes 10/01/22 11:07 Wound Care Center Nurse 3 #3 ABD -Ulcer Cleansing -Foul Odor after Cleansing -Negative Pressure Wound Therapy -Primary Dressing Applied Aquacel Extra, Mepilex Border -Aquacel Extra 1 -Mepilex Border 1 Treatment Response Procedure Tolerated Well Pain Scale: 0-10 Numeric Is Patient Pain Free? Yes Teaching: Wound Center Dressing Your Wound -Person Taught -Teaching Method -Response to teaching WC - Visit Discharge Discharge Condition Stable Ambulatory Status Ambulatory Transportation Private Auto Accompanied by Medication Reconcilliation completed & No provided to patient/care provider Clinical Summary of Care Provided Yes Assessment/Plan Assessment/Plan (1) Skin ulcer of abdominal wall with fat layer exposed: CODE(S): L98.492 - Non-pressure chronic ulcer of skin of 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 (2) KATIANA (obstructive sleep apnea): CODE(S): G47.33 - Obstructive sleep apnea (adult) (pediatric) (3) Essential hypertension: CODE(S): I10 - Essential (primary) hypertension (4) Hyperlipidemia: CODE(S): E78.5 - Hyperlipidemia, unspecified QUALIFIERS: Hyperlipidemia type: unspecified Qualified Code(s): E78.5 - Hyperlipidemia, unspecified (5) History of CVA (cerebrovascular accident): CODE(S): Z86.73 - Personal history of transient ischemic attack (TIA), and cerebral infarction without residual deficits (6) Diabetes mellitus, type II: CODE(S): E11.9 - Type 2 diabetes mellitus without complications QUALIFIERS: Diabetes mellitus nursing home insulin use: with exterminator termite use Diabetes mellitus complication status: with other specified complication Qualified Code(s): E11.69 - Type 2 diabetes mellitus with other specified complication; Z79.4 - exterminator termite (current) use of insulin (7) Morbid obesity: CODE(S): E66.01 - Morbid (severe) obesity due to excess calories PLAN: Plan Debridement performed today in clinic as annotated above. At home wound-care instructions: Epifix #4 applied to abdominal ulcer using 100% of product per transformer molder guidelines. Rehydrated with saline and covered with wound veil and secured with steristrips. Secondary dressing applied of Aquacel Extra and foam silicone bordered dressing. Keep dressing clean and dry. Off-loading: The patient was instructed to avoid pressure and friction on the affected areas. Reposition every 2 hours at minimum. Diet: Patient encouraged to increase protein intake while taking caution to avoid high carbohydrate and/or sugar intake. Labs/cultures/imaging: Follow-up: Return in 1 week for wound care follow up with Dr. Price. Return sooner or report to the emergency room should symptoms worsen, or new symptoms arise. Note: [employer] speech recognition assembler tubing software was used to create portions of this document. Sound-alike and misspelled words, as well as other assembler tubing errors may be contained in the documentation.
== END 2022-10-03 23:59 | disposition home or self-care (01) ==
LOC: WC 10:15
PROVIDERS: PCP Family Medicine Geriatric Medicine; Referring Provider Family Medicine Geriatric Medicine; Visit Provider Internal Medicine
DX: L98.492 Non-pressure chronic ulcer of skin of 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 (principal); I50.30 Unspecified diastolic (congestive) heart failure; I48.19 Other persistent atrial fibrillation; Z79.4 Long term (current) use of insulin; E11.9 Type 2 diabetes mellitus without complications; Z79.01 Long term (current) use of anticoagulants; Z79.890 Hormone replacement therapy; Z79.899 Other long term (current) drug therapy
CPT/HCPCS: 15271; 87070; 87075; 87205; Q4186

== ENCOUNTER → 2022-10-12 | Outpatient (CLI) | payer MEDICARE, OTHER, SELFPAY ==
[2022-10-12 12:56] LABS: Absolute Lymphocyte Count 2.08 X10^3/uL (0.83-4.51); Absolute Neutrophil Count 8.5 X10^3/uL (2.0-7.7); Basophil# 0.04 X10^3/uL; Basophil% 0.3 % (0-1); Eosinophil# 0.08 X10^3/uL; Eosinophils% 0.7 % (0-5); Hematocrit 46.4 % (40-54); Hemoglobin 15.2 g/dL (13.0-16.5); Lymphocyte # 2.08 X10^3/ul (0.83-4.51); Mean Corp Hgb Conc 32.8 g/dL (32-36); Mean Corpuscular Hgb 30.9 pg (27.0-32.0); Mean Corpuscular Volume 94.3 fL (80-94); Mean Platelet Vol. 12.6 fl (6.2-12.0); Monocyte# 0.85 X10^3/uL; Monocyte% 7.3 % (0-10); NRBC Flagged by Analyzer 0 % (0-5); Neutrophil # 8.48 X10^3/uL (2.7-7.7); Neutrophil % 73.3 % (47-70); Platelet Count 174 K/mm3 (150-450); RBC Distribution Width CV 14.9 % (11.6-14.6); RBC Distribution Width SD 52.2 fl (35.1-43.9); Red Blood Count 4.92 M/mm3 (4.6-6.2); White Blood Count 11.6 K/mm3 (4.4-11.0)
[2022-10-12 13:36] LABS: ALB/GLOB Ratio 0.7 RATIO (0.9-2.4); AST(SGOT) 21 U/L (15-37); Alanine Aminotransfer ALT/SGPT 19 U/L (16-61); Albumin, Serum 2.7 g/dL (3.2-5.0); Alkaline Phosphatase 86 U/L (45-117); Anion Gap 12 (5-15); BUN 44 mg/dL (7-18); BUN/Creat Ratio 22.7 RATIO (10-20); Calcium,Total 9.1 mg/dL (8.5-10.1); Chloride 97 mmol/L (98-107); Creatinine, Serum 1.94 mg/dL (0.70-1.30); EST Glomerular Filtration Rate 36 mL/min (>60); Est Glom Filt Rate - Afr Amer 44 mL/min (>60); Globulin 3.9 g/dL (2.2-4.2); Glucose 254 mg/dL (74-106); Phosphorus 3.5 mg/dL (2.5-4.9); Potassium 3.3 mmol/L (3.5-5.1); Protein, Total 6.6 g/dL (6.4-8.2); Sodium Level 136 mmol/L (136-145); Thyroid Stim Hormone (TSH) 2.76 uIU/mL (0.358-3.74)
[2022-10-12 13:49] LABS: Protein, Urine (Random) < 6.0 mg/dL (<11.9)
== END | disposition home or self-care (01) ==
LOC: POLAB3 10:08
PROVIDERS: PCP Family Medicine Geriatric Medicine; Visit Provider Internal Medicine Nephrology
DX: I10 Essential (primary) hypertension (principal); E11.65 Type 2 diabetes mellitus with hyperglycemia; E55.9 Vitamin D deficiency, unspecified
CPT/HCPCS: 36415; 80053; 82306; 82570; 84100; 84156; 84443; 85025

== ENCOUNTER 2022-10-28 10:00 | Outpatient (RCR) | payer MEDICARE, OTHER, SELFPAY ==
[2022-10-04 00:44] VITALS: BP 107/58; PULSE 85; RESP 20; TEMP 36.2; BMI 43.8
[2022-10-07 09:08] VITALS: BP 121/66; PULSE 79; RESP 16; TEMP 36.6; BMI 43.8
--- NOTE | 2022-10-07 09:36 | PCM.WC.PN ---
History of Present Illness Date of Service: 10/07/22 Chief Complaint: Abdominal Ulcer History of Wound: Mr. Cochran is a 71yo who was referred to the wound center due to non-healing abdominal ulcer. Said to have started 6 weeks ago. Reopened along an old scar. History of heart failure and at that time had gained significant fluid weight and retention. Has since been diuresed with subsequent fluid loss however opening has remained. Has been applying bacitracin and gauze with no significant improvement. No chills, fever or otherwise feeling of unwell. History of diabetes mellitus type 2 and most recent A1c was at 9.3. Progress of Wound: Has had 4 applications of EpiFix. Improving. No new concerns at this time. Objective Data Objective Data Vital Signs: Vital Signs Temp Pulse Resp BP O2 Del Method 97.8 F 79 16 121/66 H Room Air 10/07/22 09:08 10/07/22 09:08 10/07/22 09:08 10/07/22 09:08 10/07/22 09:08 Oxygen Delivery Method Room Air Weight: 323 lb 1.489 oz Body Mass Index (BMI) 43.8 Charges/Coding Procedures Integumentary 150xxx-152xx: 82692 Skin sub graft trnk/arm/leg Physical Exam Const alert, oriented x3 and no apparent distress General Appearance: cooperative and comfortable HEENT normocephalic and head/scalp atraumatic Resp normal respiratory effort Effort and Inspection: able to speak in complete sentences Cardio regular rate and regular rhythm Skin Wounds: wounds noted Wound Narrative: as in clinical panel Psych mental status grossly normal, thought process normal, cooperative and affect normal Debridement Note Debridement Note Wound debrided: Abdomminal Ulcer Type of Debridement: Excisional debridement Anesthesia Used: 5% Lidocaine Gel Depth: Down to and including healthy tissue and in the subcutaneous layer Percentage of wound debrided: 100 Instrument Used: 5mm curette Tissue Removed: Slough and devitalized tissue Severity: Fat Layer Exposed Amount of bleeding with debridement: Mild Bleeding Controlled with: Pressure Patient tolerated procedure: Patient tolerated procedure well Post-Debridement Measurements and Additional Note: Post-Debridement Measurements/Treatment MAGGIE - Nurse 1 - General Ulcer Assessment Start: 10/07/22 09:08 Freq: Status: Active Protocol: JULIO Activity Type Activity Date Activity User E-sign Co-sign Detail Recorded Client Recorded Date Recorded By Document 10/07/22 09:08 [facility] [id number] 10/07/22 09:14 [facility] 10/07/22 09:08 - Today's Visit Information Type of service Follow-up Visit (Physician/TECHNICAL ADMINISTRATIVE ASSISTANT ) Arrival Mode Ambulatory Transfer Assistance None Accompanied by Patient Identification Verified (Name & Yes ) Patient Requires Transmission-Based No Precautions Height and Weight Body Mass Index (BMI) 43.8 BMI Classification Obese Vital Signs Temperature (97.8 F-99.1 F) 97.8 F Temperature Source Temporal Pulse Rate (60-100) 79 Pulse Location Monitor Respiratory Rate (12-18) 16 Respiratory rate source Observation Oxygen Delivery Method Room Air Blood Pressure (90/60-120/80) 121/66 H Blood Pressure Mean (mm Hg) 84 Source Monitor Position Sitting Blood Pressure Location Right Forearm History Since Last Visit- (Skip if this is Patient's initial visit) Have you changed medications since your No last visit? Any new allergies or adverse reactions No Had a fall/change in ADL's that may No increase risk of falls Signs or symptoms of abuse and/or No neglect since last visit Have you been in the hospital since your No last visit? Has dressing in place as prescribed Yes Has compression in place as prescribed N/A Has offloadiing in place as prescribed N/A Experienced any changes in pain level or No management Left Footwear Regular Shoe Right Footwear Regular Shoe Pain Scale: 0-10 Numeric Is Patient Pain Free? Yes - Nurse 1 - General Ulcer Measurement Start: 10/07/22 09:08 Freq: Status: Active Protocol: Activity Type Activity Date Activity User E-sign Co-sign Detail Recorded Client Recorded Date Recorded By Document 10/07/22 09:08 [facility] [id number] 10/07/22 09:14 [facility] 10/07/22 09:08 Wound Center Nurse 1 #3 ABD -Combined with other wound No -Current Size (cm) - Length 0.5 -Current Size (cm) - Width 0.6 -Current Size (cm) - Depth 0.1 -Total Square Cm 0.30 -Date of Last Picture (Recall this 10/07/22 field) -Photo Taken Yes -Epithelialization Small 1-33% -Tunneling No -Undermining/Tunneling No -Circular Undermining No -Exudate Amt Medium -Exudate Type Serosanguineous -Wound Margin Distinct, Outline Attached -Granulation Amt Medium (34-66%) -Granulation Quality Red -Slough/Fibrin Yes -Necrosis Amt Small (1-33%) -Necrotic Tissue Type Adherent Slough -Texture (Kaitlin-wound Skin Appearance) Assessed, Scarring -Moisture (Kaitlin-wound Skin Appearance) Assessed -Color (Kaitlin-wound Skin Appearance) Assessed -Temperature (Kaitlin-wound Skin No Abnormality Appearance) (Pt Warm) -Tenderness on Palpation (Kaitlin-wound No Skin Appearance) -Ulcer Cleansing Soap and Water -Foul Odor after Cleansing No -Anesthetic Used 5% Lidocaine Gel WC - Nurse 2 - General Ulcer CM Notes Start: 10/07/22 09:08 Freq: Status: Active Protocol: Activity Type Activity Date Activity User E-sign Co-sign Detail Recorded Client Recorded Date Recorded By Document 10/07/22 09:24 MW [id number] 10/07/22 09:31 MW 10/07/22 09:24 Wound Center Nurse 2 -Time 09:24 -Correct Patient Yes -Correct Side, Site, Position Yes -Correct Procedure Yes -Procedure Performed Yes -Type of Procedure Debridement -Clinical Debridement Subcutaneous -Tissue Removed Subcutaneous -Post Debridement (cm) - Length 0.8 -Post Debridement (cm) - Width 0.9 -Post Debridement (cm) - Depth 0.1 -Total Square (Post) (cm) 0.72 -Area of Debridement (cm) - Length 0.8 -Area of Debridement (cm) - Width 0.9 -Total Square (Area) (cm) 0.72 -Tunneling No -Undermining/Tunneling No -Circular Undermining No -Wound/Ulcer Outcome Not Healed -Ulcer Cleansing Rinsed/ Irrigated with Saline -Foul Odor after Cleansing No -Bioengineered Tissue Yes -Type of Bioengineered Tissue Epifix 18mm Disc -Expiration Date 06/06/27 -Product Lot Number [id number] -Percent Used 100 -Lot number of Saline Used [id number] -Bleeding Controlled with Pressure -Treatment Response Procedure Tolerated Well -Offloading No -Debridement - Subq, 1st 20sq cm No -Apply Skin Sub - 1st 25 sq cm - Legs 1 -Epifix 18mm Disc 3 Pain Scale: 0-10 Numeric Is Patient Pain Free? Yes WC - Nurse 3 - General Ulcer D/C NN Start: 10/07/22 09:08 Freq: Status: Active Protocol: Activity Type Activity Date Activity User E-sign Co-sign Detail Recorded Client Recorded Date Recorded By Document 10/07/22 09:31 MW [id number] 10/07/22 09:31 MW 10/07/22 09:31 Wound Care Center Nurse 3 #3 ABD -Ulcer Cleansing Not Cleansed -Foul Odor after Cleansing No -Negative Pressure Wound Therapy N/A -Primary Dressing Applied Aquacel Extra, Mepilex Border -Aquacel Extra 1 -Mepilex Border 2 Treatment Response Procedure Tolerated Well Pain Scale: 0-10 Numeric Is Patient Pain Free? Yes Teaching: Wound Center Dressing Your Wound -Person Taught Patient,Family -Teaching Method Demonstration -Response to teaching Verbalize understanding WC - Visit Discharge Discharge Condition Stable Ambulatory Status Ambulatory Transportation Private Auto Accompanied by Medication Reconcilliation completed & No provided to patient/care provider Clinical Summary of Care Provided Yes Assessment/Plan Assessment/Plan (1) Skin ulcer of abdominal wall with fat layer exposed: CODE(S): L98.492 - Non-pressure chronic ulcer of skin of 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 (2) Diabetes mellitus, type II: CODE(S): E11.9 - Type 2 diabetes mellitus without complications QUALIFIERS: Diabetes mellitus willow analyst insulin use: with snf use Diabetes mellitus complication status: with other specified complication Qualified Code(s): E11.69 - Type 2 diabetes mellitus with other specified complication; Z79.4 - technical information specialist (current) use of insulin (3) Persistent atrial fibrillation: CODE(S): I48.19 - Other persistent atrial fibrillation (4) (HFpEF) heart failure with preserved ejection fraction: CODE(S): I50.30 - Unspecified diastolic (congestive) heart failure QUALIFIERS: Heart failure chronicity: unspecified Qualified Code(s): I50.30 - Unspecified diastolic (congestive) heart failure PLAN: Plan Debridement done as documented above, procedure was well-tolerated. 5th application of EpiFix done using 100% of product. Moistened with saline, covered with wound veil and secured with Steri-Strips. Aquacel extra and foam dressing over top to help with drainage. Leave dressing in place for a week however, they were advised that they could change outer dressing if soaked. They voiced understanding. His questions were answered and he was advised to call with any further questions or concerns. Follow-up in 1 week. This note was generated with [employer] dictation software. It may contain incorrect words, spelling, and punctuation that were not noted in checking the note before signing.
[2022-10-14 09:52] VITALS: BP 107/65; PULSE 93; RESP 20; TEMP 36.4; BMI 43.8
--- NOTE | 2022-10-14 10:49 | PN.PCM_ITS ---
History of Present Illness Date of Service: 10/14/22 Chief Complaint: Abdominal Ulcer History of Wound: Mr. Cochran is a 71yo who was referred to the wound center due to non-healing abdominal ulcer. Said to have started 6 weeks ago. Reopened along an old scar. History of heart failure and at that time had gained significant fluid weight and retention. Has since been diuresed with subsequent fluid loss however opening has remained. Has been applying bacitracin and gauze with no significant improvement. No chills, fever or otherwise feeling of unwell. History of diabetes mellitus type 2 and most recent A1c was at 9.3. Progress of Wound: Has had 5 applications of EpiFix. Slowly Improving. No new concerns at this time. Objective Data Objective Data Vital Signs: Vital Signs Temp Pulse Resp BP O2 Del Method 97.6 F L 93 20 H 107/65 Room Air 10/14/22 09:52 10/14/22 09:52 10/14/22 09:52 10/14/22 09:52 10/07/22 09:08 Oxygen Delivery Method Room Air Weight: 323 lb 1.489 oz Body Mass Index (BMI) 43.8 Charges/Coding Procedures Integumentary 150xxx-152xx: 83343 Skin sub graft trnk/arm/leg Physical Exam Const alert, oriented x3 and no apparent distress General Appearance: cooperative and comfortable HEENT normocephalic and head/scalp atraumatic Eyes EOMs intact bilaterally Neck full ROM and supple General: normal visual inspection Resp normal respiratory effort Effort and Inspection: able to speak in complete sentences Extremity General Extremity: edema Skin Wounds: wounds noted Neuro oriented x3, CN's II-XII intact bilaterally and moves all extremities Psych mental status grossly normal, thought process normal, cooperative and affect normal Debridement Note Debridement Note Wound debrided: Abdominal Type of Debridement: Excisional debridement Anesthesia Used: 4% Lidocaine Solution Depth: Down to and including healthy tissue and in the subcutaneous layer Percentage of wound debrided: 100 Instrument Used: 3mm curette Tissue Removed: Slough and devitalized tissue Severity: Fat Layer Exposed Amount of bleeding with debridement: Mild Bleeding Controlled with: Pressure Patient tolerated procedure: Patient tolerated procedure well Post-Debridement Measurements and Additional Note: Post-Debridement Measurements/Treatment MAGGIE - Nurse 1 - General Ulcer Assessment Start: 10/07/22 09:08 Freq: Status: Active Protocol: WCFER Activity Type Activity Date Activity User E-sign Co-sign Detail Recorded Client Recorded Date Recorded By Document 10/07/22 09:08 [facility] [id number] 10/07/22 09:14 [facility] Document 10/14/22 09:52 DL [id number] 10/14/22 10:00 DL 10/07/22 10/14/22 09:08 09:52 - Today's Visit Information Type of service Follow-up Visit Follow-up Visit (Physician/WATER POLLUTION CONTROL TECHNICIAN (Physician/WATER POLLUTION CONTROL TECHNICIAN ) ) Arrival Mode Ambulatory Ambulatory Transfer Assistance None None Accompanied by Patient Identification Verified (Name & Yes Yes ) Patient Requires Transmission-Based No No Precautions Finger Stick Blood Sugar(mg/dl) (if 272 indicated): Blood Sugar Stated by Patient Height and Weight Body Mass Index (BMI) 43.8 43.8 BMI Classification Obese Obese Vital Signs Temperature (97.8 F-99.1 F) 97.8 F 97.6 F L Temperature Source Temporal Temporal Pulse Rate (60-100) 79 93 Pulse Location Monitor Monitor Respiratory Rate (12-18) 16 20 H Respiratory rate source Observation Observation Oxygen Delivery Method Room Air Blood Pressure (90/60-120/80) 121/66 H 107/65 Blood Pressure Mean (mm Hg) 84 79 Source Monitor Monitor Position Sitting Blood Pressure Location Right Forearm History Since Last Visit- (Skip if this is Patient's initial visit) Have you changed medications since your No Yes last visit? Any new allergies or adverse reactions No No Had a fall/change in ADL's that may No No increase risk of falls Signs or symptoms of abuse and/or No No neglect since last visit Have you been in the hospital since your No No last visit? Has dressing in place as prescribed Yes Yes Has compression in place as prescribed N/A N/A Has offloadiing in place as prescribed N/A N/A Experienced any changes in pain level or No management Left Footwear Regular Shoe Right Footwear Regular Shoe Pain Scale: 0-10 Numeric Is Patient Pain Free? Yes Yes - Nurse 1 - General Ulcer Measurement Start: 10/07/22 09:08 Freq: Status: Active Protocol: Activity Type Activity Date Activity User E-sign Co-sign Detail Recorded Client Recorded Date Recorded By Document 10/07/22 09:08 [facility] [id number] 10/07/22 09:14 BM Document 10/14/22 09:52 DL [id number] 10/14/22 10:00 DL 10/07/22 10/14/22 09:08 09:52 Wound Center Nurse 1 #3 ABD -Combined with other wound No -Current Size (cm) - Length 0.5 0.6 -Current Size (cm) - Width 0.6 0.8 -Current Size (cm) - Depth 0.1 0.1 -Total Square Cm 0.30 0.48 -Date of Last Picture (Recall this 10/07/22 field) -Photo Taken Yes Yes -Epithelialization Small 1-33% -Tunneling No -Undermining/Tunneling No -Circular Undermining No -Exudate Amt Medium Small -Exudate Type Serosanguineous Serosanguineous -Wound Margin Distinct, Distinct, Outline Outline Attached Attached -Granulation Amt Medium (34-66%) Large (67-100%) -Granulation Quality Red Red -Slough/Fibrin Yes -Necrosis Amt Small (1-33%) None Present (0 %) -Necrotic Tissue Type Adherent Slough -Structure Exposed N/A -Texture (Kaitlin-wound Skin Appearance) Assessed, Scarring Scarring -Moisture (Kaitlin-wound Skin Appearance) Assessed No Abnormality -Color (Kaitlin-wound Skin Appearance) Assessed No Abnormality -Temperature (Kaitlin-wound Skin No Abnormality No Abnormality Appearance) (Pt Warm) (Pt Warm) -Tenderness on Palpation (Kaitlin-wound No No Skin Appearance) -Ulcer Cleansing Soap and Water Soap and Water -Foul Odor after Cleansing No No -Anesthetic Used 5% Lidocaine 5% Lidocaine Gel Gel WC - Nurse 2 - General Ulcer CM Notes Start: 10/07/22 09:08 Freq: Status: Active Protocol: Activity Type Activity Date Activity User E-sign Co-sign Detail Recorded Client Recorded Date Recorded By Document 10/07/22 09:24 MW [id number] 10/07/22 09:31 MW Document 10/14/22 10:13 MW [id number] 10/14/22 10:22 MW 10/07/22 10/14/22 09:24 10:13 Wound Center Nurse 2 #3 ABD -Time 09:24 10:13 -Correct Patient Yes Yes -Correct Side, Site, Position Yes Yes -Correct Procedure Yes Yes -Procedure Performed Yes Yes -Type of Procedure Debridement Debridement -Clinical Debridement Subcutaneous Subcutaneous -Tissue Removed Subcutaneous Subcutaneous -Post Debridement (cm) - Length 0.8 0.7 -Post Debridement (cm) - Width 0.9 0.9 -Post Debridement (cm) - Depth 0.1 0.1 -Total Square (Post) (cm) 0.72 0.63 -Area of Debridement (cm) - Length 0.8 0.7 -Area of Debridement (cm) - Width 0.9 0.9 -Total Square (Area) (cm) 0.72 0.63 -Tunneling No No -Undermining/Tunneling No No -Circular Undermining No No -Wound/Ulcer Outcome Not Healed Not Healed -Ulcer Cleansing Rinsed/ Rinsed/ Irrigated with Irrigated with Saline Saline -Foul Odor after Cleansing No No -Bioengineered Tissue Yes Yes -Type of Bioengineered Tissue Epifix 18mm Epifix 18mm Disc Disc -Expiration Date 06/06/27 06/06/27 -Product Lot Number [id number] -Percent Used 100 100 -Lot number of Saline Used [id number] -Bleeding Controlled with Pressure Pressure -Treatment Response Procedure Procedure Tolerated Well Tolerated Well -Offloading No No -Debridement - Subq, 1st 20sq cm No No -Apply Skin Sub - 1st 25 sq cm - Legs 1 1 -Epifix 18mm Disc 3 3 Pain Scale: 0-10 Numeric Is Patient Pain Free? Yes Yes - Nurse 3 - General Ulcer D/C NN Start: 10/07/22 09:08 Freq: Status: Active Protocol: Activity Type Activity Date Activity User E-sign Co-sign Detail Recorded Client Recorded Date Recorded By Document 10/07/22 09:31 MW [id number] 10/07/22 09:31 MW Document 10/14/22 10:22 MW [id number] 10/14/22 10:22 MW 10/07/22 10/14/22 09:31 10:22 Wound Care Center Nurse 3 #3 ABD -Ulcer Cleansing Not Cleansed Not Cleansed -Foul Odor after Cleansing No -Negative Pressure Wound Therapy N/A -Primary Dressing Applied Aquacel Extra, Aquacel Extra, Mepilex Border Mepilex Border -Aquacel Extra 1 1 -Mepilex Border 2 1 Treatment Response Procedure Procedure Tolerated Well Tolerated Well Pain Scale: 0-10 Numeric Is Patient Pain Free? Yes Yes Teaching: Wound Center Dressing Your Wound -Person Taught Patient,Family Patient,Family -Teaching Method Demonstration Discussion -Response to teaching Verbalize Verbalize understanding understanding WC - Visit Discharge Discharge Condition Stable Stable Ambulatory Status Ambulatory Ambulatory Transportation Private Auto Private Auto Accompanied by Medication Reconcilliation completed & No No provided to patient/care provider Clinical Summary of Care Provided Yes Yes Assessment/Plan Assessment/Plan (1) Skin ulcer of abdominal wall with fat layer exposed: CODE(S): L98.492 - Non-pressure chronic ulcer of skin of 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 (2) Diabetes mellitus, type II: CODE(S): E11.9 - Type 2 diabetes mellitus without complications QUALIFIERS: Diabetes mellitus termite technician insulin use: with termite technician use Diabetes mellitus complication status: with other specified complication Qualified Code(s): E11.69 - Type 2 diabetes mellitus with other specified complication; Z79.4 - senior care (current) use of insulin (3) Persistent atrial fibrillation: CODE(S): I48.19 - Other persistent atrial fibrillation (4) (HFpEF) heart failure with preserved ejection fraction: CODE(S): I50.30 - Unspecified diastolic (congestive) heart failure QUALIFIERS: Heart failure chronicity: unspecified Qualified Code(s): I50.30 - Unspecified diastolic (congestive) heart failure PLAN: Plan Debridement done as documented above, procedure was well-tolerated. 6th application of EpiFix done using 100% of product. Moistened with saline, covered with wound veil and secured with Steri-Strips. Aquacel extra and foam dressing over top to help with drainage. Leave dressing in place for a week however, they were advised that they could change outer dressing if soaked. They voiced understanding. His questions were answered and he was advised to call with any further questions or concerns. Follow-up in 1 week. This note was generated with [employer] software. It may contain incorrect words, spelling, and punctuation that were not noted in checking the note before signing.
[2022-10-21 10:13] VITALS: BP 113/63; PULSE 78; RESP 18; TEMP 36.1; BMI 43.8
--- NOTE | 2022-10-21 17:13 | PCM.WC.PN ---
History of Present Illness Date of Service: 10/21/22 Chief Complaint: Abdominal Ulcer History of Wound: Mr. Cochran is a 71yo who was referred to the wound center due to non-healing abdominal ulcer. Said to have started 6 weeks ago. Reopened along an old scar. History of heart failure and at that time had gained significant fluid weight and retention. Has since been diuresed with subsequent fluid loss however opening has remained. Has been applying bacitracin and gauze with no significant improvement. No chills, fever or otherwise feeling of unwell. History of diabetes mellitus type 2 and most recent A1c was at 9.3. Progress of Wound: Has had 6 applications of EpiFix. Appears closed today. No acute concerns. Objective Data Objective Data Vital Signs: Vital Signs Temp Pulse Resp BP O2 Del Method 97 F L 78 18 113/63 Room Air 10/21/22 10:13 10/21/22 10:13 10/21/22 10:13 10/21/22 10:13 10/07/22 09:08 Oxygen Delivery Method Room Air Weight: 323 lb 1.489 oz Body Mass Index (BMI) 43.8 Charges/Coding Visit Charges Office Visits / Consults: 86577 OV L3 Est Physical Exam Const alert, oriented x3 and no apparent distress General Appearance: cooperative and comfortable HEENT normocephalic and head/scalp atraumatic Eyes EOMs intact bilaterally Neck full ROM and supple General: normal visual inspection Resp normal respiratory effort Effort and Inspection: able to speak in complete sentences Extremity General Extremity: edema Skin Wounds: wounds noted Neuro oriented x3, CN's II-XII intact bilaterally and moves all extremities Psych mental status grossly normal, thought process normal, cooperative and affect normal Debridement Note Debridement Note Post-Debridement Measurements and Additional Note: Post-Debridement Measurements/Treatment MAGGIE - Nurse 1 - General Ulcer Assessment Start: 10/07/22 09:08 Freq: Status: Active Protocol: JULIO Activity Type Activity Date Activity User E-sign Co-sign Detail Recorded Client Recorded Date Recorded By Document 10/07/22 09:08 [facility] [id number] 10/07/22 09:14 BMF Document 10/14/22 09:52 DL [id number] 10/14/22 10:00 DL Document 10/21/22 10:13 RB [id number] 10/21/22 10:15 RB 10/07/22 10/14/22 10/21/22 09:08 09:52 10:13 - Today's Visit Information Type of service Follow-up Visit Follow-up Visit Follow-up Visit (Physician/INSOLE AND OUTSOLE PREPARER (Physician/INSOLE AND OUTSOLE PREPARER (Physician/INSOLE AND OUTSOLE PREPARER ) ) ) Arrival Mode Ambulatory Ambulatory Ambulatory Transfer Assistance None None None Accompanied by Patient Identification Verified (Name & Yes Yes Yes ) Patient Requires Transmission-Based No No No Precautions Finger Stick Blood Sugar(mg/dl) (if 272 indicated): Blood Sugar Stated by Patient Height and Weight Body Mass Index (BMI) 43.8 43.8 43.8 BMI Classification Obese Obese Obese Vital Signs Temperature (97.8 F-99.1 F) 97.8 F 97.6 F L 97 F L Temperature Source Temporal Temporal Temporal Pulse Rate (60-100) 79 93 78 Pulse Location Monitor Monitor Monitor Respiratory Rate (12-18) 16 20 H 18 Respiratory rate source Observation Observation Observation Oxygen Delivery Method Room Air Blood Pressure (90/60-120/80) 121/66 H 107/65 113/63 Blood Pressure Mean (mm Hg) 84 79 79 Source Monitor Monitor Monitor Position Sitting Semi-Fowlers Blood Pressure Location Right Forearm Left Arm History Since Last Visit- (Skip if this is Patient's initial visit) Have you changed medications since your No Yes No last visit? Any new allergies or adverse reactions No No No Had a fall/change in ADL's that may No No No increase risk of falls Signs or symptoms of abuse and/or No No No neglect since last visit Have you been in the hospital since your No No No last visit? Has dressing in place as prescribed Yes Yes Yes Has compression in place as prescribed N/A N/A No Has offloadiing in place as prescribed N/A N/A No Experienced any changes in pain level or No No management Left Footwear Regular Shoe Right Footwear Regular Shoe Pain Scale: 0-10 Numeric Is Patient Pain Free? Yes Yes Yes - Nurse 1 - General Ulcer Measurement Start: 10/07/22 09:08 Freq: Status: Active Protocol: Activity Type Activity Date Activity User E-sign Co-sign Detail Recorded Client Recorded Date Recorded By Document 10/07/22 09:08 [facility] [id number] 10/07/22 09:14 BMF Document 10/14/22 09:52 DL [id number] 10/14/22 10:00 DL Document 10/21/22 10:13 RB [id number] 10/21/22 10:15 RB 10/07/22 10/14/22 10/21/22 09:08 09:52 10:13 Wound Center Nurse 1 #3 ABD -Combined with other wound No No -Current Size (cm) - Length 0.5 0.6 0.1 -Current Size (cm) - Width 0.6 0.8 0.1 -Current Size (cm) - Depth 0.1 0.1 0.1 -Total Square Cm 0.30 0.48 0.01 -Date of Last Picture (Recall this 10/07/22 field) -Photo Taken Yes Yes Yes -Epithelialization Small 1-33% -Tunneling No No -Undermining/Tunneling No No -Circular Undermining No No -Exudate Amt Medium Small Medium -Exudate Type Serosanguineous Serosanguineous Serosanguineous -Wound Margin Distinct, Distinct, Distinct, Outline Outline Outline Attached Attached Attached -Granulation Amt Medium (34-66%) Large (67-100%) Medium (34-66%) -Granulation Quality Red Red [place] -Slough/Fibrin Yes Yes -Necrosis Amt Small (1-33%) None Present (0 Medium (34-66%) %) -Necrotic Tissue Type Adherent Slough Adherent Slough -Structure Exposed N/A N/A -Texture (Kaitlin-wound Skin Appearance) Assessed, Scarring Assessed, Scarring Scarring -Moisture (Kaitlin-wound Skin Appearance) Assessed No Abnormality Assessed -Color (Kaitlin-wound Skin Appearance) Assessed No Abnormality Assessed -Temperature (Kaitlin-wound Skin No Abnormality No Abnormality No Abnormality Appearance) (Pt Warm) (Pt Warm) (Pt Warm) -Tenderness on Palpation (Kaitlin-wound No No No Skin Appearance) -Ulcer Cleansing Soap and Water Soap and Water Wound Cleanser -Foul Odor after Cleansing No No No -Anesthetic Used 5% Lidocaine 5% Lidocaine 5% Lidocaine Gel Gel Gel WC - Nurse 2 - General Ulcer CM Notes Start: 10/07/22 09:08 Freq: Status: Active Protocol: Activity Type Activity Date Activity User E-sign Co-sign Detail Recorded Client Recorded Date Recorded By Document 10/07/22 09:24 MW [id number] 10/07/22 09:31 MW Document 10/14/22 10:13 MW [id number] 10/14/22 10:22 MW Document 10/21/22 10:45 [id number] 10/21/22 10:47 10/07/22 10/14/22 10/21/22 09:24 10:13 10:45 Wound Center Nurse 2 #3 ABD -Time 09:24 10:13 -Correct Patient Yes Yes No -Correct Side, Site, Position Yes Yes No -Correct Procedure Yes Yes No -Procedure Performed Yes Yes No -Type of Procedure Debridement Debridement -Clinical Debridement Subcutaneous Subcutaneous -Tissue Removed Subcutaneous Subcutaneous -Post Debridement (cm) - Length 0.8 0.7 0 -Post Debridement (cm) - Width 0.9 0.9 0 -Post Debridement (cm) - Depth 0.1 0.1 0 -Total Square (Post) (cm) 0.72 0.63 0 -Area of Debridement (cm) - Length 0.8 0.7 0 -Area of Debridement (cm) - Width 0.9 0.9 0 -Total Square (Area) (cm) 0.72 0.63 0 -Tunneling No No -Undermining/Tunneling No No -Circular Undermining No No -Wound/Ulcer Outcome Not Healed Not Healed Healed- Epithelialized -Ulcer Cleansing Rinsed/ Rinsed/ Irrigated with Irrigated with Saline Saline -Foul Odor after Cleansing No No -Bioengineered Tissue Yes Yes -Type of Bioengineered Tissue Epifix 18mm Epifix 18mm Disc Disc -Expiration Date 06/06/27 06/06/27 -Product Lot Number [id number] -Percent Used 100 100 -Lot number of Saline Used [id number] -Bleeding Controlled with Pressure Pressure -Treatment Response Procedure Procedure Tolerated Well Tolerated Well -Offloading No No -Debridement - Subq, 1st 20sq cm No No No -Apply Skin Sub - 1st 25 sq cm - Legs 1 1 -Epifix 18mm Disc 3 3 Pain Scale: 0-10 Numeric Is Patient Pain Free? Yes Yes Yes WC - Nurse 3 - General Ulcer D/C NN Start: 10/07/22 09:08 Freq: Status: Active Protocol: Activity Type Activity Date Activity User E-sign Co-sign Detail Recorded Client Recorded Date Recorded By Document 10/07/22 09:31 MW [id number] 10/07/22 09:31 MW Document 10/14/22 10:22 MW [id number] 10/14/22 10:22 MW Document 10/21/22 10:47 [id number] 10/21/22 10:48 JF 10/07/22 10/14/22 10/21/22 09:31 10:22 10:47 Wound Care Center Nurse 3 #3 ABD -Ulcer Cleansing Not Cleansed Not Cleansed Rinsed/ Irrigated with Saline -Foul Odor after Cleansing No No -Negative Pressure Wound Therapy N/A -Primary Dressing Applied Aquacel Extra, Aquacel Extra, Mepilex Border, Mepilex Border Mepilex Border Promogran -Aquacel Extra 1 1 -Mepilex Border 2 1 1 -Promogran 1 Treatment Response Procedure Procedure Tolerated Well Tolerated Well Pain Scale: 0-10 Numeric Is Patient Pain Free? Yes Yes Yes Teaching: Wound Center Dressing Your Wound -Person Taught Patient,Family Patient,Family -Teaching Method Demonstration Discussion -Response to teaching Verbalize Verbalize understanding understanding WC - Visit Discharge Discharge Condition Stable Stable Stable Ambulatory Status Ambulatory Ambulatory Ambulatory Transportation Private Auto Private Auto Private Auto Accompanied by Medication Reconcilliation completed & No No Yes provided to patient/care provider Clinical Summary of Care Provided Yes Yes Yes Assessment/Plan Assessment/Plan (1) Skin ulcer of abdominal wall with fat layer exposed: CODE(S): L98.492 - Non-pressure chronic ulcer of skin of 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 (2) Diabetes mellitus, type II: CODE(S): E11.9 - Type 2 diabetes mellitus without complications QUALIFIERS: Diabetes mellitus prison insulin use: with prison use Diabetes mellitus complication status: with other specified complication Qualified Code(s): E11.69 - Type 2 diabetes mellitus with other specified complication; Z79.4 - FPC (current) use of insulin (3) Persistent atrial fibrillation: CODE(S): I48.19 - Other persistent atrial fibrillation (4) (HFpEF) heart failure with preserved ejection fraction: CODE(S): I50.30 - Unspecified diastolic (congestive) heart failure QUALIFIERS: Heart failure chronicity: unspecified Qualified Code(s): I50.30 - Unspecified diastolic (congestive) heart failure PLAN: Plan Ulcer appears healed. 6 applications of EpiFix in total, no debridement done today. Moistened Promogran daily, cover with foam dressing. Continue other chronic wound care management/recommendation. His questions were answered and he was advised to let us know if he has any further questions or concerns. Follow-up in a week. This note was generated with [employer] dictation software. It may contain incorrect words, spelling, and punctuation that were not noted in checking the note before signing.
[2022-10-28 09:51] VITALS: BP 120/62; PULSE 81; RESP 22; TEMP 36.2; BMI 43.8
--- NOTE | 2022-10-28 10:40 | PCM.WC.PN ---
History of Present Illness Date of Service: 10/28/22 Chief Complaint: Abdominal Ulcer History of Wound: Mr. Cochran is a 71yo who was referred to the wound center due to non-healing abdominal ulcer. Said to have started 6 weeks ago. Reopened along an old scar. History of heart failure and at that time had gained significant fluid weight and retention. Has since been diuresed with subsequent fluid loss however opening has remained. Has been applying bacitracin and gauze with no significant improvement. No chills, fever or otherwise feeling of unwell. History of diabetes mellitus type 2 and most recent A1c was at 9.3. Progress of Wound: Healed. No new concerns at this time. Objective Data Objective Data Vital Signs: Vital Signs Temp Pulse Resp BP O2 Del Method 97.1 F L 81 22 H 120/62 Room Air 10/28/22 09:51 10/28/22 09:51 10/28/22 09:51 10/28/22 09:51 10/07/22 09:08 Oxygen Delivery Method Room Air Weight: 323 lb 1.489 oz Body Mass Index (BMI) 43.8 Charges/Coding Visit Charges Office Visits / Consults: 51810 OV L3 Est Physical Exam Const alert, oriented x3 and no apparent distress General Appearance: cooperative and comfortable HEENT normocephalic and head/scalp atraumatic Eyes EOMs intact bilaterally Neck full ROM and supple General: normal visual inspection Resp normal respiratory effort Effort and Inspection: able to speak in complete sentences Extremity General Extremity: edema Neuro oriented x3, CN's II-XII intact bilaterally and moves all extremities Psych mental status grossly normal, thought process normal, cooperative and affect normal Debridement Note Debridement Note Post-Debridement Measurements and Additional Note: Post-Debridement Measurements/Treatment WC - Nurse 1 - General Ulcer Assessment Start: 10/07/22 09:08 Freq: Status: Active Protocol: [email or web address] Activity Type Activity Date Activity User E-sign Co-sign Detail Recorded Client Recorded Date Recorded By Document 10/07/22 09:08 [facility] [id number] 10/07/22 09:14 BM Document 10/14/22 09:52 DL [id number] 10/14/22 10:00 DL Document 10/21/22 10:13 RB [id number] 10/21/22 10:15 RB Document 10/28/22 09:51 DL [id number] 10/28/22 09:58 DL 10/07/22 10/14/22 10/21/22 09:08 09:52 10:13 WC - Today's Visit Information Type of service Follow-up Visit Follow-up Visit Follow-up Visit (Physician/VP PUBLISHER DEVELOPMENT (Physician/VP PUBLISHER DEVELOPMENT (Physician/VP PUBLISHER DEVELOPMENT ) ) ) Arrival Mode Ambulatory Ambulatory Ambulatory Transfer Assistance None None None Accompanied by Patient Identification Verified (Name & Yes Yes Yes ) Patient Requires Transmission-Based No No No Precautions Finger Stick Blood Sugar(mg/dl) (if 272 indicated): Blood Sugar Stated by Patient Height and Weight Body Mass Index (BMI) 43.8 43.8 43.8 BMI Classification Obese Obese Obese Vital Signs Temperature (97.8 F-99.1 F) 97.8 F 97.6 F L 97 F L Temperature Source Temporal Temporal Temporal Pulse Rate (60-100) 79 93 78 Pulse Location Monitor Monitor Monitor Respiratory Rate (12-18) 16 20 H 18 Respiratory rate source Observation Observation Observation Oxygen Delivery Method Room Air Blood Pressure (90/60-120/80) 121/66 H 107/65 113/63 Blood Pressure Mean (mm Hg) 84 79 79 Source Monitor Monitor Monitor Position Sitting Semi-Fowlers Blood Pressure Location Right Forearm Left Arm History Since Last Visit- (Skip if this is Patient's initial visit) Have you changed medications since your No Yes No last visit? Any new allergies or adverse reactions No No No Had a fall/change in ADL's that may No No No increase risk of falls Signs or symptoms of abuse and/or No No No neglect since last visit Have you been in the hospital since your No No No last visit? Has dressing in place as prescribed Yes Yes Yes Has compression in place as prescribed N/A N/A No Has offloadiing in place as prescribed N/A N/A No Experienced any changes in pain level or No No management Left Footwear Regular Shoe Right Footwear Regular Shoe Pain Scale: 0-10 Numeric Is Patient Pain Free? Yes Yes Yes 10/28/22 09:51 WC - Today's Visit Information Type of service Follow-up Visit (Physician/VP PUBLISHER DEVELOPMENT ) Arrival Mode Ambulatory Transfer Assistance None Accompanied by Patient Identification Verified (Name & Yes ) Patient Requires Transmission-Based No Precautions Finger Stick Blood Sugar(mg/dl) (if 88 indicated): Blood Sugar Stated by Patient Height and Weight Body Mass Index (BMI) 43.8 BMI Classification Obese Vital Signs Temperature (97.8 F-99.1 F) 97.1 F L Temperature Source Temporal Pulse Rate (60-100) 81 Pulse Location Monitor Respiratory Rate (12-18) 22 H Respiratory rate source Observation Oxygen Delivery Method Blood Pressure (90/60-120/80) 120/62 Blood Pressure Mean (mm Hg) 81 Source Monitor Position Blood Pressure Location History Since Last Visit- (Skip if this is Patient's initial visit) Have you changed medications since your No last visit? Any new allergies or adverse reactions No Had a fall/change in ADL's that may No increase risk of falls Signs or symptoms of abuse and/or No neglect since last visit Have you been in the hospital since your No last visit? Has dressing in place as prescribed Yes Has compression in place as prescribed N/A Has offloadiing in place as prescribed N/A Experienced any changes in pain level or No management Left Footwear Right Footwear Pain Scale: 0-10 Numeric Is Patient Pain Free? Yes WC - Nurse 1 - General Ulcer Measurement Start: 10/07/22 09:08 Freq: Status: Active Protocol: Activity Type Activity Date Activity User E-sign Co-sign Detail Recorded Client Recorded Date Recorded By Document 10/07/22 09:08 [facility] [id number] 10/07/22 09:14 BM Document 10/14/22 09:52 DL [id number] 10/14/22 10:00 DL Document 10/21/22 10:13 RB [id number] 10/21/22 10:15 RB Document 10/28/22 09:51 DL [id number] 10/28/22 09:58 DL 10/07/22 10/14/22 10/21/22 09:08 09:52 10:13 Wound Center Nurse 1 #3 ABD -Combined with other wound No No -Current Size (cm) - Length 0.5 0.6 0.1 -Current Size (cm) - Width 0.6 0.8 0.1 -Current Size (cm) - Depth 0.1 0.1 0.1 -Total Square Cm 0.30 0.48 0.01 -Date of Last Picture (Recall this 10/07/22 field) -Photo Taken Yes Yes Yes -Epithelialization Small 1-33% -Tunneling No No -Undermining/Tunneling No No -Circular Undermining No No -Exudate Amt Medium Small Medium -Exudate Type Serosanguineous Serosanguineous Serosanguineous -Wound Margin Distinct, Distinct, Distinct, Outline Outline Outline Attached Attached Attached -Granulation Amt Medium (34-66%) Large (67-100%) Medium (34-66%) -Granulation Quality Red Red [place] -Slough/Fibrin Yes Yes -Necrosis Amt Small (1-33%) None Present (0 Medium (34-66%) %) -Necrotic Tissue Type Adherent Slough Adherent Slough -Structure Exposed N/A N/A -Texture (Kaitlin-wound Skin Appearance) Assessed, Scarring Assessed, Scarring Scarring -Moisture (Kaitlin-wound Skin Appearance) Assessed No Abnormality Assessed -Color (Kaitlin-wound Skin Appearance) Assessed No Abnormality Assessed -Temperature (Kaitiln-wound Skin No Abnormality No Abnormality No Abnormality Appearance) (Pt Warm) (Pt Warm) (Pt Warm) -Tenderness on Palpation (Kaitlin-wound No No No Skin Appearance) -Ulcer Cleansing Soap and Water Soap and Water Wound Cleanser -Foul Odor after Cleansing No No No -Anesthetic Used 5% Lidocaine 5% Lidocaine 5% Lidocaine Gel Gel Gel 10/28/22 09:51 Wound Center Nurse 1 #3 ABD -Combined with other wound -Current Size (cm) - Length 0 -Current Size (cm) - Width 0 -Current Size (cm) - Depth 0 -Total Square Cm 0 -Date of Last Picture (Recall this field) -Photo Taken Yes -Epithelialization -Tunneling -Undermining/Tunneling -Circular Undermining -Exudate Amt None Present -Exudate Type -Wound Margin Flat & Intact -Granulation Amt Large (67-100%) -Granulation Quality [place] -Slough/Fibrin -Necrosis Amt None Present (0 %) -Necrotic Tissue Type -Structure Exposed N/A -Texture (Kaitlin-wound Skin Appearance) Scarring -Moisture (Kaitlin-wound Skin Appearance) No Abnormality -Color (Kaitlin-wound Skin Appearance) No Abnormality -Temperature (Kaitlin-wound Skin No Abnormality Appearance) (Pt Warm) -Tenderness on Palpation (Kaitlin-wound No Skin Appearance) -Ulcer Cleansing -Foul Odor after Cleansing No -Anesthetic Used WC - Nurse 2 - General Ulcer CM Notes Start: 10/07/22 09:08 Freq: Status: Active Protocol: Activity Type Activity Date Activity User E-sign Co-sign Detail Recorded Client Recorded Date Recorded By Document 10/07/22 09:24 MW [id number] 10/07/22 09:31 MW Document 10/14/22 10:13 MW [id number] 10/14/22 10:22 MW Document 10/21/22 10:45 JF [id number] 10/21/22 10:47 JF 10/07/22 10/14/22 10/21/22 09:24 10:13 10:45 Wound Center Nurse 2 #3 ABD -Time 09:24 10:13 -Correct Patient Yes Yes No -Correct Side, Site, Position Yes Yes No -Correct Procedure Yes Yes No -Procedure Performed Yes Yes No -Type of Procedure Debridement Debridement -Clinical Debridement Subcutaneous Subcutaneous -Tissue Removed Subcutaneous Subcutaneous -Post Debridement (cm) - Length 0.8 0.7 0 -Post Debridement (cm) - Width 0.9 0.9 0 -Post Debridement (cm) - Depth 0.1 0.1 0 -Total Square (Post) (cm) 0.72 0.63 0 -Area of Debridement (cm) - Length 0.8 0.7 0 -Area of Debridement (cm) - Width 0.9 0.9 0 -Total Square (Area) (cm) 0.72 0.63 0 -Tunneling No No -Undermining/Tunneling No No -Circular Undermining No No -Wound/Ulcer Outcome Not Healed Not Healed Healed- Epithelialized -Ulcer Cleansing Rinsed/ Rinsed/ Irrigated with Irrigated with Saline Saline -Foul Odor after Cleansing No No -Bioengineered Tissue Yes Yes -Type of Bioengineered Tissue Epifix 18mm Epifix 18mm Disc Disc -Expiration Date 06/06/27 06/06/27 -Product Lot Number [id number] -Percent Used 100 100 -Lot number of Saline Used [id number] -Bleeding Controlled with Pressure Pressure -Treatment Response Procedure Procedure Tolerated Well Tolerated Well -Offloading No No -Debridement - Subq, 1st 20sq cm No No No -Apply Skin Sub - 1st 25 sq cm - Legs 1 1 -Epifix 18mm Disc 3 3 Pain Scale: 0-10 Numeric Is Patient Pain Free? Yes Yes Yes - Nurse 3 - General Ulcer D/C NN Start: 10/07/22 09:08 Freq: Status: Active Protocol: Activity Type Activity Date Activity User E-sign Co-sign Detail Recorded Client Recorded Date Recorded By Document 10/07/22 09:31 MW [id number] 10/07/22 09:31 MW Document 10/14/22 10:22 MW [id number] 10/14/22 10:22 MW Document 10/21/22 10:47 [id number] 10/21/22 10:48 JF 10/07/22 10/14/22 10/21/22 09:31 10:22 10:47 Wound Care Center Nurse 3 #3 ABD -Ulcer Cleansing Not Cleansed Not Cleansed Rinsed/ Irrigated with Saline -Foul Odor after Cleansing No No -Negative Pressure Wound Therapy N/A -Primary Dressing Applied Aquacel Extra, Aquacel Extra, Mepilex Border, Mepilex Border Mepilex Border Promogran -Aquacel Extra 1 1 -Mepilex Border 2 1 1 -Promogran 1 Treatment Response Procedure Procedure Tolerated Well Tolerated Well Pain Scale: 0-10 Numeric Is Patient Pain Free? Yes Yes Yes Teaching: Wound Center Dressing Your Wound -Person Taught Patient,Family Patient,Family -Teaching Method Demonstration Discussion -Response to teaching Verbalize Verbalize understanding understanding WC - Visit Discharge Discharge Condition Stable Stable Stable Ambulatory Status Ambulatory Ambulatory Ambulatory Transportation Private Auto Private Auto Private Auto Accompanied by Medication Reconcilliation completed & No No Yes provided to patient/care provider Clinical Summary of Care Provided Yes Yes Yes Assessment/Plan Assessment/Plan (1) Skin ulcer of abdominal wall with fat layer exposed: CODE(S): L98.492 - Non-pressure chronic ulcer of skin of 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 (2) Diabetes mellitus, type II: CODE(S): E11.9 - Type 2 diabetes mellitus without complications QUALIFIERS: Diabetes mellitus [facility] insulin use: with terminal [place] use Diabetes mellitus complication status: with other specified complication Qualified Code(s): E11.69 - Type 2 diabetes mellitus with other specified complication; Z79.4 - retirement (current) use of insulin (3) Persistent atrial fibrillation: CODE(S): I48.19 - Other persistent atrial fibrillation (4) (HFpEF) heart failure with preserved ejection fraction: CODE(S): I50.30 - Unspecified diastolic (congestive) heart failure QUALIFIERS: Heart failure chronicity: unspecified Qualified Code(s): I50.30 - Unspecified diastolic (congestive) heart failure PLAN: Plan Remains healed. No new concerns at this time. Continue moistened Promogran and foam dressing/gauze for 2 weeks. Avoid pressure to the area. Continue other chronic wound care management/recommendation. His questions were answered and he was advised to let us know if he has any further questions or concerns. Discharge from the wound center. This note was generated with [employer] dictation software. It may contain incorrect words, spelling, and punctuation that were not noted in checking the note before signing.
== END 2022-11-03 23:59 | disposition home or self-care (01) ==
LOC: WC 10:00
PROVIDERS: PCP Family Medicine Geriatric Medicine; Referring Provider Family Medicine Geriatric Medicine; Visit Provider Internal Medicine
DX: L98.492 Non-pressure chronic ulcer of skin of 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 (principal); I50.30 Unspecified diastolic (congestive) heart failure; I48.19 Other persistent atrial fibrillation; E11.9 Type 2 diabetes mellitus without complications; Z79.4 Long term (current) use of insulin; Z79.01 Long term (current) use of anticoagulants; Z79.899 Other long term (current) drug therapy
CPT/HCPCS: 15271; 99212; 99213; Q4186; G0463

== ENCOUNTER → 2022-12-09 | Outpatient (CLI) | payer MEDICARE, OTHER, SELFPAY ==
[2022-12-09 13:59] LABS: Amphetamine Urine VISTA NEGATIVE (<1000 ng/mL); Barbiturate Urine VISTA NEGATIVE (< 200 ng/mL); Benzodiazepine Urine VISTA NEGATIVE (< 200 ng/mL); Cocaine Urine VISTA NEGATIVE (< 300 ng/mL); Ecstacy Urine VISTA NEGATIVE (< 500 ng/mL); Methadone Urine VISTA NEGATIVE (< 300 ng/mL); PCP Urine VISTA NEGATIVE (< 25 ng/mL); THC Urine VISTA NEGATIVE (< 50 ng/mL); Vista UDS pH Range 5
== END | disposition home or self-care (01) ==
PROVIDERS: PCP Family Medicine Geriatric Medicine; Referring Provider Anesthesiology Pain Medicine; Visit Provider Anesthesiology Pain Medicine
DX: F11.20 Opioid dependence, uncomplicated (principal)
CPT/HCPCS: 80307

== ENCOUNTER 2022-12-24 12:00 | Outpatient (RCR) | payer MEDICARE, OTHER, SELFPAY ==
--- NOTE | 2022-11-26 09:52 | HP.PTEVAL ---
Patient's Visit Information RACHEL ZAFAR is a 72 year old M referred to Physical Therapy by Dr. Obinna Melo MD with a diagnosis of Leg weakness / balance. Date of Evaluation: 11/26/22 Physical Therapist: Shravan Burton, DPT, OCS, CSCS - Visit Plan Frequency: 2x /Week Duration: 4-6 Weeks Plan: 2x/week for 4-6 weeks for... 1. NS education and progression of home walking, core strength, back ROM,quad and HS stretching ex to general ex as tolerated.Lots of walking to tolerance. exit strategy is to home exercises with pics. consider pool if not progressing but open wound on belly currently. - Subjective I have problems standing up and walking long distances, that 200 feet was rough to eval room. I have spinal stenosis and disc issues. Had to stop last bout of therapy due to would breaking open in 2021. It was helping though. Was doing exercises strengthening exercises. Was easier to get on mower at the time. Steps [place] the [place] office are hard. Back got worse and gets worn out. No back pain right now. Rubbing back helps. Standing to shave and get in shower makes him painful to stand that long. Gets pain down L leg at night if lying on isde. Comfortable when sitting. No numbness or tingling in legs. Saw Dr. Soto and had MRI and is not an surgical option. Sent to [facility] for injections and pain pills and [facility] sent to therapy. Typical day is eating sleeping. Tinkers around sometimes. Can mow the lawn on a tractor. No exercises. Bends forward to stretch sometimes. Has band to pull but doesn't use it. Basic ADLS are needing assist to put shoes and pants on, clean up #2 in restroom. Cannot reach feet or rear end. Hobbies: not now. Steps to get in are getting done. - Pain LBP Pain Intensity (Out of 10): 0 Pain Intensity Range: 0, 8 Comment: sit OK, stand no good. Standing worse in back, worse am. - Objective Walks slowly back to PT I with good balance but fatigued, short steps and slumps into chair upon arrival 250 feet later. transfer chair and bed I but obvious core weakness. LB AROM ext max limited, flexion mod limited, pain with ext, stretchy with flexion, SB mod limited without pain. UE and LE AROM WFL but max tightness in B quads, psoas and HS, - slump, - SLR. reflexes 2/3 patella and achilles. Sensation LE WNL to gross light touch. strength ankles 4/5, knee flexion/extension 4-, hip abd, flexion ext all 3/5, no myotomal problems. Very obese adn out of shapoe easily with standing and walking but back pain less limiting than leg fatigue and overall fatigue. Pelvic movement is minimal but can find NS, hard to hold in standing. - Balance/Special Test Scores Functional Gait Assessment Score: 22 % Disability: 26.6700 Lower Extremity Functional Score: 21 - Goals Goal 1:: I appropriate HEp for leg stretches, core strength, back ROm and general strength/walking to limit future problems. Goal Time Frame: 4-6 Weeks Goal 2:: Pain in LB 2/10 at worst and 50% better Goal Time Frame: 4-6 Weeks Goal 3:: Walk into and out of post office without pain or fatigue Goal Time Frame: 4-6 Weeks Goal 4:: Put on shoes I Goal Time Frame: 4-6 Weeks Goal 5:: LEFS score 45 Goal Time Frame: 4-6 Weeks - Rehabilitation Potential Physical Therapy Diagnosis: poor shape and back likely stenosis limiting mobility Rehabilitation Potential: Fair - Anticipated Interventions Patient/Client Instruction: Educate patient on: Condition, Plan of Care For the Purpose of:: To decrease pain, To increase ROM, To improve nutrient delivery to tissue, To improve muscle performance and motor function, To increase tolerance to activity/condition/position, To improve ability of physical actions for home/community/work/leisure Therapeutic Exercise to Include: Strength training, Flexibilty training, Gait and locomotor training, Passive ROM, Active ROM, Dynamic Lumbar Stabilization For the Purpose of:: To decrease pain, To increase ROM, To improve nutrient delivery to tissue, To improve muscle performance and motor function, To improve ability of physical actions for home/community/work/leisure, To improve gait and locomotor functions Thank you for the opportunity to evaluate your patient. For Medicare and Medicare HMO plans, please review the plan of care and approve it. It will need to be FAXED BACK to us at [phone] for Medicare purposes. For Medicare only, by signing this I certify the plan of care. Please let me know if there are questions or concerns regarding this plan of care. Physician Signature: Date:
--- NOTE | 2023-01-04 14:52 | HP.PT.NRP ---
Patient Information Patient Information: RACHEL ZAFAR was seen in my office for initial evaluation on 11/26/22. The following Plan of Care was established for this patient: POC Established Initial Frequency: 2x /Week Initial Duration: 4-6 Weeks Anticipated Interventions Patient/Client Instruction: Educate patient on: Condition and Plan of Care For the Purpose of:: To decrease pain, To increase ROM, To improve nutrient delivery to tissue, To improve muscle performance and motor function, To increase tolerance to activity/condition/position and To improve ability of physical actions for home/community/work/leisure Therapeutic Exercise to Include: Strength training, Flexibilty training, Gait and locomotor training, Passive ROM, Active ROM and Dynamic Lumbar Stabilization For the Purpose of:: To decrease pain, To increase ROM, To improve nutrient delivery to tissue, To improve muscle performance and motor function, To improve ability of physical actions for home/community/work/leisure and To improve gait and locomotor functions Last Seen Last Seen: This patient was last seen in our office 12/24/22. Pertinent comments regarding their Physical therapy will appear below: Pt seen 7 visits and was 60% better. He was working toward a final HEP but has called to cancel all appointments due to on a new med adn really fatigued and can't do much for which she said doctor is aware. I will discontinue therapy at this time at family request. At this point I will be discontinuing this patient from physical therapy. I would be happy to see this patient again in the future if found appropriate by the physician. Thank you! Shravan Burton, DPT, OCS, CSCS Balance/Gait/Functional tests Balance/Special Test Scores Functional Gait Assessment Score: 22 % Disability: 26.6700 Lower Extremity Functional Score: 34
== END 2022-12-24 19:00 | disposition home or self-care (01) ==
LOC: PT 12:00
PROVIDERS: PCP Family Medicine Geriatric Medicine; Referring Provider Anesthesiology Pain Medicine; Visit Provider Anesthesiology Pain Medicine
DX: R29.898 Other symptoms and signs involving the musculoskeletal system (principal)
CPT/HCPCS: 97110; 97162; 97530

== ENCOUNTER → 2023-01-10 | Outpatient (CLI) | payer MEDICARE, OTHER, SELFPAY ==
[2023-01-10 12:50] LABS: Absolute Lymphocyte Count 2.22 X10^3/uL (0.83-4.51); Absolute Neutrophil Count 5.2 X10^3/uL (2.0-7.7); Basophil# 0.03 X10^3/uL; Basophil% 0.4 % (0-1); Eosinophil# 0.13 X10^3/uL; Eosinophils% 1.6 % (0-5); Hematocrit 46.6 % (40-54); Hemoglobin 15.6 g/dL (13.0-16.5); Lymphocyte # 2.22 X10^3/ul (0.83-4.51); Lymphocyte % 26.6 % (19-41); Mean Corp Hgb Conc 33.5 g/dL (32-36); Mean Corpuscular Hgb 30.5 pg (27.0-32.0); Mean Platelet Vol. 12.5 fl (6.2-12.0); Monocyte% 9.6 % (0-10); NRBC Flagged by Analyzer 0 % (0-5); Neutrophil # 5.16 X10^3/uL (2.7-7.7); Neutrophil % 61.6 % (47-70); Platelet Count 140 K/mm3 (150-450); RBC Distribution Width CV 15.3 % (11.6-14.6); RBC Distribution Width SD 50.5 fl (35.1-43.9); Red Blood Count 5.12 M/mm3 (4.6-6.2); White Blood Count 8.4 K/mm3 (4.4-11.0)
[2023-01-10 13:18] LABS: ALB/GLOB Ratio 0.7 RATIO (0.9-2.4); AST(SGOT) 16 U/L (15-37); Alanine Aminotransfer ALT/SGPT 19 U/L (16-61); Albumin, Serum 2.7 g/dL (3.2-5.0); Alkaline Phosphatase 99 U/L (45-117); Anion Gap 5 (5-15); BUN 32 mg/dL (7-18); BUN/Creat Ratio 15.6 RATIO (10-20); Chloride 107 mmol/L (98-107); Creatinine, Serum 2.05 mg/dL (0.70-1.30); EST Glomerular Filtration Rate 34 mL/min (>60); Est Glom Filt Rate - Afr Amer 41 mL/min (>60); Glucose 155 mg/dL (74-106); Potassium 4.4 mmol/L (3.5-5.1); Protein, Total 6.7 g/dL (6.4-8.2); Sodium Level 139 mmol/L (136-145); Thyroid Stim Hormone (TSH) 5.41 uIU/mL (0.358-3.74)
== END | disposition home or self-care (01) ==
PROVIDERS: PCP Family Medicine Geriatric Medicine; Visit Provider Family Medicine Geriatric Medicine
DX: I10 Essential (primary) hypertension (principal); E11.65 Type 2 diabetes mellitus with hyperglycemia; E55.9 Vitamin D deficiency, unspecified
CPT/HCPCS: 36415; 80053; 82306; 84443; 85025

== ENCOUNTER → 2023-02-01 | Outpatient (CLI) | payer MEDICARE, OTHER, SELFPAY ==
[2023-02-01 14:20] LABS: BUN 39 mg/dL (7-18); BUN/Creat Ratio 19.8 RATIO (10-20); Calcium,Total 8.9 mg/dL (8.5-10.1); Chloride 102 mmol/L (98-107); Creatinine, Serum 1.97 mg/dL (0.70-1.30); EST Glomerular Filtration Rate 36 mL/min (>60); Est Glom Filt Rate - Afr Amer 43 mL/min (>60); Glucose 172 mg/dL (74-106); Phosphorus 3.4 mg/dL (2.5-4.9); Potassium 3.5 mmol/L (3.5-5.1); Sodium Level 139 mmol/L (136-145)
[2023-02-01 14:22] LABS: Protein:Creat Ratio 90 mg/g CRE (0-200)
== END | disposition home or self-care (01) ==
PROVIDERS: PCP Family Medicine Geriatric Medicine; Visit Provider Internal Medicine Nephrology
DX: E11.22 Type 2 diabetes mellitus with diabetic chronic kidney disease (principal); N18.32 Chronic kidney disease, stage 3b
CPT/HCPCS: 36415; 80069; 82570; 84156

== ENCOUNTER → 2023-04-14 | Outpatient (CLI) | payer MEDICARE, OTHER, SELFPAY ==
[2023-04-14 13:32] LABS: Absolute Lymphocyte Count 1.94 X10^3/uL (0.83-4.51); Absolute Neutrophil Count 6.2 X10^3/uL (2.0-7.7); Basophil# 0.04 X10^3/uL; Basophil% 0.4 % (0-1); Eosinophil# 0.11 X10^3/uL; Eosinophils% 1.2 % (0-5); Hematocrit 43.7 % (40-54); Lymphocyte # 1.94 X10^3/ul (0.83-4.51); Lymphocyte % 21.2 % (19-41); Mean Corpuscular Hgb 29.9 pg (27.0-32.0); Mean Corpuscular Volume 93.2 fL (80-94); Mean Platelet Vol. 12.6 fl (6.2-12.0); Monocyte# 0.84 X10^3/uL; Monocyte% 9.2 % (0-10); NRBC Flagged by Analyzer 0 % (0-5); Neutrophil # 6.17 X10^3/uL (2.7-7.7); Neutrophil % 67.5 % (47-70); Platelet Count 151 K/mm3 (150-450); RBC Distribution Width CV 15.4 % (11.6-14.6); RBC Distribution Width SD 52.9 fl (35.1-43.9); Red Blood Count 4.69 M/mm3 (4.6-6.2); White Blood Count 9.2 K/mm3 (4.4-11.0)
[2023-04-14 13:46] LABS: ALB/GLOB Ratio 0.7 RATIO (0.9-2.4); AST(SGOT) 20 U/L (15-37); Alanine Aminotransfer ALT/SGPT 23 U/L (16-61); Albumin, Serum 2.8 g/dL (3.2-5.0); Alkaline Phosphatase 91 U/L (45-117); Anion Gap 7 (5-15); BUN 43 mg/dL (7-18); BUN/Creat Ratio 19.7 RATIO (10-20); Calcium,Total 8.7 mg/dL (8.5-10.1); Chloride 100 mmol/L (98-107); Creatinine, Serum 2.18 mg/dL (0.70-1.30); EST Glomerular Filtration Rate 32 mL/min (>60); Est Glom Filt Rate - Afr Amer 39 mL/min (>60); Globulin 3.8 g/dL (2.2-4.2); Glucose 148 mg/dL (74-106); Potassium 3.8 mmol/L (3.5-5.1); Protein, Total 6.6 g/dL (6.4-8.2); Sodium Level 136 mmol/L (136-145)
[2023-04-14 13:50] LABS: Vitamin D,25 Hydroxy 79.2 ng/mL
[2023-04-14 14:53] LABS: Thyroid Stim Hormone (TSH) 3.45 uIU/mL (0.358-3.74)
== END | disposition home or self-care (01) ==
LOC: POLAB3 10:14
PROVIDERS: PCP Family Medicine Geriatric Medicine; Visit Provider Family Medicine Geriatric Medicine
DX: E11.65 Type 2 diabetes mellitus with hyperglycemia (principal); E55.9 Vitamin D deficiency, unspecified; I10 Essential (primary) hypertension; E03.9 Hypothyroidism, unspecified
CPT/HCPCS: 36415; 80053; 82306; 84443; 85025

== ENCOUNTER → 2023-07-18 | Outpatient (CLI) | payer MEDICARE, OTHER, SELFPAY ==
[2023-07-18 17:52] LABS: Absolute Lymphocyte Count 1.85 X10^3/uL (0.83-4.51); Absolute Neutrophil Count 6.1 X10^3/uL (2.0-7.7); Basophil# 0.04 X10^3/uL; Basophil% 0.4 % (0-1); Eosinophil# 0.25 X10^3/uL; Eosinophils% 2.8 % (0-5); Lymphocyte # 1.85 X10^3/ul (0.83-4.51); Lymphocyte % 20.4 % (19-41); Mean Corp Hgb Conc 31.8 g/dL (32-36); Mean Corpuscular Hgb 29.8 pg (27.0-32.0); Mean Corpuscular Volume 93.6 fL (80-94); Mean Platelet Vol. 12.2 fl (6.2-12.0); Monocyte# 0.78 X10^3/uL; Monocyte% 8.6 % (0-10); NRBC Flagged by Analyzer 0 % (0-5); Neutrophil # 6.12 X10^3/uL (2.7-7.7); Neutrophil % 67.2 % (47-70); Platelet Count 135 K/mm3 (150-450); RBC Distribution Width CV 15.8 % (11.6-14.6); RBC Distribution Width SD 54.4 fl (35.1-43.9); White Blood Count 9.1 K/mm3 (4.4-11.0)
[2023-07-18 18:33] LABS: ALB/GLOB Ratio 0.7 RATIO (0.9-2.4); AST(SGOT) 24 U/L (15-37); Alanine Aminotransfer ALT/SGPT 25 U/L (16-61); Albumin, Serum 2.5 g/dL (3.2-5.0); Alkaline Phosphatase 83 U/L (45-117); Anion Gap 5 (5-15); BUN 25 mg/dL (7-18); BUN/Creat Ratio 14.9 RATIO (10-20); Calcium,Total 8.6 mg/dL (8.5-10.1); Chloride 109 mmol/L (98-107); Creatinine, Serum 1.68 mg/dL (0.70-1.30); EST Glomerular Filtration Rate 43 mL/min (>60); Est Glom Filt Rate - Afr Amer 52 mL/min (>60); Globulin 3.7 g/dL (2.2-4.2); Glucose 130 mg/dL (74-106); Potassium 3.8 mmol/L (3.5-5.1); Protein, Total 6.2 g/dL (6.4-8.2); Sodium Level 142 mmol/L (136-145); Thyroid Stim Hormone (TSH) 3.12 uIU/mL (0.358-3.74)
[2023-07-18 18:43] LABS: Vitamin D,25 Hydroxy 62.7 ng/mL
== END | disposition home or self-care (01) ==
PROVIDERS: PCP Family Medicine Geriatric Medicine; Referring Provider Family Medicine Geriatric Medicine; Visit Provider Family Medicine Geriatric Medicine
DX: R68.83 Chills (without fever) (principal); E11.65 Type 2 diabetes mellitus with hyperglycemia; I10 Essential (primary) hypertension; E55.9 Vitamin D deficiency, unspecified
CPT/HCPCS: 36415; 80053; 82306; 84443; 85025; 87631

== ENCOUNTER → 2023-08-16 | Outpatient (CLI) | payer MEDICARE, OTHER, SELFPAY ==
[2023-08-16 15:55] LABS: Albumin, Serum 2.8 g/dL (3.2-5.0); BUN 32 mg/dL (7-18); BUN/Creat Ratio 16.8 RATIO (10-20); Calcium,Total 8.9 mg/dL (8.5-10.1); Chloride 107 mmol/L (98-107); Creatinine, Serum 1.91 mg/dL (0.70-1.30); EST Glomerular Filtration Rate 37 mL/min (>60); Est Glom Filt Rate - Afr Amer 45 mL/min (>60); Glucose 161 mg/dL (74-106); Phosphorus 3.3 mg/dL (2.5-4.9); Potassium 4.1 mmol/L (3.5-5.1); Sodium Level 141 mmol/L (136-145)
--- OUTSIDE RECORDS SUMMARY | 2023-08-16 23:36 | XMS RPT_ITS | CCD ---
Author Name Unknown Address [address] [place] [address] Organization [facility] Care Team Providers Care Pack Out Operator Name Role Phone Solange Bruno MD Unavailable YAZ ALFORD Referring Unavailable YAZ ALFORD Attending Unavailable ED, [facility] Unavailable YAZ ALFORD Referring Unavailable YAZ ALFORD Attending Unavailable ED, [facility] Unavailable AYZ ALFORD Referring Unavailable ED, [facility] Unavailable GERARDO LONG Attending Unavailable [facility] Referring Unavailable ED, [facility] Unavailable GERARDO LONG Attending Unavailable [facility] Referring Unavailable ED, [facility] Unavailable Ed SEGUNDO, Dhruv-[facility] Primary Care Provider [facility] Urbano MD Unavailable Gabrielle Mcpherson DO Unavailable Vincenzo SEUGNDO, [place] S Unavailable Obinna Melo MD Unavailable Medications Current Medications Medication Drug Class(es) Dates Sig (Normalized) Sig (Original) acetaminophen 500 mg oral tablet (1 source) Start: 03-09-2021 acetaminophen 500 MG tablet Take by mouth. 0 03/09/2021 Active amLODIPine 10 mg oral tablet (6 sources) Dihydropyridine Calcium Channel Molly Start: 02-26-2021 amLODIPine 10 MG tablet Completed/Discontinued Medications Medication Drug Class(es) Dates Sig (Normalized) Sig (Original) aspirin 325 mg oral tablet (5 sources) Platelet Aggregation Inhibitor, Nonsteroidal Anti-inflammatory Drug Start: 03-14-2017 take 1 tablet by mouth once daily ASPIRIN 325 MG TABS One tablet by mouth daily ASPIRIN [id number] Solange Bruno MD chlorthalidone 50 mg oral tablet (5 sources) Thiazide-like Diuretic Start: 03-14-2017 take 1 tablet by mouth once daily CHLORTHALIDONE 50 MG TABS One tablet by mouth daily CHLORTHALIDONE [id number] Solange Bruno MD 0.5 ml dulaglutide 3 mg/ml auto-injector (5 sources) GLP-1 Receptor Agonist Start: 03-14-2017 TRULICITY 1.5 MG/0.5ML SOPN 1.5 mg per week DULAGLUTIDE [id number] Solange Bruno MD linagliptin 5 mg oral tablet (5 sources) Dipeptidyl Peptidase 4 Inhibitor Start: 03-14-2017 take 1 tablet by mouth once daily TRADJENTA 5 MG TABS One tablet by mouth daily LINAGLIPTIN [id number] Solange Bruno MD 24 hr oxybutynin chloride 10 mg extended release oral tablet (5 sources) Cholinergic Muscarinic Antagonist Start: 03-14-2017 take 1 tablet by mouth once daily OXYBUTYNIN CHLORIDE ER 10 MG [id number] One tablet by mouth daily OXYBUTYNIN CHLORIDE [id number] Solange Bruno MD Problems Active Problems Problem Classification Problem Date Documented Da te Episodic/Chronic Diabetes mellitus without complication (5 sources) Type 2 diabetes mellitus; Translations: [Type 2 diabetes mellitus without complications] Onset: 03-14-2017 03-14-2017 Chronic Disorders of lipid metabolism (5 sources) Hyperlipidemia; Translations: [Hyperlipidemia, unspecified] Onset: 03-14-2017 03-14-2017 Chronic Essential hypertension (5 sources) Hypertensive disorder; Translations: [Essential (primary) hypertension] Onset: 03-14-2017 03-14-2017 Chronic Other diseases of bladder and urethra (5 sources) Bladder muscle dysfunction - overactive; Translations: [Overactive bladder] Onset: 03-14-2017 03-14-2017 Chronic Other nutritional; endocrine; and metabolic disorders (5 sources) Morbid obesity; Translations: [Morbid (severe) obesity due to excess calories] Onset: 03-14-2017 03-14-2017 Chronic Other nutritional; endocrine; and metabolic disorders (1 source) Body mass index 40+ - severely obese; Translations: [Morbid (severe) obesity due to excess calories] Onset: 05-15-2021 05-15-2021 Chronic Past or Other Problems Problem Classification Problem Date Documented Date Episodic/Chronic Mood disorders (1 source) Mood disorders Onset: 05-15-2021 05-15-2021 Other circulatory disease (5 sources) History of cerebrovascular accident; Translations: [Personal history of other diseases of the circulatory system] Onset: 03-14-2017 03-14-2017 Episodic Other skin disorders (5 sources) Epidermoid cyst of skin; Translations: [Sebaceous cyst] Onset: 03-14-2017 03-14-2017 Episodic Results Test Name Value Interpretation Reference Range Facil ity Vital Signs Date Time Vital Sign Value Performing Clinician Facility 03-14-2017 08:48-0400 BMI (Body Mass Index) 38.26 kg/m2 Solange Bruno MD [facility] Work Phone: 03-14-2017 08:48-0400 Body Temperature 97.8 [degF] Solange Bruno MD [facility] Work Phone: 03-14-2017 08:48-0400 Body Temperature 97.81 [degF] Solange Bruno MD [facility] Work Phone: 03-14-2017 08:48-0400 BP Diastolic 75 mm[Hg] Solange Bruno MD [facility] Work Phone: 03-14-2017 08:48-0400 BP Systolic 118 mm[Hg] Solange Bruno MD [facility] Work Phone: 03-14-2017 08:48-0400 Height 185.42 cm Solange Bruno MD [facility] Work Phone: 03-14-2017 08:48-0400 Pulse (Heart Rate) 81 /min Solange Bruno MD [facility] Work Phone: 03-14-2017 08:48-0400 Respiratory Rate 18 /min Solange Bruno MD [facility] Work Phone: 03-14-2017 08:48-0400 Weight 131.54 kg Solange Bruno MD [facility] Work Phone: Encounters Encounter Date Encounter Type Care Provider Facility Start: 05-25-2021 ambulatory YAZ ALFORD Facil ity:JOEL Start: 05-15-2021 ambulatory YAZ ALFORD Facil ity:JOEL Start: 05-15-2021 End: 05-15-2021 Patient encounter procedure [facility] Outside Imaging Mri So Outside Imaging Second Opinion Start: 05-15-2021 ambulatory GERARDO LONG Facilit y:JOEL Procedures Date Procedure Procedure Detail Performing Clinician Start: 05-15-2021 Mri abdomen w/o & w/contrast material Yaz Alford [employer] Work Phone: Start: 03-14-2017 End: 03-14-2017 Dietary management education, guidance, and counseling Solange Bruno MD Plan of Treatment Date Care Activity Detail Author Start: 05-15-2022 Potassium [Moles/volume] in Serum or Plasma POTASSIUM [facility] Start: 02-04-2022 Influenza vaccination INFLUENZA VACCINE (#1) [facility] Start: 04-30-2019 Zoster vaccine hzv live for subcutaneous use ZOSTER (SHINGLES) VACCINE (3 of 3) [facility] Start: 04-15-2017 End: 04-15-2017 Follow-up visit Follow Up as needed [facility] [employer] Work Phone: Start: 04-15-2017 End: 04-15-2017 Appointment Appointment [facility] [employer] Work Phone: Start: 04-05-2017 End: 04-05-2017 Appointment Appointment [facility] [employer] Work Phone: Start: 04-05-2017 End: 04-05-2017 Exc b9 lesion mrgn xcp sk tg t/a/l 1.1-2.0 cm Excision Benign Lesion Trunk/Arm/Leg 1.1-2.0 cm [facility] [employer] Work Phone: Start: 04-05-2017 End: 04-05-2017 Follow Up Appt 2 weeks Follow Up Appt 2 weeks [facility] [employer] Work Phone: Start: 03-14-2017 End: 03-14-2017 Follow Up Appt Other Follow Up Appt Other [facility] [employer] Work Phone: Start: 03-14-2017 End: 03-14-2017 Appointment Appointment [facility] Work Phone: Start: 03-02-2017 Pneumococcal vaccination PNEUMOCOCCAL VACCINE SERIES (2 - PCV) [facility] Start: 09-17-2001 Prostate specific antigen measurement PROSTATE CANCER SCREENING DISCUSSION [facility] Start: 09-17-1996 Screening for malignant neoplasm of colon COLORECTAL CANCER SCREENING DISCUSSION [facility] Start: 1991 Lipid panel LIPID SCREENING [facility] Start: 09-17-1970 Third diphtheria, tetanus and acellular pertussis (DTaP) vaccination TDAP (ADULT) [facility] Start: 03-19-1952 COVID-19 VACCINE (#1) COVID-19 VACCINE (#1) [facility] Start: 1950 Hepatitis C screening HEPATITIS C VIRUS SCREENING [facility] Start: 1950 Tetanus vaccination TETANUS [facility] Immunizations Immunization Date Immunization Notes Care Provider Fa cility 03-09-2021 influenza virus vaccine, unspecified formulation [facility] Outside Imaging Mri So [facility] 03-05-2019 zoster vaccine, unspecified formulation [facility] Outside Imaging Mri So [facility] Payers Date Payer Category Payer Medicare [id number] 2021 Medicare MEDICARE MEDICAR E A AND B [id number] 2021-Present [address] [place] [address] [id number] 2018 Private Health Insurance [id number] 2018 Unknown GENERIC PAYOR ME DICARE SUPPLEMENT [id number] 2018-Present [phone] [address] [place] [address] [id number] 1950 Unknown [id number] 1950 Unknown [id number] 1950 Unknown [id number] 1950 Unknown [id number] 1950 Unknown [id number] Social History Date Type Detail Facility Start: 05-15-2021 Tobacco smoking stat [facility] Never smoked tobacco [facility] Start: 05-15-2021 Tobacco use and exposure Smokeless tobacco non-user [facility] Start: 05-15-2021 Alcohol intake Ex-drinker (finding) [facility] Start: 05-15-2021 Alcohol Comment rare [facility] Start: 1950 Sex Assigned At Not on file O OSULLIV[facility] Start: 04-25-2021 End: 05-25-2021 Exposure to SARS-CoV-2 (event) Not sure [facility] Medical Equipment Procedure Code Equipment Code Equipment Origin al Text Equipment Identifier Dates B-D ULTRAFINE II I SHORT PEN 31G X 8 MM [facility] [id number] Start: 04-25-2021 OneTouch Ultra S trip strip [id number] Start: 05-03-2021 Summary Purpose Family History No Family History Records Found Advance Directives No Advanced Directives Records Found Additional Source Comments (unrecognized sect ion and content) No Status Records Found INFORMATION SOURCE (unrecogn ized section and content) Care Teams (unrecognized sec tion and content) FOR RECORDS PERTAINING TO PATIENTS WHO ARE OR HAVE BEEN ENROLLED IN A CHEMICAL DEPENDENCY/SUBSTANCEABUSE PROGRAM, SOME INFORMATION MAY BE OMITTED. This clinical summary was aggregated from multiple sources. Caution should be exercised in using it in the provision of clinical care. This summary normalizes information from multiple sources, and as a consequence, information in this document may materially change the coding, format and clinical context of patient data. In addition, data may be omitted in some cases. CLINICAL DECISIONS SHOULD BE BASED ON THE PRIMARY CLINICAL RECORDS. [facility]. provides no warranty or guarantee of the accuracy or completeness of information in this document.
== END | disposition home or self-care (01) ==
LOC: POLAB3 10:16
PROVIDERS: PCP Family Medicine Geriatric Medicine; Visit Provider Internal Medicine Nephrology
DX: N18.32 Chronic kidney disease, stage 3b (principal)
CPT/HCPCS: 36415; 80069

== ENCOUNTER → 2023-09-28 | Outpatient (CLI) | payer MEDICARE, OTHER, SELFPAY ==
[2023-09-28 16:29] LABS: Amphetamine Urine VISTA NEGATIVE (<1000 ng/mL); Barbiturate Urine VISTA NEGATIVE (< 200 ng/mL); Benzodiazepine Urine VISTA NEGATIVE (< 200 ng/mL); Cocaine Urine VISTA NEGATIVE (< 300 ng/mL); Ecstacy Urine VISTA NEGATIVE (< 500 ng/mL); Methadone Urine VISTA NEGATIVE (< 300 ng/mL); PCP Urine VISTA NEGATIVE (< 25 ng/mL); THC Urine VISTA NEGATIVE (< 50 ng/mL); Vista UDS pH Range 4
== END | disposition home or self-care (01) ==
PROVIDERS: PCP Family Medicine Geriatric Medicine; Referring Provider Anesthesiology Pain Medicine; Visit Provider Anesthesiology Pain Medicine
DX: F11.20 Opioid dependence, uncomplicated (principal)
CPT/HCPCS: 80307

== ENCOUNTER → 2023-10-18 | Outpatient (CLI) | payer MEDICARE, OTHER, SELFPAY ==
[2023-10-18 12:56] LABS: Absolute Lymphocyte Count 1.89 X10^3/uL (0.83-4.51); Absolute Neutrophil Count 5.7 X10^3/uL (2.0-7.7); Basophil# 0.03 X10^3/uL; Basophil% 0.3 % (0-1); Eosinophil# 0.15 X10^3/uL; Eosinophils% 1.7 % (0-5); Hematocrit 46.8 % (40-54); Hemoglobin 15.2 g/dL (13.0-16.5); Lymphocyte # 1.89 X10^3/ul (0.83-4.51); Mean Corp Hgb Conc 32.5 g/dL (32-36); Mean Corpuscular Hgb 30.8 pg (27.0-32.0); Mean Corpuscular Volume 94.7 fL (80-94); Mean Platelet Vol. 12.1 fl (6.2-12.0); Monocyte# 0.75 X10^3/uL; Monocyte% 8.7 % (0-10); NRBC Flagged by Analyzer 0 % (0-5); Neutrophil # 5.72 X10^3/uL (2.7-7.7); Neutrophil % 66.8 % (47-70); Platelet Count 145 K/mm3 (150-450); RBC Distribution Width CV 16.7 % (11.6-14.6); RBC Distribution Width SD 57.2 fl (35.1-43.9); Red Blood Count 4.94 M/mm3 (4.6-6.2); White Blood Count 8.6 K/mm3 (4.4-11.0)
[2023-10-18 13:30] LABS: Vitamin D,25 Hydroxy 74.9 ng/mL
[2023-10-18 14:02] LABS: ALB/GLOB Ratio 0.7 RATIO (0.9-2.4); AST(SGOT) 17 U/L (15-37); Alanine Aminotransfer ALT/SGPT 22 U/L (16-61); Albumin, Serum 2.8 g/dL (3.2-5.0); Alkaline Phosphatase 102 U/L (45-117); Anion Gap 6 (5-15); BUN 36 mg/dL (7-18); BUN/Creat Ratio 19.5 RATIO (10-20); Calcium,Total 9.2 mg/dL (8.5-10.1); Chloride 108 mmol/L (98-107); Creatinine, Serum 1.85 mg/dL (0.70-1.30); EST Glomerular Filtration Rate 38 mL/min (>60); Est Glom Filt Rate - Afr Amer 46 mL/min (>60); Globulin 3.8 g/dL (2.2-4.2); Glucose 107 mg/dL (74-106); Potassium 4.6 mmol/L (3.5-5.1); Protein, Total 6.6 g/dL (6.4-8.2); Sodium Level 139 mmol/L (136-145); Thyroid Stim Hormone (TSH) 3.18 uIU/mL (0.358-3.74)
== END | disposition home or self-care (01) ==
LOC: LAB 12:14
PROVIDERS: PCP Family Medicine Geriatric Medicine; Referring Provider Family Medicine Geriatric Medicine; Visit Provider Family Medicine Geriatric Medicine
DX: E11.65 Type 2 diabetes mellitus with hyperglycemia (principal); I10 Essential (primary) hypertension; E55.9 Vitamin D deficiency, unspecified
CPT/HCPCS: 36415; 80053; 82306; 84443; 85025

== ENCOUNTER 2024-01-03 11:21 | Emergency (ER) | payer MEDICARE, OTHER, SELFPAY ==
[2024-01-03] VITALS (7 sets, daily range): BP systolic 104–133; BP diastolic 54–89; PULSE 69–89; RESP 16–24; TEMP 36.2–36.6; O2SAT 94–99
--- NOTE | 2024-01-03 11:28 | ED.VIS.CHEST ---
HPI History of Present Illness Chief Complaint: Chest Pain [facility] Medical History (Reviewed 11/16/23 @ 13:37 by Ashley Pringle [employer], [employer]-C) Skin ulcer of abdominal wall with fat layer exposed Spinal stenosis Left adrenal mass Diabetic ulcer of left lower leg Bilateral lower extremity edema Persistent atrial fibrillation Essential hypertension (HFpEF) heart failure with preserved ejection fraction Thrombocytopenia Renal insufficiency Right upper lobe pneumonia Pneumonia due to COVID-19 virus (07/02/20) Home Medications ?Medication ?Instructions ?Recorded ?Last Taken ?Type atorvastatin 80 mg tablet 80 mg PO QHS 07/02/20 01/02/24 History empagliflozin 25 mg tablet 25 mg PO DAILY 07/02/20 01/03/24 History acetaminophen 500 mg tablet 500 mg PO BID PRN Pain 03/09/21 Unknown History (Tylenol Extra Strength) cdoslbujtseo-tunjafga-onrlam tablet 1 tab PO DAILY 03/09/21 01/03/24 History albuterol sulfate 90 mcg/actuation 2 puff inhalation Q6H 08/07/21 01/02/24 History aerosol inhaler icosapent ethyl 1 gram capsule 2 g PO BID 08/07/21 01/03/24 History pioglitazone 15 mg tablet 15 mg PO DAILY 08/07/21 01/03/24 History mifepristone 300 mg tablet (Korlym) 300 mg PO BID 12/15/21 01/03/24 History insulin glargine U-300 conc 300 80 unit subcut DAILY 01/29/22 01/03/24 History unit/mL (3 mL) subcutaneous pen (Toujeo Max U-300 SoloStar) tamsulosin 0.4 mg capsule 0.4 mg PO DAILY 04/06/22 01/03/24 History cinnamon bark 500 mg capsule 2,500 mg PO BID 06/23/23 01/03/24 History furosemide 80 mg tablet 80 mg PO DAILY 06/23/23 01/03/24 History insulin aspart U-100 100 unit/mL 10 unit subcut PRN 06/23/23 01/02/24 History (3 mL) subcutaneous pen (Novolog FlexPen U-100 Insulin aspart) levothyroxine 25 mcg tablet 50 mcg PO DAILY 06/23/23 01/03/24 History pen needle, diabetic 31 gauge x #1,200 ea 06/23/23 Unknown History 10/19 (BD Ultra-Fine Short Pen Needle) tramadol 50 mg tablet 50 mg PO BID 06/23/23 01/03/24 History spironolactone 50 mg tablet 50 mg PO DAILY #90 tabs 09/26/23 01/03/24 Rx levocetirizine 5 mg tablet 5 mg PO QHS 01/03/24 01/02/24 History lisinopril 40 mg tablet 20 mg PO DAILY 01/03/24 01/03/24 History potassium chloride 10 mEq 10 meq PO DAILY 01/03/24 01/03/24 History tablet,extended release rivaroxaban 15 mg tablet (Xarelto) 15 mg PO DAILY 01/03/24 01/02/24 History Allergy/AdvReac Type Severity Reaction Status Date / Time No Known Allergies Allergy Verified 01/03/24 11:24 Family History (Reviewed 11/16/23 @ 13:37 by Ashley Pringle [employer], [employer]-C) Father Heart disease Mother Alzheimer disease Surgical History (Reviewed 11/16/23 @ 13:37 by Ashley Pringle [employer], [employer]-C) S/P tonsillectomy S/P splenectomy Social History Smoking Status: Never smoker alcohol intake: never substance use type: does not use caffeine: Yes Type: carbonated beverages Number of servings: 1 and tea Number of servings: 1 EXAM Physical Exam Const Vital Signs: 01/03/24 11:21 01/03/24 11:29 01/03/24 11:39 Temperature 97.2 F L Temperature Source Temporal Pulse Rate 69 Respiratory Rate 24 H Respiratory Effort Short of Breath Blood Pressure 119/70 Blood Pressure Mean 86 Pulse Ox 95 95 Oxygen Delivery Method Room Air Room Air 01/03/24 12:21 01/03/24 13:00 01/03/24 14:00 Temperature Temperature Source Pulse Rate 75 69 84 Respiratory Rate 16 16 16 Respiratory Effort Blood Pressure 113/71 116/78 133/71 H Blood Pressure Mean 85 90 91 Pulse Ox 94 98 98 Oxygen Delivery Method Room Air Room Air Room Air 01/03/24 15:00 Temperature Temperature Source Pulse Rate 79 Respiratory Rate 16 Respiratory Effort Blood Pressure 104/54 L Blood Pressure Mean 70 Pulse Ox 98 Oxygen Delivery Method Room Air MDM MDM MDM Narrative Medical decision making narrative: HISTORY OF PRESENT ILLNESS: 73-year-old male presents with chest pain that started this morning. Pain lasted for approximate 20 2 to 30 minutes. Notes it occurred when he was bending over the sink to wash his hands. Denies pain at this time. Denies lower extreme edema, orthopnea, paroxysmal nocturnal dyspnea. Denies cough fever chills. Denies any bleeding diathesis. The patient denies recent surgery in the last 4 weeks or immobilization in the last 3 days, denies previous diagnosis of DVT or PE, hemoptysis, unilateral leg swelling or malignancy with treatment the last 6 months or palliative. No estrogen use noted. Notes compliance with oral anticoagulation. Denies any missed doses patient denies sudden onset of pain, no tearing sensation, no migratory symptoms, no new numbness, weakness or loss of sensation. Patient denies family history or personal history of Connective tissue disorders (Marfan's Syndrome, Jazmine Danlos etc) REVIEW OF SYSTEMS: Pertinent positives: Chest pain Pertinent negatives: As per HPI PHYSICAL EXAM: Nursing triage notes reviewed, Vital signs reviewed Constitutional: please see mdm HENT: MMM Eyes: Pupils equal round and reactive to light, Extraocular muscles intact Neck: No stridor, no JVD, full neck ROM Lungs: Clear to auscultation, No wheezing or rales. No increased work of breathing, no conversational dyspnea, no accessory muscle use, no nasal flaring. No respiratory distress noted Heart: Regular rate and rhythm, No murmurs, No rubs and No gallops, 2+ distal pulses (radial, femoral, posterior tibial) in all extremities Abdomen: Soft, there is no tenderness, rigidity, rebound or guarding, no obvious peritoneal signs, no palpable pulsatile abdominal masses, no auscultated abdominal bruit : No CVAT Extremities: No edema Neuro: No focal neurological deficits, cranial nerves II through XII intact, 5/5 strength in all extremities. Intact sensation to light touch in all extremities, 2+ reflexes bilateral patella tendons. Normal gait. No ataxia. Skin: No rash or lesions noted MEDICAL DECISION MAKING: Chief Complaint: Chest pain External records reviewed: Reviewed prior imaging: Reviewed echocardiogram from 2020 which showed ejection fraction of 60% Factors affecting care: Atrial fibrillation (on Xarelto), chronic lower extremity edema, hyperlipidemia, hypertension, type 2 diabetes, morbid obesity, CVA, Social determinants of health: none History obtained from others: none Consults: Cardiology (Dr. Craven)?discussed the patient's history, EKG, troponin values, history and risk/need for admission. Cardiology recommended discharge at this time. Recommended close outpatient follow-up. MDM Narrative: The patient was initially hemodynamically stable, afebrile and nontoxic-appearing. Exam without focal cardiopulmonary normalities. No stigmata of VTE, pericarditis, CHF, PE or dissection. No pulse deficits. No lower extremity edema. I considered the following differential diagnosis: ACS, arrhythmia, anemia, pneumonia, pneumothorax, electrolyte disturbance, kidney dysfunction, PE, aortic dissection, pericarditis Will consider obtaining a CTA of the chest to rule out PE or dissection the patient low risk Wells score, is compliant with oral anticoagulation and as such have a low suspicion for PE. Patient had no pulse deficits, history of connective tissue disorders, no focal neurologic deficits or ripping or tearing pain to suggest aortic pathology. While this is on the differential have a low suspicion for this etiology at this time. I obtained a broad lab and imaging workup to further elucidate the etiology the patient complaint. ALL IMAGES (IF OBTAINED) HAVE BEEN PERSONALLY REVIEWED AND INTERPRETED BY MYSELF. EKG with rate controlled atrial fibrillation rate of 87, normal axis, normal intervals, no obvious STEMI, no ischemic changes, reviewed prior EKG from 2020 I have personally reviewed the patient's chest x-ray. Chest x-ray is unremarkable for pulmonary edema, pneumothorax, pneumonia or focal cardiopulmonary abnormality. High-sensitivity troponin is negative, no evidence of myocardial ischemia x 2 BMP with CKD, no STEMI electrolyte O'Coleen's, no evidence of elevation anion gap or metabolic acidosis BNP within normal limits suggestive of no heart failure or increased ventricular stretch. Patient continues to be chest pain-free. Given nonischemic EKG, negative delta troponins, nonclassical story, and cardiology recommendation patient is appropriate for discharge home with close outpatient follow with cardiology and strict return precautions. The patient and/or family, caregivers express understanding. The patient and/or family, caregivers agrees with the plan. Shared decision making: I will have a discussion with the patient and or visitors regarding risk/benefits of further testing or admission. They will be made aware of of the risk/benefits inherent in this decision they will be given the opportunity to voice understanding. Total critical care time today provided was at least 0 minutes. This excludes separately billable procedures. Critical care time (if documented) is secondary to the patient having high probability of clinically significant/life threatening deterioration in the patient's condition which required my urgent intervention. Impression: 1. Chest pain 2. History of atrial fibrillation 3. History of type 2 diabetes Dispo: Discharge home This note was generated with [employer] dictation software. It may contain incorrect words, spelling, and punctuation that were not noted in review of the chart prior to signing. Lab Data Labs: Laboratory Results - last 24 hr 01/03/24 01/03/24 11:44 14:19 WBC 7.2 RBC 4.95 Hgb 15.3 Hct 47.2 MCV 95.4 H MCH 30.9 MCHC 32.4 RDW Std Deviation 52.4 H RDW Coeff of Katie 14.8 H Plt Count 163 MPV 12.0 Immature Gran % (Auto) 0.300 Neut % (Auto) 60.8 Lymph % (Auto) 26.4 [place] % (Auto) 10.3 H Eos % (Auto) 1.8 Baso % (Auto) 0.4 Absolute Neuts (auto) 4.4 Absolute Lymphs (auto) 1.90 Nucleated RBC % 0 PT 17.2 H INR 1.4 APTT 31.9 Sodium 139 Potassium 4.3 Chloride 106 Carbon Dioxide 31.0 Anion Gap 2 L BUN 29 H Creatinine 2.00 H Est GFR (MDRD) Af Amer 42 L Est GFR (MDRD) Non-Af 35 L BUN/Creatinine Ratio 14.5 Glucose 104 Calcium 8.9 Troponin I High Sens 13 12 B-Natriuretic Peptide 79.2 Radiography Diagnostic Testing: Clinical Impression(s) from Imaging Studies Chest X-Ray 01/03/24 11:45 IMPRESSION: No radiographic evidence of acute cardiopulmonary disease. Electronically Signed: Geoff Eid MD at 11:58 EDT , Discharge Plan Triage Chief Complaint: Chest Pain ED Provider: Omar Solomon Dx/Rx/DC Orders Prescriptions: No Action furosemide 80 mg tablet 80 mg PO DAILY sgsplxplrtuo-tajjwkkn-fgyyat Tablet 1 tab PO DAILY acetaminophen [Tylenol Extra Strength] 500 mg tablet 500 mg PO BID PRN (Reason: Pain) cinnamon bark 500 mg capsule 2,500 mg PO BID Korlym 300 mg tablet 300 mg PO BID insulin glargine U-300 conc [Toujeo Max U-300 SoloStar] 300 unit/mL (3 mL) insulin pen 80 unit subcut DAILY pioglitazone 15 mg tablet 15 mg PO DAILY albuterol sulfate 90 mcg/actuation HFA aerosol inhaler 2 puff inhalation Q6H Patient Comments: TAKE 2 PUFFS INHALED 6 TIMES PER DAY FOR 30 DAYS NEEDED SHORTNESS OF BREATH tamsulosin 0.4 mg capsule 0.4 mg PO DAILY levothyroxine 25 mcg tablet 50 mcg PO DAILY tramadol 50 mg tablet 50 mg PO BID (DME) pen needle, diabetic [BD Ultra-Fine Short Pen Needle] 31 gauge x 5/16 needle See Rx Instructions .ROUTE .MEDSUPPLY Qty: 1200 Patient Comments: USE DIRECTED 4 TIMES A DAY Rx Instructions: As directed insulin aspart U-100 [Novolog FlexPen U-100 Insulin] 100 unit/mL (3 mL) insulin pen 10 unit subcut PRN Patient Comments: 10 UNITS SUBCUTANEOUS 1-2 times a day atorvastatin 80 MG tablet 80 mg PO QHS empagliflozin 25 MG tablet 25 mg PO DAILY icosapent ethyl 1 gram capsule 2 g PO BID potassium chloride 10 mEq tablet extended release 10 meq PO DAILY lisinopril 40 mg tablet 20 mg PO DAILY levocetirizine 5 mg tablet 5 mg PO QHS Xarelto 15 mg tablet 15 mg PO DAILY spironolactone 50 mg tablet 50 mg PO DAILY Qty: 90 3RF Primary Care Provider: Dhruv Ward Chi Referrals: Dhruv Ward Chi, MD [Primary Care Provider] - Print Language: Djiboutian
--- NOTE | 2024-01-03 11:39 | EKG12_ITS ---
Test Reason : CP/SOB Blood Pressure : / mmHG Vent. Rate : 087 BPM Atrial Rate : 000 BPM P-R Int : 000 ms QRS Dur : 078 ms QT Int : 348 ms P-R-T Axes : 000 075 011 degrees QTc Int : 418 ms Atrial fibrillation Abnormal ECG Confirmed by PAPO SEGUNDO, AYAN ([id number]), assignment editor MALIK TRUONG ([id number]) on 01/06/2024 10:18:20 AM Referred By: ARIADNE/BRADEN Confirmed By:FRANCISCO JAVIER BARROS MD
--- NOTE | 2024-01-03 11:45 | RAD_ITS ---
INDICATION: chest pain EXAMINATION/TECHNIQUE: X-RAY - XR Chest 1 View COMPARISON: Prior study dated: 11/20/2020 FINDINGS: LINES/DEVICES: None. LUNGS: No consolidation, edema or effusion. No pneumothorax. MEDIASTINUM AND CARDIOVASCULAR STRUCTURES: Cardiac silhouette not enlarged. Central airways and mediastinal contour are unremarkable. BONES AND SOFT TISSUES: Unremarkable. RAD/Chest 1 View (Portable) IMPRESSION: No radiographic evidence of acute cardiopulmonary disease. Electronically Signed: Geoff Eid MD at 11:58 EDT ,
[2024-01-03] MEDS: Aspirin 81 MG TAB.CHEW 324 MG PO (11:48)
[2024-01-03 12:24] LABS: Absolute Neutrophil Count 4.4 X10^3/uL (2.0-7.7); Basophil# 0.03 X10^3/uL; Basophil% 0.4 % (0-1); Eosinophil# 0.13 X10^3/uL; Eosinophils% 1.8 % (0-5); Hematocrit 47.2 % (40-54); Hemoglobin 15.3 g/dL (13.0-16.5); Lymphocyte % 26.4 % (19-41); Mean Corp Hgb Conc 32.4 g/dL (32-36); Mean Corpuscular Hgb 30.9 pg (27.0-32.0); Mean Corpuscular Volume 95.4 fL (80-94); Monocyte# 0.74 X10^3/uL; Monocyte% 10.3 % (0-10); NRBC Flagged by Analyzer 0 % (0-5); Neutrophil # 4.39 X10^3/uL (2.7-7.7); Neutrophil % 60.8 % (47-70); Platelet Count 163 K/mm3 (150-450); RBC Distribution Width CV 14.8 % (11.6-14.6); RBC Distribution Width SD 52.4 fl (35.1-43.9); Red Blood Count 4.95 M/mm3 (4.6-6.2); White Blood Count 7.2 K/mm3 (4.4-11.0)
[2024-01-03 12:36] LABS: Anion Gap 2 (5-15); BUN 29 mg/dL (7-18); BUN/Creat Ratio 14.5 RATIO (10-20); Calcium,Total 8.9 mg/dL (8.5-10.1); Chloride 106 mmol/L (98-107); EST Glomerular Filtration Rate 35 mL/min (>60); Est Glom Filt Rate - Afr Amer 42 mL/min (>60); Glucose 104 mg/dL (74-106); Potassium 4.3 mmol/L (3.5-5.1); Sodium Level 139 mmol/L (136-145); Troponin-I HS (w/2H Reflex) 13 pg/mL (3.0-78.0)
[2024-01-03 12:53] LABS: BNP,B-Type NATRIURETIC PEPTIDE 79.2 pg/mL (0-100)
[2024-01-03 12:56] LABS: International Normalized Ratio 1.4; Prothrombin Time (Protime)PT. 17.2 SECONDS (11.7-14.9)
[2024-01-03 12:57] LABS: Partial Thromboplast Time 31.9 Seconds (24.1-36.2)
[2024-01-03 14:04] LABS: Reflex Troponin-HS? (from REC) Y
[2024-01-03 14:58] LABS: Troponin-I HS 12 pg/mL (3.0-78.0)
== END 2024-01-03 15:30 | disposition home or self-care (01) ==
PROVIDERS: Emergency Provider Emergency Medicine; PCP Family Medicine Geriatric Medicine; Visit Provider Emergency Medicine
DX: R07.9 Chest pain, unspecified (principal); I50.32 Chronic diastolic (congestive) heart failure; I13.0 Hypertensive heart and chronic kidney disease with heart failure and stage 1 through stage 4 chronic kidney disease, or unspecified chronic kidney disease; I48.91 Unspecified atrial fibrillation; E66.01 Morbid (severe) obesity due to excess calories; E11.22 Type 2 diabetes mellitus with diabetic chronic kidney disease; E78.5 Hyperlipidemia, unspecified; N18.9 Chronic kidney disease, unspecified; Z79.01 Long term (current) use of anticoagulants; Z86.73 Personal history of transient ischemic attack (TIA), and cerebral infarction without residual deficits; R60.0 Localized edema
CPT/HCPCS: 71045; 80048; 83880; 84484; 85025; 85610; 85730; 93005; 99284; A4216

== ENCOUNTER → 2024-01-18 | Outpatient (CLI) | payer MEDICARE, OTHER, SELFPAY ==
[2024-01-18 12:22] LABS: Absolute Lymphocyte Count 1.83 X10^3/uL (0.83-4.51); Absolute Neutrophil Count 4.7 X10^3/uL (2.0-7.7); Basophil# 0.02 X10^3/uL; Basophil% 0.3 % (0-1); Eosinophil# 0.14 X10^3/uL; Eosinophils% 1.9 % (0-5); Hematocrit 46.1 % (40-54); Hemoglobin 14.8 g/dL (13.0-16.5); Lymphocyte # 1.83 X10^3/ul (0.83-4.51); Lymphocyte % 24.5 % (19-41); Mean Corp Hgb Conc 32.1 g/dL (32-36); Mean Corpuscular Hgb 31.2 pg (27.0-32.0); Mean Corpuscular Volume 97.1 fL (80-94); Mean Platelet Vol. 12.5 fl (6.2-12.0); Monocyte# 0.75 X10^3/uL; NRBC Flagged by Analyzer 0 % (0-5); Neutrophil # 4.71 X10^3/uL (2.7-7.7); Neutrophil % 62.9 % (47-70); Platelet Count 128 K/mm3 (150-450); RBC Distribution Width CV 14.9 % (11.6-14.6); RBC Distribution Width SD 53.7 fl (35.1-43.9); Red Blood Count 4.75 M/mm3 (4.6-6.2); White Blood Count 7.5 K/mm3 (4.4-11.0)
[2024-01-18 13:01] LABS: ALB/GLOB Ratio 0.8 RATIO (0.9-2.4); AST(SGOT) 21 U/L (15-37); Alanine Aminotransfer ALT/SGPT 22 U/L (16-61); Albumin, Serum 2.8 g/dL (3.2-5.0); Alkaline Phosphatase 101 U/L (45-117); Anion Gap 6 (5-15); BUN 33 mg/dL (7-18); BUN/Creat Ratio 15.7 RATIO (10-20); Calcium,Total 8.6 mg/dL (8.5-10.1); Chloride 107 mmol/L (98-107); EST Glomerular Filtration Rate 33 mL/min (>60); Est Glom Filt Rate - Afr Amer 40 mL/min (>60); Globulin 3.7 g/dL (2.2-4.2); Glucose 127 mg/dL (74-106); Potassium 4.4 mmol/L (3.5-5.1); Protein, Total 6.5 g/dL (6.4-8.2); Sodium Level 141 mmol/L (136-145)
== END | disposition home or self-care (01) ==
LOC: POLAB3 11:44
PROVIDERS: PCP Family Medicine Geriatric Medicine; Visit Provider Family Medicine Geriatric Medicine
DX: E11.65 Type 2 diabetes mellitus with hyperglycemia (principal); I10 Essential (primary) hypertension; E55.9 Vitamin D deficiency, unspecified
CPT/HCPCS: 36415; 80053; 82306; 84443; 85025

== ENCOUNTER 2024-02-21 12:30 | Outpatient (RCR) | payer MEDICARE, OTHER, SELFPAY ==
--- NOTE | 2023-09-19 14:19 | HP.PTEVAL_ITS ---
Patient's Visit Information Visit Information Visit Information: RACHEL ZAFAR is a 73 year old M referred to Physical Therapy by Dr. Obinna Melo MD with a diagnosis of IVDD. Date of Evaluation: 09/19/23 Physical Therapist: Shravan Burton, DPT, OCS, CSCS Visit Plan Frequency: 3x /Week Duration: 4-6 Weeks Plan: 3x/week for 4 -6 weeks for 1. teach HEP for LB rotation supine, psoas and HS stretch with pics and gain I(doing EIS and fis for today with walking program) 2. Teach gym based core and LE strength and progress to I at [place] gym with list pics 3. Work on walking distance with limiting factors being back pain and SOB. Subjective Subjective: Longstanding back problems. Sees [facility] with his and both sent over. Had covid recently which sapped his strength 3 weeks ago. Has trouble standing up opr walking very far, could not have walked back to PT and so took power chair. LB pain is what limits him but has to sit after 20 feet or stands very long than back hurts. Feels better with sitting. Pain is central LB. Gets injections every three months which help for 3 weeks. Can walk to get mail after injections and get on and off mower. Can't do that comfortably when injection wears off. Riding across yard makes him hurt with the vibrations. LEgs are OK no numbness or tingling. Changing diuretics meds lately by heart doctor. [place] with with two steps to get in which he can do OK now as he is getting stronger. Basic ADLS dress and bathroom I, helps with shoes and socks. Has sock aide. Has custom walk in shower with bench and helps wash lower extremities. Retired, spends day tooling around, TV, read, computer. Enjoys BBQ. Regualr exercise: No, was until covid, had some bands to pull prior and bed exercises but not back to them yet. Does not need walker or cane, into restaurant puts him out of breath ansd back hurts. Pain LBP: Pain Intensity (Out of 10): 0 Pain Intensity Range: 0 and 8 Objective Objective: 94 spO2% at rest and 58 HR at rest. Wheels back to therapy in [employer] mod I. Sit to stand I, stand to sit I, Walks without AD with good balance but back starts hurting after about 220feet and SOB after this with 4 steps. steps require rail and prefers to use R foot but can use either(L knee soreness). LB AROM ext mod limited, flexion mod limited, SB/rotations mod limited, no pain except with walking/standing today and gone when he sits. reflexes 2/3 patella and achilles. Sensation LE WNL to gross light touch in LE. coordination to reciprocal toe and heel tap is fair. tightness present in HS mod at -30 90/90 test, psoas moderately at barely to neutral hip extension. strength LE without myotomal abormalities 3+ hip abd and ext and flexion, 4- knee flex/ext, 4+ ankles all directions. Pt able to ambulate with wh walker with less fatigue and back pain. Balance/Special Test Scores Oswestry Low Back Score: 30 TUG Test Time Seconds: 12 Goals Goal 1:: I appropriate HEP/gym for core strength, leg strength , posture and ROM. Goal Time Frame: 4-6 Weeks Goal 2:: Walk 500 feet without SOB or back pain Goal Time Frame: 4-6 Weeks Goal 3:: back pain 2/10 at worst and 75% better. Goal Time Frame: 4-6 Weeks Goal 4:: oswestry score 8 or better Goal Time Frame: 4-6 Weeks Goal 5:: Walk into therapy without needing electric scooter Goal Time Frame: 4-6 Weeks Rehabilitation Potential Physical Therapy Diagnosis: back pain and weakness and tightness limtiing function. Rehabilitation Potential: Fair Anticipated Interventions Patient/Client Instruction: Educate patient on: Condition For the Purpose of:: To decrease pain, To increase ROM, To improve nutrient delivery to tissue, To improve muscle performance and motor function, To increase tolerance to activity/condition/position and To improve gait and locomotor functions Therapeutic Exercise to Include: Strength training, Postural training, Flexibilty training, Gait and locomotor training, Passive ROM, Active ROM and Dynamic Lumbar Stabilization For the Purpose of:: To decrease pain, To increase ROM, To improve nutrient delivery to tissue, To improve muscle performance and motor function, To increase tolerance to activity/condition/position, To improve ability of physical actions for home/community/work/leisure and To improve gait and locomotor functions Manual Therapy Techniques to Include: Passive ROM and Soft tissue mobilization For the Purpose of:: To decrease pain, To increase ROM and To improve nutrient delivery to tissue Thermo therapy (hot pack): Yes For the Purpose of:: To increase ROM and To improve nutrient delivery to tissue Text: Thank you for the opportunity to evaluate your patient. For Medicare and Medicare HMO plans, please review the plan of care and approve it. It will need to be FAXED BACK to us at [phone] for Medicare purposes. For Medicare only, by signing this I certify the plan of care. Please let me know if there are questions or concerns regarding this plan of care. Physician Signature: Date:
--- NOTE | 2023-10-24 09:55 | HP.PTREVAL ---
Re-Evaluation Intro: Dr. 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 Please see the progress note below for an update on the physical therapy plan of care! Subjective Subjective: Fell off mower prior last appointment and has been sore and limited since then and back really hurt. Pain was 8/10 last week due to falling off mower. Muscle relaxders were given to him. Current pain is 3/10. Prior to fall was 1/10. Would plan on joining [employer] when done with PT. Was 70% better prior to mower problem. Caught foot on a pin is what caused the fall. Could not get up. To Dr. melo but not for 3 weeks or so. Wants to continue another 4 weeks therapy to get back to where he was and work to I. Doing HEP trying dailyi. Objective Objective/Function: LB AROM without increased pain today but overall pain worse than before fall off tractor. Good balance today and improved 30 sec sit to stand by 2. Overall improving but set back with fall off mower and appropriate to cotninue per POC to gain I Unmet goals still appropriate and good prognosis with compliance. Plan Plan Plan: 2x/week for 4 weeks to wrok on ensuring compliance with HEP and gaining I with gym fo rmembership with LE, postural and core strength to complement HEP. Balance/Gait/Functional tests Balance/Special Test Scores Oswestry Low Back Score: 30 TUG Test Time Seconds: 12 Tug Test: <20 sec.=mostly independent 30 Second Chair Rise Test Seconds: 12 Goals Goals Goal 1:: I appropriate HEP/gym for core strength, leg strength , posture and ROM. Goal Time Frame: 4-6 Weeks Goal Progress: Progressing Goal 2:: Walk 500 feet without SOB or back pain Goal Time Frame: 4-6 Weeks Goal Progress: Progressing Goal 3:: back pain 2/10 at worst and 75% better. Goal Time Frame: 4-6 Weeks Goal Progress: was progressing Goal 4:: oswestry score 8 or better Goal Time Frame: 4-6 Weeks Goal 5:: Walk into therapy without needing electric scooter Goal Time Frame: 4-6 Weeks Goal Progress: Goal Met Goal 6:: 13 on 30 second sit to stand Goal Time Frame: 4-6 Weeks Goal Progress: Progressing Anticipated Interventions Anticipated Interventions Patient/Client Instruction: Educate patient on: Condition For the Purpose of:: To decrease pain, To increase ROM, To improve nutrient delivery to tissue, To improve muscle performance and motor function, To increase tolerance to activity/condition/position and To improve gait and locomotor functions Therapeutic Exercise to Include: Strength training, Postural training, Flexibilty training, Gait and locomotor training, Passive ROM, Active ROM and Dynamic Lumbar Stabilization For the Purpose of:: To decrease pain, To increase ROM, To improve nutrient delivery to tissue, To improve muscle performance and motor function, To increase tolerance to activity/condition/position, To improve ability of physical actions for home/community/work/leisure and To improve gait and locomotor functions Manual Therapy Techniques to Include: Passive ROM and Soft tissue mobilization For the Purpose of:: To decrease pain, To increase ROM and To improve nutrient delivery to tissue Thermo therapy (hot pack): Yes For the Purpose of:: To increase ROM and To improve nutrient delivery to tissue Re-Evaluation Ending Re-evaluation ending: Please do not hesitate to contact me at [phone] by phone or if you have questions or concerns regarding this new plan of care! Sincerely, Shravan Burton, DPT, OCS, CSCS
--- NOTE | 2023-12-12 14:28 | HP.PTREVAL_ITS ---
Re-Evaluation Intro: Dr. Obinna Melo MD, It has been my pleasure to treat RACHEL ZAFAR over the last 9 visits for IVDD. Please see the progress note below for an update on the physical therapy plan of care! Subjective Subjective: Dtr had problems that kept him from getting in here. Still doing stretches and back movements at home regularly. Currently is better than 6 weeks ago as he had knee injections and is feeling betterDr. Lorie) and those helped alot. No knee pain lately. Back injection also helped so no more pain. Still feels like he needs instruct for gym ex. Back can still hurt now and then on hot days. Objective Objective/Function: Walking and transitioning well today with obviously less pain than previously and smooth. No c/o pain today. Steps reciprocal with one rail up and down wiht mild SOB after. improved 30 SSTS. Main unmet goal is I with gym program whcih is appropriate and still desired by patient. Was unable to get scheduled at last plan due to busyness in his life but ready now. Plan Plan Plan: 2x/week for 4 weeks to teach gym program for LE, posture and core adn work to I with list please. Ensure knee pain and back pain not returning. Continue stretches and ROM via HEP. Balance/Gait/Functional tests Balance/Special Test Scores Oswestry Low Back Score: 30 TUG Test Time Seconds: 12 Tug Test: <20 sec.=mostly independent 30 Second Chair Rise Test Seconds: 13 Goals Goals Goal 1:: I appropriate HEP/gym for core strength, leg strength , posture and ROM. Goal Time Frame: 4-6 Weeks Goal Progress: needs gym, approp Goal 2:: Walk 500 feet without SOB or back pain Goal Time Frame: 4-6 Weeks Goal Progress: Goal Met Goal 3:: back pain 2/10 at worst and 75% better. Goal Time Frame: 4-6 Weeks Goal Progress: Goal Met Goal 4:: oswestry score 8 or better Goal Time Frame: 4-6 Weeks Goal 5:: Walk into therapy without needing electric scooter Goal Time Frame: 4-6 Weeks Goal Progress: Goal Met Goal 6:: 13 on 30 second sit to stand Goal Time Frame: 4-6 Weeks Goal Progress: Goal Met Anticipated Interventions Anticipated Interventions Patient/Client Instruction: Educate patient on: Condition For the Purpose of:: To decrease pain, To increase ROM, To improve nutrient delivery to tissue, To improve muscle performance and motor function, To increase tolerance to activity/condition/position and To improve gait and locomotor functions Therapeutic Exercise to Include: Strength training, Postural training, Flexibilty training, Gait and locomotor training, Passive ROM, Active ROM and Dynamic Lumbar Stabilization For the Purpose of:: To decrease pain, To increase ROM, To improve nutrient delivery to tissue, To improve muscle performance and motor function, To increase tolerance to activity/condition/position, To improve ability of physica l actions for home/community/work/leisure and To improve gait and locomotor functions Manual Therapy Techniques to Include: Passive ROM and Soft tissue mobilization For the Purpose of:: To decrease pain, To increase ROM and To improve nutrient delivery to tissue Thermo therapy (hot pack): Yes For the Purpose of:: To increase ROM and To improve nutrient delivery to tissue Re-Evaluation Ending Re-evaluation ending: Please do not hesitate to contact me at [phone] by phone or if you have questions or concerns regarding this new plan of care! Sincerely, Shravan Burton, DPT, OCS, CSCS
--- NOTE | 2024-02-21 12:49 | HP.PTDCSUM_ITS ---
Discharge Summary D/C summary: It has been my pleasure to treat RACHEL ZAFAR referred by Dr. Obinna Melo MD, with the diagnosis of IVDD for a total of 18 visit(s). Discharge Date: 02/21/24 Please see the following information for a summary of their discharge status. Subjective Subjective: im Ok, Back pain comes and goes but is usually pretty good. Got shots in knees a week or two ago , cannot have replacements due to other health concerns. Back pain 2/10 most days. bad day last week maybe due to meds change. 5/10 is worst it gets. Strength is much better as he can get on adn off the mower now and work around the house a little bit. Sees Lorie monthly and wants to continue joining as a member. Can put own shoes on but does it for ease. Pain LBP: Pain Intensity (Out of 10): 2 Mid-back: Pain Intensity (Out of 10): 0 Overall Improvement % Improvement: 90 Objective Objective/Function: walking on his own I with good balance, LB AROM WFL but stiff flexion and ext, no increase in pain. 2 steps without rails I today, SOB after 3 min walking and takes inhaler puff. Overall ready to be on his own Goals Goal 1:: I appropriate HEP/gym for core strength, leg strength , posture and RO M. Goal Progress: Goal Met Goal 2:: Walk 500 feet without SOB or back pain Goal Progress: Goal Met Goal 3:: back pain 2/10 at worst and 75% better. Goal Progress: Goal Met Goal 4:: oswestry score 8 or better Goal Progress: Progressing Goal 5:: Walk into therapy without needing electric scooter Goal Progress: Goal Met Goal 6:: 13 on 30 second sit to stand Goal Progress: not desired Plan Plan: d/c to HEP/gym D/C Information Discharge Comments: will continue I in gym as member d/c sentence: If there are questions or concerns regarding this patient's physical therapy, please feel free to call me at [phone]. Thank you for the referral of this patient. Sincerely, Shravan Burton, DPT, OCS, CSCS Balance/Gait/Functional tests Balance/Special Test Scores Oswestry Low Back Score: 17 TUG Test Time Seconds: 12 Tug Test: <20 sec.=mostly independent 30 Second Chair Rise Test Seconds: 13 Improvement % Improvement: 90
== END 2024-02-21 19:00 | disposition home or self-care (01) ==
LOC: PT 12:30
PROVIDERS: PCP Family Medicine Geriatric Medicine; Referring Provider Anesthesiology Pain Medicine; Visit Provider Anesthesiology Pain Medicine
DX: M51.36 Other intervertebral disc degeneration, lumbar region (principal); M54.16 Radiculopathy, lumbar region
CPT/HCPCS: 97110; 97162; 97164

== ENCOUNTER → 2024-04-19 | Outpatient (CLI) | payer MEDICARE, OTHER, SELFPAY ==
[2024-04-19 11:06] LABS: Absolute Lymphocyte Count 2.23 X10^3/uL (0.83-4.51); Absolute Neutrophil Count 5.7 X10^3/uL (2.0-7.7); Basophil# 0.03 X10^3/uL; Basophil% 0.3 % (0-1); Eosinophil# 0.14 X10^3/uL; Eosinophils% 1.6 % (0-5); Hematocrit 47.3 % (40-54); Hemoglobin 15.5 g/dL (13.0-16.5); Lymphocyte # 2.23 X10^3/ul (0.83-4.51); Lymphocyte % 24.8 % (19-41); Mean Corp Hgb Conc 32.8 g/dL (32-36); Mean Corpuscular Hgb 31.1 pg (27.0-32.0); Mean Platelet Vol. 12.1 fl (6.2-12.0); Monocyte# 0.86 X10^3/uL; Monocyte% 9.5 % (0-10); NRBC Flagged by Analyzer 0 % (0-5); Neutrophil # 5.72 X10^3/uL (2.7-7.7); Neutrophil % 63.5 % (47-70); Platelet Count 142 K/mm3 (150-450); RBC Distribution Width CV 15.2 % (11.6-14.6); RBC Distribution Width SD 52.7 fl (35.1-43.9); Red Blood Count 4.98 M/mm3 (4.6-6.2)
[2024-04-19 11:49] LABS: ALB/GLOB Ratio 0.8 RATIO (0.9-2.4); AST(SGOT) 19 U/L (15-37); Alanine Aminotransfer ALT/SGPT 20 U/L (16-61); Albumin, Serum 2.9 g/dL (3.2-5.0); Alkaline Phosphatase 101 U/L (45-117); Anion Gap 9 (5-15); BUN 34 mg/dL (7-18); BUN/Creat Ratio 18.3 RATIO (10-20); Calcium,Total 8.9 mg/dL (8.5-10.1); Chloride 108 mmol/L (98-107); Creatinine, Serum 1.86 mg/dL (0.70-1.30); EST Glomerular Filtration Rate 38 mL/min (>60); Est Glom Filt Rate - Afr Amer 46 mL/min (>60); Globulin 3.6 g/dL (2.2-4.2); Glucose 107 mg/dL (74-106); Potassium 4.2 mmol/L (3.5-5.1); Protein, Total 6.5 g/dL (6.4-8.2); Sodium Level 141 mmol/L (136-145)
[2024-04-19 18:43] LABS: Vitamin D,25 Hydroxy 53.5 ng/mL
== END | disposition home or self-care (01) ==
LOC: POLAB3 10:54
PROVIDERS: PCP Family Medicine Geriatric Medicine; Visit Provider Family Medicine Geriatric Medicine
DX: E11.65 Type 2 diabetes mellitus with hyperglycemia (principal); I10 Essential (primary) hypertension; E55.9 Vitamin D deficiency, unspecified
CPT/HCPCS: 36415; 80053; 82306; 84443; 85025

== ENCOUNTER → 2024-05-24 | Outpatient (CLI) | payer MEDICARE, OTHER, SELFPAY ==
--- NOTE | 2024-05-24 13:59 | ECHOCS_ITS ---
Reason For Study: dyspnea Procedure This was a 2D Doppler, Color Flow transthoracic echocardiogram. The study was technically difficult. Contrast injection was performed. Exam performed in department. Left Ventricle Normal LV size. Moderate concentric left ventricular hypertrophy. Left ventricular systolic function is normal. The left ventricular ejection fraction is 70 %. No regional wall motion abnormalities noted. Right Ventricle Normal RV size. Normal systolic function. Atria The left atrium is moderately enlarged. Normal right atrium. Mitral Valve Normal mitral valve. Tricuspid Valve Normal tricuspid valve. Aortic Valve Trisinus/trileaflet aortic valve. Pulmonic Valve The pulmonic valve is not well visualized. Great Vessels Normal aortic root. The pulmonary artery is normal size. Inferior vena cava collapse with respiration. Pericardium/Pleural No pericardial effusion. Medication 22 gauge I.V. with prn adaptor inserted into right arm. Diluted definity 2ml given slow IV push to enhance endocardial definition. MMode/2D Measurements & Calculations LVIDd: 4.4 cm IVSd: 1.6 cm LVOT diam: 2.1 cm LVIDs: 2.9 cm LVPWd: 1.6 cm FS: 33.7 % LVOT area: 3.6 cm2 Ao root diam: 3.4 cm LAV(MOD-bp): 70.6 ml LVAd ap4: 28.8 cm2 LAV(MOD-bp) Indexed: 25.0 ml/m2 LVLd ap4: 7.6 cm LAV(MOD-sp2): 37.8 ml EDV(MOD-sp4): 88.7 ml LAV(MOD-sp4): 105.6 ml EDV(sp4-el): 91.8 ml LVAs ap4: 15.1 cm2 LVLs ap4: 6.7 cm ESV(MOD-sp4): 27.8 ml ESV(sp4-el): 29.1 ml EF(MOD-sp4): 68.7 % EF(sp4-el): 68.4 % SV(MOD-sp4): 61.0 ml SV(sp4-el): 62.8 ml LA A4 area: 29.9 cm2 SI(MOD-sp4): 21.6 ml/m2 LA dimension(2D): 4.9 cm RA A4 area: 15.1 cm2 Doppler Measurements & Calculations MV E max kiko: 121.9 cm/sec Ao V2 max: 180.2 cm/sec LV V1 max: 132.9 cm/sec Ao max P.0 mmHg LV V1 max P.1 mmHg Ao V2 mean: 129.5 cm/sec LV V1 mean P.0 mmHg Ao mean P.7 mmHg LV V1 mean: 91.7 cm/sec Ao V2 VTI: 35.7 cm LV V1 VTI: 25.6 cm AV (velocity ratio): 0.72 GREGORIO(I,D): 2.6 cm2 GREGORIO(V,D): 2.7 cm2 SV(LVOT): 92.4 ml PA V2 max: 112.1 cm/sec PA V2 mean: 81.9 cm/sec ECHO/Echo Complete W/ Contrast Interpretation Summary Normal LV size. Left ventricular systolic function is normal. The left ventricular ejection fraction is 70 %. The left atrium is moderately enlarged. Contrast injection was performed. Ordering Physician: Jarad Delarosa Referring Physician: Jarad Delarosa Performed By: Tiff Menon RCS
== END | disposition home or self-care (01) ==
LOC: CVS 13:59
PROVIDERS: PCP Family Medicine Geriatric Medicine; Referring Provider Nurse Practitioner Family; Visit Provider Nurse Practitioner Family
DX: R06.00 Dyspnea, unspecified (principal)
CPT/HCPCS: 93306; Q9957; A4216; C8929

== ENCOUNTER → 2024-08-01 | Outpatient (CLI) | payer MEDICARE, OTHER, SELFPAY ==
[2024-08-01 11:19] LABS: Absolute Lymphocyte Count 1.83 X10^3/uL (0.83-4.51); Absolute Neutrophil Count 5.4 X10^3/uL (2.0-7.7); Basophil# 0.03 X10^3/uL; Basophil% 0.4 % (0-1); Eosinophil# 0.13 X10^3/uL; Eosinophils% 1.6 % (0-5); Hemoglobin 14.8 g/dL (13.0-16.5); Lymphocyte # 1.83 X10^3/ul (0.83-4.51); Lymphocyte % 21.9 % (19-41); Mean Corp Hgb Conc 32.9 g/dL (32-36); Mean Corpuscular Hgb 31.6 pg (27.0-32.0); Mean Corpuscular Volume 95.9 fL (80-94); Mean Platelet Vol. 12.3 fl (6.2-12.0); Monocyte# 0.86 X10^3/uL; Monocyte% 10.3 % (0-10); NRBC Flagged by Analyzer 0 % (0-5); Neutrophil # 5.44 X10^3/uL (2.7-7.7); Neutrophil % 65.2 % (47-70); Platelet Count 147 K/mm3 (150-450); RBC Distribution Width CV 15.4 % (11.6-14.6); RBC Distribution Width SD 53.8 fl (35.1-43.9); Red Blood Count 4.69 M/mm3 (4.6-6.2); White Blood Count 8.3 K/mm3 (4.4-11.0)
[2024-08-01 14:46] LABS: Vitamin D,25 Hydroxy 48.2 ng/mL (30-100)
[2024-08-01 14:58] LABS: ALB/GLOB Ratio 1.2 RATIO (0.9-2.4); AST(SGOT) 29 U/L (<=37); Alanine Aminotransfer ALT/SGPT 16 U/L (<=46); Albumin, Serum 3.5 g/dL (3.4-4.8); Alkaline Phosphatase 95 U/L (40-129); Anion Gap 12 (5-15); BUN 30 mg/dL (4-19); BUN/Creat Ratio 15.4 RATIO (10-20); Carbon Dioxide 25.3 mmol/L (22.0-29.0); Chloride 102 mmol/L (96-108); Creatinine, Serum 1.9 mg/dL (0.8-1.3); EST Glomerular Filtration Rate 37 (>60); Glucose 102 mg/dL (70-99); Potassium 4.5 mmol/L (3.3-5.1); Protein, Total 6.5 g/dL (5.9-8.4); Sodium Level 140 mmol/L (133-145); Total Bilirubin 0.62 mg/dL (0.00-1.30)
== END | disposition home or self-care (01) ==
LOC: POLAB3 11:08
PROVIDERS: PCP Family Medicine Geriatric Medicine; Visit Provider Family Medicine Geriatric Medicine
DX: E11.65 Type 2 diabetes mellitus with hyperglycemia (principal); I10 Essential (primary) hypertension; E55.9 Vitamin D deficiency, unspecified
CPT/HCPCS: 36415; 80053; 82306; 84443; 85025

== ENCOUNTER → 2024-09-20 | Outpatient (CLI) | payer MEDICARE, OTHER, SELFPAY | END | disposition home or self-care (01) | LOC: SL 20:00 | PROVIDERS: PCP Family Medicine Geriatric Medicine; Referring Provider Nurse Practitioner Acute Care; Visit Provider Nurse Practitioner Acute Care | DX: G47.33 Obstructive sleep apnea (adult) (pediatric) (principal); G47.39 Other sleep apnea | CPT/HCPCS: 95811 ==

== ENCOUNTER → 2024-10-02 | Outpatient (CLI) | payer MEDICARE, OTHER, SELFPAY ==
[2024-10-02 19:59] LABS: Amphetamine Urine NEGATIVE (<1000 ng/mL); Barbiturate Urine NEGATIVE (< 200 ng/mL); Benzodiazepine Urine NEGATIVE (< 200 ng/mL); Buprenorphine Urine NEGATIVE (< 200 ng/mL); Cocaine Urine NEGATIVE (< 300 ng/mL); Fentanyl, Urine NEGATIVE; Methadone Urine NEGATIVE (< 300 ng/mL); Opiates Urine NEGATIVE (< 300 ng/mL); Oxycodone, Urine NEGATIVE (< 100 ng/mL); PCP Urine NEGATIVE (< 25 ng/mL); THC Urine NEGATIVE (< 50 ng/mL)
== END | disposition home or self-care (01) ==
LOC: LAB 13:39
PROVIDERS: PCP Family Medicine Geriatric Medicine; Referring Provider Anesthesiology Pain Medicine; Visit Provider Anesthesiology Pain Medicine
DX: F11.20 Opioid dependence, uncomplicated (principal)
CPT/HCPCS: 80307

== ENCOUNTER → 2024-12-19 | Outpatient (CLI) | payer MEDICARE, OTHER, SELFPAY ==
[2024-12-19 17:52] LABS: Anion Gap 14 (5-15); BUN 16 mg/dL (4-19); BUN/Creat Ratio 10.8 RATIO (10-20); Calcium,Total 9.0 mg/dL (7.6-11.0); Carbon Dioxide 25.4 mmol/L (21.0-32.0); Chloride 102 mmol/L (98-108); Glucose 127 mg/dL (70-99); Potassium 3.1 mmol/L (3.3-5.1)
[2024-12-19 23:23] LABS: Xtra Tube Kwok EXTRA TUBE
== END | disposition home or self-care (01) ==
LOC: POLAB3 15:15
PROVIDERS: PCP Family Medicine Geriatric Medicine; Visit Provider Family Medicine Geriatric Medicine
DX: E11.65 Type 2 diabetes mellitus with hyperglycemia (principal); E03.9 Hypothyroidism, unspecified
CPT/HCPCS: 36415; 80048; 83036; 84443

== ENCOUNTER → 2025-01-03 | Outpatient (CLI) | payer MEDICARE, OTHER, SELFPAY ==
[2025-01-03 15:14] LABS: Anion Gap 11 (5-15); BUN 16 mg/dL (4-19); BUN/Creat Ratio 10.4 RATIO (10-20); Calcium,Total 8.8 mg/dL (7.6-11.0); Carbon Dioxide 25.2 mmol/L (21.0-32.0); Chloride 103 mmol/L (98-108); Glucose 127 mg/dL (70-99); Potassium 3.4 mmol/L (3.3-5.1)
== END | disposition home or self-care (01) ==
LOC: POLAB3 13:55
PROVIDERS: PCP Family Medicine Geriatric Medicine; Visit Provider Family Medicine Geriatric Medicine
DX: E11.65 Type 2 diabetes mellitus with hyperglycemia (principal)
CPT/HCPCS: 36415; 80048

== ENCOUNTER → 2025-02-19 | Outpatient (CLI) | payer MEDICARE, OTHER, SELFPAY ==
[2025-02-19 14:48] LABS: Albumin, Serum 3.4 g/dL (3.4-4.8); Anion Gap 13 (5-15); BUN 15 mg/dL (4-19); BUN/Creat Ratio 10.2 RATIO (10-20); Calcium,Total 8.8 mg/dL (7.6-11.0); Carbon Dioxide 28.7 mmol/L (21.0-32.0); Chloride 104 mmol/L (98-108); Glucose 120 mg/dL (70-99); Potassium 3.4 mmol/L (3.3-5.1)
[2025-02-19 15:04] LABS: Creatinine, Urine (random) 47.20 mg/dL (39.00-259.00); Microalbumin,Random Urine < 12.0 mg/L (<20 mg/L)
== END | disposition home or self-care (01) ==
PROVIDERS: PCP Family Medicine Geriatric Medicine; Referring Provider Internal Medicine Nephrology; Visit Provider Internal Medicine Nephrology
DX: E11.22 Type 2 diabetes mellitus with diabetic chronic kidney disease (principal); N18.32 Chronic kidney disease, stage 3b
CPT/HCPCS: 36415; 80069; 82043; 82570

== ENCOUNTER → 2025-03-06 | Outpatient (CLI) | payer MEDICARE, OTHER, SELFPAY ==
[2025-03-06 11:00] LABS: Hematocrit 40.2 % (40-54); Hemoglobin 13.3 g/dL (13.0-16.5); Immature Granulocytes Count 0.030 X10^3/uL (0.0-0.0); Mean Corp Hgb Conc 33.1 g/dL (32-36); Mean Corpuscular Volume 95.0 fL (80-94); Mean Platelet Vol. 12.3 fl (6.2-12.0); NRBC Flagged by Analyzer 0 % (0-5); Platelet Count 133 K/mm3 (150-450); RBC Distribution Width CV 16.8 % (11.6-14.6); RBC Distribution Width SD 58.0 fl (35.1-43.9); Red Blood Count 4.23 M/mm3 (4.6-6.2); White Blood Count 8.2 K/mm3 (4.4-11.0)
[2025-03-06 11:40] LABS: Vitamin D,25 Hydroxy 47.5 ng/mL (30-100)
[2025-03-06 11:42] LABS: BUN 23 mg/dL (4-19); Glucose 133 mg/dL (70-99)
[2025-03-06 11:43] LABS: AST(SGOT) 23 U/L (<=37); Alanine Aminotransfer ALT/SGPT 9 U/L (<=46); Albumin, Serum 3.5 g/dL (3.4-4.8); Alkaline Phosphatase 92 U/L (40-129); Anion Gap 15 (5-15); BUN/Creat Ratio 13.5 RATIO (10-20); Calcium,Total 8.9 mg/dL (7.6-11.0); Carbon Dioxide 26.8 mmol/L (21.0-32.0); Chloride 103 mmol/L (98-108); Globulin 2.9 g/dL (2.2-4.2); Potassium 3.2 mmol/L (3.3-5.1)
== END | disposition home or self-care (01) ==
LOC: POLAB3 10:17
PROVIDERS: PCP Family Medicine Geriatric Medicine; Visit Provider Family Medicine Geriatric Medicine
DX: I10 Essential (primary) hypertension (principal); E03.9 Hypothyroidism, unspecified; E55.9 Vitamin D deficiency, unspecified
CPT/HCPCS: 36415; 80053; 82306; 84443; 85025

== ENCOUNTER → 2025-03-14 | Outpatient (CLI) | payer MEDICARE, OTHER, SELFPAY ==
[2025-03-14 15:22] LABS: Hematocrit 37.5 % (40-54); Hemoglobin 12.3 g/dL (13.0-16.5); Immature Granulocytes Count 0.040 X10^3/uL (0.0-0.0); Mean Corp Hgb Conc 32.8 g/dL (32-36); Mean Corpuscular Volume 95.9 fL (80-94); Mean Platelet Vol. 12.5 fl (6.2-12.0); NRBC Flagged by Analyzer 0 % (0-5); Platelet Count 122 K/mm3 (150-450); RBC Distribution Width CV 16.8 % (11.6-14.6); RBC Distribution Width SD 58.4 fl (35.1-43.9); Red Blood Count 3.91 M/mm3 (4.6-6.2); White Blood Count 7.3 K/mm3 (4.4-11.0)
[2025-03-14 15:50] LABS: Anion Gap 11 (5-15); BUN 27 mg/dL (4-19); BUN/Creat Ratio 14.0 RATIO (10-20); Calcium,Total 8.6 mg/dL (7.6-11.0); Carbon Dioxide 26.8 mmol/L (21.0-32.0); Chloride 105 mmol/L (98-108); Glucose 154 mg/dL (70-99); Potassium 3.5 mmol/L (3.3-5.1)
== END | disposition home or self-care (01) ==
PROVIDERS: PCP Family Medicine Geriatric Medicine; Referring Provider Family Medicine Geriatric Medicine; Visit Provider Family Medicine Geriatric Medicine
DX: I11.0 Hypertensive heart disease with heart failure (principal); I50.23 Acute on chronic systolic (congestive) heart failure; J98.8 Other specified respiratory disorders; R06.2 Wheezing; S80.829A Blister (nonthermal), unspecified lower leg, initial encounter; X58.XXXA Exposure to other specified factors, initial encounter
CPT/HCPCS: 36415; 71046; 80048; 85025; 87070; 87075; 87077; 87186; 87205; 87631; 87640

== ENCOUNTER → 2025-03-19 | Outpatient (CLI) | payer MEDICARE, OTHER, SELFPAY ==
[2025-03-19 16:34] LABS: Hematocrit 33.6 % (40-54); Hemoglobin 11.3 g/dL (13.0-16.5); Immature Granulocytes Count 0.030 X10^3/uL (0.0-0.0); Mean Corp Hgb Conc 33.6 g/dL (32-36); Mean Corpuscular Volume 93.3 fL (80-94); Mean Platelet Vol. 12.7 fl (6.2-12.0); NRBC Flagged by Analyzer 0 % (0-5); Platelet Count 130 K/mm3 (150-450); RBC Distribution Width CV 16.5 % (11.6-14.6); RBC Distribution Width SD 55.5 fl (35.1-43.9); Red Blood Count 3.60 M/mm3 (4.6-6.2); White Blood Count 7.8 K/mm3 (4.4-11.0)
[2025-03-19 17:35] LABS: Anion Gap 12 (5-15); BUN 32 mg/dL (4-19); BUN/Creat Ratio 16.9 RATIO (10-20); Calcium,Total 9.3 mg/dL (7.6-11.0); Carbon Dioxide 36.0 mmol/L (21.0-32.0); Chloride 94 mmol/L (98-108); Glucose 176 mg/dL (70-99); Potassium 3.0 mmol/L (3.3-5.1)
== END | disposition home or self-care (01) ==
LOC: POLAB3 16:05
PROVIDERS: PCP Family Medicine Geriatric Medicine; Visit Provider Family Medicine Geriatric Medicine
DX: I10 Essential (primary) hypertension (principal)
CPT/HCPCS: 36415; 80048; 85025

== ENCOUNTER → 2025-03-25 | Outpatient (CLI) | payer MEDICARE, OTHER, SELFPAY ==
[2025-03-25 15:23] LABS: Anion Gap 9 (5-15); BUN 33 mg/dL (4-19); BUN/Creat Ratio 19.2 RATIO (10-20); Calcium,Total 9.0 mg/dL (7.6-11.0); Carbon Dioxide 36.1 mmol/L (21.0-32.0); Chloride 97 mmol/L (98-108); Glucose 227 mg/dL (70-99); Potassium 3.7 mmol/L (3.3-5.1)
== END | disposition home or self-care (01) ==
LOC: POLAB3 14:47
PROVIDERS: PCP Family Medicine Geriatric Medicine; Visit Provider Family Medicine Geriatric Medicine
DX: I10 Essential (primary) hypertension (principal)
CPT/HCPCS: 36415; 80048

== ENCOUNTER 2025-04-05 13:30 | Outpatient (RCR) | payer MEDICARE, OTHER, SELFPAY ==
[2025-04-02 09:10] VITALS: BP 136/65; PULSE 78; RESP 18; TEMP 36.2; BMI 46.3
--- NOTE | 2025-04-02 12:55 | PCM.WC.HP ---
History of Present Illness Date of Service: 04/02/25 Chief Complaint: Bilateral lower extremity swelling, edema, and lymphedema History of Wound: This is a 74-year-old diabetic male with multiple pre-existing medical problems. The patient was referred by his primary care physician, Dr. Ward. The patient has been treated for lower extremity cellulitis by oral prescriptions for doxycycline and cephalexin. 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 Prednisone 10 mg p.o. daily x 7 days was prescribed. Patient also has lower extremity mechanical compression pumps, which he has not been using. He is on systemic anticoagulation with Xarelto due to chronic atrial fibrillation. The patient claims to sleep on a flat mattress at night, with the head of his bed slightly elevated. He is not very active, and ambulates very little. He uses a wheel chair for mobility. He spends long hours each day sitting with his legs in a dependent position while watching television. The swelling in his legs has been ongoing for several years. In addition to pumps, he also has CircAid compression garments. The patient is morbidly obese, and is on Mounjaro currently. [facility] Medical History Lymphedema of leg Edema of both legs Cushings syndrome COPD (chronic obstructive pulmonary disease) Skin ulcer of abdominal wall with fat layer exposed Spinal stenosis Left adrenal mass Diabetic ulcer of left lower leg Bilateral lower extremity edema Persistent atrial fibrillation Essential hypertension (HFpEF) heart failure with preserved ejection fraction Thrombocytopenia Renal insufficiency Right upper lobe pneumonia Pneumonia due to COVID-19 virus (07/02/20) Home Medications Medication Instructions Recorded Last Taken Type atorvastatin 80 mg tablet 80 mg PO QHS 07/02/20 01/02/24 History empagliflozin 25 mg tablet 25 mg PO DAILY 07/02/20 01/03/24 History acetaminophen 500 mg tablet 500 mg PO BID PRN Pain 03/09/21 Unknown History (Tylenol Extra Strength) hgfecgzlfyld-lopwdong-kbtqmz tablet 1 tab PO DAILY 03/09/21 01/03/24 History albuterol sulfate 90 mcg/actuation 2 puff inhalation Q6H 08/07/21 01/02/24 History aerosol inhaler icosapent ethyl 1 gram capsule 2 g PO BID 08/07/21 01/03/24 History pioglitazone 15 mg tablet 15 mg PO DAILY 08/07/21 01/03/24 History mifepristone 300 mg tablet (Korlym) 300 mg PO BID 12/15/21 01/03/24 History tamsulosin 0.4 mg capsule 0.4 mg PO DAILY 04/06/22 01/03/24 History insulin aspart U-100 100 unit/mL 10 unit subcut PRN 06/23/23 01/02/24 History (3 mL) subcutaneous pen (Novolog FlexPen U-100 Insulin aspart) pen needle, diabetic 31 gauge x #1,200 ea 06/23/23 Unknown History 10/19" (BD Ultra-Fine Short Pen Needle) tramadol 50 mg tablet 50 mg PO BID 06/23/23 01/03/24 History levocetirizine 5 mg tablet 5 mg PO QHS 01/03/24 01/02/24 History potassium chloride 10 mEq 10 meq PO DAILY 01/03/24 01/03/24 History tablet,extended release rivaroxaban 15 mg tablet (Xarelto) 15 mg PO DAILY 01/03/24 01/02/24 History lisinopril 20 mg tablet 20 mg PO DAILY 01/11/24 Unknown History turmeric root extract 500 mg tablet 500 mg PO BID 01/11/24 Unknown History levothyroxine 50 mcg tablet 75 mcg PO QDAY 09/04/24 Unknown History azelastine 137 mcg (0.1 %) nasal 2 spray intranasal BID PRN 11/13/24 Unknown History spray allergies cinnamon bark 500 mg capsule 5,000 mg PO DAILY 11/13/24 Unknown History furosemide 80 mg tablet See Rx Instructions PO .COMPLEX 11/13/24 Unknown History tirzepatide 10 mg/0.5 mL 10 mg subcut QWEEK 11/13/24 Unknown History subcutaneous pen injector (Mounjaro) spironolactone 50 mg tablet 50 mg PO DAILY #90 tabs 12/10/24 Unknown Rx tirzepatide 12.5 mg/0.5 mL 12.5 mg subcut QWEEK 12/19/24 Unknown History subcutaneous pen injector (Mounjaro) triamcinolone acetonide 0.5 % applic topical BID 04/02/25 Unknown History topical cream Allergy/AdvReac Type Severity Reaction Status Date / Time No Known Allergies Allergy Verified 12/19/24 13:15 Family History Father Heart disease Mother Alzheimer disease Surgical History S/P tonsillectomy S/P splenectomy Social History Smoking Status: Never smoker alcohol intake: never substance use type: does not use caffeine: Yes Type: carbonated beverages Number of servings: 1 and tea Number of servings: 1 Vital Signs Vital Signs Vital Signs: 04/02/25 09:10 Temperature 97.1 F L Temperature Source Temporal Pulse Rate 78 Respiratory Rate 18 Blood Pressure 136/65 H Blood Pressure Mean 88 Blood Pressure Source Monitor Blood Pressure Position Semi-Fowlers Blood Pressure Location Left Arm Weight Weight: 342 lb Body Mass Index (BMI) 46.3 Physical Exam Const alert, oriented x3, no apparent distress and well nourished Constitutional Narrative: The patient's BMI is 46.4. He is morbidly obese. General Appearance: cooperative, comfortable and well developed Orientation / Consciousness: awake, oriented to person, oriented to place and oriented to time HEENT normocephalic and head/scalp atraumatic Head and Scalp: normal to inspection, normocephalic and atraumatic Face and Sinus: normal facial exam Nose: external nose normal External Ear: external ears normal Eyes EOMs intact bilaterally General Eye: normal appearance of both eyes Alignment: alignment normal Resp normal respiratory effort, normal air movement, no retractions and no use of accessory muscles Effort and Inspection: able to speak in complete sentences Extremity no calf tenderness General Extremity: Negative for clubbing or cyanosis Skin Wound Narrative: There are no yanna open wounds or ulcerations in the patient's lower extremities. However, significant swelling, edema, and lymphedema are noted in the lower extremities bilaterally. There chronic dermatitic skin changes, notably lipodermatosclerosis and hyperpigmentation in the gaiter areas bilaterally. Neuro oriented x3, CN's II-XII intact bilaterally and moves all extremities Sensorium / Orientation: awake, alert, oriented to person, oriented to place and oriented to time Speech: speech normal Psych Appearance: grossly normal and appropriate Attitude: calm Activity / Motor Behavior: appropriate eye contact Speech: normal speech Mood & Affect: euthymic mood Attention / Concentration: attention grossly intact Debridement Note Debridement Note No debridement was completed: No debridement was completed today Post-Debridement Measurements and Additional Note: Post-Debridement Measurements/Treatment - Nurse 1 - General Ulcer Assessment Start: 04/02/25 08:50 Freq: Status: Active Protocol: JULIO Activity Type Activity Date Activity User E-sign Co-sign Detail Recorded Client Recorded Date Recorded By Document 04/02/25 09:10 [id number] 04/02/25 09:17 HALEY 04/02/25 09:10 - Today's Visit Information Type of service Initial Visit Arrival Mode Wheelchair Transfer Assistance Manual Patient Identification Verified (Name & Yes ) Patient Requires Transmission-Based No Precautions Height and Weight Height 6 ft Weight 342 lb Weight in Pounds 342.0 lbs Body Mass Index (BMI) 46.3 BMI Classification Obese Vital Signs Temperature (97.8 F-99.1 F) 97.1 F L Temperature Source Temporal Pulse Rate (60-100) 78 Pulse Location Monitor Respiratory Rate (12-18) 18 Respiratory rate source Observation Blood Pressure (90/60-120/80) 136/65 H Blood Pressure Mean 88 Source Monitor Position Semi-Fowlers Blood Pressure Location Left Arm History Since Last Visit- (Skip if this is Patient's initial visit) Have you changed medications since your No last visit? Any new allergies or adverse reactions No Had a fall/change in ADL's that may No increase risk of falls Signs or symptoms of abuse and/or No neglect since last visit Have you been in the hospital since your No last visit? Has dressing in place as prescribed Yes Has compression in place as prescribed Yes Has offloadiing in place as prescribed N/A Experienced any changes in pain level or No management Pain Scale: 0-10 Numeric Is Patient Pain Free? Yes Lower Extremity Assessment/ Foot Assessment/ Toe Nail Assessment Right -Posterior Tibial Palpable Yes -Dorsalis Pedis Palpable Yes -Extremity Color Hyperpigmented -Hair Growth on Legs Yes -Hair Growth on Toes No -Temperature of Extremity Warm -Capillary Refill Greater than 3 Seconds -Dependent Rubor No -Blanched when Elevated No -Lipodermatosclerosis No -Other Deformity No -Prior Foot Ulcer No -Charcot Joint No -Prior Amputation No -Thick No -Discolored No -Deformed No -Improper Length & Hygeine Yes Left -Posterior Tibial Palpable Yes -Dorsalis Pedis Palpable Yes -Extremity Color Hemosiderin -Hair Growth on Legs Yes -Hair Growth on Toes No -Temperature of Extremity Warm -Capillary Refill Greater than 3 Seconds -Dependent Rubor No -Blanched when Elevated No -Lipodermatosclerosis No -Other Deformity No -Prior Foot Ulcer No -Charcot Joint No -Prior Amputation No -Thick No -Discolored No -Deformed No -Improper Length & Hygeine Yes Neuropathy Assessment Feet - Top Side and Bottom <Entered> (a) Communication Assessment Preferred language [place] Fire Supervisor Required No Able to Read Yes Able to Write Yes Communication Tools None Caregiver Communication Skills No Impairment Impairment Right Hearing Abillity Normal Left Hearing Abillity Normal Visual Assistive Devices Glasses Teaching Assessment Preferences Verbal,Written, Demonstration Barriers to Learning None Readiness To Learn Good Willingness to Engage in Self Management Med Activies Readiness to Engage in Self Management Med Activities Anxiety Level Calm Cooperation Cooperative Perception Coherent Interest in Health Problem Asks Questions Education Importance Acknowledges Need Does Patient Smoke tobacco or other No substances Smoking Status Never smoker Is Patient Diabetic Yes Functional Assessment Recent Decline in Ability to Perform Denies Any Declines Assistive Device With Patient No Culture/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 Farm Contractor Buyer to contact place of gnosticist No Teaching: Wound Center *Welcome to the Wound Center -Person Taught Patient,Family -Teaching Method Discussion (a) 1 - + throughout - Nurse 1 - General Ulcer Measurement Start: 04/02/25 08:50 Freq: Status: Active Protocol: Activity Type Activity Date Activity User E-sign Co-sign Detail Recorded Client Recorded Date Recorded By Document 04/02/25 09:10 RB [id number] 04/02/25 09:17 RB 04/02/25 09:10 Wound Center Nurse 1 Lower Limb Edema Present Yes Right Calf (cm) 50 Right Ankle (cm) 36.6 Left Calf (cm) 47.7 Left Ankle (cm) 33.2 - Nurse 3 - General Ulcer D/C NN Start: 04/02/25 08:50 Freq: Status: Active Protocol: Activity Type Activity Date Activity User E-sign Co-sign Detail Recorded Client Recorded Date Recorded By Document 04/02/25 10:37 TS [id number] 04/02/25 10:39 TS 04/02/25 10:37 Wound Care Center Nurse 3 #3 ABD -Ulcer Cleansing Rinsed/ Irrigated with Saline BLE -Lotion applied to leg before No compression wrap -Multi-Layered Wrap Application Unna Boot - Bilateral -Unna- Bilat (Qty applied) 1 Pain Scale: 0-10 Numeric Is Patient Pain Free? Yes WC - Visit Discharge Discharge Condition Stable Ambulatory Status Ambulatory, Wheelchair Transportation Private Auto Accompanied by Medication Reconcilliation completed & No provided to patient/care provider Clinical Summary of Care Provided Yes Lab / Micro Data Lab results narrative: Laboratory Tests 03/19/25 03/25/25 16:06 14:47 WBC 7.8 Hgb 11.3 L Hct 33.6 L Plt Count 130 L Sodium 143 Potassium 3.7 Chloride 97 L Carbon Dioxide 36.1 H BUN 33 H Creatinine 1.74 H Glucose 227 H Calcium 9.0 Charges/Coding Visit Charges Office Visits / Consults: [id number] OV L4 New 45min Assessment/Plan Assessment/Plan (1) Lymphedema of leg: CODE(S): I89.0 - Lymphedema, not elsewhere classified (2) Bilateral lower extremity edema: CODE(S): R60.0 - Localized edema (3) Morbid obesity: CODE(S): E66.01 - Morbid (severe) obesity due to excess calories (4) Diabetes mellitus, type II: CODE(S): E11.9 - Type 2 diabetes mellitus without complications QUALIFIERS: Diabetes mellitus complication status: with other specified complication Diabetes mellitus superintendent container terminal insulin use: with superintendent container terminal use Qualified Code(s): E11.69 - Type 2 diabetes mellitus with other specified complication; Z79.4 - buttermaker continuous churn (current) use of insulin (5) Mixed sleep apnea: CODE(S): G47.39 - Other sleep apnea (6) Dyspnea on exertion: CODE(S): R06.09 - Other forms of dyspnea (7) Bilateral primary osteoarthritis of knee: CODE(S): M17.0 - Bilateral primary osteoarthritis of knee (8) DDD (degenerative disc disease), lumbar: CODE(S): M51.36 - Other intervertebral disc degeneration, lumbar region (9) KATIANA (obstructive sleep apnea): CODE(S): G47.33 - Obstructive sleep apnea (adult) (pediatric) (10) Hypersomnolence: CODE(S): G47.10 - Hypersomnia, unspecified (11) Left adrenal mass: CODE(S): E27.8 - Other specified disorders of adrenal gland (12) SOB (shortness of breath): CODE(S): R06.02 - Shortness of breath (13) Persistent atrial fibrillation: CODE(S): I48.19 - Other persistent atrial fibrillation (14) (HFpEF) heart failure with preserved ejection fraction: CODE(S): I50.30 - Unspecified diastolic (congestive) heart failure QUALIFIERS: Heart failure chronicity: unspecified Qualified Code(s): I50.30 - Unspecified diastolic (congestive) heart failure (15) Essential hypertension: CODE(S): I10 - Essential (primary) hypertension (16) Hyperlipidemia: CODE(S): E78.5 - Hyperlipidemia, unspecified QUALIFIERS: Hyperlipidemia type: unspecified Qualified Code(s): E78.5 - Hyperlipidemia, unspecified (17) History of CVA (cerebrovascular accident): CODE(S): Z86.73 - Personal history of transient ischemic attack (TIA), and cerebral infarction without residual deficits (18) COPD (chronic obstructive pulmonary disease): CODE(S): J44.9 - Chronic obstructive pulmonary disease, unspecified (19) Cushings syndrome: CODE(S): E24.9 - Maury's syndrome, unspecified PLAN: Plan This is a 74-year-old male with multiple pre-existing medical problems. The patient presented with bilateral lower extremity swelling, edema, and lymphedema. No open wounds or ulcerations were noted at initial presentation. Patient has recently been treated by his primary care physician for episodes of cellulitis. Prescriptions for doxycycline and cephalexin have been completed. We are to implement conservative treatment measures relative to his lower extremity swelling, edema, and lymphedema. The patient has been encouraged to sleep on a flat mattress at night. The head of bed should only be elevated as necessary. Patient has been encouraged to elevate his lower extremities during daytime hours as well. Elevation is to be to heart level, or higher. This is to be implemented as much as possible. Prolonged idle sitting has been discouraged. The patient has been encouraged to ambulate as tolerated. However, significant enhancement of his activity level is unlikely. Continued weight loss efforts have been encouraged. As noted, the patient is currently on Mounjaro. The patient possesses pneumatic mechanical compression pumps, and has been encouraged to utilize these pumps 2-3 times daily. We are to implement compression to the lower extremities by means of Unna compression wraps, which are to be changed twice weekly. The patient is to return in 1 week for reevaluation. Total time: 48 minutes
--- NOTE | 2025-04-03 09:29 | WC ---
PHOTO-BLE 04/03/25
[2025-04-05 13:52] VITALS: BP 156/89; PULSE 84; RESP 18; TEMP 36.1; BMI 46.3
== END 2025-04-05 23:59 | disposition home or self-care (01) ==
LOC: WC 13:30
PROVIDERS: PCP Family Medicine Geriatric Medicine; Referring Provider Family Medicine Geriatric Medicine; Visit Provider Surgery
DX: I89.0 Lymphedema, not elsewhere classified (principal); I11.0 Hypertensive heart disease with heart failure; I50.32 Chronic diastolic (congestive) heart failure; J44.9 Chronic obstructive pulmonary disease, unspecified; I48.19 Other persistent atrial fibrillation; E66.01 Morbid (severe) obesity due to excess calories; Z68.42 Body mass index [BMI] 45.0-49.9, adult; E11.9 Type 2 diabetes mellitus without complications; Z79.4 Long term (current) use of insulin; G47.10 Hypersomnia, unspecified; M51.369 Other intervertebral disc degeneration, lumbar region without mention of lumbar back pain or lower extremity pain; G47.33 Obstructive sleep apnea (adult) (pediatric); Z79.84 Long term (current) use of oral hypoglycemic drugs; M17.0 Bilateral primary osteoarthritis of knee; Z99.3 Dependence on wheelchair; E27.9 Disorder of adrenal gland, unspecified; E78.5 Hyperlipidemia, unspecified; Z79.899 Other long term (current) drug therapy
CPT/HCPCS: 29580; 99213; G0463

== ENCOUNTER 2025-04-09 14:00 | Outpatient (RCR) | payer MEDICARE, OTHER, SELFPAY ==
[2025-04-09 14:16] VITALS: BP 144/67; PULSE 83; RESP 18; TEMP 37
--- NOTE | 2025-04-09 15:24 | WC ---
PHOTO-B/L [email or web address] 04/09/25
--- NOTE | 2025-04-09 16:11 | HP.PCM_ITS ---
History of Present Illness Date of Service: 04/09/25 Chief Complaint: Bilateral lower extremity swelling, edema, and lymphedema History of Wound: This is a 74-year-old diabetic male with multiple pre-existing medical problems. The patient was referred by his primary care physician, Dr. Ward. The patient had been treated for lower extremity cellulitis by oral prescriptions for doxycycline and cephalexin. 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 Prednisone 10 mg p.o. daily x 7 days had been prescribed. The patient also has lower extremity mechanical compression pumps, which he had not been using. He is on systemic anticoagulation with Xarelto due to chronic atrial fibrillation. The patient claims to sleep on a flat mattress at night, with the head of his bed slightly elevated. He is not very active, and ambulates very little. He uses a wheel chair for mobility. He spends long hours each day sitting with his legs in a dependent position while watching television. The swelling in his legs has been ongoing for several years. In addition to pumps, he also has CircAid compression garments. The patient is morbidly obese, and is on Mounjaro currently. [facility] Medical History Lymphedema of leg Edema of both legs Cushings syndrome COPD (chronic obstructive pulmonary disease) Skin ulcer of abdominal wall with fat layer exposed Spinal stenosis Left adrenal mass Diabetic ulcer of left lower leg Bilateral lower extremity edema Persistent atrial fibrillation Essential hypertension (HFpEF) heart failure with preserved ejection fraction Thrombocytopenia Renal insufficiency Right upper lobe pneumonia Pneumonia due to COVID-19 virus (07/02/20) Home Medications ?Medication ?Instructions ?Recorded ?Last Taken ?Type atorvastatin 80 mg tablet 80 mg PO QHS 07/02/20 History empagliflozin 25 mg tablet 25 mg PO DAILY 07/02/20 History acetaminophen 500 mg tablet 500 mg PO BID PRN Pain 09/24 Unknown History (Tylenol Extra Strength) ohtidztrknti-tlddzaha-xlxvrp tablet 1 tab PO DAILY 09/2401/03/24 History albuterol sulfate 90 mcg/actuation 2 puff inhalation Q 6H 08/07/21 01/02/24 History aerosol inhaler icosapent ethyl 1 gram capsule 2 g PO BID 08/07/21 History pioglitazone 15 mg tablet 15 mg PO DAILY 08/07/2112/06 History mifepristone 300 mg tablet (Korlym) 300 mg PO BID 12/0401/03/24 History tamsulosin 0.4 mg capsule 0.4 mg PO DAILY 04/06/22 History insulin aspart U-100 100 unit/mL 10 unit subcut PRN 01/02/24 History (3 mL) subcutaneous pen (Novolog FlexPen U-100 Insulin aspart) pen needle, diabetic 31 gauge x #1,200 ea 06/23/23 Unk nown History 10/19 (BD Ultra-Fine Short Pen Needle) tramadol 50 mg tablet 50 mg PO BID 06/23/23 History levocetirizine 5 mg tablet 5 mg PO QHS 01/03/24 History potassium chloride 10 mEq 10 meq PO DAILY 01/03/24 History tablet,extended release rivaroxaban 15 mg tablet (Xarelto) 15 mg PO DAILY 12/0601/02/24 History lisinopril 20 mg tablet 20 mg PO DAILY 01/11/24 Unkn own History turmeric root extract 500 mg tablet 500 mg PO BID 12/27 Unknown History levothyroxine 50 mcg tablet 75 mcg PO QDAY 09/04/24 Un known History azelastine 137 mcg (0.1 %) nasal 2 spray intranasal BI D PRN 11/13/24 Unknown History spray allergies cinnamon bark 500 mg capsule 5,000 mg PO DAILY 5 Unknown History furosemide 80 mg tablet See Rx Instructions PO .COMP GORDON 11/13/24 Unknown History tirzepatide 10 mg/0.5 mL 10 mg subcut QWEEK 11/13/24 Unknown History subcutaneous pen injector (Mounjaro) spironolactone 50 mg tablet 50 mg PO DAILY #90 tabs Unknown Rx tirzepatide 12.5 mg/0.5 mL 12.5 mg subcut QWEEK Unknown History subcutaneous pen injector (Mounjaro) triamcinolone acetonide 0.5 % applic topical BID 04/02 Unknown History topical cream Allergy/AdvReac Type Severity Reaction Status Date / Time No Known Allergies Allergy Verified 12/19/24 13:15 Family History Father Heart disease Mother Alzheimer disease Surgical History S/P tonsillectomy S/P splenectomy Social History Smoking Status: Never smoker alcohol intake: never substance use type: does not use caffeine: Yes Type: carbonated beverages Number of servings: 1 and tea Number of servings: 1 Vital Signs Vital Signs Vital Signs: 04/09/25 14:16 Temperature 98.6 F Temperature Source Temporal Pulse Rate 83 Respiratory Rate 18 Blood Pressure 144/67 H Blood Pressure Mean 92 Blood Pressure Source Monitor Blood Pressure Position Semi-Fowlers Blood Pressure Location Left Arm Physical Exam Const alert, oriented x3, no apparent distress and well nourished Constitutional Narrative: The patient's BMI is 46.4. He is morbidly obese. General Appearance: cooperative, comfortable and well developed Orientation / Consciousness: awake, oriented to person, oriented to place and oriented to time HEENT normocephalic and head/scalp atraumatic Head and Scalp: normal to inspection, normocephalic and atraumatic Face and Sinus: normal facial exam Nose: external nose normal External Ear: external ears normal Eyes EOMs intact bilaterally General Eye: normal appearance of both eyes Alignment: alignment normal Resp normal respiratory effort, normal air movement, no retractions and no use of accessory muscles Effort and Inspection: able to speak in complete sentences Extremity no calf tenderness General Extremity: Negative for clubbing or cyanosis Skin Wound Narrative: There are no yanna open wounds or ulcerations in the patient's lower extremities. The swelling, edema, and lymphedema in his lower extremities is markedly improved since the patient's prior visit. There chronic dermatitic skin changes, notably lipodermatosclerosis and hyperpigmentation in the gaiter areas bilaterally. Neuro oriented x3, CN's II-XII intact bilaterally and moves all extremities Sensorium / Orientation: awake, alert, oriented to person, oriented to place and oriented to time Speech: speech normal Psych Appearance: grossly normal and appropriate Attitude: calm Activity / Motor Behavior: appropriate eye contact Speech: normal speech Mood & Affect: euthymic mood Attention / Concentration: attention grossly intact Debridement Note Debridement Note No debridement was completed: No debridement was completed today Post-Debridement Measurements and Additional Note: Post-Debridement Measurements/Treatment - Nurse 1 - General Ulcer Assessment Start: 04/09/25 14:15 Freq: Status: Active Protocol: JULIO Activity Type Activity Date Activity User E-sign Co-sign Detail Recorded Client Recorded Date Recorded By Document 04/09/25 14:16 [email or web address] [id number] 04/09/25 14:19 04/09/25 14:16 - Today's Visit Information Type of service Follow-up Visit (Physician/DISC INSPECTOR ) Arrival Mode Wheelchair Transfer Assistance Manual Patient Identification Verified (Name & Yes ) Patient Requires Transmission-Based No Precautions Vital Signs Temperature (97.8 F-99.1 F) 98.6 F Temperature Source Temporal Pulse Rate (60-100) 83 Pulse Location Monitor Respiratory Rate (12-18) 18 Respiratory rate source Observation Blood Pressure (90/60-120/80) 144/67 H Blood Pressure Mean 92 Source Monitor Position Semi-Fowlers Blood Pressure Location Left Arm History Since Last Visit- (Skip if this is Patient's initial visit) Have you changed medications since your No last visit? Any new allergies or adverse reactions No Had a fall/change in ADL's that may No increase risk of falls Signs or symptoms of abuse and/or No neglect since last visit Have you been in the hospital since your No last visit? Has dressing in place as prescribed Yes Has compression in place as prescribed Yes Has offloadiing in place as prescribed N/A Experienced any changes in pain level or No management Pain Scale: 0-10 Numeric Is Patient Pain Free? Yes [facility] Nurse 1 - General Ulcer Measurement Start: 04/09/25 14:15 Freq: Status: Active Protocol: Activity Type Activity Date Activity User E-sign Co-sign Detail Recorded Client Recorded Date Recorded By Document 04/09/25 14:16 JF [id number] 04/09/25 14:19 [email or web address] 04/09/25 14:16 Wound Center Nurse 1 #3 ABD -Combined with other wound No Lower Limb Edema Present Yes Right Calf (cm) 48.8 Right Ankle (cm) 30.7 Left Calf (cm) 45.5 Left Ankle (cm) 28.3 - Nurse 2 - General Ulcer CM Notes Start: 04/09/25 14:15 Freq: Status: Active Protocol: Activity Type Activity Date Activity User E-sign Co-sign Detail Recorded Client Recorded Date Recorded By Document 04/09/25 14:37 DS [id number] 04/09/25 14:37 DS 04/09/25 14:37 Pain Scale: 0-10 Numeric Is Patient Pain Free? Yes - Nurse 3 - General Ulcer D/C NN Start: 04/09/25 14:15 Freq: Status: Active Protocol: Activity Type Activity Date Activity User E-sign Co-sign Detail Recorded Client Recorded Date Recorded By Document 04/09/25 15:03 JF [id number] 04/09/25 15:04 04/09/25 15:03 Wound Care Center Nurse 3 BLE -Tubular Bandage Single Layer -Size of Tubigrip Used Size F -Size F ($) 1 Pain Scale: 0-10 Numeric Is Patient Pain Free? Yes WC - Visit Discharge Discharge Condition Stable Ambulatory Status Ambulatory, Wheelchair Transportation Private Auto Accompanied by Medication Reconcilliation completed & No provided to patient/care provider Clinical Summary of Care Provided No Notes: Applied farrow wraps that were brought from home. Charges/Coding Visit Charges Office Visits / Consults: 22965 OV L3 Est 20min Assessment/Plan Assessment/Plan (1) Lymphedema of leg:
--- NOTE | 2025-04-09 16:11 | PCM.WC.HP ---
History of Present Illness Date of Service: 04/09/25 Chief Complaint: Bilateral lower extremity swelling, edema, and lymphedema History of Wound: This is a 74-year-old diabetic male with multiple pre-existing medical problems. The patient was referred by his primary care physician, Dr. Ward. The patient had been treated for lower extremity cellulitis by oral prescriptions for doxycycline and cephalexin. 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 Prednisone 10 mg p.o. daily x 7 days had been prescribed. The patient also has lower extremity mechanical compression pumps, which he had not been using. He is on systemic anticoagulation with Xarelto due to chronic atrial fibrillation. The patient claims to sleep on a flat mattress at night, with the head of his bed slightly elevated. He is not very active, and ambulates very little. He uses a wheel chair for mobility. He spends long hours each day sitting with his legs in a dependent position while watching television. The swelling in his legs has been ongoing for several years. In addition to pumps, he also has CircAid compression garments. The patient is morbidly obese, and is on Mounjaro currently. [facility] Medical History Lymphedema of leg Edema of both legs Cushings syndrome COPD (chronic obstructive pulmonary disease) Skin ulcer of abdominal wall with fat layer exposed Spinal stenosis Left adrenal mass Diabetic ulcer of left lower leg Bilateral lower extremity edema Persistent atrial fibrillation Essential hypertension (HFpEF) heart failure with preserved ejection fraction Thrombocytopenia Renal insufficiency Right upper lobe pneumonia Pneumonia due to COVID-19 virus (07/02/20) Home Medications ?Medication ?Instructions ?Recorded ?Last Taken ?Type atorvastatin 80 mg tablet 80 mg PO QHS 07/02/20 01/02/24 History empagliflozin 25 mg tablet 25 mg PO DAILY 07/02/20 01/03/24 History acetaminophen 500 mg tablet 500 mg PO BID PRN Pain 03/09/21 Unknown History (Tylenol Extra Strength) ppwmnydxsxih-qyjdflpt-utxhaa tablet 1 tab PO DAILY 03/09/21 01/03/24 History albuterol sulfate 90 mcg/actuation 2 puff inhalation Q6H 08/07/21 01/02/24 History aerosol inhaler icosapent ethyl 1 gram capsule 2 g PO BID 08/07/21 01/03/24 History pioglitazone 15 mg tablet 15 mg PO DAILY 08/07/21 01/03/24 History mifepristone 300 mg tablet (Korlym) 300 mg PO BID 12/15/21 01/03/24 History tamsulosin 0.4 mg capsule 0.4 mg PO DAILY 04/06/22 01/03/24 History insulin aspart U-100 100 unit/mL 10 unit subcut PRN 06/23/23 01/02/24 History (3 mL) subcutaneous pen (Novolog FlexPen U-100 Insulin aspart) pen needle, diabetic 31 gauge x #1,200 ea 06/23/23 Unknown History 10/19 (BD Ultra-Fine Short Pen Needle) tramadol 50 mg tablet 50 mg PO BID 06/23/23 01/03/24 History levocetirizine 5 mg tablet 5 mg PO QHS 01/03/24 01/02/24 History potassium chloride 10 mEq 10 meq PO DAILY 01/03/24 01/03/24 History tablet,extended release rivaroxaban 15 mg tablet (Xarelto) 15 mg PO DAILY 01/03/24 01/02/24 History lisinopril 20 mg tablet 20 mg PO DAILY 01/11/24 Unknown History turmeric root extract 500 mg tablet 500 mg PO BID 01/11/24 Unknown History levothyroxine 50 mcg tablet 75 mcg PO QDAY 09/04/24 Unknown History azelastine 137 mcg (0.1 %) nasal 2 spray intranasal BID PRN 11/13/24 Unknown History spray allergies cinnamon bark 500 mg capsule 5,000 mg PO DAILY 11/13/24 Unknown History furosemide 80 mg tablet See Rx Instructions PO .COMPLEX 11/13/24 Unknown History tirzepatide 10 mg/0.5 mL 10 mg subcut QWEEK 11/13/24 Unknown History subcutaneous pen injector (Mounjaro) spironolactone 50 mg tablet 50 mg PO DAILY #90 tabs 12/10/24 Unknown Rx tirzepatide 12.5 mg/0.5 mL 12.5 mg subcut QWEEK 12/19/24 Unknown History subcutaneous pen injector (Mounjaro) triamcinolone acetonide 0.5 % applic topical BID 04/02/25 Unknown History topical cream Allergy/AdvReac Type Severity Reaction Status Date / Time No Known Allergies Allergy Verified 12/19/24 13:15 Family History Father Heart disease Mother Alzheimer disease Surgical History S/P tonsillectomy S/P splenectomy Social History Smoking Status: Never smoker alcohol intake: never substance use type: does not use caffeine: Yes Type: carbonated beverages Number of servings: 1 and tea Number of servings: 1 Vital Signs Vital Signs Vital Signs: 04/09/25 14:16 Temperature 98.6 F Temperature Source Temporal Pulse Rate 83 Respiratory Rate 18 Blood Pressure 144/67 H Blood Pressure Mean 92 Blood Pressure Source Monitor Blood Pressure Position Semi-Fowlers Blood Pressure Location Left Arm Physical Exam Const alert, oriented x3, no apparent distress and well nourished Constitutional Narrative: The patient's BMI is 46.4. He is morbidly obese. General Appearance: cooperative, comfortable and well developed Orientation / Consciousness: awake, oriented to person, oriented to place and oriented to time HEENT normocephalic and head/scalp atraumatic Head and Scalp: normal to inspection, normocephalic and atraumatic Face and Sinus: normal facial exam Nose: external nose normal External Ear: external ears normal Eyes EOMs intact bilaterally General Eye: normal appearance of both eyes Alignment: alignment normal Resp normal respiratory effort, normal air movement, no retractions and no use of accessory muscles Effort and Inspection: able to speak in complete sentences Extremity no calf tenderness General Extremity: Negative for clubbing or cyanosis Skin Wound Narrative: There are no yanna open wounds or ulcerations in the patient's lower extremities. The swelling, edema, and lymphedema in his lower extremities is markedly improved since the patient's prior visit. There chronic dermatitic skin changes, notably lipodermatosclerosis and hyperpigmentation in the gaiter areas bilaterally. Neuro oriented x3, CN's II-XII intact bilaterally and moves all extremities Sensorium / Orientation: awake, alert, oriented to person, oriented to place and oriented to time Speech: speech normal Psych Appearance: grossly normal and appropriate Attitude: calm Activity / Motor Behavior: appropriate eye contact Speech: normal speech Mood & Affect: euthymic mood Attention / Concentration: attention grossly intact Debridement Note Debridement Note No debridement was completed: No debridement was completed today Post-Debridement Measurements and Additional Note: Post-Debridement Measurements/Treatment - Nurse 1 - General Ulcer Assessment Start: 04/09/25 14:15 Freq: Status: Active Protocol: JULIO Activity Type Activity Date Activity User E-sign Co-sign Detail Recorded Client Recorded Date Recorded By Document 04/09/25 14:16 JF [id number] 04/09/25 14:19 04/09/25 14:16 WC - Today's Visit Information Type of service Follow-up Visit (Physician/ACTUARY MANAGER ) Arrival Mode Wheelchair Transfer Assistance Manual Patient Identification Verified (Name & Yes ) Patient Requires Transmission-Based No Precautions Vital Signs Temperature (97.8 F-99.1 F) 98.6 F Temperature Source Temporal Pulse Rate (60-100) 83 Pulse Location Monitor Respiratory Rate (12-18) 18 Respiratory rate source Observation Blood Pressure (90/60-120/80) 144/67 H Blood Pressure Mean 92 Source Monitor Position Semi-Fowlers Blood Pressure Location Left Arm History Since Last Visit- (Skip if this is Patient's initial visit) Have you changed medications since your No last visit? Any new allergies or adverse reactions No Had a fall/change in ADL's that may No increase risk of falls Signs or symptoms of abuse and/or No neglect since last visit Have you been in the hospital since your No last visit? Has dressing in place as prescribed Yes Has compression in place as prescribed Yes Has offloadiing in place as prescribed N/A Experienced any changes in pain level or No management Pain Scale: 0-10 Numeric Is Patient Pain Free? Yes [facility] Nurse 1 - General Ulcer Measurement Start: 04/09/25 14:15 Freq: Status: Active Protocol: Activity Type Activity Date Activity User E-sign Co-sign Detail Recorded Client Recorded Date Recorded By Document 04/09/25 14:16 JF [id number] 04/09/25 14:19 04/09/25 14:16 Wound Center Nurse 1 #3 ABD -Combined with other wound No Lower Limb Edema Present Yes Right Calf (cm) 48.8 Right Ankle (cm) 30.7 Left Calf (cm) 45.5 Left Ankle (cm) 28.3 - Nurse 2 - General Ulcer CM Notes Start: 04/09/25 14:15 Freq: Status: Active Protocol: Activity Type Activity Date Activity User E-sign Co-sign Detail Recorded Client Recorded Date Recorded By Document 04/09/25 14:37 DS [id number] 04/09/25 14:37 DS 04/09/25 14:37 Pain Scale: 0-10 Numeric Is Patient Pain Free? Yes WC - Nurse 3 - General Ulcer D/C NN Start: 04/09/25 14:15 Freq: Status: Active Protocol: Activity Type Activity Date Activity User E-sign Co-sign Detail Recorded Client Recorded Date Recorded By Document 04/09/25 15:03 JF [id number] 04/09/25 15:04 JF 04/09/25 15:03 Wound Care Center Nurse 3 BLE -Tubular Bandage Single Layer -Size of Tubigrip Used Size F -Size F ($) 1 Pain Scale: 0-10 Numeric Is Patient Pain Free? Yes WC - Visit Discharge Discharge Condition Stable Ambulatory Status Ambulatory, Wheelchair Transportation Private Auto Accompanied by Medication Reconcilliation completed & No provided to patient/care provider Clinical Summary of Care Provided No Notes: Applied farrow wraps that were brought from home. 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 insulin use: with detention use Diabetes mellitus complication status: with other specified complication Qualified Code(s): E11.69 - Type 2 diabetes mellitus with other specified complication; Z79.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 (5) Mixed sleep apnea: CODE(S): G47.39 - Other sleep apnea (6) Dyspnea on exertion: CODE(S): R06.09 - Other forms of dyspnea (7) Bilateral primary osteoarthritis of knee: CODE(S): M17.0 - Bilateral primary osteoarthritis of knee (8) DDD (degenerative disc disease), lumbar: CODE(S): M51.36 - Other intervertebral disc degeneration, lumbar region (9) KATIANA (obstructive sleep apnea): CODE(S): G47.33 - Obstructive sleep apnea (adult) (pediatric) (10) Hypersomnolence: CODE(S): G47.10 - Hypersomnia, unspecified (11) Left adrenal mass: CODE(S): E27.8 - Other specified disorders of adrenal gland (12) SOB (shortness of breath): CODE(S): R06.02 - Shortness of breath (13) Persistent atrial fibrillation: CODE(S): I48.19 - Other persistent atrial fibrillation (14) (HFpEF) heart failure with preserved ejection fraction: CODE(S): I50.30 - Unspecified diastolic (congestive) heart failure QUALIFIERS: Heart failure chronicity: unspecified Qualified Code(s): I50.30 - Unspecified diastolic (congestive) heart failure (15) Essential hypertension: CODE(S): I10 - Essential (primary) hypertension (16) Hyperlipidemia: CODE(S): E78.5 - Hyperlipidemia, unspecified QUALIFIERS: Hyperlipidemia type: unspecified Qualified Code(s): E78.5 - Hyperlipidemia, unspecified (17) History of CVA (cerebrovascular accident): CODE(S): Z86.73 - Personal history of transient ischemic attack (TIA), and cerebral infarction without residual deficits (18) COPD (chronic obstructive pulmonary disease): CODE(S): J44.9 - Chronic obstructive pulmonary disease, unspecified (19) Cushings syndrome: CODE(S): E24.9 - Brooklyn's syndrome, unspecified PLAN: Plan This is a 74-year-old male with multiple pre-existing medical problems. The patient presented with bilateral lower extremity swelling, edema, and lymphedema. No open wounds or ulcerations are noted in the patient's lower extremities. However, chronic dermatitic changes are noted in the patient's lower extremities bilaterally, namely lipodermatosclerosis and hyperpigmentation. One week following the patient's initial presentation, the swelling and edema in the patient's lower extremities is markedly improved. At this junction, discharge appears to be appropriate. However, the patient is to require long-term commitment to the implementation of conservative measures relative to management of his lower extremity swelling and edema. A lengthy discussion has been undertaken with the patient and his in this regard. The patient has been encouraged to sleep on a flat mattress at night. The head of bed should only be elevated as necessary. The patient has been encouraged to elevate his lower extremities during daytime hours as well. Elevation is to be to heart level, or higher. This is to be implemented as much as possible. Prolonged idle sitting has been discouraged. The patient has been encouraged to ambulate as tolerated. However, significant enhancement of his activity level is unlikely. Continued weight loss efforts have been encouraged. As noted, the patient is currently on Mounjaro. The patient possesses pneumatic mechanical compression pumps, and has been encouraged to utilize these pumps 2-3 times daily. The patient has brought with him to this appointment the CircAid Velcro compression garment which he has in his possession. He and his have been instructed in the appropriate means of donning these garments. The garments are to be donned on a daily basis, upon arising each day, until bedtime. The use of a moisturizing lotion to the gaiter areas has been recommended at bedtime daily to avoid scaly, dermatitic changes. The patient is to follow-up henceforth on an as needed basis. Total time: 25 minutes
--- NOTE | 2025-04-18 08:46 | WC ---
received call from pts Neisha, asking about the compression sock under his circaides. informed her that if she calls his [employer] company that he could see about getting a new pair from them. and reinformed them that he should get a new pair either 1 time a year or 1 every 6months. Neisha states she just ordered a pair off [employer] and will see how that goes.
== END 2025-05-05 23:59 | disposition home or self-care (01) ==
LOC: WC 14:00
PROVIDERS: PCP Family Medicine Geriatric Medicine; Referring Provider Family Medicine Geriatric Medicine; Visit Provider Surgery
DX: I89.0 Lymphedema, not elsewhere classified (principal); I50.32 Chronic diastolic (congestive) heart failure; I11.0 Hypertensive heart disease with heart failure; J44.9 Chronic obstructive pulmonary disease, unspecified; I48.19 Other persistent atrial fibrillation; E66.01 Morbid (severe) obesity due to excess calories; Z68.42 Body mass index [BMI] 45.0-49.9, adult; Z79.4 Long term (current) use of insulin; E11.69 Type 2 diabetes mellitus with other specified complication; M79.3 Panniculitis, unspecified; L81.9 Disorder of pigmentation, unspecified; M17.0 Bilateral primary osteoarthritis of knee; E27.8 Other specified disorders of adrenal gland; E78.5 Hyperlipidemia, unspecified; E24.9 Cushing's syndrome, unspecified; R06.02 Shortness of breath; G47.39 Other sleep apnea; G47.10 Hypersomnia, unspecified; M51.369 Other intervertebral disc degeneration, lumbar region without mention of lumbar back pain or lower extremity pain; Z86.73 Personal history of transient ischemic attack (TIA), and cerebral infarction without residual deficits; Z79.01 Long term (current) use of anticoagulants; Z79.85 Long-term (current) use of injectable non-insulin antidiabetic drugs; Z79.899 Other long term (current) drug therapy; Z91.199 Patient's noncompliance with other medical treatment and regimen due to unspecified reason
CPT/HCPCS: 99213; G0463

== ENCOUNTER → 2025-05-14 | Outpatient (CLI) | payer MEDICARE, OTHER, SELFPAY | END | disposition home or self-care (01) | LOC: POLAB3 16:01 | PROVIDERS: PCP Family Medicine Geriatric Medicine; Visit Provider Family Medicine Geriatric Medicine | DX: E03.9 Hypothyroidism, unspecified (principal) | CPT/HCPCS: 36415; 84443 ==